=== PATIENT | female | born 1965 | race Caucasian/White ===

== ENCOUNTER 2023-03-21 12:11 | Outpatient (OUT) | payer OTHER, SELFPAY ==
--- NOTE | 2023-03-21 13:43 | PM.CN ---
Consult Note: HPI Data of Consult Patient: new to practice Consult date: 03/21/23 Requesting Physician: Regis Garrido MD Primary Care Provider: Varun Baumann MD Consult Narrative Reason for consult: Right knee pain Narrative: [id number] who presents for evaluation. Worsening right knee pain, ongoing for years. Underwent right meniscus surgery previously, but continued to have pain. Underwent right knee steroid injection with surgeon, but this did not provide relief. Referred here for consideration of right genicular nerve blocks. Continues in course of provider directed home exercise program, which has not provided relief for >6 weeks. Denies adverse med side effects. cc:: CC: Regis Garrido MD Review of Systems ROS Status of ROS 10 or more systems reviewed and unremarkable except as noted in history and below Exam Narrative Exam Narrative: Psych-alert and oriented x 3.? Attentive and appropriate, constitutionally normal, displays normal mood and affect per situation.? There are no obvious deficits in memory, reasoning, or intellect. Extremities-lower extremities are warm with minimal edema and palpable pulses. Knee-examination of the right knee reveals tenderness to palpation over the superior, inferior, lateral, and medial aspect of the knee.? Some swelling is noted without erythema. Pain is elicited with flexion and extension of the knee both actively and passively.? Some grinding is noted with these motions.? There is no notable ligamental laxity or instability.? Coordination remains intact.? Gait remains antalgic. Assessment and Plan Assessment and Plan (1) Right knee pain: Plan [id number] who presents for evaluation. Failed conservative measures, as noted. Given previous surgical history, persistent pain, and failure to respond to steroid injection, prudent to attempt right genicular nerve blocks under fluoroscopic guidance. she is in agreement. medications reviewed, no changes. follow up after procedure complete.
== END 2023-03-21 12:12 | disposition home or self-care (01) ==
PROVIDERS: PCP Family Medicine; Visit Provider Anesthesiology
DX: M25.561 Pain in right knee (principal)
CPT/HCPCS: G0463

== ENCOUNTER 2023-03-21 13:11 | Outpatient (OUT) | payer OTHER, SELFPAY ==
[2023-03-21 13:36] LABS: Basophils Percent Auto 0.6 % (0.2-2.0); Eosinophils Absolute Auto 0.1 10^3/uL (0.0-0.7); Eosinophils Percent Auto 1.6 % (0.9-7.0); Hematocrit 40.3 % (36.0-48.0); Hemoglobin 13.6 g/dL (12.0-16.0); Immature Granulocytes Abs Auto 0.06 10^3/uL (0.00-0.03); Immature Granulocytes Pct Auto 0.9 % (0.0-0.5); Lymphocytes Absolute Auto 2.1 10^3/uL (1.2-3.8); Lymphocytes Percent Auto 31.1 % (20.5-60.0); Mean Corpuscular HGB Conc 33.7 g/dL (29.9-35.2); Mean Corpuscular Hemoglobin 30.6 pg (26.7-34.0); Mean Corpuscular Volume 90.8 fL (81.0-99.0); Mean Platelet Volume 8.8 fL (9.5-13.5); Monocytes Absolute Auto 0.6 10^3/uL (0.3-0.8); Monocytes Percent Auto 9.2 % (1.7-12.0); Neutrophils Absolute Auto 3.9 10^3/uL (1.4-6.5); Neutrophils Percent Auto 56.6 % (43.0-75.0); Platelet Count 338 10^3/uL (150-450); Red Blood Count 4.44 10^6/uL (4.20-5.40); Red Cell Distribution Width 13.2 % (11.0-15.0); White Blood Count 6.8 10^3/uL (4.0-11.0)
[2023-03-21 13:56] LABS: Estimated Average Glucose 189 mg/dL; Glycohemoglobin A1C 8.2 % (4.5-6.2)
[2023-03-21 14:26] LABS: Alanine Aminotransferase 35 U/L (14-59); Albumin Globulin Ratio 1.4; Albumin Level 4.4 g/dL (3.4-5.0); Alkaline Phosphatase 96 U/L (46-116); Anion Gap 16.2; Aspartate Amino Transferase 17 U/L (15-37); BUN Creatinine Ratio 12.5; Bilirubin Total 0.6 mg/dL (0.2-1.0); Calcium 9.3 mg/dL (8.5-10.1); Carbon Dioxide 26.5 mmol/L (21.0-32.0); Chloride 102 mmol/L (98-107); Chol HDL Ratio 3.4; Cholesterol 161 mg/dL (<=200); Estimated GFR (African America >60 (>=60); Estimated GFR (Non-African Ame 54 (>=60); Globulin 3.1 g/dL; Glucose 168 mg/dL (74-106); HDL Cholesterol 47 mg/dL (40-60); Potassium 3.7 mmol/L (3.5-5.1); Sodium 141 mmol/L (136-145); Thyroid Stimulating Hormone 0.351 uIU/mL (0.358-3.740); Total Protein 7.5 g/dL (6.4-8.2); Triglycerides 327 mg/dL (<=150); VLDL CHOLESTEROL 65.4 mg/dL
== END 2023-03-21 13:12 | disposition home or self-care (01) ==
PROVIDERS: PCP Family Medicine; Visit Provider Family Medicine
DX: M25.561 Pain in right knee (principal); R53.83 Other fatigue; Z79.899 Other long term (current) drug therapy; E03.9 Hypothyroidism, unspecified; E78.5 Hyperlipidemia, unspecified; E78.1 Pure hyperglyceridemia; E11.9 Type 2 diabetes mellitus without complications
CPT/HCPCS: 36415; 80053; 80061; 83036; 84439; 84443; 85025; G0463

== ENCOUNTER 2023-04-04 09:15 | Day surgery (SDC) | payer OTHER, SELFPAY ==
[2023-04-04 10:00] VITALS: BP 123/84; PULSE 112; RESP 18; TEMP 36.3; O2SAT 95
[2023-04-04 10:00] LABS: Glucometer 227 mg/dL (74-106)
[2023-04-04 10:37] VITALS: BP 143/77; PULSE 112; RESP 18; O2SAT 92
[2023-04-04 10:39] VITALS: BP 149/82; PULSE 110; RESP 18; O2SAT 96
--- NOTE | 2023-04-04 10:39 | W.PM.PROCNOT ---
Date of procedure: 04/04/23 Pre-op diagnosis: Right knee osteoarthritis, right knee pain Post-op diagnosis: same as pre-op Procedure: Procedure: Right genicular nerve block Medications: Bupivacaine 0.25% 4cc, kenalog 40mg The patient was taken to the procedures suite and positioned in the supine position. I explained the details of the procedure to the patient including the risks, benefits and alternatives. We had an informed discussion and the patient verbalized understanding and signed the consent form. All questions were answered appropriately.? A 'time out' procedure was performed. The patient was identified, the chart was reviewed, and all allergies were confirmed. Laterality was conducted and marked. The right knee was marked with a sterile marking pen, prepped times three with alcohol, and sterilely draped.? Under fluoroscopic guidance, branches of the genicular nerves were localized.? First the superior medial genicular nerve was localized where the femoral shaft meets the medial epicondyle.? Skin was anesthetized with 1% lidocaine.? A 25-gauge 3.5 in needle was advanced in a coaxial manner in the AP view.? This was repeated on the superior lateral genicular nerve where the femoral shaft meets the lateral epicondyle and the inferior medial genicular nerve where the medial tibal shaft meets the tibial epicondyle. After negative aspiration for blood or other bodily fluids, 1cc of 0.25% bupivicaine was injected at each of the three sites. The needles were removed and the sites of injection were bandaged. The patient was transported to the postoperative area in good condition. Anesthesia: Local Surgeon: Regis Garrido Pathology: none sent Condition: stable Disposition: no change
[2023-04-04] MEDS: BUPIVACAINE HCL 0.25% PF 25 MG/10 ML VIAL 5 ML INJ (10:42)
[2023-04-04] MEDS: TRIAMCINOLONE ACETONIDE 40 MG/ML VIAL INJ (10:42)
== END 2023-04-04 10:43 | disposition home or self-care (01) ==
PROVIDERS: PCP Family Medicine; Visit Provider Anesthesiology
DX: M17.11 Unilateral primary osteoarthritis, right knee (principal); M25.561 Pain in right knee; Z79.84 Long term (current) use of oral hypoglycemic drugs
CPT/HCPCS: 36415; 64454; 77002; 82948

== ENCOUNTER 2023-04-14 09:37 | Outpatient (OUT) | payer OTHER, SELFPAY ==
--- OUTSIDE RECORDS SUMMARY | 2023-04-14 09:41 | XMS_ITS | CCD ---
Author Name Unknown Address [address] [place] [address] Organization [facility] Care Team Providers Care Manager Banquet Name Role Phone LENY, DR CASTRO Admitting Unavailable HOY, DR CASTRO Primary Care Unavailable HOY, DR CASTRO Consulting Unavailable HOY, DR CASTRO Attending Unavailable HOY, DR CASTRO Primary Care Unavailable HOY, DR CASTRO Consulting Unavailable HOY, DR CASTRO Attending Unavailable HOY, DR CASTRO Admitting Unavailable HOY, DR CASTRO Primary Care Unavailable HOY, DR CASTRO Consulting Unavailable HOY, DR CASTRO Attending Unavailable HOY, DR CASTRO Admitting Unavailable ZIEBER, DR MARBIN Moore Consulting Unavailable HOY, DR CASTRO Admitting Unavailable HOY, DR CASTRO Primary Care Unavailable HOY, DR CASTRO Consulting Unavailable HOY, DR CASTRO Attending Unavailable ZIEBER, DR MARBIN Moore Consulting Unavailable HOY, DR CASTRO Admitting Unavailable HOY, DR CASTRO Primary Care Unavailable HOY, DR CASTRO Consulting Unavailable HOY, DR CASTRO Attending Unavailable NILL, Bautista Moore Attending Unavailable Matthew Michele Referring Unavailable Radhika FIERRO, Regis Sheldon Attending Unavailable Radhika FIERRO, Regis Sheldon Attending Unavailable Allergies Allergy Classification Reported Allergen(s) Allergy Type Date of Onset Reaction(s) Facility (1 source) Codeine Drug Allergy 11-07-2014 [facility] Repository (1 source) Iodine (And Iodine Containting Drugs) Drug allergy (disorder) 10-02-2015 [facility] Repository (1 source) Shellfish Drug allergy (disorder) 11-07-2014 [facility] Repository Problems Active Problems Problem Classification Problem Date Documented Da te Episodic/Chronic Congestive heart failure; nonhypertensive (1 source) Unspecified diastolic (congestive) heart failure; Translations: [UNSPECIFIED DIASTOLIC HEART FAILURE] Onset: 08-14-2021 Chronic Essential hypertension (4 sources) Essential (primary) hypertension; Translations: [ESSENTIAL PRIMARY HYPERTENSION] Onset: 09-02-2021 Chronic Hypertension with complications and secondary hypertension (1 source) Hypertensive heart disease with heart failure; Translations: [HTN HEART DISEASE W/HEART FAIL] Onset: 08-14-2021 Chronic Thyroid disorders (5 sources) Hypothyroidism, unspecified; Translations: [HYPOTHYROIDISM UNSPECIFIED] Onset: 08-12-2021 Chronic Past or Other Problems Problem Classification Problem Date Documented Da te Episodic/Chronic Cardiac dysrhythmias (1 source) Palpitations; Translations: [PALPITATIONS] Onset: 09-08-2021 Episodic Deficiency and other anemia (1 source) Anemia, unspecified; Translations: [ANEMIA UNSPECIFIED] Onset: 08-14-2021 Episodic Malaise and fatigue (1 source) Other fatigue; Translations: [OTHER FATIGUE] Onset: 09-08-2021 Episodic Other screening for suspected conditions (not mental disorders or infectious disease) (4 sources) Encounter for screening mammogram for malignant neoplasm of breast; Translations: [ENC SCR MAMMO MALIG NEOPLASM BREAST] Onset: 11-17-2021 Episodic Residual codes; unclassified (1 source) Family history of malignant neoplasm of digestive organs; Translations: [FAM HX MALIG NEOPLASM DIGESTIV ORGN] Onset: 11-21-2021 Episodic Results Test Name Value Interpretation Reference Range Facility Physician Referralon 023 Physician Referral [id number] Normal [facility] INSULINon 03-04-2022 Insulin 9.8 uIU/mL Normal 2.6-24.9 [facility] Comment on above: Performed By: #### I NSULIN ####[facility] [address] [place] [address]DrPeg Silva CBC AUTO DIFFon 03-03-2022 BASO # 0.0 103/ul Normal 0.0-0.1 [facility] Comment on above: Performed By: #### C BC ####[facility] [address] [place] [address]DrPeg Silva Basophils/100 WBC (Bld) 0.6 % Normal 0.2-2.0 [facility] Comment on above: Performed By: #### C BC ####[facility] [address] [place], [place] [address]Dr. Lyndsey Silva EO # 0.1 103/ul Normal 0.0-0.7 [facility] Comment on above: Performed By: #### C BC ####[facility] [address] [place], [place] [address]Dr. Lyndsey Silva Eosinophils/100 WBC (Bld) 1.6 % Normal 0.9-7.0 [facility] Comment on above: Performed By: #### C BC ####[facility] [address] [place], [place] [address]Dr. Lyndsey Silva Erythrocyte distribution width (RBC) [Ratio] 13.2 % Normal 11.0-15.0 [facility] Comment on above: Performed By: #### C BC ####[facility] [address] [place], [place] [address]Dr. Lyndsey Silva Hematocrit (Bld) [Volume fraction] 41.8 % Normal 36.0-48.0 [facility] Comment on above: Performed By: #### C BC ####[facility] [address] [place], [place] [address]Dr. Lyndsey Silva Hemoglobin (Bld) [Mass/Vol] 14.3 g/dL Normal 12.0-16.0 [facility] Comment on above: Performed By: #### C BC ####[facility] [address] [place], [place] [address]Dr. Coriyamil Ricardo IG # 0.04 10e3/ul Critically high 0.00-0.03 [facility] Comment on above: Performed By: #### C BC ####[facility] [address] [place], [place] [address]Dr. Lyndsey Silva IG % 0.8 % Critically high 0.0-0.5 [facility] Comment on above: Performed By: #### C BC ####[facility] [address] [place], [place] [address]DrPeg Silva LYMPH # 1.8 103/ul Normal 1.2-3.8 [facility] Comment on above: Performed By: #### C BC ####[facility] [address] [place] [address]DrPeg Silva Lymphocytes/100 WBC (Bld) 35.3 % Normal 20.5-60.0 [facility] Comment on above: Performed By: #### C BC ####[facility] [address] [place] [address]DrPeg Silva MANUAL DIFF REQ NO Normal [facility] Comment on above: Performed By: #### C BC ####[facility] [address] [place] [address]DrPeg Silva MCH (RBC) [Entitic mass] 31.2 pg Normal 26.7-34.0 [facility] Comment on above: Performed By: #### C BC ####[facility] [address] [place], [place] [address]DrPeg Silva MCHC (RBC) [Mass/Vol] 34.2 g/dL Normal 29.9-35.2 [facility] Comment on above: Performed By: #### C BC ####[facility] [address] [place], [place] [address]DrPeg Silva MCV (RBC) [Entitic vol] 91.3 fL Normal 81.0-99.0 [facility] Comment on above: Performed By: #### C BC ####[facility] [address] [place], [place] [address]DrPeg Silva MONO # 0.5 103/ul Normal 0.3-0.8 [facility] Comment on above: Performed By: #### C BC ####[facility] [address] [place], [place] [address]DrPeg Silva Monocytes/100 WBC (Bld) 9.8 % Normal 1.7-12.0 [facility] Comment on above: Performed By: #### C BC ####[facility] [address] [place], [place] [address]DrPeg Silva NEUT # 2.6 103/ul Normal 1.4-6.5 [facility] Comment on above: Performed By: #### C BC ####[facility] [address] [place] [id number] Lyndsey Silva Neutrophils/100 WBC (Bld) 51.9 % Normal 43.0-75.0 [facility] Comment on above: Performed By: #### C BC ####[facility] [address] [place] [address]DrPeg Lyndsey Silva Platelet mean volume (Bld) [Entitic vol] 8.8 fL Critically low 9.5-13.5 [facility] Comment on above: Performed By: #### C BC ####[facility] [address] [place] [address]DrPeg yLndsey Silva PLT 304 103/ul Normal 150-450 [facility] Comment on above: Performed By: #### C BC ####[facility] [address] [place], [place] [address]DrPeg Lyndsey Silva RBC 4.58 106/ul Normal 4.20-5.40 [facility] Comment on above: Performed By: #### C BC ####[facility] [address] [place], [place] [address]DrPeg Lyndsey Silva WBC 5.0 103/ul Normal 4.0-11.0 [facility] Comment on above: Performed By: #### C BC ####[facility] [address] [place] [id number] Lyndsey Silva FREE THYROXINE INDEX T7on FTI 1.77 Normal 1.30-4.50 [facility] Comment on above: Performed By: #### L IPID, CMP, TSH, T7 ####[facility] [address] [place] [id number] Lyndsey Silva T3U 31.0 % Normal 30.0-39.0 [facility] Comment on above: Performed By: #### L IPID, CMP, TSH, T7 ####[facility] [address] [place] [address]Dr. Lyndsey Silva T4 [Mass/Vol] 5.70 ug/dL Normal 4.80-13.[address] [facility] Comment on above: Performed By: #### L IPID, CMP, TSH, T7 ####[facility] [address] [place], [place] [address]RdDr. Lyndsey Silva GLYCOHEMOGLOBIN A1Con 2021 ADA RECOMMENDATION SEE BELOW Normal [facility] Comment on above: Result Comment: ADA RECOMMENDED LIMIT 4.0 - 6.0 ADA THERAPEUTIC TARGET < 7.0 ACTION SUGGESTED > 7.0 Performed By: #### A 1C #### [facility] [address] [address] [address] Lyndsey Silva Glucose [Mass/Vol] 146 mg/dL Normal [facility] Comment on above: Performed By: #### A 1C #### [facility] [address] [address] [address] Lyndsey Silva HbA1c (Bld) [Mass fraction] 6.7 % Critically high 4.5-6.2 [facility] Comment on above: Performed By: #### A 1C #### [facility] [address] [address] [address] Lyndsey Silva IRONon 03-03-2022 Iron [Mass/Vol] 122.0 ug/dL Normal 50.0-170.0 [facility] Comment on above: Performed By: #### V ITB12, IRON, VITAD ####[facility] [address] [place] [address]Dr. Lyndsey Silva LIPID PROFILEon 03-03-2022 CHOL-HDL RATIO NORM SEE BELOW Normal [facility] Comment on above: Result Comment: 3.3 - 4.4 LOW RISK 4.4 - 7.1 AVERAGE RISK 7.1 - 11.0 MODERATE RISK >11.0 HIGH RISK Performed By: #### L IPID, CMP, TSH, T7 ####[facility] [address] [place], [place] [address]IqDr. Lyndsey Silva Cholesterol [Mass/Vol] 244 mg/dL Critically high <=200 [facility] Comment on above: Performed By: #### L IPID, CMP, TSH, T7 ####[facility] [address] [place], [place] [address]Dz. yLndsey Ricardo Cholesterol in HDL [Mass/Vol] 48 mg/dL Normal 40-60 [facility] Comment on above: Performed By: #### L IPID, CMP, TSH, T7 ####[facility] [address] [place], [place] [address]Yr. Lyndsey Ricardo Cholesterol in LDL [Mass/Vol] 133.0 mg/dL Normal [facility] Comment on above: Performed By: #### L IPID, CMP, TSH, T7 ####[facility] [address] [place] [id number]. Lyndsey Silva Cholesterol.total/Cho lesterol in HDL [Mass ratio] 5.1 {ratio} Normal [facility] Comment on above: Performed By: #### L IPID, CMP, TSH, T7 ####[facility] [address] [place] [id number]. Lyndsey Silva HDL NORMAL > or = 60 mg/dl - LO W CARDIOVASCULAR RISK <40 mg/dl - HIGH CARDIOVASCULAR RISK Normal [facility] Comment on above: Performed By: #### L IPID, CMP, TSH, T7 ####[facility] [address] [place] [id number]. Lyndsey Silva LDL CALC NORMAL SEE BELOW Normal [facility] Comment on above: Result Comment: <100 mg/dl OPTIMAL 100 - 129 mg/dl NEAR OR ABOVE OPTIMAL 130 - 159 mg/dl BORDERLINE HIGH 160 - 189 mg/dl HIGH >190 mg/dl VERY HIGH Performed By: #### L IPID, CMP, TSH, T7 ####[facility] [address] [place], [place] [address]Yf. Lyndsey Silva Triglyceride [Mass/Vol] 315 mg/dL Critically high <=150 [facility] Comment on above: Performed By: #### L IPID, CMP, TSH, T7 ####[facility] [address] [place] [address]Dr. Lyndsey Silva VLDL CALC 63.0 mg/dL Normal [facility] Comment on above: Performed By: #### L IPID, CMP, TSH, T7 ####[facility] [address] [place] [address]Dr. Lyndsey Silva PROF 14(COMP METB)on 022 Albumin [Mass/Vol] 4.6 g/dL Normal 3.4-5.0 [facility] Comment on above: Performed By: #### L IPID, CMP, TSH, T7 ####[facility] [address] [place] [address]Dr. Lyndsey Silva Albumin/Globulin [Mass ratio] 1.2 {ratio} Normal [facility] Comment on above: Performed By: #### L IPID, CMP, TSH, T7 ####[facility] [address] [place], [place] [address]Dr. Lyndsey Silva ALP [Catalytic activity/Vol] 79 U/L Normal 46-116 [facility] Comment on above: Performed By: #### L IPID, CMP, TSH, T7 ####[facility] [address] [place], [place] [address]Dr. Lyndsey Silva ALT [Catalytic activity/Vol] 26 U/L Normal 14-59 [facility] Comment on above: Performed By: #### L IPID, CMP, TSH, T7 ####[facility] [address] [place] [address]Dr. Lyndsey Silva Anion gap [Moles/Vol] 11.1 mmol/L Normal [facility] Comment on above: Performed By: #### L IPID, CMP, TSH, T7 ####[facility] [address] [place] [address]Dr. Lyndsey Silva AST [Catalytic activity/Vol] 16 U/L Normal 15-37 [facility] Comment on above: Performed By: #### L IPID, CMP, TSH, T7 ####[facility] [address] [place] [address]Dr. Lyndsey Silva Bilirubin [Mass/Vol] 0.6 mg/dL Normal 0.2-1.0 [facility] Comment on above: Performed By: #### L IPID, CMP, TSH, T7 ####[facility] [address] [place] [id number]. Lyndsey Silva Calcium [Mass/Vol] 9.7 mg/dL Normal 8.5-10.1 [facility] Comment on above: Performed By: #### L IPID, CMP, TSH, T7 ####[facility] [address] [place] [address]Dr. Lyndsey Silva Chloride [Moles/Vol] 102 mmol/L Normal 98-107 [facility] Comment on above: Performed By: #### L IPID, CMP, TSH, T7 ####[facility] [address] [place] [address]Dr. Lyndsey Silva CO2 [Moles/Vol] 28.7 mmol/L Normal 21.0-32.0 [facility] Comment on above: Performed By: #### L IPID, CMP, TSH, T7 ####[facility] [address] [place] [address]Dr. Lyndsey Ricardo Creatinine [Mass/Vol] 1.02 mg/dL Normal 0.55-1.02 [facility] Comment on above: Performed By: #### L IPID, CMP, TSH, T7 ####[facility] [address] [place], [place] [address]Dr. Coriyamil Ricardo EGFR-AF GERMAN >60 Normal >=60 [facility] Comment on above: Performed By: #### L IPID, CMP, TSH, T7 ####[facility] [address] [place] [address]Dr. Coriyamil Ricardo EGFR-NON AF GERMAN 56 mL/min/1.73m2 Critically low >=60 [facility] Comment on above: Performed By: #### L IPID, CMP, TSH, T7 ####[facility] [address] [place], [place] [address]Dr. Lyndsey Silva Globulin (S) [Mass/Vol] 3.9 g/dL Normal [facility] Comment on above: Performed By: #### L IPID, CMP, TSH, T7 ####[facility] [address] [place] [address]Dr. Lyndsey Silva Glucose [Mass/Vol] 130 mg/dL Critically high 74-106 [facility] Comment on above: Performed By: #### L IPID, CMP, TSH, T7 ####[facility] [address] [place] [address]Dr. Lyndsey Silva Potassium [Moles/Vol] 3.8 mmol/L Normal 3.5-5.1 [facility] Comment on above: Performed By: #### L IPID, CMP, TSH, T7 ####[facility] [address] [place] [address]Dr. Lyndsey Silva Protein [Mass/Vol] 8.5 g/dL Critically high 6.4-8.2 [facility] Comment on above: Performed By: #### L IPID, CMP, TSH, T7 ####[facility] [address] [place] [address]Dr. Lyndsey Silva Sodium [Moles/Vol] 138 mmol/L Normal 136-145 [facility] Comment on above: Performed By: #### L IPID, CMP, TSH, T7 ####[facility] [address] [place] [address]Dr. Lyndsey Silva Urea nitrogen [Mass/Vol] 25.0 mg/dL Critically high 7.0-18.0 [facility] Comment on above: Performed By: #### L IPID, CMP, TSH, T7 ####[facility] [address] [place] [address]Dr. Lyndsey Silva Urea nitrogen/Creatinine [Mass ratio] 24.5 mg/mg Normal [facility] Comment on above: Performed By: #### L IPID, CMP, TSH, T7 ####[facility] [address] [place] [address]Dr. Lyndsey Silva TSHon 03-03-2022 TSH 0.126 uIU/mL Critically low 0.358-3.740 [facility] Comment on above: Performed By: #### L IPID, CMP, TSH, T7 ####[facility] [address] [place] [address]Dr. Lyndsey Silva VITAMIN B12on 03-03-2022 Cobalamin (Vitamin B12) [Mass/Vol] 894.0 pg/mL Normal 193.0-986.0 [facility] Comment on above: Performed By: #### V ITB12, IRON, VITAD ####[facility] [address] [place], [place] [address]Lq. Lyndsey Silva VITAMIN D 25 OHon 03-03-2022 VIT D 25-OH 30.1 ng/mL Normal [facility] Comment on above: Performed By: #### V ITB12, IRON, VITAD ####[facility] [address] [place], [place] [address]Br. Lyndsey Silva VIT D RANGES SEE BELOW Normal [facility] Comment on above: Result Comment: <20 ng/mL Vit D deficient 20 - <30 ng/mL Vit D insufficient 30 - 100 ng/mL Vit D sufficient >100 ng/mL Potential Toxicity Performed By: #### V ITB12, IRON, VITAD ####[facility] [address] [place] [id number]. Lyndsey Silva MG MAMM SCREEN 3D LEILANI CADon 11-17-2021 MG MAMM SCREEN 3D LEILANI CAD Patient: ISA NEAL Exam Date: 11/17/2021 : 1965 Gender:F Ordering : DR MATTHEW MICHELE . Admission #: [id number] Family : Order #: [id number] CLICK HERE TO VIEW EXAM RADIOLOGY REPORT PROCEDURE: MAMMOGRAM SCREENING 3D BILATERAL CAD COMPARISON: MG MAMM SCREEN LEILANI W CAD, 01/18/2020. MG MAMM SCREEN LEILANI W CAD, 01/02/2019. INDICATIONS: Screening mammography Calculator Name NCI Breast Cancer Risk Assessment Tool 5 Year Breast Cancer Risk 2.10% Lifetime Breast Cancer Risk 12.80% Personal Breast Cancer No Personal Ovarian Cancer No Treatments None Family Cancers Mother with colon cancer at age 60. LOCATION: [facility] BREAST COMPOSITION: Heterogeneously dense,which may obscure small masses. FINDINGS: DIAGNOSTIC CATEGORY 2--BENIGN FINDING: RIGHT BREAST: No significant suspicious finding. Scattered benign-appearing calcifications are present. No significant change has occurred. LEFT BREAST: No significant suspicious finding. Scattered benign-appearing calcifications are present. No significant change has occurred. RECOMMENDATIONS: ROUTINE MAMMOGRAM AND CLINICAL EVALUATION IN 12 MONTHS. PLEASE NOTE: A NORMAL MAMMOGRAM DOES NOT EXCLUDE THE POSSIBILITY OF BREAST CANCER. A CLINICALLY SUSPICIOUS PALPABLE LUMP SHOULD BE BIOPSIED. Dictated by: Marbin Hansen M.D. on 11/17/2021 at 15:33 Approved by: Marbin Hansen M.D. on 11/17/2021 at 15:36 Normal [facility] STRESS/REST MULTIon 09-02 NM STRESS/REST MULTI Patient: ISA NEAL Exam Date: 09/02/2021 : 1965 Gender:F Ordering : DR MATTHEW MICHELE . Admission #: [id number] Family : Order #: [id number] CLICK HERE TO VIEW EXAM RADIOLOGY REPORT PROCEDURE: RADIONUCLIDE IMAGING STRESS/REST MULTI COMPARISON: LA STRESS/REST MULTI, 01/30/2016. INDICATIONS: Essential hypertension TECHNIQUE: Exam Description: Stress/Rest one day protocol gated SPECT Rest Imagin.1 mCi Tc-99m Cardiolite IV on 09/02/2021 Stress Imaging 30.7 mCi Tc-99m Cardiolite IV on 09/02/2021 Exercise Protocol: Paul Heart Rate (bpm): Rest: 92 Max: 162 PMHR: 99 Blood Pressure: Rest: 128/76 Max: 178/84 Exercise Time: Minutes: 6 Seconds: 01 Stage Reached: Stage: 2 Mets 7.2 Symptoms: none Rest and peak stress ECG findings were normal and the exercise portion of the study was normal per attending physician Dr. Cody . For more details please see separate cardiac stress test report. FINDINGS: QUALITY OF STUDY: Excellent. PERFUSION DEFECT: None. LOCATION: N/A SIZE: N/A. SEVERITY: N/A. TYPE: N/A. WALL MOTION: Normal. LV SIZE: Normal. 31 mL. TID / TCD: None; 0.5 LVEF: Normal. Calculated EF 92%. SUMMARY: Myocardial perfusion imaging study is NORMAL. CONCLUSION: 1. Normal nuclear medicine myocardial perfusion scan. Dictated by: Marbin Hansen M.D. on 09/02/2021 at 14:06 Approved by: Marbin Hansen M.D. on 09/02/2021 at 14:07 Normal [facility] ECHOCARDIO M/2D COMPLETEon 0 08-19-2021 ECHOCARDIO M/2D COMPLETE Patient: ISA NEAL Exam Date: 08/19/2021 : 1965 Gender:F Ordering : DR MATTHEW MICHELE . Admission #: [id number] Family : Order #: [id number] CLICK HERE TO VIEW EXAM ECHOCARDIOGRAM REPORT PROCEDURE: CARDIO PULMONARY ECHOCARDIO M/2D COMP INDICATIONS: Fatigue, hypertension COMPARISON: None. DESCRIPTION: COMPLETE ECHOCARDIOGRAM Real-time transthoracic echocardiography with 2D, M-mode, spectral and color flow Doppler performed. QUALITY: Technical quality was good. LEFT VENTRICLE: Normal chamber size. Proximal septal hypertrophy (sigmoid septum). Systolic function is hyperdynamic. Mildly increased intraventricular ejection velocities are seen related to hyperdynamic contractility. LV EF: Hyperdynamic left ventricular ejection fraction, (75%). DIASTOLIC: Diastolic function is indeterminate. ATRIAL SEPTUM: Visually appears intact. LEFT ATRIUM: Normal chamber size. RIGHT ATRIUM: Normal chamber size. RIGHT VENTRICLE: Normal chamber size. Normal right ventricular systolic function. TRICUSPID VALVE: Normal mobility and thickness. No stenosis with trivial regurgitation. MITRAL VALVE: Normal mobility and thickness. No evidence of mitral valve stenosis. There is no mitral annular calcification. No mitral regurgitation. AORTIC VALVE: Normal trileaflet appearance. No visible sclerosis. Normal leaflet mobility. No evidence of aortic valve stenosis. No aortic regurgitation. AORTIC ROOT: Normal diameter and appearance. Ascending aorta is normal in size. PULMONIC VALVE: Normal thickness and mobility. No stenosis. No regurgitation. PERICARDIUM: No evidence of pericardial effusion. IVC: Collapses with inspirations. PLEURA: CONCLUSION: 1. Left ventricular systolic function is hyperdynamic. LVEF is 75%. There is mild hypertrophy of the proximal interventricular septum with mildly increased intraventricular ejection velocities related to hyperdynamic contractility. 2. Normal right ventricular systolic function. 3. No significant valvular dysfunction. 4. No pericardial effusion. Adult Echocardiography Procedure Report Left Ventricle LVEDD (3.7 - 5.6 cm): 3.86 cm LVESD (2.2 - 4.0 cm): 1.84 cm LVIVS thickness (0.6 - 1.2 cm): 1.28 cm LVPW thickness (0.5 - 1.0 cm): 8.13 mm e': 10.40 cm/s E - e': 7.10 LVOT Area (cm2): 2.84 cm2 LVOT Diameter 1.90 cm Left Ventricular Ejection Fraction: 75 % Left Atrium LA Volume Index (2D A2C): 25.40 ml/m2 Left Atrium Systolic Dimension: 3.70 cm Left Atrium Systolic Area(A2C): 17.90 cm2 Left Atrium Systolic Area(A4C): 12.60 cm2 Left Atrium Systolic Volume(A2C): 08396 mm3 Left Atrium Systolic Volume(A4C): 65594 mm3 Mitral Valve MV E to A Ratio: 0.60 Mitral Valve A-Wave Peak Velocity: 115.00 cm/s Mitral Valve E-Wave Peak Velocity: 73.50 cm/s Right Ventricle Aorta AO Root Diam: 2.80 cm Aortic Valve AoV Area (Peak Arun): 2.14 cm2 Peak Velocity(Antegrade Flow): 134.00 cm/s Peak Gradient(Antegrade Flow): 7 mm[Hg] Tricuspid Valve Pulmonic Valve Peak Velocity: 119.00 cm/s Peak Gradient: 6 mm[Hg] Right Atrium Dictated by: John Ramon M.D. on 08/19/2021 at 17:22 Approved by: John Ramon M.D. on 08/19/2021 at 17:27 Normal [facility] BNPon 08-12-2021 Natriuretic peptide B (Bld) [Mass/Vol] 58.0 pg/mL Normal <=900.0 [facility] Comment on above: Performed By: #### B [employer], TSH, T7, CMP #### [facility] [address] [address] [address] Lyndsey Silva CBC AUTO DIFFon 08-12-2021 BASO # 0.1 103/ul Normal 0.0-0.1 [facility] Comment on above: Performed By: #### C BC #### [facility] [address] [address] [address] Lyndsey Silva Basophils/100 WBC (Bld) 0.4 % Normal 0.2-2.0 [facility] Comment on above: Performed By: #### C BC #### [facility] [address] [address] [address] Lyndsey Silva EO # 0.1 103/ul Normal 0.0-0.7 [facility] Comment on above: Performed By: #### C BC #### [facility] [address] [place] [address] Dr. Lyndsey Silva Eosinophils/100 WBC (Bld) 0.6 % Critically low 0.9-7.0 [facility] Comment on above: Performed By: #### C BC #### [facility] [address] [place] [address] Dr. Lyndsey Silva Erythrocyte distribution width (RBC) [Ratio] 13.6 % Normal 11.0-15.0 [facility] Comment on above: Performed By: #### C BC #### [facility] [address] [place] [address] Dr. Lyndsey Silva Hematocrit (Bld) [Volume fraction] 42.4 % Normal 36.0-48.0 [facility] Comment on above: Performed By: #### C BC #### [facility] [address] [place] [address] Dr. Lyndsey Silva Hemoglobin (Bld) [Mass/Vol] 14.3 g/dL Normal 12.0-16.0 [facility] Comment on above: Performed By: #### C BC #### [facility] [address] [place] [address] Dr. Lyndsey Silva IG # 0.17 10e3/ul Critically high 0.00-0.03 [facility] Comment on above: Performed By: #### C BC #### [facility] [address] [place] [address] Dr. Lyndsey Silva IG % 1.4 % Critically high 0.0-0.5 [facility] Comment on above: Performed By: #### C BC #### [facility] [address] [place] [address] Dr. Lyndsey Silva LYMPH # 2.6 103/ul Normal 1.2-3.8 [facility] Comment on above: Performed By: #### C BC #### [facility] [address] [place] [address] Dr. Lyndsey Silva Lymphocytes/100 WBC (Bld) 21.6 % Normal 20.5-60.0 [facility] Comment on above: Performed By: #### C BC #### [facility] [address] [place] [address] Dr. Lyndsey Silva MANUAL DIFF REQ NO Normal [facility] Comment on above: Performed By: #### C BC #### [facility] [address] [place] [address] Dr. Lyndsey Silva MCH (RBC) [Entitic mass] 31.5 pg Normal 26.7-34.0 [facility] Comment on above: Performed By: #### C BC #### [facility] [address] [place] [address] Dr. Lyndsey Silva MCHC (RBC) [Mass/Vol] 33.7 g/dL Normal 29.9-35.2 [facility] Comment on above: Performed By: #### C BC #### [facility] [address] [place] [address] Dr. Lyndsey Silva MCV (RBC) [Entitic vol] 93.4 fL Normal 81.0-99.0 [facility] Comment on above: Performed By: #### C BC #### [facility] [address] [place] [address] Dr. Lyndsey Silva MONO # 0.8 103/ul Normal 0.3-0.8 [facility] Comment on above: Performed By: #### C BC #### [facility] [address] [place] [address] Dr. Lyndsey Silva Monocytes/100 WBC (Bld) 6.9 % Normal 1.7-12.0 [facility] Comment on above: Performed By: #### C BC #### [facility] [address] [place] [address] Dr. Lyndsey Silva NEUT # 8.2 103/ul Critically high 1.4-6.5 [facility] Comment on above: Performed By: #### C BC #### [facility] [address] [place] [address] Dr. Lyndsey Silva Neutrophils/100 WBC (Bld) 69.1 % Normal 43.0-75.0 [facility] Comment on above: Performed By: #### C BC #### [facility] [address] [address] [address] Lyndsey Silva Platelet mean volume (Bld) [Entitic vol] 8.8 fL Critically low 9.5-13.5 [facility] Comment on above: Performed By: #### C BC #### [facility] [address] [address] [address] Lyndsey Silva PLT 341 103/ul Normal 150-450 [facility] Comment on above: Performed By: #### C BC #### [facility] [address] [address] [address] Lyndsey Silva RBC 4.54 106/ul Normal 4.20-5.40 [facility] Comment on above: Performed By: #### C BC #### [facility] [address] [place] [address] Dr. Lyndsey Silva WBC 11.9 103/ul Critically high 4.0-11.0 [facility] Comment on above: Performed By: #### C BC #### [facility] [address] [place] [address] Dr. Lyndsey Silva FREE THYROXINE INDEX T7on FTI 1.40 Normal [facility] Comment on above: Performed By: #### B [employer], TSH, T7, CMP #### [facility] [address] [place] [address] Dr. Lyndsey Silva T3U 31.0 % Normal 23.5-40.5 [facility] Comment on above: Performed By: #### [employer], TSH, T7, CMP #### [facility] [address] [address] [address] Lyndsey Silva T4 [Mass/Vol] 4.50 ug/dL Critically low 4.80-13.90 [facility] Comment on above: Performed By: #### [employer], TSH, T7, CMP #### [facility] [address] [address] [address] Lyndsey Silva IRONon 08-12-2021 Iron [Mass/Vol] 106.0 ug/dL Normal 50.0-170.0 [facility] Comment on above: Performed By: #### I STERLING #### [facility] [address] [place] [address] Dr. Lyndsey Silva PROF 14(COMP METB)on 022 Albumin [Mass/Vol] 5.0 g/dL Normal 3.4-5.0 [facility] Comment on above: Performed By: #### [employer], TSH, T7, CMP #### [facility] [address] [place] [address] Dr. Lyndsey Silva Albumin/Globulin [Mass ratio] 1.4 {ratio} Normal [facility] Comment on above: Performed By: #### [employer], TSH, T7, CMP #### [facility] [address] [place] [address] Dr. Lyndsey Silva ALP [Catalytic activity/Vol] 72 U/L Normal 46-116 [facility] Comment on above: Performed By: #### [employer], TSH, T7, CMP #### [facility] [address] [place] [address] Dr. Lyndsey Silva ALT [Catalytic activity/Vol] 35 U/L Normal 14-59 [facility] Comment on above: Performed By: #### [employer], TSH, T7, CMP #### [facility] [address] [place] [address] Dr. Lyndsey Silva Anion gap [Moles/Vol] 17.5 mmol/L Normal [facility] Comment on above: Performed By: #### [employer], TSH, T7, CMP #### [facility] [address] [place] [address] Dr. Lyndsey Silva AST [Catalytic activity/Vol] 20 U/L Normal 15-37 [facility] Comment on above: Performed By: #### [employer], TSH, T7, CMP #### [facility] [address] [place] [address] Dr. Lyndsey Silva Bilirubin [Mass/Vol] 1.2 mg/dL Critically high 0.2-1.0 [facility] Comment on above: Performed By: #### [employer], TSH, T7, CMP #### [facility] [address] [address] [address] Lyndsey Silva Calcium [Mass/Vol] 9.5 mg/dL Normal 8.5-10.1 [facility] Comment on above: Performed By: #### [employer], TSH, T7, CMP #### [facility] [address] [address] [address] Lyndsey Silva Chloride [Moles/Vol] 98 mmol/L Normal 98-107 [facility] Comment on above: Performed By: #### [employer], TSH, T7, CMP #### [facility] [address] [address] [address] Lyndsey Silva CO2 [Moles/Vol] 25.0 mmol/L Normal 21.0-32.0 [facility] Comment on above: Performed By: #### [employer], TSH, T7, CMP #### [facility] [address] [place] [address] Dr. Lyndsey Silva Creatinine [Mass/Vol] 1.17 mg/dL Critically high 0.55-1.02 [facility] Comment on above: Performed By: #### [employer], TSH, T7, CMP #### [facility] [address] [address] [address] Lyndsey Silva EGFR-AF GERMAN 58 mL/min/1.73m2 Critically low >=60 [facility] Comment on above: Performed By: #### [employer], TSH, T7, CMP #### [facility] [address] [place] [address] Dr. Lyndsey Silva EGFR-NON AF GERMAN 48 mL/min/1.73m2 Critically low >=60 [facility] Comment on above: Performed By: #### B [employer], TSH, T7, CMP #### [facility] [address] [address] [address] Lyndsey Silva Globulin (S) [Mass/Vol] 3.6 g/dL Normal [facility] Comment on above: Performed By: #### B [employer], TSH, T7, CMP #### [facility] [address] [address] [address] Lyndsey Silva Glucose [Mass/Vol] 123 mg/dL Critically high 74-106 [facility] Comment on above: Performed By: #### B [employer], TSH, T7, CMP #### [facility] [address] [place] [address] Dr. Lyndsey Silva Potassium [Moles/Vol] 4.5 mmol/L Normal 3.5-5.1 [facility] Comment on above: Performed By: #### [employer], TSH, T7, CMP #### [facility] [address] [place] [address] Dr. Lyndsey Silva Protein [Mass/Vol] 8.6 g/dL Critically high 6.1-8.2 [facility] Comment on above: Performed By: #### B [employer], TSH, T7, CMP #### [facility] [address] [place] [address] Dr. Lyndsey Silva Sodium [Moles/Vol] 136 mmol/L Normal 136-145 [facility] Comment on above: Performed By: #### B [employer], TSH, T7, CMP #### [facility] [address] [place] [address] Dr. Lyndsey Silva Urea nitrogen [Mass/Vol] 12.0 mg/dL Normal 7.0-18.0 [facility] Comment on above: Performed By: #### B [employer], TSH, T7, CMP #### [facility] [address] [place] [address] Dr. Lyndsey Silva Urea nitrogen/Creatinine [Mass ratio] 10.3 mg/mg Normal [facility] Comment on above: Performed By: #### B [employer], TSH, T7, CMP #### [facility] [address] [place] [address] Dr. Lyndsey Silva TSHon 08-12-2021 TSH 1.149 uIU/mL Normal 0.470-4.[address] [facility] Comment on above: Performed By: #### B [employer], TSH, T7, CMP #### [facility] [address] [place] [address] Dr. Lyndsey Silva TSH RANGE SEE BELOW Normal [facility] Comment on above: Result Comment: <0.3 4 UIU/ml HYPERTHYROID 0.34-5.60 UIU/ml EUTHYROID >5.60 UIU/ml HYPOTHYROID Performed By: #### B [employer], TSH, T7, CMP #### [facility] [address] [place], [place] [id number] Dr. Lyndsey Silva Encounters Encounter Date Encounter Type Care Provider Facility Start: 05-04-2023 ambulatory Bautista CRISTINA Facility :[facility] Start: 04-04-2023 End: 04-05-2023 ambulatory Regis Garrido MD Facility:[facility] Start: 03-25-2023 ambulatory Bautista CRISTINA Facility:[facility] Start: 03-21-2023 End: 03-22-2023 ambulatory Regis Garrido MD Facility:[facility] Start: 03-08-2023 ambulatory Bautista CRISTINA Facility:[facility] [place] Start: 03-06-2022 Encounter for genera l adult medical examination without abnormal findings DR MATTHEW MICHELE [facility] Start: 03-03-2022 End: 03-04-[address] MATTHEW MICHELE Facility:[facility] Start: 03-03-2022 End: 03-04-2022 Encounter for general adult medical examination without abnormal findings DR MATTHEW MICHELE Facility:[facility] Start: 11-17-2021 End: 11-18-[address] MATTHEW MICHELE Facility:[facility] Start: 09-02-2021 End: 09-03-[address] MATTHEW MICHELE Facility:[facility] Start: 08-19-2021 End: 08-20-[address] MATTHEW MICHELE Facility:[facility] Start: 08-12-2021 End: 08-13-[address] MATTHEW MICHELE Facility:[facility] Payers Date Payer Category Payer Unknown 1965 Unknown [id number] 1965 Unknown [id number] 1965 Unknown [id number] 1964 Unknown [id number] 2.16.84 [id number] 1964 Unknown [id number] 2.16.84 [id number] 1964 Unknown [id number] 2.16.8 [id number] 1964 Unknown [id number] 2.16. [id number] 1964 Unknown [id number] 2.16. [id number] 1959 Unknown [id number] Summary Purpose Family History No Family History Records FoundNo Family History Records FoundNo Family History Records Found Advance Directives No Advanced Directives Records FoundNo Advanced Directives Records FoundNo Advanced Directives Records Found Additional Source Comments INFORMATION SOURCE (unrecogn ized section and content) DATE CREATED AUTHOR 03/06/2022 Zainab [facility] DATE CREATED AUTHOR AUTHOR'S ORGANIZ ATION 03/28/2023 [facility] DATE CREATED AUTHOR AUTHOR'S ORGANIZ ATION 04/08/2023 [facility] FOR RECORDS PERTAINING TO PATIENTS WHO ARE OR HAVE BEEN ENROLLED IN A CHEMICAL DEPENDENCY/SUBSTANCEABUSE PROGRAM, SOME INFORMATION MAY BE OMITTED. This clinical summary was aggregated from multiple sources. Caution should be exercised in using it in the provision of clinical care. This summary normalizes information from multiple sources, and as a consequence, information in this document may materially change the coding, format and clinical context of patient data. In addition, data may be omitted in some cases. CLINICAL DECISIONS SHOULD BE BASED ON THE PRIMARY CLINICAL RECORDS. [facility] [employer]. provides no warranty or guarantee of the accuracy or completeness of information in this document.
--- NOTE | 2023-04-14 10:05 | PM.CN ---
Consult Note: HPI Data of Consult Patient: new to practice Consult date: 03/21/23 Requesting Physician: Ashley Montes NP Primary Care Provider: Varun Baumann MD Consult Narrative Reason for consult: Right knee pain Narrative: [id number] who presents for evaluation. Worsening right knee pain, ongoing for years. Underwent right meniscus surgery previously, but continued to have pain. Underwent right knee steroid injection with surgeon, but this did not provide relief. Referred here for consideration of right genicular nerve blocks. Continues in course of provider directed home exercise program, which has not provided relief for >6 weeks. Denies adverse med side effects. right genicular nerve block provided 50% pain relief and functional improvement immediately following and 1-2 hours after the procedure. cc:: CC: Ashley Montes NP Review of Systems ROS Status of ROS 10 or more systems reviewed and unremarkable except as noted in history and below Musculoskeletal Reports: joint pain Meds Home Medications and Allergies Home Medications Medication Instructions Recorded Confirmed Type aspirin 81 mg capsule 81 mg PO DAILY 03/21/23 04/04/23 History atorvastatin 80 mg tablet 80 mg PO DAILY 03/21/23 04/04/23 History calcium carbonate 600 mg-vitamin 1 tab PO DAILY 03/21/23 04/04/23 History D3 5 mcg (200 unit) tablet (Calcium 600 + D(3)) cholecalciferol (vitamin D3) 125 5,000 unit PO DAILY 03/21/23 04/04/23 History mcg (5,000 unit) capsule colesevelam 625 mg tablet 1,875 mg PO BID 03/21/23 04/04/23 History cyclobenzaprine 5 mg tablet 5 mg PO BID 03/21/23 04/04/23 History duloxetine 60 mg capsule,delayed 120 mg PO DAILY 03/21/23 04/04/23 History release empagliflozin 10 mg tablet 10 mg PO DAILY 03/21/23 04/04/23 History exenatide microspheres 2 mg/0.85 2 mg subcut QWEEK 03/21/23 04/04/23 History mL subcutaneous auto-injector ([employer] BCi) fenofibrate 150 mg capsule 150 mg PO DAILY 03/21/23 04/04/23 History ferrous sulfate 325 mg (65 mg 325 mg PO DAILY 03/21/23 04/04/23 History iron) tablet flaxseed oil 1,000 mg capsule 1,000 mg PO QID 03/21/23 04/04/23 History levothyroxine 125 mcg capsule 125 mcg PO DAILY 03/21/23 04/04/23 History liothyronine 5 mcg tablet 40 mcg PO DAILY 03/21/23 04/04/23 History metformin 500 mg tablet 500 mg PO BID 03/21/23 04/04/23 History metoprolol tartrate 50 mg tablet 50 mg PO BID 03/21/23 04/04/23 History (Lopressor) multivitamin (Daily Multi-Vitamin 1 tab PO DAILY 03/21/23 04/04/23 History tablet) nabumetone 1,000 mg tablet 1,000 mg PO BID 03/21/23 04/04/23 History niacin 1,000 mg tablet,extended 2,000 mg PO DAILY 03/21/23 04/04/23 History release pantoprazole 40 mg tablet,delayed 40 mg PO DAILY 03/21/23 04/04/23 History release pioglitazone 45 mg tablet 45 mg PO DAILY 03/21/23 04/04/23 History Allergies Allergy/AdvReac Type Severity Reaction Status Date / Time codeine Allergy Verified 04/04/23 09:55 Iodinated Contrast Media Allergy Verified 04/04/23 09:55 iodine Allergy Verified 04/04/23 09:55 Exam Narrative Exam Narrative: Psych-alert and oriented x 3.? Attentive and appropriate, constitutionally normal, displays normal mood and affect per situation.? There are no obvious deficits in memory, reasoning, or intellect. Extremities-lower extremities are warm with minimal edema and palpable pulses. Knee-examination of the right knee reveals tenderness to palpation over the superior, inferior, lateral, and medial aspect of the knee.? Some swelling is noted without erythema. Pain is elicited with flexion and extension of the knee both actively and passively.? Some grinding is noted with these motions.? There is no notable ligamental laxity or instability.? Coordination remains intact.? Gait remains antalgic. Assessment and Plan Assessment and Plan (1) Right knee pain: Plan continue f/u with Orthopedics as planned can call to schedule right genicular RFA under fluoroscopy as discussed today. risks vs benefits and procedure discussed. She is not interested at this time f/u as needed, if patient pursues right genicular RFA we will follow up 1 month after
== END 2023-04-14 09:38 | disposition home or self-care (01) ==
LOC: PM 09:37
PROVIDERS: PCP Family Medicine; Visit Provider Nurse Practitioner
DX: M25.561 Pain in right knee (principal)
CPT/HCPCS: G0463

== ENCOUNTER 2023-05-03 10:29 | Outpatient (OUT) | payer OTHER, SELFPAY ==
--- OUTSIDE RECORDS SUMMARY | 2023-05-03 10:36 | XMS_ITS | CCD ---
Author Name Unknown Address [address] [place] [address] [address] [place] [address] Organization [facility] Care Team Providers [employer] Name Role Phone LENY, DR CASTRO Admitting [...] Unavailable ZIEBER, DR MARBIN Moore Consulting Unavailable VINCEY, DR CASTRO Admitting Unavailable HOY, DR CASTRO Primary Care Unavailable HOY, DR CASTRO Consulting Unavailable VINCEY, DR CASTRO Attending Unavailable ZIEBER, DR MARBIN Moore Consulting Unavailable HOY, DR CASTRO Admitting Unavailable HOY, DR CASTRO Primary Care Unavailable HOY, DR CASTRO Consulting Unavailable LENY, DR CASTRO Attending Unavailable Radhika FIERRO, Regis Sheldon Attending Unavailable Radhika FIERRO, Regis Sheldon Attending Unavailable NILLBautista Attending Unavailable Matthew Michele Referring Unavailable Allergies Allergy Classification Reported Allergen(s) Allergy Type Date of Onset Reaction(s) Facility (2 sources) Codeine; Translations: [codeine] Drug Allergy 11-07-2014 [facility] Repository (1 source) Iodine (And Iodine Containting Drugs) Drug allergy (disorder) 10-02-2015 [facility] Repository (1 source) Shellfish Drug allergy (disorder) 11-07-2014 [facility] Repository (1 source) Fenofibrate; Translations: [TriCor] Drug Allergy [facility] Repository (1 source) Iodine; Translations: [iodine] Drug Allergy [facility] Repository Problems Active Problems Problem Classification Problem [...] Range Facility Physician Referralon 023 Physician Referral [phone] 1 [id number] Normal [facility] INSULINon 03-04-2022 Insulin 9.8 uIU/mL Normal 2.6-24.9 [facility] Comment on above: Performed By: #### I NSULIN ####[facility] [address] [address]DrPeg Silva CBC AUTO DIFFon 03-03-2022 BASO # 0.0 103/ul Normal 0.0-0.1 [facility] Comment on above: Performed By: #### C BC ####[facility] [address] [place] [address]Dr. Lyndsey Silva Basophils/100 WBC (Bld) 0.6 % Normal 0.2-2.0 [facility] Comment on above: Performed By: #### C BC ####[facility] Rxbtjouw[address] [place], [place] [address]Dr. Lyndsey Silva EO # 0.1 103/ul Normal 0.0-0.7 [facility] Comment on above: Performed By: #### C BC ####[facility] [address] [place], [place] [address]Dr. Lyndsey Silva Eosinophils/100 WBC (Bld) 1.6 % Normal 0.9-7.0 [facility] Comment on above: Performed By: #### C BC ####[facility] Q[address] [place], [place] [address]Dr. Lyndsey Silva Erythrocyte distribution width (RBC) [Ratio] 13.2 % Normal 11.0-15.0 [facility] Comment on above: Performed By: #### C BC ####[facility] Ric[address] [place], [place] [address]Dr. Lyndsey Silva Hematocrit (Bld) [Volume fraction] 41.8 % Normal 36.0-48.0 [facility] Comment on above: Performed By: #### C BC ####[facility] [address] [place], [place] [address]Dr. Lyndsey Silva Hemoglobin (Bld) [Mass/Vol] 14.3 g/dL Normal 12.0-16.0 [facility] Comment on above: Performed By: #### C BC ####[facility] [address] [place], [place] [address]Dr. Lyndsey Silva IG # 0.04 10e3/ul Critically high 0.00-0.03 [facility] Comment on above: Performed By: #### C BC ####[facility] T[address] [place], [place] [address]Dr. Lyndsey Silva IG % 0.8 % Critically high 0.0-0.5 [facility] Comment on above: Performed By: #### C BC ####[facility] [address] [place] [address]Dr. Lyndsey Silva LYMPH # 1.8 103/ul Normal 1.2-3.8 [facility] Comment on above: Performed By: #### C BC ####[facility] [address] [place] [address]Dr. Lyndsey Silva Lymphocytes/100 WBC (Bld) 35.3 % Normal 20.5-60.0 [facility] Comment on above: Performed By: #### C BC ####[facility] [address] [place] [address]Dr. Lyndsey Silva MANUAL DIFF REQ NO Normal [facility] Comment on above: Performed By: #### C BC ####[facility] [address] [place], [place] [address]Dr. Lyndsey Silva MCH (RBC) [Entitic mass] 31.2 pg Normal 26.7-34.0 [facility] Comment on above: Performed By: #### C BC ####[facility] [address] [place], [place] [address]Dr. Lyndsey Silva MCHC (RBC) [Mass/Vol] 34.2 g/dL Normal 29.9-35.2 [facility] Comment on above: Performed By: #### C BC ####[facility] [address] [place], [place] [address]Dr. Lyndsey Silva MCV (RBC) [Entitic vol] 91.3 fL Normal 81.0-99.0 [facility] Comment on above: Performed By: #### C BC ####[facility] [address] [place], [place] [address]Dr. Lyndsey Silva MONO # 0.5 103/ul Normal 0.3-0.8 [facility] Comment on above: Performed By: #### C BC ####[facility] Dw[address] [place], [place] [address]Dr. Lyndsey Silva Monocytes/100 WBC (Bld) 9.8 % Normal 1.7-12.0 [facility] Comment on above: Performed By: #### C BC ####[facility] [address] [place] [address]Dr. Lyndsey Silva NEUT # 2.6 103/ul Normal 1.4-6.5 [facility] Comment on above: Performed By: #### C BC ####[facility] [address] [place] [address]Dr. Lyndsey Silva Neutrophils/100 WBC (Bld) 51.9 % Normal 43.0-75.0 [facility] Comment on above: Performed By: #### C BC ####[facility] [address] [place] [address]Dr. Lyndsey Silva Platelet mean volume (Bld) [Entitic vol] 8.8 fL Critically low 9.5-13.5 [facility] Comment on above: Performed By: #### C BC ####[facility] [address] [place] [address]Dr. Lyndsey Silva PLT 304 103/ul Normal 150-450 [facility] Comment on above: Performed By: #### C BC ####[facility] [address] [place], [place] [address]Dr. Lyndsey Silva RBC 4.58 106/ul Normal 4.20-5.40 [facility] Comment on above: Performed By: #### C BC ####[facility] [address] [place] [address]Dr. Lyndsey Silva WBC 5.0 103/ul Normal 4.0-11.0 [facility] Comment on above: Performed By: #### C BC ####[facility] [address] [place] [address]Dr. Lyndsey Silva FREE THYROXINE INDEX T7on FTI 1.77 Normal 1.30-4.50 [facility] Comment on above: Performed By: #### L IPID, CMP, TSH, T7 ####[facility] [address] [place] [address]Dr. Lyndsey Silva T3U 31.0 % Normal 30.0-39.0 [facility] Comment on above: Performed By: #### L IPID, CMP, TSH, T7 ####[facility] [address] [place] [address]Dr. Lyndsey Silva T4 [Mass/Vol] 5.70 ug/dL Normal 4.80-13.90 [facility] Comment on above: Performed By: #### L IPID, CMP, TSH, T7 ####[facility] [address] [place] [address]DrPeg Silva GLYCOHEMOGLOBIN A1Con 2021 ADA RECOMMENDATION SEE BELOW Normal [facility] Comment on above: Result Comment: ADA RECOMMENDED LIMIT 4.0 - 6.0 ADA THERAPEUTIC TARGET < 7.0 ACTION SUGGESTED > 7.0 Performed By: #### A 1C #### [facility] [address] [address] [address] Lyndsey Silva Glucose [Mass/Vol] 146 mg/dL Normal [facility] Comment on above: Performed By: #### A 1C #### [facility] [address] [address] [address] Lyndsey Silva HbA1c (Bld) [Mass fraction] 6.7 % Critically high 4.5-6.2 [facility] Comment on above: Performed By: #### A 1C #### [facility] [address] [address] [address] Lyndsey Silva IRONon 03-03-2022 Iron [Mass/Vol] 122.0 ug/dL Normal 50.0-170.0 [facility] Comment on above: Performed By: #### V ITB12, IRON, VITAD ####[facility] [address] [place] [address]Dr. Lyndsey Silva LIPID PROFILEon 03-03-2022 CHOL-HDL RATIO NORM SEE BELOW Normal [facility] Comment on above: Result Comment: 3.3 - 4.4 LOW RISK 4.4 - 7.1 AVERAGE RISK 7.1 - 11.0 MODERATE RISK >11.0 HIGH RISK Performed By: #### L IPID, CMP, TSH, T7 ####[facility] [address] [place] [address]Dr. Lyndsey Silva Cholesterol [Mass/Vol] 244 mg/dL Critically high <=200 [facility] Comment on above: Performed By: #### L IPID, CMP, TSH, T7 ####[facility] [address] [place], [place] [address]Cq. Lyndsey Silva Cholesterol in HDL [Mass/Vol] 48 mg/dL Normal 40-60 [facility] Comment on above: Performed By: #### L IPID, CMP, TSH, T7 ####[facility] [address] [place] [address]Dr. Lyndsey Silva Cholesterol in LDL [Mass/Vol] 133.0 mg/dL Normal [facility] Comment on above: Performed By: #### L IPID, CMP, TSH, T7 ####[facility] [address] [place] [address]Dr. Lyndsey Silva Cholesterol.total/Cho lesterol in HDL [Mass ratio] 5.1 {ratio} Normal [facility] Comment on above: Performed By: #### L IPID, CMP, TSH, T7 ####[facility] [address] [place] [address]Dr. Lyndsey Silva HDL NORMAL > or = 60 mg/dl - LO W CARDIOVASCULAR RISK <40 mg/dl - HIGH CARDIOVASCULAR RISK Normal [facility] Comment on above: Performed By: #### L IPID, CMP, TSH, T7 ####[facility] [address] [place] [address]Dr. Lyndsey Silva LDL CALC NORMAL SEE BELOW Normal [facility] Comment on above: Result Comment: <100 mg/dl OPTIMAL 100 - 129 mg/dl NEAR OR ABOVE OPTIMAL 130 - 159 mg/dl BORDERLINE HIGH 160 - 189 mg/dl HIGH >190 mg/dl VERY HIGH Performed By: #### L IPID, CMP, TSH, T7 ####[facility] [address] [place] [address]Dr. Lyndsey Silva Triglyceride [Mass/Vol] 315 mg/dL Critically high <=150 [facility] Comment on above: Performed By: #### L IPID, CMP, TSH, T7 ####[facility] [address] [place] [address]Dr. Lyndsey Silva VLDL CALC 63.0 mg/dL Normal [facility] Comment on above: Performed By: #### L IPID, CMP, TSH, T7 ####[facility] [address] [place] [address]Dr. Lyndsey Silva PROF 14(COMP METB)on 022 Albumin [Mass/Vol] 4.6 g/dL Normal 3.4-5.0 [facility] Comment on above: Performed By: #### L IPID, CMP, TSH, T7 ####[facility] [address] [place] [address]Dr. Lyndsey Silva Albumin/Globulin [Mass ratio] 1.2 {ratio} Normal [facility] Comment on above: Performed By: #### L IPID, CMP, TSH, T7 ####[facility] [address] [place] [address]Dr. Lyndsey Silva ALP [Catalytic activity/Vol] 79 U/L Normal 46-116 [facility] Comment on above: Performed By: #### L IPID, CMP, TSH, T7 ####[facility] [address] [place] [address]Dr. Lyndsey Silva ALT [Catalytic activity/Vol] 26 U/L Normal 14-59 [facility] Comment on above: Performed By: #### L IPID, CMP, TSH, T7 ####[facility] [address] [place] [address]Dr. Lyndsey Silva Anion gap [Moles/Vol] 11.1 mmol/L Normal [facility] Comment on above: Performed By: #### L IPID, CMP, TSH, T7 ####[facility] [address] [place] [address]Dr. Lyndsey Silva AST [Catalytic activity/Vol] 16 U/L Normal 15-37 [facility] Comment on above: Performed By: #### L IPID, CMP, TSH, T7 ####[facility] [address] [place] [address]Dr. Lyndsey Silva Bilirubin [Mass/Vol] 0.6 mg/dL Normal 0.2-1.0 [facility] Comment on above: Performed By: #### L IPID, CMP, TSH, T7 ####[facility] [address] [place] [address]Dr. Lyndsey Silva Calcium [Mass/Vol] 9.7 mg/dL Normal 8.5-10.[address] [facility] Comment on above: Performed By: #### L IPID, CMP, TSH, T7 ####[facility] [address] [place] [address]Dr. Lyndsey Silva Chloride [Moles/Vol] 102 mmol/L Normal 98-107 [facility] Comment on above: Performed By: #### L IPID, CMP, TSH, T7 ####[facility] [address] [place] [address]Dr. Lyndsey Silva CO2 [Moles/Vol] 28.7 mmol/L Normal 21.0-32.[address] [facility] Comment on above: Performed By: #### L IPID, CMP, TSH, T7 ####[facility] [address] [place] [address]Dr. Lyndsey Silva Creatinine [Mass/Vol] 1.02 mg/dL Normal 0.55-1.02 [facility] Comment on above: Performed By: #### L IPID, CMP, TSH, T7 ####[facility] [address] [place] [address]Dr. Lyndsey Ricardo EGFR-AF PALAUAN >60 Normal >=[address] [facility] Comment on above: Performed By: #### L IPID, CMP, TSH, T7 ####[facility] [address] [place] [address]Dr. Lyndsey Ricardo EGFR-NON AF PALAUAN 56 mL/min/1.73m2 Critically low >=60 [facility] Comment on above: Performed By: #### L IPID, CMP, TSH, T7 ####[facility] [address] [place] [address]Dr. Lyndsey Silva Globulin (S) [Mass/Vol] 3.9 g/dL Normal [facility] Comment on above: Performed By: #### L IPID, CMP, TSH, T7 ####[facility] [address] [place] [address]Dr. Lyndsey Silva Glucose [Mass/Vol] 130 mg/dL Critically high 74-106 [facility] Comment on above: Performed By: #### L IPID, CMP, TSH, T7 ####[facility] [address] [place] [address]Dr. Lyndsey Silva Potassium [Moles/Vol] 3.8 mmol/L Normal 3.5-5.1 [facility] Comment on above: Performed By: #### L IPID, CMP, TSH, T7 ####[facility] [address] [place] [address]Dr. Lyndsey Silva Protein [Mass/Vol] 8.5 g/dL Critically high 6.4-8.2 [facility] Comment on above: Performed By: #### L IPID, CMP, TSH, T7 ####[facility] [address] [place], [place] [address]Dr. Lyndsey Silva Sodium [Moles/Vol] 138 mmol/L Normal 136-145 [facility] Comment on above: Performed By: #### L IPID, CMP, TSH, T7 ####[facility] [address] [place] [address]Dr. Lyndsey Silva Urea nitrogen [Mass/Vol] 25.0 mg/dL Critically high 7.0-18.0 [facility] Comment on above: Performed By: #### L IPID, CMP, TSH, T7 ####[facility] [address] [place] [address]Dr. Lyndsey Silva Urea nitrogen/Creatinine [Mass ratio] 24.5 mg/mg Normal [facility] Comment on above: Performed By: #### L IPID, CMP, TSH, T7 ####[facility] [address] [place] [address]Dr. Lyndsey Silva TSHon 03-03-2022 TSH 0.126 uIU/mL Critically low 0.358-3.740 [facility] Comment on above: Performed By: #### L IPID, CMP, TSH, T7 ####[facility] [address] [place] [address]Dr. Lyndsey Silva VITAMIN B12on 03-03-2022 Cobalamin (Vitamin B12) [Mass/Vol] 894.0 pg/mL Normal 193.0-986.0 [facility] Comment on above: Performed By: #### V ITB12, IRON, VITAD ####[facility] [address] [place] [address]Dr. Lyndsey Silva VITAMIN D 25 OHon 03-03-2022 VIT D 25-OH 30.1 ng/mL Normal [facility] Comment on above: Performed By: #### V ITB12, IRON, VITAD ####[facility] [address] [place] [address]Dr. Lyndsey [facility] VIT D RANGES SEE BELOW Normal [facility] Comment on above: Result Comment: <20 ng/mL Vit D deficient 20 - <30 ng/mL Vit D insufficient 30 - 100 ng/mL Vit D sufficient >100 ng/mL Potential Toxicity Performed By: #### V ITB12, IRON, VITAD ####[facility] [address] [place] [address]Dr. Lyndsey Silva MG MAMM SCREEN 3D LEILANI CADon 11-17-2021 MG MAMM SCREEN 3D LEILANI CAD Patient: ISA NEAL Exam Date: 11/17/2021 : 1965 Gender:F Ordering : DR MATTHEW MICHELE . Admission #: [id number] Family : Order #: [id number] CLICK HERE TO VIEW EXAM RADIOLOGY REPORT [...] colon cancer at age 59. LOCATION: [facility] BREAST COMPOSITION: Heterogeneously dense,which may [...] Hansen M.D. on 11/17/2021 at 15:36 Normal [facility] STRESS/REST MULTIon 09-02 NM STRESS/REST MULTI Patient: ISA NEAL Exam Date: 09/02/2021 : 1965 Gender:F Ordering : DR MATTHEW MICHELE . Admission #: [id number] Family : Order #: [id number] CLICK HERE TO VIEW EXAM RADIOLOGY REPORT PROCEDURE: RADIONUCLIDE IMAGING STRESS/REST MULTI COMPARISON: NM STRESS/REST MULTI, 01/30/2016. INDICATIONS: Essential hypertension TECHNIQUE: [...] Hansen M.D. on 09/02/2021 at 14:07 Normal [facility] ECHOCARDIO M/2D COMPLETEon 0 08-19-2021 ECHOCARDIO M/2D COMPLETE Patient: ISA NEAL Exam Date: 08/19/2021 : 1965 Gender:F Ordering : DR MATTHEW MICHELE . Admission #: [id number] Family : Order #: [id number] CLICK HERE TO VIEW EXAM ECHOCARDIOGRAM REPORT [...] Area(A4C): 12.60 cm2 Left Atrium Systolic Volume(A2C): 13525 mm3 Left Atrium Systolic Volume(A4C): 58724 mm3 Mitral Valve MV E to A [...] M.D. on 08/19/2021 at 17:27 Normal [facility] BNPon 08-12-2021 Natriuretic peptide B (Bld) [Mass/Vol] 58.0 pg/mL Normal <=900.0 [facility] Comment on above: Performed By: #### B SHEET METAL WORKER MAINTENANCE, TSH, T7, CMP #### [facility] [address] [address] [address] Lyndsey Silva CBC AUTO DIFFon 08-12-2021 BASO # 0.1 103/ul Normal 0.0-0.1 [facility] Comment on above: Performed By: #### C BC #### [facility] [address] [address] [address] Lyndsey Silva Basophils/100 WBC (Bld) 0.4 % Normal 0.2-2.0 [facility] Comment on above: Performed By: #### C BC #### [facility] [address] [address] [address] Lyndsey Silva EO # 0.1 103/ul Normal 0.0-0.7 [facility] Comment on above: Performed By: #### C BC #### [facility] [address] [address] [address] Lyndsey Silva Eosinophils/100 WBC (Bld) 0.6 % Critically low 0.9-7.0 [facility] Comment on above: Performed By: #### C BC #### [facility] [address] [place] [address] Dr. Lyndsey Silva Erythrocyte distribution width (RBC) [Ratio] 13.6 % Normal 11.0-15.0 [facility] Comment on above: Performed By: #### C BC #### [facility] [address] [place] [address] Dr. Lyndsey Silva Hematocrit (Bld) [Volume fraction] 42.4 % Normal 36.0-48.0 [facility] Comment on above: Performed By: #### C BC #### [facility] [address] [place] [address] Dr. Lyndsey Silva Hemoglobin (Bld) [Mass/Vol] 14.3 g/dL Normal 12.0-16.0 [facility] Comment on above: Performed By: #### C BC #### [facility] [address] [place] [address] Dr. Lyndsey Silva IG # 0.17 10e3/ul Critically high 0.00-0.03 [facility] Comment on above: Performed By: #### C BC #### [facility] [address] [place] [address] Dr. Lyndsey Silva IG % 1.4 % Critically high 0.0-0.5 [facility] Comment on above: Performed By: #### C BC #### [facility] [address] [place] [address] Dr. Lyndsey Silva LYMPH # 2.6 103/ul Normal 1.2-3.8 [facility] Comment on above: Performed By: #### C BC #### [facility] [address] [place] [address] Dr. Lyndsey Silva Lymphocytes/100 WBC (Bld) 21.6 % Normal 20.5-60.0 [facility] Comment on above: Performed By: #### C BC #### [facility] [address] [place] [address] Dr. Lyndsey Silva MANUAL DIFF REQ NO Normal [facility] Comment on above: Performed By: #### C BC #### [facility] [address] [place] [address] Dr. Lyndsey Silva MCH (RBC) [Entitic mass] 31.5 pg Normal 26.7-34.0 [facility] Comment on above: Performed By: #### C BC #### [facility] [address] [place] [address] Dr. Lyndsey Silva MCHC (RBC) [Mass/Vol] 33.7 g/dL Normal 29.9-35.2 [facility] Comment on above: Performed By: #### C BC #### [facility] [address] [place] [address] Dr. Lyndsey Silva MCV (RBC) [Entitic vol] 93.4 fL Normal 81.0-99.0 [facility] Comment on above: Performed By: #### C BC #### [facility] [address] [place] [address] Dr. Lyndsey Silva MONO # 0.8 103/ul Normal 0.3-0.8 [facility] Comment on above: Performed By: #### C BC #### [facility] [address] [place] [address] Dr. Lyndsey Silva Monocytes/100 WBC (Bld) 6.9 % Normal 1.7-12.0 [facility] Comment on above: Performed By: #### C BC #### [facility] [address] [place] [address] Dr. Lyndsey Silva NEUT # 8.2 103/ul Critically high 1.4-6.5 [facility] Comment on above: Performed By: #### C BC #### [facility] [address] [place] [address] Dr. Lyndsey Silva Neutrophils/100 WBC (Bld) 69.1 % Normal 43.0-75.0 [facility] Comment on above: Performed By: #### C BC #### [facility] [address] [place] [address] Dr. Lyndsey Silva Platelet mean volume (Bld) [Entitic vol] 8.8 fL Critically low 9.5-13.5 [facility] Comment on above: Performed By: #### C BC #### [facility] [address] [place] [address] Dr. Lyndsey Silva PLT 341 103/ul Normal 150-450 [facility] Comment on above: Performed By: #### C BC #### [facility] [address] [place] [address] Dr. Lyndsey Silva RBC 4.54 106/ul Normal 4.20-5.40 [facility] Comment on above: Performed By: #### C BC #### [facility] [address] [place] [address] Dr. Lyndsey Silva WBC 11.9 103/ul Critically high 4.0-11.0 [facility] Comment on above: Performed By: #### C BC #### [facility] [address] [place] [address] Dr. Lyndsey Silva FREE THYROXINE INDEX T7on FTI 1.40 Normal [facility] Comment on above: Performed By: #### B SHEET METAL WORKER MAINTENANCE, TSH, T7, CMP #### [facility] [address] [place] [address] Dr. Lyndsey Silva T3U 31.0 % Normal 23.5-40.5 [facility] Comment on above: Performed By: #### B SHEET MET[employer] WORKER MAINTENANCE, TSH, T7, CMP #### [facility] [address] [place] [address] Dr. Lyndsey Silva T4 [Mass/Vol] 4.50 ug/dL Critically low 4.80-13.90 [facility] Comment on above: Performed By: #### B SHEET METAL WORKER MAINTENANCE, TSH, T7, CMP #### [facility] [address] [place] [address] Dr. Lyndsey Silva IRONon 08-12-2021 Iron [Mass/Vol] 106.0 ug/dL Normal 50.0-170.0 [facility] Comment on above: Performed By: #### I STERLING #### [facility] [address] [place] [address] Dr. Lyndsey Silva PROF 14(COMP METB)on 022 Albumin [Mass/Vol] 5.0 g/dL Normal 3.4-5.0 [facility] Comment on above: Performed By: #### B SHEET METAL WORKER MAINTENANCE, TSH, T7, CMP #### [facility] [address] [place] [address] Dr. Lyndsey Silva Albumin/Globulin [Mass ratio] 1.4 {ratio} Normal [facility] Comment on above: Performed By: #### B SHEET METAL WORKER MAINTENANCE, TSH, T7, CMP #### [facility] [address] [place] [address] Dr. Lyndsey Silva ALP [Catalytic activity/Vol] 72 U/L Normal 46-116 [facility] Comment on above: Performed By: #### B SHEET METAL WORKER MAINTENANCE, TSH, T7, CMP #### [facility] [address] [place] [address] Dr. Lyndsey Silva ALT [Catalytic activity/Vol] 35 U/L Normal 14-59 [facility] Comment on above: Performed By: #### B SHEET METAL WORKER MAINTENANCE, TSH, T7, CMP #### [facility] [address] [place] [address] Dr. Lyndsey Silva Anion gap [Moles/Vol] 17.5 mmol/L Normal [facility] Comment on above: Performed By: #### B SHEET METAL WORKER MAINTENANCE, TSH, T7, CMP #### [facility] [address] [place] [address] Dr. Lyndsey Silva AST [Catalytic activity/Vol] 20 U/L Normal 15-37 [facility] Comment on above: Performed By: #### B SHEET METAL WORKER MAINTENANCE, TSH, T7, CMP #### [facility] [address] [place] [address] Dr. Lyndsey Silva Bilirubin [Mass/Vol] 1.2 mg/dL Critically high 0.2-1.0 [facility] Comment on above: Performed By: #### B SHEET MET[employer] WORKER MAINTENANCE, TSH, T7, CMP #### [facility] [address] [address] [address] Lyndsey Silva Calcium [Mass/Vol] 9.5 mg/dL Normal 8.5-10.1 [facility] Comment on above: Performed By: #### B SHEET MET[employer] WORKER MAINTENANCE, TSH, T7, CMP #### [facility] [address] [place] [address] Dr. Lyndsey Silva Chloride [Moles/Vol] 98 mmol/L Normal 98-107 [facility] Comment on above: Performed By: #### B SHEET METAL WORKER MAINTENANCE, TSH, T7, CMP #### [facility] [address] [place] [address] Dr. Lyndsey Silva CO2 [Moles/Vol] 25.0 mmol/L Normal 21.0-32.0 [facility] Comment on above: Performed By: #### B SHEET METAL WORKER MAINTENANCE, TSH, T7, CMP #### [facility] [address] [place] [address] Dr. Lyndsey Silva Creatinine [Mass/Vol] 1.17 mg/dL Critically high 0.55-1.02 [facility] Comment on above: Performed By: #### B SHEET METAL WORKER MAINTENANCE, TSH, T7, CMP #### [facility] [address] [place] [address] Dr. Lyndsey Silva EGFR-AF PALAUAN 58 mL/min/1.73m2 Critically low >=60 [facility] Comment on above: Performed By: #### B SHEET METAL WORKER MAINTENANCE, TSH, T7, CMP #### [facility] [address] [place] [address] Dr. Lyndsey Silva EGFR-NON AF PALAUAN 48 mL/min/1.73m2 Critically low >=60 [facility] Comment on above: Performed By: #### B SHEET METAL WORKER MAINTENANCE, TSH, T7, CMP #### [facility] [address] [place] [address] Dr. Lyndsey Silva Globulin (S) [Mass/Vol] 3.6 g/dL Normal [facility] Comment on above: Performed By: #### B SHEET METAL WORKER MAINTENANCE, TSH, T7, CMP #### [facility] [address] [address] [address] Lyndsey Silva Glucose [Mass/Vol] 123 mg/dL Critically high 74-106 [facility] Comment on above: Performed By: #### B SHEET METAL WORKER MAINTENANCE, TSH, T7, CMP #### [facility] [address] [place] [address] Dr. Lyndsey Silva Potassium [Moles/Vol] 4.5 mmol/L Normal 3.5-5.1 [facility] Comment on above: Performed By: #### B SHEET METAL WORKER MAINTENANCE, TSH, T7, CMP #### [facility] [address] [place] [address] Dr. Lyndsey Silva Protein [Mass/Vol] 8.6 g/dL Critically high 6.1-8.2 [facility] Comment on above: Performed By: #### B SHEET METAL WORKER MAINTENANCE, TSH, T7, CMP #### [facility] [address] [place] [address] Dr. Lyndsey Silva Sodium [Moles/Vol] 136 mmol/L Normal 136-145 [facility] Comment on above: Performed By: #### B SHEET METAL WORKER MAINTENANCE, TSH, T7, CMP #### [facility] [address] [place] [address] Dr. Lyndsey Silva Urea nitrogen [Mass/Vol] 12.0 mg/dL Normal 7.0-18.0 [facility] Comment on above: Performed By: #### B SHEET METAL WORKER MAINTENANCE, TSH, T7, CMP #### [facility] [address] [place] [address] Dr. Lyndsey Silva Urea nitrogen/Creatinine [Mass ratio] 10.3 mg/mg Normal [facility] Comment on above: Performed By: #### B SHEET METAL WORKER MAINTENANCE, TSH, T7, CMP #### [facility] [address] [place] [address] Dr. Lyndsey Silva TSHon 08-12-2021 TSH 1.149 uIU/mL Normal 0.470-4.680 [facility] Comment on above: Performed By: #### B SHEET METAL WORKER MAINTENANCE, TSH, T7, CMP #### [facility] [address] [place], [place] [address] Dr. Lyndsey Silva TSH RANGE SEE BELOW Normal [facility] Comment on above: Result Comment: <0.3 4 UIU/ml HYPERTHYROID 0.34-5.60 UIU/ml EUTHYROID >5.60 UIU/ml HYPOTHYROID Performed By: #### B SHEET METAL WORKER MAINTENANCE, TSH, T7, CMP #### [facility] [id number] Lyndsey Silva Encounters Encounter Date Encounter Type Care Provider Facility Start: 05-04-2023 ambulatory Bautista CRISTINA Facility :[facility] Start: 04-04-2023 End: 04-05-2023 ambulatory Regis Garrido MD Facility:[facility] Start: 03-25-2023 ambulatory Bautista CRISTINA Facility:[facility] [place] Start: 03-21-2023 End: 03-22-2023 ambulatory Regis Garrido MD Facility:[facility] Start: 03-08-2023 ambulatory Bautista CRISTINA Facility:[facility] Start: 03-06-2022 Encounter for genera l adult medical examination without abnormal findings DR MATTHEW MICHELE [facility] Start: 03-03-2022 End: 03-04-2022 ambulatory [...] Date Payer Category Payer Unknown 1965 Unknown [id number] 2.16.84 [id number] 1965 Unknown [id number] 2.16.84 [id number] 1965 Unknown [id number] 2.16.84 [id number] 1964 Unknown [id number] 2.16.84 [id number] 1964 Unknown [id number] 2.16.84 [id number] 1964 Unknown [id number] 2.16. [id number] 1964 Unknown [id number] 2.16. [id number] 1964 Unknown [id number] 2.16.8 [id number] 1959 Unknown [id number] Summary Purpose Family History No Family History Records FoundNo Family History Records FoundNo Family History Records Found Advance Directives No Advanced Directives Records FoundNo Advanced Directives Records FoundNo Advanced Directives Records Found Additional Source Comments INFORMATION SOURCE (unrecogn ized section and content) DATE CREATED AUTHOR 03/06/2022 [facility] DATE CREATED AUTHOR AUTHOR'S ORGANIZ ATION 04/08/2023 [facility] DATE CREATED AUTHOR AUTHOR'S ORGANIZ ATION 04/26/2023 [facility] FOR RECORDS PERTAINING TO PATIENTS WHO ARE [...] BE BASED ON THE PRIMARY CLINICAL RECORDS. [facility] [employer] [facility]. provides no warranty or guarantee of the accuracy or completeness of information in this document.
[2023-05-03 11:19] LABS: Estimated Average Glucose 174 mg/dL; Glycohemoglobin A1C 7.7 % (4.5-6.2)
== END 2023-05-03 10:30 | disposition home or self-care (01) ==
LOC: LAB 10:31
PROVIDERS: PCP Family Medicine; Visit Provider Orthopaedic Surgery
DX: R73.03 Prediabetes (principal)
CPT/HCPCS: 36415; 83036

== ENCOUNTER 2023-06-14 14:16 | Outpatient (OUT) | payer OTHER, SELFPAY | END 2023-06-14 14:17 | disposition home or self-care (01) | LOC: PST 14:16 | PROVIDERS: PCP Family Medicine; Visit Provider Surgery | DX: Z12.11 Encounter for screening for malignant neoplasm of colon (principal); Z80.0 Family history of malignant neoplasm of digestive organs ==

== ENCOUNTER 2023-06-22 06:14 | Day surgery (SDC) | payer OTHER, SELFPAY ==
--- NOTE | 2023-06-22 | OP_ITS ---
OPERATION DATE: 06/22/2023 PREOPERATIVE DIAGNOSIS: Family history of colon cancer. POSTOPERATIVE DIAGNOSIS: Normal colonoscopy to cecum. PROCEDURE: Colonoscopy to cecum. SURGEON: Bautista Castillo M.D. ANESTHESIA: Monitored anesthesia care. ESTIMATED BLOOD LOSS: Zero. INDICATIONS AND CONSENT: Patient is a 57-year-old female with a family history of colon cancer, presents for surveillance colonoscopy. Last colonoscopy was 2015, which was within normal limits. Indications, risks, benefits, alternatives of proceeding with colonoscopy were explained extensively to the patient, including the risks of bleeding, colon perforation or anesthetic complications. All of her questions were answered. Informed consent was obtained. PROCEDURE: Patient brought to the operating room, placed in the left lateral decubitus position. Monitored anesthesia care was provided. Rectal exam was performed which showed no masses or blood. The scope was inserted into the anal canal. Under direct visualization was advanced to the cecum, with the aid of abdominal compression. Cecal markings were clearly identified. There was noted to be a good prep. Upon withdrawal of the scope, mucosal surfaces were carefully examined. There were no mass lesions or polyps. No inflammatory changes or ulcerations. No significant diverticulosis. The scope was retroflexed in the anal canal. There was no significant hemorrhoidal disease. Scope was then withdrawn. Patient tolerated procedure well, was sent to recovery room in good condition. f/u screening colonoscopy in 5 years. CC: Yusra Bhat
--- OUTSIDE RECORDS SUMMARY | 2023-06-22 06:16 | XMS_ITS | CCD ---
Author Name Unknown Address [address] [place] [address] Organization [facility] Care Team Providers Care Card Writer Hand Name Role Phone LENY, DR CASTRO Admitting Unavailable HOY, DR CASTRO Primary Care Unavailable HOY, DR CASTRO Consulting Unavailable HOY, DR CASTRO Attending Unavailable HOY, DR CASTRO Primary Care Unavailable HOY, DR CASTRO Consulting Unavailable VINCEY, DR CASTRO Attending Unavailable HOY, DR CASTRO Admitting Unavailable HOY, DR CASTRO Primary Care Unavailable HOY, DR CASTRO Consulting Unavailable HOY, DR CASTRO Attending Unavailable HOY, DR CASTRO Admitting Unavailable ZIEBER, DR MARBIN Moore Consulting Unavailable LENY, DR CASTRO Admitting Unavailable LENY, DR CASTRO Primary Care Unavailable VINCEY, DR CASTRO Consulting Unavailable LENY, DR CASTRO Attending Unavailable ZIEBER, DR MARBIN Moore Consulting Unavailable HOY, DR CASTRO Admitting Unavailable HOAroldo, DR CASTRO Primary Care Unavailable HOAroldo, DR CASTRO Consulting Unavailable LENY, DR CASTRO Attending Unavailable Radhika FIERRO, Regis Sheldon Attending Unavailable Radhika FIERRO, Regis Sheldon Attending Unavailable Bautista CRISTINA Attending Unavailable Matthew Baumann Referring Unavailable Matthew Baumann Primary Care Physician CARLEEN LALA Attending Unavailable NIRAV BERUMEN Attending Unavailable NIRAV BERUMEN Referring Unavailable AP HERNANDEZ Attending Unavailable CARLEEN LALA Referring Unavailable NIRAV BERUMEN Referring Unavailable CARLEEN LALA Attending Unavailable Matthew Baumann MD Primary Care Provider [phone] Allergies Allergy Classification Reported Allergen(s) Allergy Type Date of Onset Reaction(s) Facility (2 sources) Codeine; Translations: [codeine] Drug Allergy 5 [facility]ository (1 source) Iodine (And Iodine Containting Drugs) Drug allergy (disorder) 6 [facility] (1 source) Shellfish Drug allergy (disorder) 5 [facility] (2 sources) Fenofibrate; Translations: [TriCor] Drug Allergy Abdominal pain (finding) [facility] Repository (1 source) Iodine; Translations: [iodine] Drug Allergy [facility] Repository (2 sources) Codeine; Translations: [codeine] Drug Allergy 0 Weal (disorder), Rash [facility] (1 source) Contrast media Allergy to substance Weal (disorder) [facility] [place] (1 source) Shellfish Propensity to adverse reactions to drug 3 [facility] (1 source) Iodinated Contrast Media Propensity to adverse reactions to drug 3 Abdominal Pain [facility] Medications Current Medications Medication Drug Class(es) Dates Sig (Normalized) Sig (Original) aspirin 81 mg delayed release oral tablet (2 sources) Platelet Aggregation Inhibitor, Nonsteroidal Anti-inflammatory Drug Start: 04-25-2023 take 1 tablet by mouth once daily aspirin 81 mg Oral EC Tab 81 mg = 1 tab(s), Oral, Daily, Refills(s) 0 Start Date: 04/25/23 Status: Ordered atorvastatin 80 mg oral tablet (2 sources) HMG-CoA Reductase Inhibitor Start: 04-25-2023 take 1 tablet by mouth once daily atorvastatin 80 mg Tab 80 mg = 1 tab(s), Oral, Daily, Refills(s) 0 Start Date: 04/25/23 Status: Ordered Bydureon BCise (1 source) Start: 04-25-2023 inject 2 mg by subcutaneous injection every week Bydureon BCise 2 mg, SubCutaneous, qWeek, Refills(s) 0 Start Date: 04/25/23 Status: Ordered Calcium Carbonate / vitamin D3 (1 source) take 1 tablet by mouth once daily in the morning calcium carbonate/vitamin D3 (CALCIUM 500 WITH D ORAL) Take 1 tablet by mouth in the morning. 0 Active cholecalciferol 0.01 mg oral tablet (1 source) Vitamin D cholecalciferol, vitamin D3, 400 units tablet Take 12.5 tablets (5,000 Units total) by mouth in the morning. 0 Active colesevelam hydrochloride 625 mg oral tablet (2 sources) Bile Acid Sequestrant Start: 04-25-2023 take 3 tablets by mouth twice daily colesevelam 625 mg Tab 1,875 mg = 3 tab(s), Oral, BID, Refills(s) 0 Start Date: 04/25/23 Status: Ordered cyclobenzaprine hydrochloride 5 mg oral tablet (2 sources) Muscle Relaxant Start: 04-25-2023 cyclobenzaprine 5 mg Tab See Instructions, as directed, Refills(s) 0 Start Date: 04/25/23 Status: Ordered take [address] [facility] three times daily as needed for muscle spasms cyclobenzaprine (FLEXERIL) 5 mg tablet T elpidio 2 tablets (10 mg total) by mouth 3 (three) times a day as needed for muscle spasms. 0 Active DULoxetine 60 mg delayed release oral capsule (1 source) Serotonin and Norepinephrine Reuptake Inhibitor take 2 capsules by mouth in the morning DULoxetine (CYMBALTA) 60 mg capsule Take 2 capsules (120 mg total) by mouth in the morning. 0 Active duloxetine 60 mg Cap-DR (1 source) Start: 04-25-19 take 1 capsule by mouth once daily duloxetine 60 mg Cap-DR = 1 cap(s), Oral, Daily, Refills(s) 0 Start Date: 04/25/23 Status: Ordered empagliflozin 10 mg oral tablet (2 sources) Sodium-Glucose Cotransporter 2 Inhibitor Start: 10-14-19 take 1 tablet by mouth once daily in the morning Jardiance 10 mg oral tablet 10 mg = 1 tab(s), Oral, qAM, Refills(s) 0 Start Date: 04/25/23 Status: Ordered 0.85 ml exenatide 2.35 mg/ml auto-injector (1 source) GLP-1 Receptor Agonist exenatide microspheres ([facility]) 2 mg/0.85 mL auto-injector Inject 2 mg under the skin every 7 days. On Tuesday 0 Active fenofibric acid 135 mg delayed release oral capsule (2 sources) Peroxisome Proliferator Receptor alpha Agonist Start: 04-25-19 take 1 capsule by mouth once daily fenofibric acid choline 135 mg oral cap 135 mg = 1 cap(s), Oral, Daily, Refills(s) 0 Start Date: 04/25/23 Status: Ordered ferrous sulfate 325 mg delayed release oral tablet (2 sources) Start: 04-25-19 take 1 tablet by mouth once daily ferrous sulfate 325 mg oral enteric coated tablet 325 mg = 1 tab(s), Oral, Daily, Refills(s) 0 Start Date: 04/25/23 Status: Ordered take 1 tablet by oseas th once daily at breakfast ferrous sulfate 325 (65 FE) mg tablet Ta ke 1 tablet (325 mg total) by mouth daily with breakfast. 0 Active levothyroxine sodium 0.125 mg oral tablet (2 sources) l-Thyroxine Start: 04-25-2023 take 1 tablet by mouth once daily levothyroxine 125 mcg (0.125 mg) Tab 125 mcg = 1 tab(s), Oral, Daily, Refills(s) 0 Start Date: 04/25/23 Status: Ordered Start: 10-11-2022 take 1 tablet by oseas th in the morning levothyroxine (SYNTHROID, LEVOTHROID) 125 MCG tablet Take 1 tablet (125 mcg total) by mouth in the morning. 0 10/11/2022 Active liothyronine sodium 0.005 mg oral tablet (2 sources) l-Triiodothyronine Start: 04-25-2023 Cytomel 5 m cg Tab as directed, Refills(s) 0 Start Date: 04/25/23 Status: Ordered take 8 tablets by mouth in the m orning liothyronine (CYTOMEL) 5 MCG tablet Take 8 tablets (40 mcg total) by mouth in the morning. . 0 Active metFORMIN hydrochloride 500 mg oral tablet (2 sources) Biguanide Start: 04-25-2023 take 1 tablet by mouth once daily metformin 500 mg Tab 500 mg = 1 tab(s), Oral, Daily, Refills(s) 0 Start Date: 04/25/23 Status: Ordered metoprolol tartrate 50 mg oral tablet (2 sources) beta-Adrenergic Carlos Start: 10-12-2022 take 1 tablet by mouth twice daily Metoprolol tartrate 50 mg Tab 50 mg = 1 tab(s), Oral, BID, Refills(s) 0 Start Date: 04/25/23 Status: Ordered uernbcbe-jikl-RU-holly cium &mins (THERAGRAN-M) 9 mg iron-400 mcg tablet (1 source) qefsyxid-hxgj-EK -calcium &mins (THERAGRAN-M) 9 mg iron-400 mcg tablet Take 1 tablet by mouth in the morning. 0 Active nabumetone 500 mg oral tablet (2 sources) Nonsteroidal Anti-inflammatory Drug Start: 04-25-2023 take 1 tablet by mouth once daily nabumetone 500 mg Tab 500 mg = 1 tab(s), Oral, Daily, Refills(s) 0 Start Date: 04/25/23 Status: Ordered Start: 09-21-2022 take 2 tablets by mo ut in the morning, then take 2 tablets by mouth at bedtime nabumetone (RELAFEN) 500 mg tablet Take 2 tablets (1,000 mg total) by mouth in the morning and 2 tablets (1,000 mg total) before bedtime. 0 09/21/2022 Active niacin 1000 mg oral tablet (2 sources) Nicotinic Acid Start: 04-25-2023 take 1 tablet by mouth once daily niacin 1000 mg ER Tab 1,000 mg = 1 tab(s), Oral, Daily, Refills(s) 0 Start Date: 04/25/23 Status: Ordered take 1 tablet by mouth once tavon y niacin (NIASPAN) 1000 mg CR tablet Take 1 tablet (1,000 mg total) by mouth nightly. 0 Active pantoprazole 40 mg delayed release oral tablet (2 sources) Proton Pump Inhibitor Start: 04-25-2023 take 1 tablet by mouth once daily Pantoprazole [address] Tab 40 mg = 1 tab(s), Oral, Daily, Refills(s) 0 Start Date: 04/25/23 Status: Ordered pioglitazone 45 mg oral tablet (2 sources) Peroxisome Proliferator Receptor alpha Agonist, Peroxisome Proliferator Receptor gamma Agonist, Thiazolidinedione Start: 09-08-2022 take 1 tablet by mouth once daily pioglitazone 45 mg Tab 45 mg = 1 tab(s), Oral, Daily, Refills(s) 0 Start Date: 04/25/23 Status: Ordered Vitamin D3 5000 intl units (125 mcg) oral tab (1 source) Start: 04-25-2023 Vitamin D3 5000 intl units (125 mcg) oral tab Refills(s) 0 Start Date: 04/25/23 Status: Ordered Completed/Discontinued Medications Medication Drug Class(es) Dates Sig (Normalized) Sig (Original) calcium carbonate 1500 mg oral tablet (1 source) End: 06-15-2023 take 1 tablet by mouth in the morning, then take 1 tablet by mouth at mealtime calcium carbonate (OS-HOLLY) 600 mg (1,500 mg) tablet Take 1 tablet (600 mg total) by mouth in the morning and 1 tablet (600 mg total) in the evening. Take with meals. 0 06/15/2023 Discontinued (Therapy completed) flaxseed oil oil (1 source) End: 06-15-2023 flaxseed oil oil by miscellaneous route. 0 06/15/2023 Discontinued (Therapy completed) Problems Active Problems Problem Classification Problem Date Documented Date Episodic/Chronic Cardiac dysrhythmias (1 source) Multiple premature ventricular complexes 05-04-2023 Chronic Congestive heart failure; nonhypertensive (1 source) Unspecified diastolic (congestive) heart failure; Translations: [UNSPECIFIED DIASTOLIC HEART FAILURE] Onset: 2 Chronic Diabetes mellitus with complications (1 source) Peripheral neuropathy due to type 2 diabetes mellitus 04-25-2023 Chronic Diabetes mellitus without complication (2 sources) Type 2 diabetes mellitus; Translations: [Diabetes mellitus without complication] 04-25-2023 Chronic Disorders of lipid metabolism (2 sources) Hyperlipidemia; Translations: [Hypertriglyceridemia] 04-25-2023 Chronic Essential hypertension (6 sources) Essential (primary) hypertension; Translations: [Essential hypertension] Onset: 2 Chronic Hypertension with complications and secondary hypertension (1 source) Hypertensive heart disease with heart failure; Translations: [HTN HEART DISEASE W/HEART FAIL] Onset: 2 Chronic Other acquired deformities (1 source) Lumbar spondylolisthesis 04-25-2023 Episodic Other nutritional; endocrine; and metabolic disorders (1 source) Body mass index 30+ - obesity 05-04-2023 Chronic Other nutritional; endocrine; and metabolic disorders (1 source) Obesity 05-04-2023 Chronic Residual codes; unclassified (1 source) Family history of malignant neoplasm of digestive organ; Translations: [Family history of malignant neoplasm of digestive organs] Onset: 4 Episodic Residual codes; unclassified (1 source) Family history of cancer of colon 05-04-2023 Episodic Spondylosis; intervertebral disc disorders; other back problems (1 source) Degeneration of lumbosacral intervertebral disc 04-25-2023 Chronic Thyroid disorders (6 sources) Hypothyroidism, unspecified; Translations: [Hypothyroidism] Onset: 2 Chronic Past or Other Problems Problem Classification [...] MALIG NEOPLASM DIGESTIV ORGN] Onset: 11-21-2021 Episodic Spondylosis; intervertebral disc disorders; other back problems (1 source) Spinal stenosis of lumbar region; Translations: [Spinal stenosis, lumbar region with neurogenic claudication] Onset: 10-16-2019 10-16-2019 Episodic Results Test Name Value Interpretation Reference Range Facility Basic Metabolic Panelon 05-20 Anion gap [Moles/Vol] 9 mmol/L 5 - 15 mmol/L [facility] Calcium [Mass/Vol] 9.3 mg/dL 8.5 - 10. 5 mg/dL [facility] Chloride [Moles/Vol] 107 mmol/L 98 - 109 mmol/L [facility] CO2 [Moles/Vol] 23 mmol/L 22 - 32 mmol/L [facility] Creatinine [Mass/Vol] 0.80 mg/dL 0.40 - 1.00 mg/dL [facility] Comment on above: METHOD TRACEABLE TO IDMS STANDARD eGFR (CKD-EPI)non-race dependent 85 - PINF [facility] Comment on above: Reported eGFR is based on the CKD-EPI 2020 equation that does not use a race coefficient. Glucose [Mass/Vol] 178 mg/dL High 65 - 99 mg/dL [facility] Interpretation and review of laboratory results Abnormal [facility] Potassium [Moles/Vol] 4.3 mmol/L 3.5 - 5.0 mmol/L [facility] Sodium [Moles/Vol] 139 mmol/L 134 - 146 mmol/L [facility] Urea nitrogen [Mass/Vol] 12 mg/dL 5 - 23 mg/dL [facility] ECG 12 leadon 06-15-2023 TRACEMASTERVUE [facility] MR KNEE LEFT WO IV CONTRASTo n 05-31-2023 MR KNEE LEFT WO IV CONTRAST Exam: MR KNEE LEFT WO IV CONTRAST History: Knee pain Technique: Multiplanar multisequence MRI of the knee was performed without contrast. Comparison: Radiographs May 16, 2023 Findings: Quadriceps and patellar tendons are intact. Small joint effusion. Anterior and posterior cruciate ligaments are intact. The medial collateral ligament, lateral collateral ligament, and popliteus are intact. Complex tear of the body through posterior horn of the medial meniscus including complete radial tear of the posterior horn. The lateral meniscus is intact. High-grade partial-thickness cartilage loss of the weightbearing medial femoral condyle with a few tiny full-thickness cartilage defects resulting in tiny foci of subcortical bone marrow edema. Low-grade partial-thickness cartilage loss of the medial tibial plateau. 6 mm subchondral insufficiency fracture of the medial tibial plateau subjacent to the body of the medial meniscus with associated bone marrow edema. Full-thickness cartilage fissure of the median patellar ridge with small focus of subcortical bone marrow edema. Popliteal fossa structures are intact. Septated Hernandez's cyst measures approximately 4 cm in AP dimension by 4 cm in transverse dimension by 6 cm in craniocaudal dimension IMPRESSION: Complex tear of the body through posterior horn of the medial meniscus. 6 mm subchondral insufficiency fracture of the medial tibial plateau. Osteoarthritis most significantly involving the medial compartment. ELECTRONICALLY SIGNED BY: Alberto Pyle, DO Normal Not Available Physician Referralon 023 Physician Referral [id number] #[id number] Normal [facility] INSULINon 03-04-2022 Insulin 9.8 uIU/mL Normal 2.6-24.9 [facility] Comment on above: Performed By: #### I NSULIN ####[facility] [address] [place] [address]Dr. Lyndsey Islva CBC AUTO DIFFon 03-03-2022 BASO # 0.0 103/ul Normal 0.0-0.1 [facility] Comment on above: Performed By: #### C BC ####[facility] [address] [place], [place] [id number]. Lyndsey Ricardo Basophils/100 WBC (Bld) 0.6 % Normal 0.2-2.0 [facility] Comment on above: Performed By: #### C BC ####[facility] [address] [place], [place] [address]Dr. Coriyamil Silva EO # 0.1 103/ul Normal 0.0-0.7 [facility] Comment on above: Performed By: #### C BC ####[facility] [address] [place], [place] [address]Dr. Coriyamil Silva Eosinophils/100 WBC (Bld) 1.6 % Normal 0.9-7.0 [facility] Comment on above: Performed By: #### C BC ####[facility] [address] [place], [place] [address]Dr. Lyndsey Silva Erythrocyte distribution width (RBC) [Ratio] 13.2 % Normal 11.0-15.0 [facility] Comment on above: Performed By: #### C BC ####[facility] [address] [place], [place] [address]Dr. Lyndsey Silva Hematocrit (Bld) [Volume fraction] 41.8 % Normal 36.0-48.0 [facility] Comment on above: Performed By: #### C BC ####[facility] [address] [place], [place] [address]Dr. Lyndsey Silva Hemoglobin (Bld) [Mass/Vol] 14.3 g/dL Normal 12.0-16.0 [facility] Comment on above: Performed By: #### C BC ####[facility] [address] [place], [place] [address]Dr. Lyndsey Silva IG # 0.04 10e3/ul Critically high 0.00-0.03 [facility] Comment on above: Performed By: #### C BC ####[facility] [address] [place] [id number]. Lyndsey Silva IG % 0.8 % Critically high 0.0-0.5 [facility] Comment on above: Performed By: #### C BC ####[facility] [address] [place] [id number]. Lyndsey Silva LYMPH # 1.8 103/ul Normal 1.2-3.8 [facility] Comment on above: Performed By: #### C BC ####[facility] [address] [place] [id number]. Lyndsey Silva Lymphocytes/100 WBC (Bld) 35.3 % Normal 20.5-60.0 [facility] Comment on above: Performed By: #### C BC ####[facility] [address] [place] [address]Dr. Lyndsey Silva MANUAL DIFF REQ NO Normal [facility] Comment on above: Performed By: #### C BC ####[facility] [address] [place] [id number]. Lyndsey Silva MCH (RBC) [Entitic mass] 31.2 pg Normal 26.7-34.0 [facility] Comment on above: Performed By: #### C BC ####[facility] [address] [place] [id number]. Lyndsey Silva MCHC (RBC) [Mass/Vol] 34.2 g/dL Normal 29.9-35.2 [facility] Comment on above: Performed By: #### C BC ####[facility] [address] [place] [id number]. Lyndsey Silva MCV (RBC) [Entitic vol] 91.3 fL Normal 81.0-99.0 [facility] Comment on above: Performed By: #### C BC ####[facility] [address] [place] [address]Dr. Lyndsey Ricardo MONO # 0.5 103/ul Normal 0.3-0.8 [facility] Comment on above: Performed By: #### C BC ####[facility] [address] [place] [id number]. Lyndsey Silva Monocytes/100 WBC (Bld) 9.8 % Normal 1.7-12.0 [facility] Comment on above: Performed By: #### C BC ####[facility] [address] [place] [id number]. Lyndsey Silva NEUT # 2.6 103/ul Normal 1.4-6.5 [facility] Comment on above: Performed By: #### C BC ####[facility] [address] [place] [id number]. Lyndsey Silva Neutrophils/100 WBC (Bld) 51.9 % Normal 43.0-75.0 [facility] Comment on above: Performed By: #### C BC ####[facility] [address] [place] [address]Dr. Lyndsey Silva Platelet mean volume (Bld) [Entitic vol] 8.8 fL Critically low 9.5-13.5 [facility] Comment on above: Performed By: #### C BC ####[facility] [address] [place] [address]Dr. Lyndsey Silva PLT 304 103/ul Normal 150-450 [facility] Comment on above: Performed By: #### C BC ####[facility] [address] [place] [id number]. Lyndsey Silva RBC 4.58 106/ul Normal 4.20-5.40 [facility] Comment on above: Performed By: #### C BC ####[facility] [address] [place], [place] [address]Dr. Lyndsey Silva WBC 5.0 103/ul Normal 4.0-11.0 [facility] Comment on above: Performed By: #### C BC ####[facility] [address] [place], [place] [address]Dr. Lyndsey Sliva FREE THYROXINE INDEX T7on FTI 1.77 Normal 1.30-4.50 [facility] Comment on above: Performed By: #### L IPID, CMP, TSH, T7 ####[facility] [address] [place], [place] [address]HoPeg Silva T3U 31.0 % Normal 30.0-39.0 [facility] Comment on above: Performed By: #### L IPID, CMP, TSH, T7 ####[facility] [address] [place], [place] [address]HnDr. Lyndsey Silva T4 [Mass/Vol] 5.70 ug/dL Normal 4.80-13.90 [facility] Comment on above: Performed By: #### L IPID, CMP, TSH, T7 ####[facility] [address] [place] [id number]. Lyndsey Silva GLYCOHEMOGLOBIN A1Con 2021 ADA RECOMMENDATION SEE BELOW Normal [facility] Comment on above: Result Comment: ADA RECOMMENDED LIMIT 4.0 - 6.0 ADA THERAPEUTIC TARGET < 7.0 ACTION SUGGESTED > 7.0 Performed By: #### A 1C #### [facility] [address] [place] [address] [address] Lyndsey Silva Glucose [Mass/Vol] 146 mg/dL Normal [facility] Comment on above: Performed By: #### A 1C #### [facility] [address] [address] [address] Lyndsey Silva HbA1c (Bld) [Mass fraction] 6.7 % Critically high 4.5-6.2 [facility] Comment on above: Performed By: #### A 1C #### [facility] [address] [address] [address] Lyndsey Silva IRONon 03-03-2022 Iron [Mass/Vol] 122.0 ug/dL Normal 50.0-170.0 [facility] Comment on above: Performed By: #### V ITB12, IRON, VITAD ####[facility] [address] [place] [id number]. Lyndsey Silva LIPID PROFILEon 03-03-2022 CHOL-HDL RATIO NORM SEE BELOW Normal [facility] Comment on above: Result Comment: 3.3 - 4.4 LOW RISK 4.4 - 7.1 AVERAGE RISK 7.1 - 11.0 MODERATE RISK >11.0 HIGH RISK Performed By: #### L IPID, CMP, TSH, T7 ####[facility] [address] [place] [id number]. Coriyamil Silva Cholesterol [Mass/Vol] 244 mg/dL Critically high <=200 [facility] Comment on above: Performed By: #### L IPID, CMP, TSH, T7 ####[facility] [address] [place], [place] [address]Qz. Coriyamil Silva Cholesterol in HDL [Mass/Vol] 48 mg/dL Normal 40-60 [facility] Comment on above: Performed By: #### L IPID, CMP, TSH, T7 ####[facility] [address] [place] [id number]. Lyndsey Silva Cholesterol in LDL [Mass/Vol] 133.0 mg/dL Normal [facility] Comment on above: Performed By: #### L IPID, CMP, TSH, T7 ####[facility] [address] [place] [phone]. Lyndsey Silva Cholesterol.total/C holesterol in HDL [Mass ratio] 5.1 {ratio} Normal [facility] Comment on above: Performed By: #### L IPID, CMP, TSH, T7 ####[facility] [address] [place] [phone]. Lyndsey Silva HDL NORMAL > or = 60 mg/dl - LOW CARDIOVASCULAR RISK <40 mg/dl - HIGH CARDIOVASCULAR RISK Normal [facility] Comment on above: Performed By: #### L IPID, CMP, TSH, T7 ####[facility] [address] [place] [phone]. Lyndsey Silva LDL CALC NORMAL SEE BELOW Normal [facility] Comment on above: Result Comment: <100 mg/dl OPTIMAL 100 - 129 mg/dl NEAR OR ABOVE OPTIMAL 130 - 159 mg/dl BORDERLINE HIGH 160 - 189 mg/dl HIGH >190 mg/dl VERY HIGH Performed By: #### L IPID, CMP, TSH, T7 ####[facility] [address] [place] [phone]. Lyndsey Silva Triglyceride [Mass/Vol] 315 mg/dL Critically high <=150 [facility] Comment on above: Performed By: #### L IPID, CMP, TSH, T7 ####[facility] [address] [place] [address]Dr. Lyndsey Silav VLDL CALC 63.0 mg/dL Normal [facility] Comment on above: Performed By: #### L IPID, CMP, TSH, T7 ####[facility] [address] [place] [address]Dr. Lyndsey Silva PROF 14(COMP METB)on 022 Albumin [Mass/Vol] 4.6 g/dL Normal 3.4-5.0 [facility] Comment on above: Performed By: #### L IPID, CMP, TSH, T7 ####[facility] [address] [place] [address]Dr. Lyndsey Silva Albumin/Globulin [Mass ratio] 1.2 {ratio} Normal [facility] Comment on above: Performed By: #### L IPID, CMP, TSH, T7 ####[facility] [address] [place], [place] [address]Dr. Lyndsey Silva ALP [Catalytic activity/Vol] 79 U/L Normal 46-116 [facility] Comment on above: Performed By: #### L IPID, CMP, TSH, T7 ####[facility] [address] [place] [address]Dr. Lyndsey Silva ALT [Catalytic activity/Vol] 26 U/L Normal 14-59 [facility] Comment on above: Performed By: #### L IPID, CMP, TSH, T7 ####[facility] [address] [place] [address]Dr. Lyndsey Silva Anion gap [Moles/Vol] 11.1 mmol/L Normal [facility] Comment on above: Performed By: #### L IPID, CMP, TSH, T7 ####[facility] [address] [place] [address]Dr. Lyndsey Silva AST [Catalytic activity/Vol] 16 U/L Normal 15-37 [facility] Comment on above: Performed By: #### L IPID, CMP, TSH, T7 ####[facility] [address] [place] [address]Dr. Lyndsey Silva Bilirubin [Mass/Vol] 0.6 mg/dL Normal 0.2-1.0 [facility] Comment on above: Performed By: #### L IPID, CMP, TSH, T7 ####[facility] [address] [place] [address]Dr. Lyndsey Silva Calcium [Mass/Vol] 9.7 mg/dL Normal 8.5-10.1 [facility] Comment on above: Performed By: #### L IPID, CMP, TSH, T7 ####[facility] [address] [place], [place] [address]Dr. Lyndsey Silva Chloride [Moles/Vol] 102 mmol/L Normal 98-107 [facility] Comment on above: Performed By: #### L IPID, CMP, TSH, T7 ####[facility] [address] [place], [place] [address]Dr. Lyndsey Silva CO2 [Moles/Vol] 28.7 mmol/L Normal 21.0-32.0 [facility] Comment on above: Performed By: #### L IPID, CMP, TSH, T7 ####[facility] [address] [place], [place] [address]Dr. Lyndsey Silva Creatinine [Mass/Vol] 1.02 mg/dL Normal 0.55-1.02 [facility] Comment on above: Performed By: #### L IPID, CMP, TSH, T7 ####[facility] [address] [place], [place] [address]Dr. Lyndsey Silva EGFR-AF SAMOAN >60 Normal >=60 [facility] Comment on above: Performed By: #### L IPID, CMP, TSH, T7 ####[facility] [address] [place], [place] [address]Dr. Lyndsey Silva EGFR-NON AF SAMOAN 56 mL/min/1.73m2 Critically low >=60 [facility] Comment on above: Performed By: #### L IPID, CMP, TSH, T7 ####[facility] [address] [place] [address]Dr. Lyndsey Silva Globulin (S) [Mass/Vol] 3.9 g/dL Normal [facility] Comment on above: Performed By: #### L IPID, CMP, TSH, T7 ####[facility] [address] [place] [address]Dr. Lyndsey Silva Glucose [Mass/Vol] 130 mg/dL Critically high 74-106 [facility] Comment on above: Performed By: #### L IPID, CMP, TSH, T7 ####[facility] [address] [place] [address]Dr. Lyndsey Silva Potassium [Moles/Vol] 3.8 mmol/L Normal 3.5-5.1 [facility] Comment on above: Performed By: #### L IPID, CMP, TSH, T7 ####[facility] [address] [place] [address]Dr. Lyndsey Silva Protein [Mass/Vol] 8.5 g/dL Critically high 6.4-8.2 [facility] Comment on above: Performed By: #### L IPID, CMP, TSH, T7 ####[facility] [address] [place], [place] [address]Dr. Lyndsey Silva Sodium [Moles/Vol] 138 mmol/L Normal 136-145 [facility] Comment on above: Performed By: #### L IPID, CMP, TSH, T7 ####[facility] [address] [place] [address]Dr. Lyndsey Silva Urea nitrogen [Mass/Vol] 25.0 mg/dL Critically high 7.0-18.0 [facility] Comment on above: Performed By: #### L IPID, CMP, TSH, T7 ####[facility] [address] [place], [place] [address]Dr. Lyndsey Silva Urea nitrogen/Creatinine [Mass ratio] 24.5 mg/mg Normal [facility] Comment on above: Performed By: #### L IPID, CMP, TSH, T7 ####[facility] [address] [place] [address]Dr. Lyndsey Silva TSHon 03-03-2022 TSH 0.126 uIU/mL Critically low 0.358-3.740 [facility] Comment on above: Performed By: #### L IPID, CMP, TSH, T7 ####[facility] [address] [place] [address]Dr. Lyndsey Silva VITAMIN B12on 03-03-2022 Cobalamin (Vitamin B12) [Mass/Vol] 894.0 pg/mL Normal 193.0-986.0 [facility] Comment on above: Performed By: #### V ITB12, IRON, VITAD ####[facility] [address] [place] [address]Dr. Lyndsey Silva VITAMIN D 25 OHon 03-03-2022 VIT D 25-OH 30.1 ng/mL Normal [facility] Comment on above: Performed By: #### V ITB12, IRON, VITAD ####[facility] [address] [place] [address]Dr. Lyndsey [facility] VIT D RANGES SEE BELOW Normal [facility] Comment on above: Result Comment: <20 ng/mL Vit D deficient 20 - <30 ng/mL Vit D insufficient 30 - 100 ng/mL Vit D sufficient >100 ng/mL Potential Toxicity Performed By: #### V ITB12, IRON, VITAD ####[facility] [address] [place] [address]Dr. Lyndsey Silva MG MAMM SCREEN 3D LEILANI CADon 11-17-2021 MG MAMM SCREEN 3D LEILANI CAD Patient: ISA NEAL Exam Date: 11/17/2021 : 1965 Gender:F Ordering : DR MATTHEW BAUMANN . Admission #: [id number] Family : Order #: [id number] CLICK HERE TO VIEW EXAM RADIOLOGY REPORT [...] colon cancer at age 59. LOCATION: [facility] BREAST COMPOSITION: Heterogeneously dense,which may obscure small [...] Hansen M.D. on 11/17/2021 at 15:36 Normal [facility] NM STRESS/REST MULTIon 09-02 NM STRESS/REST MULTI Patient: ISA NEAL Exam Date: 09/02/2021 : 1965 Gender:F Ordering : DR MATTHEW BAUMANN . Admission #: [id number] Family : Order #: [id number] CLICK HERE TO VIEW EXAM RADIOLOGY REPORT PROCEDURE: RADIONUCLIDE IMAGING STRESS/REST MULTI COMPARISON: CT STRESS/REST MULTI, 01/30/2016. INDICATIONS: Essential hypertension TECHNIQUE: [...] Hansen M.D. on 09/02/2021 at 14:07 Normal [facility] ECHOCARDIO M/2D COMPLETEon 0 08-19-2021 ECHOCARDIO M/2D COMPLETE Patient: ISA NEAL Exam Date: 08/19/2021 : 1965 Gender:F Ordering : DR MATTHEW BAUMANN . Admission #: [id number] Family : Order #: [id number] CLICK HERE TO VIEW EXAM ECHOCARDIOGRAM REPORT [...] Area(A4C): 12.60 cm2 Left Atrium Systolic Volume(A2C): 60057 mm3 Left Atrium Systolic Volume(A4C): 14891 mm3 Mitral Valve MV E to A [...] M.D. on 08/19/2021 at 17:27 Normal [facility] BNPon 08-12-2021 Natriuretic peptide B (Bld) [Mass/Vol] 58.0 pg/mL Normal <=900.0 [facility] Comment on above: Performed By: #### B COMPRESS TRUCKER, TSH, T7, CMP #### [facility] [address] [place], [place] [address] Dr. Lyndsey Silva CBC AUTO DIFFon 08-12-2021 BASO # 0.1 103/ul Normal 0.0-0.1 [facility] Comment on above: Performed By: #### C BC #### [facility] [address] [place] [address] [address] Lyndsey Silva Basophils/100 WBC (Bld) 0.4 % Normal 0.2-2.0 [facility] Comment on above: Performed By: #### C BC #### [facility] [address] [place] [address] Dr. Lyndsey Silva EO # 0.1 103/ul Normal 0.0-0.7 [facility] Comment on above: Performed By: #### C BC #### [facility] [address] [place] [address] Dr. Lyndsey Silva Eosinophils/100 WBC (Bld) 0.6 % Critically low 0.9-7.0 [facility] Comment on above: Performed By: #### C BC #### [facility] [address] [place] [address] Dr. Lyndsey Silva Erythrocyte distribution width (RBC) [Ratio] 13.6 % Normal 11.0-15.0 [facility] Comment on above: Performed By: #### C BC #### [facility] [address] [place] [address] Dr. Lyndsey Silva Hematocrit (Bld) [Volume fraction] 42.4 % Normal 36.0-48.0 [facility] Comment on above: Performed By: #### C BC #### [facility] [address] [place] [address] Dr. Lyndsey Silva Hemoglobin (Bld) [Mass/Vol] 14.3 g/dL Normal 12.0-16.0 [facility] Comment on above: Performed By: #### C BC #### [facility] [address] [place] [address] Dr. Lyndsey Silva IG # 0.17 10e3/ul Critically high 0.00-0.[address] [facility] Comment on above: Performed By: #### C BC #### [facility] [address] [place] [address] Dr. Lyndsey Silva IG % 1.4 % Critically high 0.0-0.5 [facility] Comment on above: Performed By: #### C BC #### [facility] [address] [place] [address] Dr. Lyndsey Silva LYMPH # 2.6 103/ul Normal 1.2-3.8 [facility] Comment on above: Performed By: #### C BC #### [facility] [address] [place] [address] Dr. Lyndsey Silva Lymphocytes/100 WBC (Bld) 21.6 % Normal 20.5-60.0 [facility] Comment on above: Performed By: #### C BC #### [facility] [address] [place] [address] Dr. Lyndsey Silva MANUAL DIFF REQ NO Normal [facility] Comment on above: Performed By: #### C BC #### [facility] [address] [place] [address] Dr. Lyndsey Silva MCH (RBC) [Entitic mass] 31.5 pg Normal 26.7-34.0 [facility] Comment on above: Performed By: #### C BC #### [facility] [address] [place] [address] Dr. Lyndsey Silva MCHC (RBC) [Mass/Vol] 33.7 g/dL Normal 29.9-35.2 [facility] Comment on above: Performed By: #### C BC #### [facility] [address] [place] [address] Dr. Lyndsey Silva MCV (RBC) [Entitic vol] 93.4 fL Normal 81.0-99.0 [facility] Comment on above: Performed By: #### C BC #### [facility] [address] [place] [address] Dr. Lyndsey Silva MONO # 0.8 103/ul Normal 0.3-0.8 [facility] Comment on above: Performed By: #### C BC #### [facility] [address] [place] [address] Dr. Lyndsey Silva Monocytes/100 WBC (Bld) 6.9 % Normal 1.7-12.0 [facility] Comment on above: Performed By: #### C BC #### [facility] [address] [place] [address] Dr. Lyndsey Silva NEUT # 8.2 103/ul Critically high 1.4-6.5 [facility] Comment on above: Performed By: #### C BC #### [facility] [address] [place] [address] Dr. Lyndsey Silva Neutrophils/100 WBC (Bld) 69.1 % Normal 43.0-75.0 [facility] Comment on above: Performed By: #### C BC #### [facility] [address] [place] [address] Dr. Lyndsey Silva Platelet mean volume (Bld) [Entitic vol] 8.8 fL Critically low 9.5-13.5 [facility] Comment on above: Performed By: #### C BC #### [facility] [address] [place] [address] Dr. Lyndsey Silva PLT 341 103/ul Normal 150-450 [facility] Comment on above: Performed By: #### C BC #### [facility] [address] [place] [address] Dr. Lyndsey Silva RBC 4.54 106/ul Normal 4.20-5.40 [facility] Comment on above: Performed By: #### C BC #### [facility] [address] [place] [address] Dr. Lyndsey Silva WBC 11.9 103/ul Critically high 4.0-11.0 [facility] Comment on above: Performed By: #### C BC #### [facility] [address] [place] [address] Dr. Lyndsey Silva FREE THYROXINE INDEX T7on FTI 1.40 Normal [facility] Comment on above: Performed By: #### B COMPRESS TRUCKER, TSH, T7, CMP #### [facility] [address] [place] [address] Dr. Lyndsey Silva T3U 31.0 % Normal 23.5-40.5 [facility] Comment on above: Performed By: #### B COMPRESS TRUCKER, TSH, T7, CMP #### [facility] [address] [place] [address] Dr. Lyndsey Silva T4 [Mass/Vol] 4.50 ug/dL Critically low 4.80-13.[address] [facility] Comment on above: Performed By: #### B COMPRESS TRUCKER, TSH, T7, CMP #### [facility] [address] [place] [address] Dr. Lyndsey KILLIANon 08-12-2021 Iron [Mass/Vol] 106.0 ug/dL Normal 50.0-170.0 [facility] Comment on above: Performed By: #### I STERLING #### [facility] [address] [place] [address] Dr. Lyndsey Silva PROF 14(COMP METB)on 022 Albumin [Mass/Vol] 5.0 g/dL Normal 3.4-5.0 [facility] Comment on above: Performed By: #### B COMPRESS TRUCKER, TSH, T7, CMP #### [facility] [address] [place] [address] Dr. Lyndsey Silva Albumin/Globulin [Mass ratio] 1.4 {ratio} Normal [facility] Comment on above: Performed By: #### B COMPRESS TRUCKER, TSH, T7, CMP #### [facility] [address] [place] [address] Dr. Lyndsey Silva ALP [Catalytic activity/Vol] 72 U/L Normal 46-116 [facility] Comment on above: Performed By: #### B COMPRESS TRUCKER, TSH, T7, CMP #### [facility] [address] [place] [address] Dr. Lyndsey Silva ALT [Catalytic activity/Vol] 35 U/L Normal 14-59 [facility] Comment on above: Performed By: #### B COMPRESS TRUCKER, TSH, T7, CMP #### [facility] [address] [place] [address] Dr. Lyndsey Silva Anion gap [Moles/Vol] 17.5 mmol/L Normal [facility] Comment on above: Performed By: #### B COMPRESS TRUCKER, TSH, T7, CMP #### [facility] [address] [place] [address] Dr. Lyndsey Silva AST [Catalytic activity/Vol] 20 U/L Normal 15-37 [facility] Comment on above: Performed By: #### B COMPRESS TRUCKER, TSH, T7, CMP #### [facility] [address] [place] [address] Dr. Lyndsey Silva Bilirubin [Mass/Vol] 1.2 mg/dL Critically high 0.2-1.0 [facility] Comment on above: Performed By: #### B COMPRESS TRUCKER, TSH, T7, CMP #### [facility] [address] [place] [address] Dr. Lyndsey Silva Calcium [Mass/Vol] 9.5 mg/dL Normal 8.5-10.1 [facility] Comment on above: Performed By: #### B COMPRESS TRUCKER, TSH, T7, CMP #### [facility] [address] [place] [address] Dr. Lyndsey Silva Chloride [Moles/Vol] 98 mmol/L Normal 98-107 [facility] Comment on above: Performed By: #### B COMPRESS TRUCKER, TSH, T7, CMP #### [facility] [address] [place] [address] Dr. Lyndsey Silva CO2 [Moles/Vol] 25.0 mmol/L Normal 21.0-32.0 [facility] Comment on above: Performed By: #### B COMPRESS TRUCKER, TSH, T7, CMP #### [facility] [address] [place] [address] Dr. Lyndsey Silva Creatinine [Mass/Vol] 1.17 mg/dL Critically high 0.55-1.02 [facility] Comment on above: Performed By: #### B COMPRESS TRUCKER, TSH, T7, CMP #### [facility] [address] [place] [address] Dr. Lyndsey Silva EGFR-AF SAMOAN 58 mL/min/1.73m2 Critically low >=60 [facility] Comment on above: Performed By: #### B COMPRESS TRUCKER, TSH, T7, CMP #### [facility] [address] [place] [address] Dr. Lyndsey Silva EGFR-NON AF SAMOAN 48 mL/min/1.73m2 Critically low >=60 [facility] Comment on above: Performed By: #### B COMPRESS TRUCKER, TSH, T7, CMP #### [facility] [address] [place] [address] [address] Lyndsey Silva Globulin (S) [Mass/Vol] 3.6 g/dL Normal [facility] Comment on above: Performed By: #### B COMPRESS TRUCKER, TSH, T7, CMP #### [facility] [address] [place] [address] Dr. Lyndsey Silva Glucose [Mass/Vol] 123 mg/dL Critically high 74-106 [facility] Comment on above: Performed By: #### B COMPRESS TRUCKER, TSH, T7, CMP #### [facility] [address] [place] [address] Dr. Lyndsey Silva Potassium [Moles/Vol] 4.5 mmol/L Normal 3.5-5.1 [facility] Comment on above: Performed By: #### B COMPRESS TRUCKER, TSH, T7, CMP #### [facility] [address] [place] [address] Dr. Lyndsey Silva Protein [Mass/Vol] 8.6 g/dL Critically high 6.1-8.2 [facility] Comment on above: Performed By: #### B COMPRESS TRUCKER, TSH, T7, CMP #### [facility] [address] [place] [address] Dr. Lyndsey Silva Sodium [Moles/Vol] 136 mmol/L Normal 136-145 [facility] Comment on above: Performed By: #### B COMPRESS TRUCKER, TSH, T7, CMP #### [facility] [address] [place] [address] Dr. Lyndsey Silva Urea nitrogen [Mass/Vol] 12.0 mg/dL Normal 7.0-18.0 [facility] Comment on above: Performed By: #### B COMPRESS TRUCKER, TSH, T7, CMP #### [facility] [address] [place] [address] Dr. Lyndsey Silva Urea nitrogen/Creatinine [Mass ratio] 10.3 mg/mg Normal [facility] Comment on above: Performed By: #### B COMPRESS TRUCKER, TSH, T7, CMP #### [facility] [address] [place] [address] Dr. Lyndsey Silva TSHon 08-12-2021 TSH 1.149 uIU/mL Normal 0.470-4.680 [facility] Comment on above: Performed By: #### B COMPRESS TRUCKER, TSH, T7, CMP #### [facility] [address] [place], [place] [address] Dr. Lyndsey Silva TSH RANGE SEE BELOW Normal [facility] Comment on above: Result Comment: <0.3 4 UIU/ml HYPERTHYROID 0.34-5.60 UIU/ml EUTHYROID >5.60 UIU/ml HYPOTHYROID Performed By: #### B COMPRESS TRUCKER, TSH, T7, CMP #### [facility] [address] [place], [place] [address] Dr. Lyndsey Silva Vital Signs Date Time Vital Sign Value Performing Clinician Pretty mendes 06-15-2023 09:47-0500 Body height 165.[address] 06-15-2023 09:47-0500 Body mass index (BMI) [Ratio] 30.79 kg/m2 [address] 06-15-2023 09:47-0500 Body weight 83.[address] 05-04-2023 13:17-0500 Blood Pressure Location [employer] [facility] 05-04-2023 13:17-0500 Diastolic blood pressure 82 mm[Hg] Bautista [employer] [facility] 05-04-2023 13:17-0500 Heart rate 72 /min Bautista [employer] [facility] 05-04-2023 13:17-0500 Respiratory rate 16 /min [email or web address] [facility] 05-04-2023 13:17-0500 Systolic blood pressure 144 mm[Hg] [employer] [facility] Encounters Encounter Date Encounter Type Care Provider Facility Start: 06-15-2023 End: 06-15-2023 Patient encounter procedure [facility] Pre-Admission Testing 2 [facility] - Pre Admit Comment on above: Preop examination (P rimary Dx); Hypertension, unspecified type; Diabetes mellitus of other type without complication, unspecified whether alf insulin use ([facility] Start: 06-15-2023 End: 06-15-2023 Preprocedural examination done [facility] 2 [facility] Start: 06-07-2023 End: 06-07-2023 ambulatory CARLEEN LALA Not Available Start: 05-31-2023 End: 06-01-2023 ambulatory NIRAV Loaiza APLING Not Available Start: 05-18-2023 End: 05-18-2023 ambulatory AP HERNANDEZ Not Available Start: 05-16-2023 End: 05-17-2023 ambulatory NIRAV Loaiza APLING Not Available Start: 05-04-2023 ambulatory Bautista CRISTINA Facility : [facility] Start: 05-04-2023 End: 05-04-2023 Patient encounter procedure Bautista CRISTINA General Surgery Anna/Adama Garcias Start: 05-03-2023 End: 05-03-2023 ambulatory CARLEEN LALA Not Available Start: 04-04-2023 End: 04-05-2023 [facility] Start: 03-25-2023 ambulatory Bautista CRISTINA Facility:[facility] Start: 03-21-2023 End: 03-22-2023 ambulatory [facility] Start: 03-08-2023 ambulatory Bautista CRISTINA Facility:[facility] Start: 03-06-2022 Encounter for genera l adult medical examination without abnormal findings DR MATTHEW BAUMANN [facility] Start: 03-03-2022 End: 03-04-[address] MATTHEW BAUMANN Facility:[facility] Start: 03-03-2022 End: 03-04-2022 Encounter for general adult medical examination without abnormal findings DR MATTHEW BAUMANN Facility:[facility] Start: 11-17-2021 End: 11-18-[address] MATTHEW BAUMANN Facility:[facility] Start: 09-02-2021 End: 09-03-[address] MATTHEW BAUMANN Facility:[facility] Start: 08-19-2021 End: 08-20-[address] MATTHEW BAUMANN Facility:[facility] Start: 08-12-2021 End: 08-13-[address] MATTHEW BAUMANN Facility:[facility] Procedures Date Procedure Procedure Detail Performing Clinician Start: 10-15-2015 Colonoscopy Bautista NI LL Appendectomy Bautista NILL Arthroscopy of knee Bautista NILL Cholecystectomy Bautista NILL Laminectomy Bautista NILL Ostectomy of calcane us for spur Bautista NILL Plan of Treatment Date Care Activity Detail Author Start: 06-15-2024 Adult BMI Screening Adult BMI Screen ing [facility] Start: 06-15-2024 Tobacco Screening Tobacco Screening [facility] Start: 06-29-2023 End: 06-29-2023 Admission to same day surgery center 06/29/2023 8:00 AM EDT - 06/29/2023 9:00 AM EDT Surgery [facility] - Surgery [address] [place] [id number] Carlene Lala DO [address] [place] [address] ARTHROSCOPIC MENISCECTOMY KNEE [71093 (CPT )] [facility] Comment on above: ARTHROSCOPIC MENISCE CTOMY KNEE [19434 (CPT )] Start: 06-29-2023 End: 06-29-2023 Arthrs kne surg w/meniscectomy med/lat w/shvg ARTHROSCOPIC MENISCECTOMY KNEE left knee meniscal tear 06/29/2023 8:00 AM EDT [facility] Start: 06-29-2023 Subsequent hospital visit by physician 06/29/2023 8:00 AM EDT Hospital Encounter [facility] - Surgery [address] [place] [id number] Carleen Lala DO [address] [place] [address] [facility] - Surgery Start: 2014 Administration of varicella zoster vaccine Zoster (Shingles) Vaccine (1 of 2) [facility] Start: 1985 Screening for malign ant neoplasm of cervix Pap Smear [facility] Start: 07-09-1983 DTaP,Tdap and Td Vac cines (1 - Tdap) DTaP,Tdap and Td Vaccines (1 - Tdap) [facility] Start: 1982 Adult BMI Follow Up Plan Adult BMI Follow Up Plan [facility] Start: 1982 Diabetic foot examination Diabetic F oot Exam [facility] Start: 1976 Depression Screening Depression Scre ening [facility] Start: 1964 Glaucoma screening Diabetic Op hthalmology Exam [facility] Immunizations Immunization Date Immunization Notes Care Provider Fa cility 02-01-2023 influenza virus vaccine, unspecified formulation Bautista CRISTINA [facility] 02-19-2022 SARS-CoV-2 (COVID-19 ) mRNAMUL.[id number] Bautista CRISTINA [facility] 09-03-2021 SARS-CoV-2 mRNA (yqxlttvgdlr-beob-txevp se) vaccine Bautista CRISTINA [facility] 02-06-2021 SARS-CoV-2 (COVID-19 ) mRNA BNT-162b2 vax Bautista CRISTINA [facility] 05-24-2020 SARS-CoV-2 (COVID-19 ) mRNA BNT-162b2 vax Bautista CRISTINA [facility] Comment on above: Result Comment: 2023: [id number] 05-03-2020 SARS-CoV-2 (COVID-19 ) mRNA BNT-162b2 vax Bautista CRISTINA [facility] [facility] Comment on above: Result Comment: 2023: [id number] Payers Date Payer Category Payer Unknown 1965 Unknown [id number] 2.16.84 [id number] 1965 Unknown [id number] 2.16.84 [id number] 1965 Unknown [id number] 2.16.84 [id number] 1965 Unknown [id number] 2.16.84 [id number] 1965 Unknown [id number] 2.16.84 [id number] 1965 Unknown [id number] 2.16. [id number] 1965 Unknown [id number] 2.16. [id number] 1965 Unknown [id number] 2.16.8 [id number] 1965 Unknown [id number] 2.16.84 [id number] 1965 Unknown [id number] 2.16.84 [id number] 1964 Unknown [id number] 2.16.84 [id number] 1964 Unknown [id number] 2.16.84 [id number] 1964 Unknown [id number] 2.16.84 [id number] 1965 Unknown [id number] 2.16.84 [id number] 1959 Unknown [id number] Social History Date Type Detail Facility Start: 10-14-2022 End: 05-04-2023 Tobacco smoking status Never smoked tobacco (finding) General [facility] Tobacco smoking status Never Gener al Surgery [facility] Start: 10-03-2019 End: 05-29-2020 Sex Assigned At Female Ricky Hammond [facility] Start: 10-14-2022 Tobacco use and exposure Smokeless tobacco non-user [facility] Start: 06-15-2023 Alcohol intake Lifetime non-d jasen (finding) [facility] Start: 10-03-2019 End: 05-29-2020 History of Social function [facility] How often to you hav e a drink containing alcohol? Never [facility] Start: 1965 Sex Assigned At Not on file [facility] Medical Equipment Procedure Code Equipment Code Equipment Origin al Text Equipment Identifier Dates Gft Bn Dmnr Fbr 15ml Biologic - [id number] - [id number] Start: 10-17-2019 Aleksandr Spnl 40mm 5. 5mm Hex End - Sna - [id number] Start: 10-17-2019 Scr Bn 45mm 5.5m m Pa Spne Vrst - Sna - [id number] Start: 10-17-2019 [facility] Oblique [id number] Start: 10-17-2019 Goals Date Patient Goal Desired Activity /State Personal health goal Comment on above: Formatting of this n ote might be different from the original. Evaluation of progress towards goal: Safe dc transition from hospital to home with family member. Functional Status Date Assessment Result Facility 05-04-2023 Functional Status N/A General Dior rgyanelis Garcias Instructions 06-15-2023 Patient Instructions Note Date & Type Note Facility 06-15-2023 Instructions Silvia Mora RN - 06/15/2023 9:45 AM EST Preoperative Education Checklist- General Surgery date: 06/29/23 Surgery time: 0800 a.m. Arrival time: 0610 a.m. 1. Bring a photo ID and your insurance card with you the day of surgery. You will check in at the main lobby of the [facility]- registration desk is straight ahead as soon as you walk in. Tell them you are here for surgery. 2. If you have a Living Will/Durable Power of Medical [employer] for Health Care that is not on file here, please bring a copy the day of surgery. 3. Please shower/bathe the night before surgery with the provided soap or wipes. Do not shower the morning of surgery- you will do use wipes when you arrive here at the hospital before getting into your surgical gown. Do not shave the area of your procedure for 2 days prior to your surgery. 4. NO powder, lotion, perfume/cologne, aftershave, make-up, deodorant, or hair products after you have bathed. 5. NO nail palauan/acrylic on at least one finger. If you are having a hand, wrist or foot surgery then all nail palauan and artificial/acrylic nails must be removed from that hand or foot. 6. Avoid ALL Aspirin and non-steroidal anti-inflammatory drugs and certain vitamins (Ibuprofen, Advil, Aleve, Excedrin, Meloxicam, Celebrex, fish/krill oil, etc.) for 7 days prior to surgery as instructed by your surgeon and/or your prescribing doctor. Tylenol IS ALLOWED. If you are on Ticlid, Xarelto, Eliquis, Pradaxa, Plavix or Coumadin, please check with your prescribing doctor for instructions for when to stop them. 7. If you use an inhaler, continue to use it routinely. 8. Nothing to eat or drink (not even water, gum, mints, or hard candy!) AFTER midnight prior to your surgery. 9. Take only medications that you are instructed to on the morning of surgery with a TINY SIP OF WATER. 10. Choose a responsible adult that will be able to drive you home when you are discharged from your hospital stay for your surgery and can stay with you in your home for 24 hours after your procedure. You must NOT drive any vehicle or operate any machinery for 24 hours after surgery. 11. When you dress for your appointment, please wear loose fitting clothing that is appropriate to accommodate your surgical area procedure. BRING WITH YOU ANY DEVICES YOU MAY NEED: ADIEL hose, ice machine, sling/swath, brace or special shoe, oversized zip-up or button up shirt, CPAP machine if staying overnight. 12. Do NOT wear jewelry, watches, or any piercings or metal for surgery- leave these valuables and money at home. 13. Do NOT wear contact lenses for surgery- glasses are okay if needed. 14. The anesthesiologist will talk with you the day of surgery and will ask you to sign a Consent Form. 15. Refrain from smoking or any type of tobacco use for at least 8 hours and marijuana for 24 hours prior to arrival for your surgery. 16. If a GREEN BLOOD band is given to you, please bring it with you for the day of surgery. 17. Notify your surgeon if you develop any illness before your surgery. 18. If you are staying overnight, please DO NOT BRING your home medications with you. 19. If you have any questions prior to surgery, please call the Preadmission Testing office at [phone], Mon.-Fri. 7 a.m.-3 p.m. Leave a voicemail if needed. Pre-Surgery Instructions: Medication Instructions aspirin 81 mg Stop taking 2 week prior to procedure atorvastatin (LIPITOR) 80 mg tablet Stop taking 0 days prior to procedure calcium carbonate/vitamin D3 (CALCIUM 500 WITH D ORAL) Stop taking 0 days prior to procedure cholecalciferol, vitamin D3, 400 units tablet Stop taking 0 days prior to procedure choline fenofibrate (TRILIPIX) 135 mg capsule Stop taking 0 days prior to procedure colesevelam (WELCHOL) 625 mg tablet Stop taking 0 days prior to procedure cyclobenzaprine (FLEXERIL) 5 mg tablet Stop taking 0 days prior to procedure DULoxetine (CYMBALTA) 60 mg capsule Stop taking 0 days prior to procedure exenatide microspheres (BYDUREON BCISE) 2 mg/0.85 mL auto-injector Stop taking 1 week prior to procedure ferrous sulfate 325 (65 FE) mg tablet Stop taking 0 days prior to procedure JARDIANCE 10 mg tablet tablet Stop taking 0 days prior to procedure levothyroxine (SYNTHROID, LEVOTHROID) 125 MCG tablet Take morning of procedure liothyronine (CYTOMEL) 5 MCG tablet Take morning of procedure metFORMIN (GLUCOPHAGE) 500 mg tablet Stop taking 0 days prior to procedure metoprolol tartrate (LOPRESSOR) 50 mg tablet Take morning of procedure xqnbmafl-dbuy-DA-calcium &mins (THERAGRAN-M) 9 mg iron-400 mcg tablet Stop taking 0 days prior to procedure nabumetone (RELAFEN) 500 mg tablet Stop taking 2 week prior to procedure niacin (NIASPAN) 1000 mg CR tablet Stop taking 0 days prior to procedure pantoprazole (PROTONIX) 40 mg EC tablet Take morning of procedure pioglitazone (ACTOS) 45 mg tablet Stop taking 0 days prior to procedure How to Avoid an Infection after Your Surgery Your doctor will give you specific instructions, but remember: -ALWAYS wash hands before caring for your incision. -No picking, scratching, or rubbing your incision. -No creams, lotion, powder, rubbing alcohol or hydrogen peroxide on the incision (can harm the tissue and slow healing). -Your doctor will give you specific instructions for what type of dressing you will need and how often it will need changed for infection purposes. -No tight clothing on incision. -Do not allow anyone to touch your incision unless they are cleaning, checking, or redressing it (be sure they wash their hands first). -No contact of your incision with pets; avoid sleeping with pets. -Take full course of antibiotic if prescribed for you after surgery- do not stop unless directed to by your physician. You may also be given an antibiotic prior to your surgery to help prevent surgical site infections. -Eat a healthy and varied diet including proteins, fruits, and vegetables to help promote wound healing and keep blood sugars under control if you are diabetic. -Smoking slows the healing process by decreasing the amount of oxygen in your blood that is needed for tissue healing. Try to avoid or stop smoking if possible. LOOK at your incision each morning and each night to check the progress of healing. Some soreness, numbness, itching and/or mild bruising around the incision is normal. Call your doctor if you notice any of the following: -Increased redness or hardening around the incision area. -Increased pain at the incision site. -Incision feels hot to the touch. -Swelling or pulling apart of the incision edges. -Yellow or green drainage or foul odor coming from the incision. -Bleeding from the incision (apply pressure as needed). -Fever higher than 101 degrees Fahrenheit for more than 4 hours. SHOWERING: Your doctor will give you specific instructions, but remember: -Be careful getting into and out of the shower. -Showers should be quick (5 minutes or less). -Use a clean washcloth to gently wash your incision with soap and water and pat the area dry with a clean towel. -No re-using wash cloths or towels; get a fresh one to clean your incision. -Do not soak in the bathtub, go swimming or use a hot tub (Jacuzzi), or perform activities where your incision is submerged in water or exposed to any fluids or substances until instructed by your doctor. -If your have the sticky strips (steri-strips) over the incision, it is OK to shower with them. Do not remove them. Let them fall off on their own. If you have a question, call your doctor s office. Go to the follow-up appointment with your doctor. documented in this encounter [facility] Note 06-15-2023 Perioperative Nursing Note - Silvia Mora RN - 06/15/2023 9:45 AM ESTPerioperative Nursing Note - Silvia Mora RN - 06/15/2023 9:45 AM EST Note Date & Type Note Facility 06-15-2023 Miscellaneous Notes Preoperative Education Checklist- General Surgery date: 06/29/23 Surgery time: 0800 a.m. Arrival time: 0610 a.m. 1. Bring a photo ID and your insurance card with you the day of surgery. You will check in at the main lobby of the [facility]- registration desk is straight ahead as soon as you walk in. Tell them you are here for surgery. 2. If you have a Living Will/Durable Power of Medical [employer] for Health Care that is not on file here, please bring a copy the day of surgery. 3. Please shower/bathe the night before surgery with the provided soap or wipes. Do not shower the morning of surgery- you will do use wipes when you arrive here at the hospital before getting into your surgical gown. Do not shave the area of your procedure for 2 days prior to your surgery. 4. NO powder, lotion, perfume/cologne, aftershave, make-up, deodorant, or hair products after you have bathed. 5. NO nail palauan/acrylic on at least one finger. If you are having a hand, wrist or foot surgery then all nail palauan and artificial/acrylic nails must be removed from that hand or foot. 6. Avoid ALL Aspirin and non-steroidal anti-inflammatory drugs and certain vitamins (Ibuprofen, Advil, Aleve, Excedrin, Meloxicam, Celebrex, fish/krill oil, etc.) for 7 days prior to surgery as instructed by your surgeon and/or your prescribing doctor. Tylenol IS ALLOWED. If you are on Ticlid, Xarelto, Eliquis, Pradaxa, Plavix or Coumadin, please check with your prescribing doctor for instructions for when to stop them. 7. If you use an inhaler, continue to use it routinely. 8. Nothing to eat or drink (not even water, gum, mints, or hard candy!) AFTER midnight prior to your surgery. 9. Take only medications that you are instructed to on the morning of surgery with a TINY SIP OF WATER. 10. Choose a responsible adult that will be able to drive you home when you are discharged from your hospital stay for your surgery and can stay with you in your home for 24 hours after your procedure. You must NOT drive any vehicle or operate any machinery for 24 hours after surgery. 11. When you dress for your appointment, please wear loose fitting clothing that is appropriate to accommodate your surgical area procedure. BRING WITH YOU ANY DEVICES YOU MAY NEED: ADIEL hose, ice machine, sling/swath, brace or special shoe, oversized zip-up or button up shirt, CPAP machine if staying overnight. 12. Do NOT wear jewelry, watches, or any piercings or metal for surgery- leave these valuables and money at home. 13. Do NOT wear contact lenses for surgery- glasses are okay if needed. 14. The anesthesiologist will talk with you the day of surgery and will ask you to sign a Consent Form. 15. Refrain from smoking or any type of tobacco use for at least 8 hours and marijuana for 24 hours prior to arrival for your surgery. 16. If a GREEN BLOOD band is given to you, please bring it with you for the day of surgery. 17. Notify your surgeon if you develop any illness before your surgery. 18. If you are staying overnight, please DO NOT BRING your home medications with you. 19. If you have any questions prior to surgery, please call the Preadmission Testing office at [phone], Mon.-Fri. 7 a.m.-3 p.m. Leave a voicemail if needed. Pre-Surgery Instructions: Medication Instructions aspirin 81 mg Stop taking 2 week prior to procedure atorvastatin (LIPITOR) 80 mg tablet Stop taking 0 days prior to procedure calcium carbonate/vitamin D3 (CALCIUM 500 WITH D ORAL) Stop taking 0 days prior to procedure cholecalciferol, vitamin D3, 400 units tablet Stop taking 0 days prior to procedure choline fenofibrate (TRILIPIX) 135 mg capsule Stop taking 0 days prior to procedure colesevelam (WELCHOL) 625 mg tablet Stop taking 0 days prior to procedure cyclobenzaprine (FLEXERIL) 5 mg tablet Stop taking 0 days prior to procedure DULoxetine (CYMBALTA) 60 mg capsule Stop taking 0 days prior to procedure exenatide microspheres (BYDUREON BCISE) 2 mg/0.85 mL auto-injector Stop taking 1 week prior to procedure ferrous sulfate 325 (65 FE) mg tablet Stop taking 0 days prior to procedure JARDIANCE 10 mg tablet tablet Stop taking 0 days prior to procedure levothyroxine (SYNTHROID, LEVOTHROID) 125 MCG tablet Take morning of procedure liothyronine (CYTOMEL) 5 MCG tablet Take morning of procedure metFORMIN (GLUCOPHAGE) 500 mg tablet Stop taking 0 days prior to procedure metoprolol tartrate (LOPRESSOR) 50 mg tablet Take morning of procedure vdvmzmeq-nowx-PE-calcium &mins (THERAGRAN-M) 9 mg iron-400 mcg tablet Stop taking 0 days prior to procedure nabumetone (RELAFEN) 500 mg tablet Stop taking 2 week prior to procedure niacin (NIASPAN) 1000 mg CR tablet Stop taking 0 days prior to procedure pantoprazole (PROTONIX) 40 mg EC tablet Take morning of procedure pioglitazone (ACTOS) 45 mg tablet Stop taking 0 days prior to procedure How to Avoid an Infection after Your Surgery Your doctor will give you specific instructions, but remember: -ALWAYS wash hands before caring for your incision. -No picking, scratching, or rubbing your incision. -No creams, lotion, powder, rubbing alcohol or hydrogen peroxide on the incision (can harm the tissue and slow healing). -Your doctor will give you specific instructions for what type of dressing you will need and how often it will need changed for infection purposes. -No tight clothing on incision. -Do not allow anyone to touch your incision unless they are cleaning, checking, or redressing it (be sure they wash their hands first). -No contact of your incision with pets; avoid sleeping with pets. -Take full course of antibiotic if prescribed for you after surgery- do not stop unless directed to by your physician. You may also be given an antibiotic prior to your surgery to help prevent surgical site infections. -Eat a healthy and varied diet including proteins, fruits, and vegetables to help promote wound healing and keep blood sugars under control if you are diabetic. -Smoking slows the healing process by decreasing the amount of oxygen in your blood that is needed for tissue healing. Try to avoid or stop smoking if possible. LOOK at your incision each morning and each night to check the progress of healing. Some soreness, numbness, itching and/or mild bruising around the incision is normal. Call your doctor if you notice any of the following: -Increased redness or hardening around the incision area. -Increased pain at the incision site. -Incision feels hot to the touch. -Swelling or pulling apart of the incision edges. -Yellow or green drainage or foul odor coming from the incision. -Bleeding from the incision (apply pressure as needed). -Fever higher than 101 degrees Fahrenheit for more than 4 hours. SHOWERING: Your doctor will give you specific instructions, but remember: -Be careful getting into and out of the shower. -Showers should be quick (5 minutes or less). -Use a clean washcloth to gently wash your incision with soap and water and pat the area dry with a clean towel. -No re-using wash cloths or towels; get a fresh one to clean your incision. -Do not soak in the bathtub, go swimming or use a hot tub (Jacuzzi), or perform activities where your incision is submerged in water or exposed to any fluids or substances until instructed by your doctor. -If your have the sticky strips (steri-strips) over the incision, it is OK to shower with them. Do not remove them. Let them fall off on their own. If you have a question, call your doctor s office. Go to the follow-up appointment with your doctor. Hibiclens and surgical instructions reviewed. Patient verbalized understanding. documented in this encounter [facility] Nurse Note 06-15-2023 Perioperative Nursing Note - Silvia Mora RN - 06/15/2023 9:45 AM EST Note Date & Type Note Facility 06-15-2023 Nurse Note Preoperative Education Checklist- General Surgery date: 06/29/23 Surgery time: 0800 a.m. Arrival time: 0610 a.m. 1. Bring a photo ID and your insurance card with you the day of surgery. You will check in at the main lobby of the [facility]- registration desk is straight ahead as soon as you walk in. Tell them you are here for surgery. 2. If you have a Living Will/Durable Power of Medical [employer] for Health Care that is not on file here, please bring a copy the day of surgery. 3. Please shower/bathe the night before surgery with the provided soap or wipes. Do not shower the morning of surgery- you will do use wipes when you arrive here at the hospital before getting into your surgical gown. Do not shave the area of your procedure for 2 days prior to your surgery. 4. NO powder, lotion, perfume/cologne, aftershave, make-up, deodorant, or hair products after you have bathed. 5. NO nail palauan/acrylic on at least one finger. If you are having a hand, wrist or foot surgery then all nail palauan and artificial/acrylic nails must be removed from that hand or foot. 6. Avoid ALL Aspirin and non-steroidal anti-inflammatory drugs and certain vitamins (Ibuprofen, Advil, Aleve, Excedrin, Meloxicam, Celebrex, fish/krill oil, etc.) for 7 days prior to surgery as instructed by your surgeon and/or your prescribing doctor. Tylenol IS ALLOWED. If you are on Ticlid, Xarelto, Eliquis, Pradaxa, Plavix or Coumadin, please check with your prescribing doctor for instructions for when to stop them. 7. If you use an inhaler, continue to use it routinely. 8. Nothing to eat or drink (not even water, gum, mints, or hard candy!) AFTER midnight prior to your surgery. 9. Take only medications that you are instructed to on the morning of surgery with a TINY SIP OF WATER. 10. Choose a responsible adult that will be able to drive you home when you are discharged from your hospital stay for your surgery and can stay with you in your home for 24 hours after your procedure. You must NOT drive any vehicle or operate any machinery for 24 hours after surgery. 11. When you dress for your appointment, please wear loose fitting clothing that is appropriate to accommodate your surgical area procedure. BRING WITH YOU ANY DEVICES YOU MAY NEED: ADIEL hose, ice machine, sling/swath, brace or special shoe, oversized zip-up or button up shirt, CPAP machine if staying overnight. 12. Do NOT wear jewelry, watches, or any piercings or metal for surgery- leave these valuables and money at home. 13. Do NOT wear contact lenses for surgery- glasses are okay if needed. 14. The anesthesiologist will talk with you the day of surgery and will ask you to sign a Consent Form. 15. Refrain from smoking or any type of tobacco use for at least 8 hours and marijuana for 24 hours prior to arrival for your surgery. 16. If a GREEN BLOOD band is given to you, please bring it with you for the day of surgery. 17. Notify your surgeon if you develop any illness before your surgery. 18. If you are staying overnight, please DO NOT BRING your home medications with you. 19. If you have any questions prior to surgery, please call the Preadmission Testing office at [phone], Mon.-Fri. 7 a.m.-3 p.m. Leave a voicemail if needed. Pre-Surgery Instructions: Medication Instructions aspirin 81 mg Stop taking 2 week prior to procedure atorvastatin (LIPITOR) 80 mg tablet Stop taking 0 days prior to procedure calcium carbonate/vitamin D3 (CALCIUM 500 WITH D ORAL) Stop taking 0 days prior to procedure cholecalciferol, vitamin D3, 400 units tablet Stop taking 0 days prior to procedure choline fenofibrate (TRILIPIX) 135 mg capsule Stop taking 0 days prior to procedure colesevelam (WELCHOL) 625 mg tablet Stop taking 0 days prior to procedure cyclobenzaprine (FLEXERIL) 5 mg tablet Stop taking 0 days prior to procedure DULoxetine (CYMBALTA) 60 mg capsule Stop taking 0 days prior to procedure exenatide microspheres (BYDUREON BCISE) 2 mg/0.85 mL auto-injector Stop taking 1 week prior to procedure ferrous sulfate 325 (65 FE) mg tablet Stop taking 0 days prior to procedure JARDIANCE 10 mg tablet tablet Stop taking 0 days prior to procedure levothyroxine (SYNTHROID, LEVOTHROID) 125 MCG tablet Take morning of procedure liothyronine (CYTOMEL) 5 MCG tablet Take morning of procedure metFORMIN (GLUCOPHAGE) 500 mg tablet Stop taking 0 days prior to procedure metoprolol tartrate (LOPRESSOR) 50 mg tablet Take morning of procedure qswgweas-ypcv-OU-calcium &mins (THERAGRAN-M) 9 mg iron-400 mcg tablet Stop taking 0 days prior to procedure nabumetone (RELAFEN) 500 mg tablet Stop taking 2 week prior to procedure niacin (NIASPAN) 1000 mg CR tablet Stop taking 0 days prior to procedure pantoprazole (PROTONIX) 40 mg EC tablet Take morning of procedure pioglitazone (ACTOS) 45 mg tablet Stop taking 0 days prior to procedure How to Avoid an Infection after Your Surgery Your doctor will give you specific instructions, but remember: -ALWAYS wash hands before caring for your incision. -No picking, scratching, or rubbing your incision. -No creams, lotion, powder, rubbing alcohol or hydrogen peroxide on the incision (can harm the tissue and slow healing). -Your doctor will give you specific instructions for what type of dressing you will need and how often it will need changed for infection purposes. -No tight clothing on incision. -Do not allow anyone to touch your incision unless they are cleaning, checking, or redressing it (be sure they wash their hands first). -No contact of your incision with pets; avoid sleeping with pets. -Take full course of antibiotic if prescribed for you after surgery- do not stop unless directed to by your physician. You may also be given an antibiotic prior to your surgery to help prevent surgical site infections. -Eat a healthy and varied diet including proteins, fruits, and vegetables to help promote wound healing and keep blood sugars under control if you are diabetic. -Smoking slows the healing process by decreasing the amount of oxygen in your blood that is needed for tissue healing. Try to avoid or stop smoking if possible. LOOK at your incision each morning and each night to check the progress of healing. Some soreness, numbness, itching and/or mild bruising around the incision is normal. Call your doctor if you notice any of the following: -Increased redness or hardening around the incision area. -Increased pain at the incision site. -Incision feels hot to the touch. -Swelling or pulling apart of the incision edges. -Yellow or green drainage or foul odor coming from the incision. -Bleeding from the incision (apply pressure as needed). -Fever higher than 101 degrees Fahrenheit for more than 4 hours. SHOWERING: Your doctor will give you specific instructions, but remember: -Be careful getting into and out of the shower. -Showers should be quick (5 minutes or less). -Use a clean washcloth to gently wash your incision with soap and water and pat the area dry with a clean towel. -No re-using wash cloths or towels; get a fresh one to clean your incision. -Do not soak in the bathtub, go swimming or use a hot tub (Jacuzzi), or perform activities where your incision is submerged in water or exposed to any fluids or substances until instructed by your doctor. -If your have the sticky strips (steri-strips) over the incision, it is OK to shower with them. Do not remove them. Let them fall off on their own. If you have a question, call your doctor s office. Go to the follow-up appointment with your doctor. [facility] Nurse Note 06-15-2023 Perioperative Nursing Note - Silvia Mora RN - 06/15/2023 9:45 AM EST Note Date & Type Note Facility 06-15-2023 Nurse Note Hibiclens and surgical instructions reviewed. Patient verbalized understanding. [facility] Evaluation + Plan note Note Date & Type Note Facility Evaluation + Plan note No data available for this section [facility] Evaluation note Note Date & Type Note Facility Evaluation note Diagnosis Preop examination- Primary Unspecified pre-operative examination Hypertension, unspecified type Diabetes mellitus of other type without complication, unspecified whether terminal supervisor insulin use (CMS-HCC) Preop examination Unspecified pre-operative examination Hypertension, unspecified type Diabetes mellitus of other type without complication, unspecified whether alf insulin use ([facility]-H[facility]) documented in this encounter [facility] Hospital Discharge instructions Note Date & Type Note Facility Hospital Discharge instructions No data available for this section General [facility] Progress note Note Date & Type Note Facility Progress note No data available for this section [facility] Summary Purpose Family History No Family History Records FoundNo Family History Records FoundNo Family History Records Found No data available for this section No Family History Records Found Advance Directives Latest Code Status on File Code Status Date Activated Date Inactivated Comments Full Code 10/17/2019 3:02 PM 10/19/2019 3:49 PM Reason for Referral Specialty Diagnoses / Procedures Referred By Landry t Referred To Contact Diagnoses Preop examination Hypertension, unspecified type Diabetes mellitus of other type without complication, unspecified whether terminal supervisor insulin use ([facility]-HCC) Procedures ECG 12 lead Carleen Lala DO [address] [facility] [address] [place] [address] Referral ID Status Reason Start Date Expiration Date V isits Requested Visits Authorized [id number] Pending Review 06/09/2023 06/08/2024 1 1 Additional Source Comments INFORMATION SOURCE (unrecogn ized section and content) DATE CREATED AUTHOR 03/06/2022 [facility] DATE CREATED AUTHOR AUTHOR'S ORGANIZ ATION 04/08/2023 [facility] DATE CREATED AUTHOR AUTHOR'S ORGANIZ ATION 04/26/2023 [facility] DATE CREATED AUTHOR AUTHOR'S ORGANIZ ATION 06/14/2023 [facility] EPIC Patient Care team informatio n (unrecognized section and content) Card Writer Hand Relationship Specialty Start Date End Date Matthew Baumann MD [address] [place] [address] PCP - General Family Medicine 10/03/19 FOR RECORDS PERTAINING TO PATIENTS WHO ARE [...] BE BASED ON THE PRIMARY CLINICAL RECORDS. [facility] provides no warranty or guarantee of the accuracy or completeness of information in this document.
[2023-06-22 06:39] LABS: Glucometer 149 mg/dL (74-106)
[2023-06-22 06:45] LABS: HCG Quantitative 3 mIU/mL
[2023-06-22 06:47] VITALS: BMI 31.0
[2023-06-22 06:55] VITALS: BP 149/100; PULSE 118; RESP 16; TEMP 35.3; O2SAT 99
[2023-06-22] MEDS: LACTATED RINGER'S SOLUTION 1,000 ML 50 ML IV (07:08)
[2023-06-22 07:37] VITALS: BP 101/68; PULSE 109; RESP 16; O2SAT 96
[2023-06-22 07:54] VITALS: BP 96/57; PULSE 105; RESP 16; O2SAT 96
== END 2023-06-22 08:09 | disposition home or self-care (01) ==
PROVIDERS: PCP Family Medicine; Visit Provider Surgery
PROC: (CPT 00812; principal; 2023-06-22 07:30)
DX: Z12.11 Encounter for screening for malignant neoplasm of colon (principal); Z80.0 Family history of malignant neoplasm of digestive organs; I10 Essential (primary) hypertension; E78.5 Hyperlipidemia, unspecified; Z90.49 Acquired absence of other specified parts of digestive tract; E11.42 Type 2 diabetes mellitus with diabetic polyneuropathy; E03.9 Hypothyroidism, unspecified; E78.1 Pure hyperglyceridemia; M51.37 Other intervertebral disc degeneration, lumbosacral region; Z79.82 Long term (current) use of aspirin; Z79.85 Long-term (current) use of injectable non-insulin antidiabetic drugs; Z79.84 Long term (current) use of oral hypoglycemic drugs
CPT/HCPCS: 00812; 45378; 36415; 82948; 84702; J1094; J2704

== ENCOUNTER 2023-11-25 09:09 | Outpatient (REF) | payer OTHER, SELFPAY ==
--- OUTSIDE RECORDS SUMMARY | 2023-11-25 09:30 | XMS_ITS | CCD ---
Author Organization [facility] Care Team Providers Care Country Director Name Role Phone LENY, DR CASTRO Admitting Unavailable HOY, DR CASTRO Primary Care Unavailable HOY, DR CASTRO Consulting Unavailable HOY, DR CASTRO Attending Unavailable HOY, DR CASTRO Primary Care Unavailable HOY, DR CASTRO Consulting Unavailable VINCEY, DR CASTRO Attending Unavailable VINCEY, DR CASTRO Admitting Unavailable HOY, DR CASTRO Primary Care Unavailable HOY, DR CASTRO Consulting Unavailable HOY, DR CASTRO Attending Unavailable HOY, DR CASTRO Admitting Unavailable ZIEBER, DR MARBIN Moore Consulting Unavailable VINCEY, DR CASTRO Admitting Unavailable LENY, DR CASTRO Primary Care Unavailable VINCEY, DR CASTRO Consulting Unavailable VINCEY, DR CASTRO Attending Unavailable ZIEBER, DR MARBIN Moore Consulting Unavailable VINCEY, DR CASTRO Admitting Unavailable LENY, DR CASTRO Primary Care Unavailable LENY, DR CASTRO Consulting Unavailable LENY, DR CASTRO Attending Unavailable Radhika FIERRO, Regis Sheldon Attending Unavailable Radhika FIERRO, Regis Sheldon Attending Unavailable Matthew Baumann Primary Care Physician Matthew Baumann MD Primary Care Provider [phone] Bautista CRISTINA Attending Unavailable Bautista CRISTINA Attending Unavailable Matthew Baumann Referring Unavailable MATTHEW BAUMANN Referring Unavailable MATTHEW BAUMANN Primary Care Unavailable CARLEEN LALA Attending Unavailable CARLEEN LALA Referring Unavailable MATTHEW BAUMANN Primary Care Unavailable CARLEEN LALA Referring Unavailable MATTHEW BAUMANN Primary Care Unavailable CARLEEN LALA Admitting Unavailable CARLEEN LALA Attending Unavailable CARLEEN LALA Referring Unavailable MATTHEW BAUMANN Primary Care Unavailable JOHN GARDNER Attending Unavailable MATTHEW BAUMANN Primary Care Unavailable CARLEEN LALA Attending Unavailable NIRAV BERUMEN Attending Unavailable NIRAV BERUMEN Referring Unavailable AP HERNANDEZ Attending Unavailable CARLEEN LALA Referring Unavailable NIRAV BERUMEN Referring Unavailable CARLEEN LALA Attending Unavailable NIRAV BERUMEN Attending Unavailable CARLEEN LALA Attending Unavailable CARLEEN LALA Attending Unavailable CARLEEN LALA Attending Unavailable Allergies Allergy Classification Reported Allergen(s) Allergy Type Date of Onset Reaction(s) Facility (3 sources) Codeine; Translations: [codeine] Drug Allergy 5 [facility] (1 source) Iodine (And Iodine Containting Drugs) Drug allergy (disorder) 6 [facility] (1 source) Shellfish Drug allergy (disorder) 5 [facility] (2 sources) Codeine; Translations: [codeine] Drug Allergy 0 Weal (disorder), Rash [facility] [place] (2 sources) Contrast media; Translations: [Contrast Dye] Allergy to substance Weal (disorder) [facility] [place] (2 sources) Fenofibrate; Translations: [fenofibrate] Drug Allergy Abdominal pain (finding) [facility] [place] (2 sources) Shellfish; Translations: [SHELLFISH DERIVED] Propensity to adverse reactions to drug 3 [facility] (2 sources) Iodinated Contrast Media; Translations: [IODINATED CONTRAST MEDIA] Propensity to adverse reactions to drug 3 Abdominal Pain [facility] (1 source) Iodine; Translations: [iodine] Drug Allergy [facility] Repository Medications Current Medications Medication Drug Class(es) Dates [...] 04/25/23 Status: Ordered take [address] [facility] three times daily as needed for muscle [...] (1 source) GLP-1 Receptor Agonist exenatide microspheres (BYDUREON BCISE) 2 mg/0.85 mL auto-injector Inject 2 mg [...] Refills(s) 0 Start Date: 04/25/23 Status: Ordered tgfpxgdh-jutg-IF-holly cium &mins (THERAGRAN-M) 9 mg iron-400 mcg tablet (1 source) cnjmxdlc-omqa-OQ -calcium &mins (THERAGRAN-M) 9 mg iron-400 mcg tablet Take 1 tablet by mouth in the morning. 0 Active nabumetone 500 mg oral tablet (2 sources) Nonsteroidal Anti-inflammatory Drug Start: 04-25-2023 take 1 tablet by mouth once daily nabumetone 500 mg Tab 500 mg = 1 tab(s), Oral, Daily, Refills(s) 0 Start Date: 04/25/23 Status: Ordered Start: 09-21-2022 take 2 tablets by mo uth in the morning, then take 2 tablets [...] mellitus 04-25-2023 Chronic Diabetes mellitus without complication (3 sources) Type 2 diabetes mellitus; Translations: [Diabetes mellitus without complication] Onset: 4 04-25-2023 Chronic Disorders of lipid metabolism (2 sources) Hyperlipidemia; Translations: [Hypertriglyceridemia] 04-25-2023 Chronic Essential hypertension (7 sources) Essential (primary) hypertension; Translations: [Essential hypertension] [...] Hypothyroidism, unspecified; Translations: [Hypothyroidism] Onset: 2 Chronic Unclassified (1 source) left knee meniscal tear Onset: 4 Past or Other Problems Problem Classification Problem [...] Test Name Value Interpretation Reference Range Facility Glucose Glucometer (BldC) [M ass/Vol]on 06-29-2023 Glucose [Mass/Vol] 145 mg/dL High 65-99 [facility] Outside Colonoscopyon 2023 Outside Colonoscopy [id number] #1.00TIFF Normal [facility] Reminderson 06-27-2023 Reminders - From: Ryanne Benito LPN To: N - Clinical; Sent: 06/27/2023 07:56:51 EDT Show up: 05/24/2028 07:00:00 EST Subject: colonosocpy recall Due Date/Time: 06/21/2028 07:00:00 EST Reminder/Recall Patient due for surveillance colonoscopy 06/21/2028 due to family history of colon cancer. Normal [facility] Lab Reportson 06-23-2023 Lab Reports [id number] #1.00TIFF Normal [facility] Lab Reportson 06-22-2023 Lab Reports [id number] #1.00TIFF Normal [facility] BASIC METABOLIC PANLon 06-15 Anion gap [Moles/Vol] 9 mmol/L Normal 5-15 [facility] Comment on above: Performed By: #### B MP #### [facility] ([id number]) [address] [place] [address] Calcium [Mass/Vol] 9.3 mg/dL Normal 8.5-10.5 [facility] Comment on above: Performed By: #### B MP #### [facility] ([id number]) [address] [place] [address] Chloride [Moles/Vol] 107 mmol/L Normal 98-109 [facility] Comment on above: Performed By: #### B MP #### [facility] ([id number]) [address], [address] [place] [address] CO2 [Moles/Vol] 23 mmol/L Normal 22-32 [facility] Comment on above: Performed By: #### B MP #### [facility] ([id number]) [address] [place] [address] Creatinine [Mass/Vol] 0.80 mg/dL Normal 0.40-1.00 [facility] Comment on above: Result Comment: METH OD TRACEABLE TO IDMS STANDARD Performed By: #### B MP #### [facility] ([id number]) [address], [address] [place] [address] GFR/1.73 sq M.predicted among non-blacks MDRD (S/P/Bld) [Vol rate/Area] 85 mL/min/{1.73_m2} Normal >59 [facility] Comment on above: Result Comment: Reported eGFR is based on the CKD-EPI 2020 equation that does not use a race coefficient. Performed By: #### B MP #### [facility] ([id number]) [address] [place] [address] Glucose [Mass/Vol] 178 mg/dL High 65-99 [facility] Comment on above: Performed By: #### B MP #### [facility] ([id number]) [address], [address] [place] [address] Potassium [Moles/Vol] 4.3 mmol/L Normal 3.5-5.0 [facility] Comment on above: Performed By: #### B MP #### [facility] ([id number]) [address], [address] [place] [address] Sodium [Moles/Vol] 139 mmol/L Normal 134-146 [facility] Comment on above: Performed By: #### B MP #### [facility] ([id number]) [address], [address] [place] [address] Urea nitrogen [Mass/Vol] 12 mg/dL Normal 5-23 [facility] Comment on above: Performed By: #### B #### [facility] ([id number]) [address] [place] [address] Basic Metabolic Panelon - Anion gap [Moles/Vol] 9 mmol/L 5 - 15 mmol/L [facility] Calcium [Mass/Vol] 9.3 mg/dL 8.5 - 10. 5 mg/dL [facility] Chloride [Moles/Vol] 107 mmol/L 98 - 109 mmol/L [facility] CO2 [Moles/Vol] 23 mmol/L 22 - 32 mmol/L [facility] Creatinine [Mass/Vol] 0.80 mg/dL 0.40 - 1.00 mg/dL [facility] Comment on above: METHOD TRACEABLE TO [facility] STANDARD eGFR (CKD-EPI)non-race dependent 85 - PINF [facility] Comment on above: Reported eGFR is based on the CKD-EPI 2020 equation that does not use a race coefficient. Glucose [Mass/Vol] 178 mg/dL High 65 - 99 mg/dL [facility] Interpretation and review of laboratory results Abnormal [facility] Potassium [Moles/Vol] 4.3 mmol/L 3.5 - 5.0 mmol/L [facility] Sodium [Moles/Vol] 139 mmol/L 134 - 146 mmol/L [facility] Urea nitrogen [Mass/Vol] 12 mg/dL 5 - 23 mg/dL [facility] ECG 12 leadon 06-15-2023 TRACEMASTERVUE [facility] MR KNEE LEFT WO IV CONTRASTo [...] the medial compartment. ELECTRONICALLY SIGNED BY: Alberto Pyle DO Normal Not Available Consent for Procedure/Surger yon 05-05-2023 Consent for Procedure/Surgery [id number]# 1.00TIFF Normal [facility] Ambulatory Visit Summaryon 0 05-04-2023 Ambulatory Visit Summary VAL BLADIMIR M :1965 Visit Date:05/04/2023 Ambulatory Visit Instructions Your Diagnosis Family history of colon cancer in mother Your Care Team Attending Physician - ANNA FIERRO, Bautista Moore Primary Care Physician - Matthew Baumann MD Referring Physician - Matthew Baumann MD This Is Your Medications List Contact prescribing physician if questions or concerns aspirin (aspirin 81 mg Oral EC Tab) atorvastatin (atorvastatin 80 mg Tab) cholecalciferol (Vitamin D3 5000 intl units (125 mcg) oral tab) colesevelam (colesevelam 625 mg Tab) cyclobenzaprine (cyclobenzaprine 5 mg Tab) duloxetine (duloxetine 60 mg Cap-DR) empagliflozin (Jardiance 10 mg oral tablet) exenatide (Bydureon BCise) fenofibric acid (fenofibric acid choline 135 mg oral cap) ferrous sulfate (ferrous sulfate 325 mg oral enteric coated tablet) levothyroxine (levothyroxine 125 mcg (0.125 mg) Tab) liothyronine (Cytomel 5 mcg Tab) metformin (metformin 500 mg Tab) metoprolol (Metoprolol tartrate 50 mg Tab) nabumetone (nabumetone 500 mg Tab) niacin (niacin 1000 mg ER Tab) pantoprazole (Pantoprazole [address] Tab) pioglitazone (pioglitazone 45 mg Tab) Procedures Performed Colonoscopy (10/15/2015), Appendectomy, Arthroscopy of knee, Cholecystectomy, Excision of calcaneal spur, Laminectomy. Discharge Vitals Heart Rate (Peripheral) 72 Respiratory Rate 16 Blood Pressure 144/82 Height 165 cm Height 65 in Weight 90.8 kg Weight 199.76 lb BMI 33.35 Medications What How Much When Instructions Unchanged aspirin (aspirin 81 mg Oral EC Tab) 1 Tablets By Mouth Every day Contact prescribing physician if questions or concerns Unchanged atorvastatin (atorvastatin 80 mg Tab) 1 Tablets By Mouth Every day Contact prescribing physician if questions or concerns Unchanged cholecalciferol (Vitamin D3 5000 intl units (125 mcg) oral tab) Contact prescribing physician if questions or concerns Unchanged colesevelam (colesevelam 625 mg Tab) 3 Tablets By Mouth 2 times a day Contact prescribing physician if questions or concerns Unchanged cyclobenzaprine (cyclobenzaprine 5 mg Tab) See instructions as directed Contact prescribing physician if questions or concerns Unchanged duloxetine (duloxetine 60 mg Cap-DR) 1 Capsules By Mouth Every day Contact prescribing physician if questions or concerns Unchanged empagliflozin (Jardiance 10 mg oral tablet) 1 Tablets By Mouth Once a day (in the morning) Contact prescribing physician if questions or concerns Unchanged exenatide (Bydureon BCise) 2 Milligram Subcutaneous Every week Contact prescribing physician if questions or concerns Unchanged fenofibric acid (fenofibric acid choline 135 mg oral cap) 1 Capsules By Mouth Every day Contact prescribing physician if questions or concerns Unchanged ferrous sulfate (ferrous sulfate 325 mg oral enteric coated tablet) 1 Tablets By Mouth Every day Contact prescribing physician if questions or concerns Unchanged levothyroxine (levothyroxine 125 mcg (0.125 mg) Tab) 1 Tablets By Mouth Every day Contact prescribing physician if questions or concerns Unchanged liothyronine (Cytomel 5 mcg Tab) as directed Contact prescribing physician if questions or concerns Unchanged metformin (metformin 500 mg Tab) 1 Tablets By Mouth Every day Contact prescribing physician if questions or concerns Unchanged metoprolol (Metoprolol tartrate 50 mg Tab) 1 Tablets By Mouth 2 times a day Contact prescribing physician if questions or concerns Unchanged nabumetone (nabumetone 500 mg Tab) 1 Tablets By Mouth Every day Contact prescribing physician if questions or concerns Unchanged niacin (niacin 1000 mg ER Tab) 1 Tablets By Mouth Every day Contact prescribing physician if questions or concerns Unchanged pantoprazole (Pantoprazole [address] Tab) 1 Tablets By Mouth Every day Contact prescribing physician if questions or concerns Unchanged pioglitazone (pioglitazone 45 mg Tab) 1 Tablets By Mouth Every day Contact prescribing physician if questions or concerns Allergies Contrast Dye (Hives) TriCor (Abdominal pain) codeine (Hives) Problems Ongoing - Any problem that you are currently receiving treatment for. BMI 33.0-33.9,adult Degeneration of lumbosacral intervertebral disc Diabetic peripheral neuropathy associated with type 2 diabetes mellitus. Essential hypertension Family history of colon cancer in mother Hyperlipidemia Hypertriglyceridemia Hypothyroidism Obesity PVCs (premature ventricular contractions) Spondylolisthesis, lumbar region Type 2 diabetes mellitus Patient Survey You may receive a survey via text or e-mail asking about your office visit. Please share your experience with us by completing your survey. We appreciate your feedback and thank you for choosing us for your care. Normal [facility] Facesheeton 05-04-2023 Facesheet [id number]#1.00TIFF Normal [facility] Physician Referralon 023 Physician Referral [id number] #1.00TIFF Normal [facility] INSULINon 03-04-2022 Insulin 9.8 uIU/mL Normal 2.6-24.9 [facility] Comment on above: Performed By: #### I NSULIN ####[facility] [address] [place], [place] [address]Dr. Lyndsey Silva CBC AUTO DIFFon 03-03-2022 BASO # 0.0 103/ul Normal 0.0-0.1 [facility] Comment on above: Performed By: #### C BC ####[facility] [address] [place] [address]DrPeg Silva Basophils/100 WBC (Bld) 0.6 % Normal 0.2-2.0 [facility] Comment on above: Performed By: #### C BC ####[facility] [address] [place] [id number]. Lyndsey Silva EO # 0.1 103/ul Normal 0.0-0.7 [facility] Comment on above: Performed By: #### C BC ####[facility] [address] [place] [address]Dr. Lyndsey Silva Eosinophils/100 WBC (Bld) 1.6 % Normal 0.9-7.0 [facility] Comment on above: Performed By: #### C BC ####[facility] [address] [place], [place] [address]Dr. Lyndsey Silva Erythrocyte distribution width (RBC) [Ratio] 13.2 % Normal 11.0-15.0 [facility] Comment on above: Performed By: #### C BC ####[facility] [address] [place], [place] [address]Dr. Lyndsey Silva Hematocrit (Bld) [Volume fraction] 41.8 % Normal 36.0-48.0 [facility] Comment on above: Performed By: #### C BC ####[facility] [address] [place], [place] [address]Dr. Lyndsey Silva Hemoglobin (Bld) [Mass/Vol] 14.3 g/dL Normal 12.0-16.0 [facility] Comment on above: Performed By: #### C BC ####[facility] [address] [place] [address]Dr. Lyndsey Silva IG # 0.04 10e3/ul Critically high 0.00-0.03 [facility] Comment on above: Performed By: #### C BC ####[facility] [address] [place] [address]Dr. Lyndsey Silva IG % 0.8 % Critically high 0.0-0.5 [facility] Comment on above: Performed By: #### C BC ####[facility] [address] [place], [place] [address]Dr. Lyndsey Silva LYMPH # 1.8 103/ul Normal 1.2-3.8 [facility] Comment on above: Performed By: #### C BC ####[facility] [address] [place] [id number]. Lyndsey Silva Lymphocytes/100 WBC (Bld) 35.3 % Normal 20.5-60.0 [facility] Comment on above: Performed By: #### C BC ####[facility] [address] [place] [address]Dr. Lyndsey Ricardo MANUAL DIFF REQ NO Normal [facility] Comment on above: Performed By: #### C BC ####[facility] [address] [place] [id number]. Lyndsey Ricardo MCH (RBC) [Entitic mass] 31.2 pg Normal 26.7-34.0 [facility] Comment on above: Performed By: #### C BC ####[facility] [address] [place] [address]Dr. Lyndsey Ricardo MCHC (RBC) [Mass/Vol] 34.2 g/dL Normal 29.9-35.2 [facility] Comment on above: Performed By: #### C BC ####[facility] [address] [place], [place] [address]Dr. Lyndsey Ricardo MCV (RBC) [Entitic vol] 91.3 fL Normal 81.0-99.0 [facility] Comment on above: Performed By: #### C BC ####[facility] [address] [place], [place] [address]Dr. Coriyamil Ricardo MONO # 0.5 103/ul Normal 0.3-0.8 [facility] Comment on above: Performed By: #### C BC ####[facility] [address] [place] [id number]. Lyndsey Ricardo Monocytes/100 WBC (Bld) 9.8 % Normal 1.7-12.0 [facility] Comment on above: Performed By: #### C BC ####[facility] [address] [place], [place] [address]Dr. Coriyamil Ricardo NEUT # 2.6 103/ul Normal 1.4-6.5 [facility] Comment on above: Performed By: #### C BC ####[facility] [address] [place], [place] [address]Cm. Lyndsey Silva Neutrophils/100 WBC (Bld) 51.9 % Normal 43.0-75.0 [facility] Comment on above: Performed By: #### C BC ####[facility] [address] [place], [place] [address]Jz. Lyndsey Silva Platelet mean volume (Bld) [Entitic vol] 8.8 fL Critically low 9.5-13.5 [facility] Comment on above: Performed By: #### C BC ####[facility] [address] [place] [id number]. Lyndsey Silva PLT 304 103/ul Normal 150-450 [facility] Comment on above: Performed By: #### C BC ####[facility] [address] [place] [address]Dr. Lyndsey Silva RBC 4.58 106/ul Normal 4.20-5.40 [facility] Comment on above: Performed By: #### C BC ####[facility] [address] [place] [address]Dr. Lyndsey Silva WBC 5.0 103/ul Normal 4.0-11.0 [facility] Comment on above: Performed By: #### C BC ####[facility] [address] [place] [id number]. Lyndsey Silva FREE THYROXINE INDEX T7on FTI 1.77 Normal 1.30-4.50 [facility] Comment on above: Performed By: #### L IPID, CMP, TSH, T7 ####[facility] [address] [place], [place] [address]Jy. Lyndsey Silva T3U 31.0 % Normal 30.0-39.0 [facility] Comment on above: Performed By: #### L IPID, CMP, TSH, T7 ####[facility] [address] [place], [place] [address]Ks. Lyndsey Silva T4 [Mass/Vol] 5.70 ug/dL Normal 4.80-13.90 [facility] Comment on above: Performed By: #### L IPID, CMP, TSH, T7 ####[facility] [address] [place], [place] [address]DePeg Silva GLYCOHEMOGLOBIN A1Con 2021 ADA RECOMMENDATION SEE BELOW Normal [facility] Comment on above: Result Comment: ADA RECOMMENDED LIMIT 4.0 - 6.0 ADA THERAPEUTIC TARGET < 7.0 ACTION SUGGESTED > 7.0 Performed By: #### A 1C #### [facility] [address] [place] [address] [address] Lyndsey Silva Glucose [Mass/Vol] 146 mg/dL Normal [facility] Comment on above: Performed By: #### A 1C #### [facility] [address] [address] [address] Lyndsey Silva HbA1c (Bld) [Mass fraction] 6.7 % Critically high 4.5-6.2 [facility] Comment on above: Performed By: #### A 1C #### [facility] [address] [address] [address] Lyndsye Silva IRONon 03-03-2022 Iron [Mass/Vol] 122.0 ug/dL Normal 50.0-170.0 [facility] Comment on above: Performed By: #### V ITB12, IRON, VITAD ####[facility] [address] [place] [id number] Silva LIPID PROFILEon 03-03-2022 CHOL-HDL RATIO NORM SEE BELOW Normal [facility] Comment on above: Result Comment: 3.3 - 4.4 LOW RISK 4.4 - 7.1 AVERAGE RISK 7.1 - 11.0 MODERATE RISK >11.0 HIGH RISK Performed By: #### L IPID, CMP, TSH, T7 ####[facility] [address] [place], [place] [address]EtPeg Silva Cholesterol [Mass/Vol] 244 mg/dL Critically high <=200 [facility] Comment on above: Performed By: #### L IPID, CMP, TSH, T7 ####[facility] [address] [place] [address]DrPeg Silva Cholesterol in HDL [Mass/Vol] 48 mg/dL Normal 40-60 [facility] Comment on above: Performed By: #### L IPID, CMP, TSH, T7 ####[facility] [address] [place] [id number]. Lyndsey Silva Cholesterol in LDL [Mass/Vol] 133.0 mg/dL Normal [facility] Comment on above: Performed By: #### L IPID, CMP, TSH, T7 ####[facility] [address] [place] [id number]. Lyndsey Silva Cholesterol.total/C holesterol in HDL [Mass ratio] 5.1 {ratio} Normal [facility] Comment on above: Performed By: #### L IPID, CMP, TSH, T7 ####[facility] [address] [place] [id number]. Lyndsey Silva HDL NORMAL > or = 60 mg/dl - LOW CARDIOVASCULAR RISK <40 mg/dl - HIGH CARDIOVASCULAR RISK Normal [facility] Comment on above: Performed By: #### L IPID, CMP, TSH, T7 ####[facility] [address] [place] [id number]. Lyndsey Silva LDL CALC NORMAL SEE BELOW Normal [facility] Comment on above: Result Comment: <100 mg/dl OPTIMAL 100 - 129 mg/dl NEAR OR ABOVE OPTIMAL 130 - 159 mg/dl BORDERLINE HIGH 160 - 189 mg/dl HIGH >190 mg/dl VERY HIGH Performed By: #### L IPID, CMP, TSH, T7 ####[facility] [address] [place] [id number]. Lyndsey Silva Triglyceride [Mass/Vol] 315 mg/dL Critically high <=150 [facility] Comment on above: Performed By: #### L IPID, CMP, TSH, T7 ####[facility] [address] [place] [id number]. Lyndsey Silva VLDL CALC 63.0 mg/dL Normal [facility] Comment on above: Performed By: #### L IPID, CMP, TSH, T7 ####[facility] [address] [place] [id number]. Lyndsey Silva PROF 14(COMP METB)on 022 Albumin [Mass/Vol] 4.6 g/dL Normal 3.4-5.0 [facility] Comment on above: Performed By: #### L IPID, CMP, TSH, T7 ####[facility] [address] [place] [address]Dr. Lyndsey Silva Albumin/Globulin [Mass ratio] 1.2 {ratio} Normal [facility] Comment on above: Performed By: #### L IPID, CMP, TSH, T7 ####[facility] [address] [place] [address]Dr. Lyndsey Silva ALP [Catalytic activity/Vol] 79 U/L Normal 46-116 [facility] Comment on above: Performed By: #### L IPID, CMP, TSH, T7 ####[facility] [address] [place] [address]Dr. Lyndsey Silva ALT [Catalytic activity/Vol] 26 U/L Normal 14-59 [facility] Comment on above: Performed By: #### L IPID, CMP, TSH, T7 ####[facility] [address] [place] [address]Dr. Lyndsey Silva Anion gap [Moles/Vol] 11.1 mmol/L Normal [facility] Comment on above: Performed By: #### L IPID, CMP, TSH, T7 ####[facility] [address] [place] [address]Dr. Lyndsey Silva AST [Catalytic activity/Vol] 16 U/L Normal 15-37 [facility] Comment on above: Performed By: #### L IPID, CMP, TSH, T7 ####[facility] [address] [place] [address]Dr. Lyndsey Silva Bilirubin [Mass/Vol] 0.6 mg/dL Normal 0.2-1.0 [facility] Comment on above: Performed By: #### L IPID, CMP, TSH, T7 ####[facility] [address] [place] [address]Dr. Lyndsey Silva Calcium [Mass/Vol] 9.7 mg/dL Normal 8.5-10.1 [facility] Comment on above: Performed By: #### L IPID, CMP, TSH, T7 ####[facility] [address] [place] [address]Dr. Lyndsey Silva Chloride [Moles/Vol] 102 mmol/L Normal 98-107 [facility] Comment on above: Performed By: #### L IPID, CMP, TSH, T7 ####[facility] [address] [place] [address]Dr. Lyndsey Silva CO2 [Moles/Vol] 28.7 mmol/L Normal 21.0-32.0 [facility] Comment on above: Performed By: #### L IPID, CMP, TSH, T7 ####[facility] [address] [place] [address]Dr. Lyndsey Silva Creatinine [Mass/Vol] 1.02 mg/dL Normal 0.55-1.02 [facility] Comment on above: Performed By: #### L IPID, CMP, TSH, T7 ####[facility] [address] [place] [address]Dr. Lyndsey Silva EGFR-AF NICARAGUAN >60 Normal >=60 [facility] Comment on above: Performed By: #### L IPID, CMP, TSH, T7 ####[facility] [address] [place] [address]Dr. Lyndsey Silva EGFR-NON AF NICARAGUAN 56 mL/min/1.73m2 Critically low >=60 [facility] Comment on above: Performed By: #### L IPID, CMP, TSH, T7 ####[facility] [address] [place] [address]Dr. Lyndsey Silva Globulin (S) [Mass/Vol] 3.9 g/dL Normal [facility] Comment on above: Performed By: #### L IPID, CMP, TSH, T7 ####[facility] [address] [place] [address]Dr. Lyndsey Silva Glucose [Mass/Vol] 130 mg/dL Critically high 74-106 [facility] Comment on above: Performed By: #### L IPID, CMP, TSH, T7 ####[facility] [address] [place] [address]Dr. Lyndsey Silva Potassium [Moles/Vol] 3.8 mmol/L Normal 3.5-5.1 [facility] Comment on above: Performed By: #### L IPID, CMP, TSH, T7 ####[facility] [address] [place] [address]Dr. Lyndsey Silva Protein [Mass/Vol] 8.5 g/dL Critically high 6.4-8.2 [facility] Comment on above: Performed By: #### L IPID, CMP, TSH, T7 ####[facility] [address] [place] [address]Dr. Lyndsey Silva Sodium [Moles/Vol] 138 mmol/L Normal 136-145 [facility] Comment on above: Performed By: #### L IPID, CMP, TSH, T7 ####[facility] [address] [place] [address]Dr. Lyndsey Silva Urea nitrogen [Mass/Vol] 25.0 mg/dL Critically high 7.0-18.0 [facility] Comment on above: Performed By: #### L IPID, CMP, TSH, T7 ####[facility] [address] [place] [address]Dr. Lyndsey Silva Urea nitrogen/Creatinine [Mass ratio] 24.5 mg/mg Normal [facility] Comment on above: Performed By: #### L IPID, CMP, TSH, T7 ####[facility] [address] [place] [address]Dr. Lyndsey Silva TSHon 03-03-2022 TSH 0.126 uIU/mL Critically low 0.358-3.740 [facility] Comment on above: Performed By: #### L IPID, CMP, TSH, T7 ####[facility] [address] [place] [address]Dr. Lyndsey Silva VITAMIN B12on 03-03-2022 Cobalamin (Vitamin B12) [Mass/Vol] 894.0 pg/mL Normal 193.0-986.0 [facility] Comment on above: Performed By: #### V ITB12, IRON, VITAD ####[facility] [address] [place], [place] [address]Fy. Lyndsey Silva VITAMIN D 25 OHon 03-03-2022 VIT D 25-OH 30.1 ng/mL Normal [facility] Comment on above: Performed By: #### V ITB12, IRON, VITAD ####[facility] [address] [place], [place] [address]As. Lyndsey Silva VIT D RANGES SEE BELOW Normal [facility] Comment on above: Result Comment: <20 ng/mL Vit D deficient 20 - <30 ng/mL Vit D insufficient 30 - 100 ng/mL Vit D sufficient >100 ng/mL Potential Toxicity Performed By: #### V ITB12, IRON, VITAD ####[facility] [address] [place], [place] [address]Lu. Lyndsey Silva MG MAMM SCREEN 3D LEILANI CADon 11-17-2021 MG MAMM SCREEN 3D LEILANI CAD Patient: BLADIMIR NEAL Exam Date: 11/17/2021 : 1965 Gender:F Ordering : DR MATTHEW BAUMANN . Admission #: [id number] Family : Order #: [id number] CLICK HERE TO VIEW EXAM RADIOLOGY REPORT [...] colon cancer at age 59. LOCATION: [facility] BREAST COMPOSITION: Heterogeneously dense,which may obscure small [...] Hansen M.D. on 11/17/2021 at 15:36 Normal [facility] NM STRESS/REST MULTIon 09-02 NM STRESS/REST MULTI Patient: BLADIMIR NEAL Exam Date: 09/02/2021 : 1965 Gender:F Ordering : DR MATTHEW BAUMANN . Admission #: [id number] Family : Order #: [id number] CLICK HERE TO VIEW EXAM RADIOLOGY REPORT [...] on 09/02/2021 at 14:07 Normal [facility] ECHOCARDIO M/2D COMPLETEon 0 08-19-2021 ECHOCARDIO M/2D COMPLETE Patient: BLADIMIR NEAL Exam Date: 08/19/2021 : 1965 Gender:F Ordering : DR MATTHEW BAUMANN . Admission #: [id number] Family : Order #: [id number] CLICK HERE TO VIEW EXAM ECHOCARDIOGRAM REPORT [...] Area(A4C): 12.60 cm2 Left Atrium Systolic Volume(A2C): 35918 mm3 Left Atrium Systolic Volume(A4C): 47340 mm3 Mitral Valve MV E to A [...] Ramon M.D. on 08/19/2021 at 17:27 Normal [facility] BNPon 08-12-2021 Natriuretic peptide B (Bld) [Mass/Vol] 58.0 pg/mL Normal <=900.0 [facility] Comment on above: Performed By: #### B TOUR AGENT, TSH, T7, CMP #### [facility] [address] [place] [address] Dr. Lyndsey Sivla CBC AUTO DIFFon 08-12-2021 BASO # 0.1 103/ul Normal 0.0-0.1 [facility] Comment on above: Performed By: #### C BC #### [facility] [address] [place] [address] Dr. Lyndsey Silva Basophils/100 WBC (Bld) 0.4 % Normal 0.2-2.0 [facility] Comment on above: Performed By: #### C BC #### [facility] [address] [place] [address] Dr. Lyndsey Silva EO # 0.1 103/ul Normal 0.0-0.7 [facility] Comment on above: Performed By: #### C BC #### [facility] [address] [place] [address] Dr. Lyndsey Silva Eosinophils/100 WBC (Bld) 0.6 % Critically low 0.9-7.0 [facility] Comment on above: Performed By: #### C BC #### [facility] [address] [place] [address] Dr. Lyndsey Silva Erythrocyte distribution width (RBC) [Ratio] 13.6 % Normal 11.0-15.0 [facility] Comment on above: Performed By: #### C BC #### [facility] [address] [place] [address] Dr. Lyndsey Silva Hematocrit (Bld) [Volume fraction] 42.4 % Normal 36.0-48.0 [facility] Comment on above: Performed By: #### C BC #### [facility] [address] [place] [address] Dr. Lyndsey Silva Hemoglobin (Bld) [Mass/Vol] 14.3 g/dL Normal 12.0-16.0 [facility] Comment on above: Performed By: #### C BC #### [facility] [address] [place] [address] Dr. Lyndsey Silva IG # 0.17 10e3/ul Critically high 0.00-0.03 [facility] Comment on above: Performed By: #### C BC #### [facility] [address] [place] [address] Dr. Lyndsey Silva IG % 1.4 % Critically high 0.0-0.5 [facility] Comment on above: Performed By: #### C BC #### [facility] [address] [place] [address] Dr. Lyndsey Silva LYMPH # 2.6 103/ul Normal 1.2-3.8 [facility] Comment on above: Performed By: #### C BC #### [facility] [address] [place] [address] Dr. Lyndsey Silva Lymphocytes/100 WBC (Bld) 21.6 % Normal 20.5-60.0 [facility] Comment on above: Performed By: #### C BC #### [facility] [address] [place] [address] Dr. Lyndsey Silva MANUAL DIFF REQ NO Normal [facility] Comment on above: Performed By: #### C BC #### [facility] [address] [place] [address] Dr. Lyndsey Silva MCH (RBC) [Entitic mass] 31.5 pg Normal 26.7-34.0 [facility] Comment on above: Performed By: #### C BC #### [facility] [address] [place] [address] Dr. Lyndsey Silva MCHC (RBC) [Mass/Vol] 33.7 g/dL Normal 29.9-35.2 [facility] Comment on above: Performed By: #### C BC #### [facility] [address] [place] [address] Dr. Lyndsey Silva MCV (RBC) [Entitic vol] 93.4 fL Normal 81.0-99.0 [facility] Comment on above: Performed By: #### C BC #### [facility] [address] [place] [address] Dr. Lyndsey Silva MONO # 0.8 103/ul Normal 0.3-0.8 [facility] Comment on above: Performed By: #### C BC #### [facility] [address] [place] [address] Dr. Lyndsey Silva Monocytes/100 WBC (Bld) 6.9 % Normal 1.7-12.0 [facility] Comment on above: Performed By: #### C BC #### [facility] [address] [place] [address] Dr. Lyndsey Silva NEUT # 8.2 103/ul Critically high 1.4-6.5 [facility] Comment on above: Performed By: #### C BC #### [facility] [address] [place] [address] Dr. Lyndsey Silva Neutrophils/100 WBC (Bld) 69.1 % Normal 43.0-75.0 [facility] Comment on above: Performed By: #### C BC #### [facility] [address] [place] [address] Dr. Lyndsey Silva Platelet mean volume (Bld) [Entitic vol] 8.8 fL Critically low 9.5-13.5 [facility] Comment on above: Performed By: #### C BC #### [facility] [address] [place] [address] Dr. Lyndsey Silva PLT 341 103/ul Normal 150-450 [facility] Comment on above: Performed By: #### C BC #### [facility] [address] [place] [address] Dr. Lyndsey Silva RBC 4.54 106/ul Normal 4.20-5.40 [facility] Comment on above: Performed By: #### C BC #### [facility] [address] [place] [address] Dr. Lyndsey Silva WBC 11.9 103/ul Critically high 4.0-11.0 [facility] Comment on above: Performed By: #### C BC #### [facility] [address] [place] [address] Dr. Lyndsey Silva FREE THYROXINE INDEX T7on FTI 1.40 Normal [facility] Comment on above: Performed By: #### B TOUR AGENT, TSH, T7, CMP #### [facility] [address] [place] [address] Dr. Lyndsey Silva T3U 31.0 % Normal 23.5-40.5 [facility] Comment on above: Performed By: #### B TOUR AGENT, TSH, T7, CMP #### [facility] [address] [place] [address] Dr. Lyndsey Silva T4 [Mass/Vol] 4.50 ug/dL Critically low 4.80-13.90 [facility] Comment on above: Performed By: #### B TOUR AGENT, TSH, T7, CMP #### [facility] [address] [place] [address] Dr. Lyndsey Silva IRONon 08-12-2021 Iron [Mass/Vol] 106.0 ug/dL Normal 50.0-170.0 [facility] Comment on above: Performed By: #### I STERLING #### [facility] [address] [place] [address] Dr. Lyndsey Silva PROF 14(COMP METB)on 022 Albumin [Mass/Vol] 5.0 g/dL Normal 3.4-5.0 [facility] Comment on above: Performed By: #### B TOUR AGENT, TSH, T7, CMP #### [facility] [address] [place] [address] Dr. Lyndsey Silva Albumin/Globulin [Mass ratio] 1.4 {ratio} Normal [facility] Comment on above: Performed By: #### B TOUR AGENT, TSH, T7, CMP #### [facility] [address] [place] [address] Dr. Lyndsey Silva ALP [Catalytic activity/Vol] 72 U/L Normal 46-116 [facility] Comment on above: Performed By: #### B TOUR AGENT, TSH, T7, CMP #### [facility] [address] [place] [address] Dr. Lyndsey Silva ALT [Catalytic activity/Vol] 35 U/L Normal 14-59 [facility] Comment on above: Performed By: #### B TOUR AGENT, TSH, T7, CMP #### [facility] [address] [address] [address] Lyndsey Silva Anion gap [Moles/Vol] 17.5 mmol/L Normal [facility] Comment on above: Performed By: #### B TOUR AGENT, TSH, T7, CMP #### [facility] [address] [place] [address] Dr. Lyndsey Silva AST [Catalytic activity/Vol] 20 U/L Normal 15-37 [facility] Comment on above: Performed By: #### B TOUR AGENT, TSH, T7, CMP #### [facility] [address] [place] [address] Dr. Lyndsey Silva Bilirubin [Mass/Vol] 1.2 mg/dL Critically high 0.2-1.0 [facility] Comment on above: Performed By: #### B TOUR AGENT, TSH, T7, CMP #### [facility] [address] [place] [address] Dr. Lyndsey Silva Calcium [Mass/Vol] 9.5 mg/dL Normal 8.5-10.1 [facility] Comment on above: Performed By: #### B TOUR AGENT, TSH, T7, CMP #### [facility] [address] [address] [address] Lyndsey Silva Chloride [Moles/Vol] 98 mmol/L Normal 98-107 [facility] Comment on above: Performed By: #### B TOUR AGENT, TSH, T7, CMP #### [facility] [address] [place] [address] Dr. Lyndsey Silva CO2 [Moles/Vol] 25.0 mmol/L Normal 21.0-32.0 [facility] Comment on above: Performed By: #### B TOUR AGENT, TSH, T7, CMP #### [facility] [address] [place] [address] Dr. Lyndsey Silva Creatinine [Mass/Vol] 1.17 mg/dL Critically high 0.55-1.02 [facility] Comment on above: Performed By: #### B TOUR AGENT, TSH, T7, CMP #### [facility] [address] [place] [address] Dr. Lyndsey Silva EGFR-AF NICARAGUAN 58 mL/min/1.73m2 Critically low >=60 [facility] Comment on above: Performed By: #### B TOUR AGENT, TSH, T7, CMP #### [facility] [address] [place] [address] Dr. Lyndsey Silva EGFR-NON AF NICARAGUAN 48 mL/min/1.73m2 Critically low >=60 [facility] Comment on above: Performed By: #### B TOUR AGENT, TSH, T7, CMP #### [facility] [address] [place] [address] Dr. Lyndsey Silva Globulin (S) [Mass/Vol] 3.6 g/dL Normal [facility] Comment on above: Performed By: #### B TOUR AGENT, TSH, T7, CMP #### [facility] [address] [place] [address] Dr. Lyndsey Silva Glucose [Mass/Vol] 123 mg/dL Critically high 74-106 [facility] Comment on above: Performed By: #### B TOUR AGENT, TSH, T7, CMP #### [facility] [address] [place], [place] [id number] Dr. Lyndsey Silva Potassium [Moles/Vol] 4.5 mmol/L Normal 3.5-5.1 [facility] Comment on above: Performed By: #### B TOUR AGENT, TSH, T7, CMP #### [facility] [address] [place] [address] Dr. Lyndsey Silva Protein [Mass/Vol] 8.6 g/dL Critically high 6.1-8.2 [facility] Comment on above: Performed By: #### B TOUR AGENT, TSH, T7, CMP #### [facility] [address] [place] [address] Dr. Lyndsey Silva Sodium [Moles/Vol] 136 mmol/L Normal 136-145 [facility] Comment on above: Performed By: #### B TOUR AGENT, TSH, T7, CMP #### [facility] [address] [place] [address] Dr. Lyndsey Silva Urea nitrogen [Mass/Vol] 12.0 mg/dL Normal 7.0-18.0 [facility] Comment on above: Performed By: #### B TOUR AGENT, TSH, T7, CMP #### [facility] [address] [place] [address] Dr. Lyndsey Silva Urea nitrogen/Creatinine [Mass ratio] 10.3 mg/mg Normal [facility] Comment on above: Performed By: #### B TOUR AGENT, TSH, T7, CMP #### [facility] [address] [place] [address] Dr. Lyndsey Silva TSHon 08-12-2021 TSH 1.149 uIU/mL Normal 0.470-4.680 [facility] Comment on above: Performed By: #### B TOUR AGENT, TSH, T7, CMP #### [facility] [address] [place] [address] Dr. Lyndsey Silva TSH RANGE SEE BELOW Normal [facility] Comment on above: Result Comment: <0.3 4 UIU/ml HYPERTHYROID 0.34-5.60 UIU/ml EUTHYROID >5.60 UIU/ml HYPOTHYROID Performed By: #### B TOUR AGENT, TSH, T7, CMP #### [facility] [address] [address] [address] Lyndsey Silva Vital Signs Date Time Vital Sign Value Performing Clinician Faci vaughn 06-15-2023 09:47-0500 Body height 165.1 cm [facility] 2 [facility] 06-15-2023 09:47-0500 Body mass index (BMI) [Ratio] 30.79 kg/m2 Pm 2 [facility] 06-15-2023 09:47-0500 Body weight 83.[address] 05-04-2023 13:17-0500 Blood Pressure Location Bautista CRISTINA [facility] 05-04-2023 13:17-0500 Diastolic blood pressure 82 mm[Hg] Bautista CRISTINA [facility] 05-04-2023 13:17-0500 Heart rate 72 /min Bautista SMITHL [facility] 05-04-2023 13:17-0500 Respiratory rate 16 /min Bautista CRISTINA [facility] 05-04-2023 13:17-0500 Systolic blood pressure 144 mm[Hg] Bautista CRISTINA [facility] Encounters Encounter Date Encounter Type Care Provider Facility Start: 10-18-2023 End: 10-18-2023 ambulatory CARLEEN LALA Not Available Start: 10-04-2023 End: 10-04-2023 ambulatory CARLEEN LALA Not Available Start: 08-09-2023 End: 08-09-2023 ambulatory CARLEEN LALA Not Available Start: 07-11-2023 End: 07-11-2023 ambulatory NIRAV BERUMEN Not Available Start: 06-29-2023 End: 06-29-2023 Evaluation and management of inpatient JOHN GARDNER [facility] Start: 06-29-2023 End: 06-29-2023 Evaluation and management of inpatient CARLEEN LALA [facility] Start: 06-22-2023 End: 06-23-2023 ambulatory Bautista CRISTINA Facility:[facility] Start: 06-15-2023 End: 06-16-2023 ambulatory CARLEEN LALA [facility] Start: 06-15-2023 Encounter for other preprocedural examination MATTHEW BAUMANN [facility] Start: 06-15-2023 End: 06-15-2023 Patient encounter procedure [facility] Pre-Admission Testing 2 [facility] - Pre Admit Comment on above: Preop examination (P rimary Dx); Hypertension, unspecified type; Diabetes mellitus of other type without complication, unspecified whether jail insulin use ([facility] Start: 06-15-2023 End: 06-15-2023 Preprocedural examination done Pm 2 [facility] Start: 06-07-2023 End: 06-07-2023 ambulatory CARLEEN LALA Not Available Start: 05-31-2023 End: 05-31-2023 ambulatory NIRAV Loaiza APLING Not Available Start: 05-18-2023 End: 05-18-2023 ambulatory AP HERNANDEZ Not Available Start: 05-16-2023 End: 05-16-2023 ambulatory NIRAV Loaiza APLING Not Available Start: 05-04-2023 End: 05-05-2023 ambulatory Bautista CRISTINA Facility: [facility] Start: 05-04-2023 End: 05-04-2023 Patient encounter procedure Bautista CRISTINA [facility] Garcias Start: 05-03-2023 End: 05-03-2023 ambulatory CARLEEN LALA Not Available Start: 04-04-2023 End: 04-05-2023 ambulatory Regis Garrido MD [facility] Start: 03-25-2023 ambulatory Bautista CRISTINA Facility:[facility] Start: 03-21-2023 End: 03-22-2023 ambulatory Regis Garrido MD [facility] Start: 03-08-2023 ambulatory Bautista CRISTINA Facility:[facility] Start: 03-06-2022 Encounter for genera l adult medical examination without abnormal findings DR MATTHEW BAUMANN [facility] Start: 03-03-2022 End: 03-04-2022 ambulatory [...] Screening Adult BMI Screen ing [facility] Start: 06-15-2024 Tobacco Screening Tobacco Screening [facility] Start: 06-29-2023 End: 06-29-2023 Admission to same day surgery center 06/29/2023 8:00 AM EDT - 06/29/2023 9:00 AM EDT Surgery [facility] - Surgery [address] [place] [id number] Carleen Lala, DO [address] [place] [address] ARTHROSCOPIC MENISCECTOMY KNEE [40878 (CPT )] [facility] - Surgery Comment on above: ARTHROSCOPIC MENISCE CTOMY KNEE [87026 (CPT )] Start: 06-29-2023 End: 06-29-2023 Arthrs kne surg w/meniscectomy med/lat w/shvg ARTHROSCOPIC MENISCECTOMY KNEE left knee meniscal tear 06/29/2023 8:00 AM EDT [facility] Start: 06-29-2023 Subsequent hospital visit by physician 06/29/2023 8:00 AM EDT Hospital Encounter [facility] - Surgery [address] [place] [id number] Carleen Lala, [address] [address] [facility] - Surgery Start: 2014 Administration of varicella zoster vaccine Zoster (Shingles) Vaccine (1 of 2) [facility] Start: 1985 Screening for malign ant neoplasm of cervix Pap Smear [facility] Start: 07-09-1983 DTaP,Tdap and Td Vac cines (1 - Tdap) DTaP,Tdap and Td Vaccines (1 - Tdap) [facility] Start: 1982 Adult BMI Follow Up Plan Adult BMI Follow Up Plan [facility] Start: 1982 Diabetic foot examination Diabetic F oot Exam [facility] Start: 1976 Depression Screening Depression Scre ening [facility] Start: 1965 Glaucoma screening Diabetic Op hthalmology Exam [facility] Immunizations Immunization Date Immunization Notes Care Provider Fa cili 02-01-2023 influenza virus vaccine, unspecified formulation Bautista CRISTINA [facility] [place] 02-19-2022 SARS-CoV-2 (COVID-19 ) mRNAMUL.[id number] Bautista CRISTINA [facility] [place] 09-03-2021 SARS-CoV-2 mRNA (erzdcgfpnwh-esii-wjbod se) vaccine Bautista CRISTINA [facility] 02-06-2021 SARS-CoV-2 (COVID-19 ) mRNA BNT-162b2 vax Bautista CRISTINA [facility] [place] 05-24-2020 SARS-CoV-2 (COVID-19 ) mRNA BNT-162b2 geno CRISTINA [facility] [place] Comment on above: Result Comment: 2023: [id number] 05-03-2020 SARS-CoV-2 (COVID-19 ) mRNA BNT-162b2 geno CRISTINA [facility] [place] Comment on above: Result Comment: 2023: [id number] Payers Date Payer Category Payer Unknown 1965 Unknown [id number] 2.16.84 [id number] 1965 Unknown [id number] 2.16.84 [id number] 1965 Unknown [id number] 2.16.84 0.1.795061.3.579.2.593 1965 Unknown [id number] 2.16.84 0.1.293211.3.579.2.593 1965 Unknown [id number] 2.16.84 0.1.531822.3.579.2.593 1965 Unknown [id number] 2.16. 840.1.186091.3.579.2.196 1965 Unknown [id number] 2.16. 840.1.650797.3.579.2.196 1965 Unknown [id number] 2.16.8 40.1.544572.3.579.2.727 1965 Unknown [id number] 2.16.8 40.1.294566.3.579.2.727 1965 Unknown [id number] 2.16.8 40.1.778429.3.579.2.1286 1964 Unknown [id number] 2.16.8 40.1.993008.3.579.2.1286 1964 Unknown [id number] 2.16.8 40.1.921830.3.579.2.1286 1964 Unknown [id number] 2.16.8 40.1.798368.3.579.2.1286 1964 Unknown [id number] 2.16.8 40.1.887997.3.579.2.1286 1964 Unknown [id number] 2.16.8 40.1.746365.3.579.2.1286 1964 Unknown [id number] 2.16.84 0.1.452197.3.579.2.1259 1964 Unknown [id number] 2.16.84 0.1.534157.3.579.2.1259 1964 Unknown [id number] 2.16.84 0.1.178255.3.579.2.1259 1965 Unknown [id number] 2.16.84 [id number] 1965 Unknown [id number] 2.16.84 [id number] 1965 Unknown [id number] 2.16.84 [id number] 1965 Unknown [id number] 2.16.84 [id number] 1965 Unknown [id number] 2.16.84 [id number] 1965 Unknown [id number] 2.16.84 [id number] 1965 Unknown [id number] 2.16.84 [id number] 1960 Unknown [id number] Social History Date Type Detail Facility Start: 10-14-2022 End: 05-04-2023 Tobacco smoking status Never smoked tobacco (finding) [facility] Tobacco smoking status Never [facility] [place] Start: 10-03-2019 End: 05-29-2020 Sex Assigned At Female [facility] Start: 10-14-2022 Tobacco use and exposure Smokeless tobacco non-user [facility] Start: 06-15-2023 Alcohol intake Lifetime non-d jasen (finding) [facility] Start: 10-03-2019 End: 05-29-2020 History of Social function [facility] How often to you hav e a drink containing alcohol? Never [facility] Start: 1965 Sex Assigned At Not on file P Guesty [facility] Medical Equipment Procedure Code Equipment Code Equipment Origin al Text Equipment Identifier Dates Gft Bn Dmnr Fbr 15ml Biologic - [id number] - [id number] Start: 10-17-2019 Aleksandr Spnl 40mm 5. 5mm Hex End - Sna - [id number] Start: 10-17-2019 Scr Bn 45mm 5.5m m Pa Spne Vrst - Sna - [id number] Start: 10-17-2019 Jelm Interbo dy System Oblique [id number] Start: 10-17-2019 Goals Date Patient Goal Desired Activity /State Personal health goal Comment on above: Formatting of this n ote might be different from the original. Evaluation of progress towards goal: Safe dc transition from hospital to home with family member. Functional Status Date Assessment Result Facility 05-04-2023 Functional Status N/A General [facility] Instructions 06-15-2023 Patient Instructions Note Date & Type Note Facility 06-15-2023 Instructions Silvia Mora RN - 06/15/2023 9:45 AM EST Preoperative Education Checklist- General Surgery date: 06/29/23 Surgery time: 0800 a.m. Arrival time: 0610 a.m. 1. Bring a photo ID and your insurance card with you the day of surgery. You will check in at the main lobby of the [facility]- registration desk is straight ahead as soon as you walk in. Tell them you are here for surgery. 2. If you have a Living Will/Durable Power of [employer]er for Health Care that is not on [...] after you have bathed. 5. NO nail haitian/acrylic on at least one finger. If you are having a hand, wrist or foot surgery then all nail haitian and artificial/acrylic nails must be removed from [...] please call the Preadmission Testing office at [phone], Mon.-Fri. 7 a.m.-3 p.m. Leave a voicemail [...] 50 mg tablet Take morning of procedure obapfwzi-wdel-KC-calcium &mins (THERAGRAN-M) 9 mg iron-400 mcg tablet [...] go swimming or use a hot tub (Andreyuzzi), or perform activities where your incision is [...] with your doctor. documented in this encounter [facility] Note 06-15-2023 Perioperative Nursing Note - [...] in at the main lobby of the [facility]- registration desk is straight ahead as soon as you walk in. Tell them you are here for surgery. 2. If you have a Living Will/Durable Power of [employer] for Health Care that is not on [...] after you have bathed. 5. NO nail haitian/acrylic on at least one finger. If you are having a hand, wrist or foot surgery then all nail haitian and artificial/acrylic nails must be removed from [...] please call the Preadmission Testing office at [phone], Mon.-Fri. 7 a.m.-3 p.m. Leave a voicemail [...] 50 mg tablet Take morning of procedure djyodjhz-tvhf-ZQ-calcium &mins (THERAGRAN-M) 9 mg iron-400 mcg tablet [...] understanding. documented in this encounter [facility] Nurse Note 06-15-2023 Perioperative Nursing Note [...] in at the main lobby of the [facility]- registration desk is straight ahead as soon as you walk in. Tell them you are here for surgery. 2. If you have a Living Will/Durable Power of [employer]er for Health Care that is not on [...] after you have bathed. 5. NO nail haitian/acrylic on at least one finger. If you are having a hand, wrist or foot surgery then all nail haitian and artificial/acrylic nails must be removed from [...] please call the Preadmission Testing office at [phone], Mon.-Fri. 7 a.m.-3 p.m. Leave a voicemail [...] 50 mg tablet Take morning of procedure cxhinnvd-sqtd-SW-calcium &mins (THERAGRAN-M) 9 mg iron-400 mcg tablet [...] to the follow-up appointment with your doctor. [facility] Nurse Note 06-15-2023 Perioperative Nursing Note - Silvia Mora RN - 06/15/2023 9:45 AM EST Note Date & Type Note Facility 06-15-2023 Nurse Note Hibiclens and surgical instructions reviewed. Patient verbalized understanding. [facility] Clinical Note 05-04-2023 Note Date & Type Note Facility 05-04-2023 Note Chief Complaint consultation for colonoscopy HPI Staff 57 year old female presents on consultation from Dr. Baumann for surveillance colonoscopy. Last colonoscopy completed 09/2015- normal. Mother with history of colon cancer. Denies abdominal or rectal pain. No rectal bleeding or change in bowel habits. Denies nausea or vomiting. No unexplained weight loss. History of Present Illness 57 yp female with h/o DMII, htn, hyperlipidemia, hypothyroidism, DDD, lumbosacral, referred for colorectal screening; denies change in bms or blood in stools; no abdominal complaints; on baby asa daily, no NSAID use, no SBE prophylaxis; abdominal operations significant for cholecystectomy and appendectomy, normal colonoscopy in 2016; no fmhx of colon cancer in patient's mother, dx in her 50's, no fmhx of IBD; no tobacco use. Review of Systems PHQ Score Initial Depression Screen Score: 0 SCORE ROS - Provider Constitutional: no fever, no sweats, no weight loss. Eyes: no glasses, no blurred vision, no visual loss. ENMT: no dentures, no hoarseness, no swallowing difficulties, no hearing loss, no ear infection(s), no nose bleeds. Cardiovascular: normal blood pressure, no chest pain, regular heartbeat, no heart murmur. Respiratory: no shortness of breath, no cough, no asthma, no wheezing. Gastrointestinal: no nausea, no vomiting, no diarrhea, no constipation, no blood in stool, no change in bowel habits, no abdominal pain, no hepatitis. Genitourinary: no kidney stones, no urine infection, no dysuria. Musculoskeletal: no pain, no weakness. Skin: no changing moles, no rash, no skin lumps. Neurologic: no seizures, no epilepsy, no headache. Psychiatric: no emotional or psychiatric problem. Heme/Lymph: no bleeding problems, no anemia, no blood clots, no transfusions. Allergy/Immunologic: no swollen lymph nodes/glands, no IV drug abuse. Other: Additional ROS info: Except as noted in the above Review of Systems and in the History of Present Illness, all other systems have been reviewed and are negative or noncontributory. Physical Exam Vitals & Measurements HR: 72(Peripheral) RR: 16 BP: 144/82 HT: 65 in HT: 165 cm WT: 90.8 kg WT: 199.76 lb BMI: 33.35 HEENT: normal conjunctiva, sclera clear, no scleral icterus, EOM intact, PERRLA, oral mucosa moist without lesions. Neck: trachea midline, no mass, symmetric, no thyromegaly or nodules, no adenopathy Respiratory: lungs CTA, respirations non labored. Cardiovascular: regular rate and rhythm, no murmur, no pedal edema or varicosities. Gastrointestinal: soft, non distended, no tenderness, no masses, no palpable hernias, diastasis recti no, no hepatosplenomegaly; normal bs Lymphatic: no cervical adenopathy, no supraclavicular adenopathy. Musculoskeletal: normal gait, digits and nails without infection, nodes, cyanosis, clubbing. Skin: no rashes, no lesions, no ulcers, no subcutaneous nodules, induration. Psychiatric/Neuro: oriented to time, place, person, judgement normal, affect appropriate for age, insight intact, no focal deficits. Tests: review of old records completed , Discussed surgical options, risks, and possible complications with patient. Assessment/Plan 1. Family history of colon cancer in mother (Z80.0: Family history of malignant neoplasm of digestive organs) plan colonoscopy under anesthesia, informed consent obtained. Follow-up No qualifying data available Problem List/Past Medical History Ongoing BMI 33.0-33.9,adult Degeneration of lumbosacral intervertebral disc Diabetic peripheral neuropathy associated with type 2 diabetes mellitus. Essential hypertension Family history of colon cancer in mother Hyperlipidemia Hypertriglyceridemia Hypothyroidism Obesity PVCs (premature ventricular contractions) Spondylolisthesis, lumbar region Type 2 diabetes mellitus Historical No qualifying data Procedure/Surgical History Colonoscopy (10/15/2015), Appendectomy, Arthroscopy of knee, Cholecystectomy, Excision of calcaneal spur, Laminectomy. Medications aspirin 81 mg Oral EC Tab, 81 mg= 1 tab(s), Oral, Daily atorvastatin 80 mg Tab, 80 mg= 1 tab(s), Oral, Daily Bydureon BCise, 2 mg, SubCutaneous, qWeek colesevelam 625 mg Tab, 1875 mg= 3 tab(s), Oral, BID cyclobenzaprine 5 mg Tab, See Instructions Cytomel 5 mcg Tab duloxetine 60 mg Cap-DR, 1 cap(s), Oral, Daily fenofibric acid choline 135 mg oral cap, 135 mg= 1 cap(s), Oral, Daily ferrous sulfate 325 mg oral enteric coated tablet, 325 mg= 1 tab(s), Oral, Daily Jardiance 10 mg oral tablet, 10 mg= 1 tab(s), Oral, qAM levothyroxine 125 mcg (0.125 mg) Tab, 125 mcg= 1 tab(s), Oral, Daily metformin 500 mg Tab, 500 mg= 1 tab(s), Oral, Daily Metoprolol tartrate 50 mg Tab, 50 mg= 1 tab(s), Oral, BID nabumetone 500 mg Tab, 500 mg= 1 tab(s), Oral, Daily niacin 1000 mg ER Tab, 1000 mg= 1 tab(s), Oral, Daily Pantoprazole [address] Tab, 40 mg= 1 tab(s), Oral, Daily pioglitazone 45 mg Tab, 45 mg= 1 tab(s), Oral (more content not included)... [facility] Comment on above: Result Comment: Elec tronically Signed By: ANNA FIERRO, Bautista Barbosa\Date and Time Signed: 05/04/23 13:41 EST Evaluation + Plan note Note Date & Type Note Facility Evaluation + Plan note No data available for this section [facility] [place] Evaluation note Note Date & Type Note Facility Evaluation note Diagnosis Preop examination- Primary Unspecified pre-operative examination Hypertension, unspecified type Diabetes mellitus of other type without complication, unspecified whether termination clerk insulin use ([facility] Preop examination Unspecified pre-operative examination Hypertension, unspecified type Diabetes mellitus of other type without complication, unspecified whether termination clerk insulin use ([facility]) documented in this encounter [facility] Hospital Discharge instructions Note Date & Type Note Facility Hospital Discharge instructions No data available for this section [facility] [place] Progress note Note Date & Type Note Facility Progress note No data available for this section [facility] [place] Summary Purpose Family History No Family History Records FoundNo Family History Records Found No data available for this section No Family History Records FoundNo Family History Records FoundNo Family History Records Found Advance Directives No Advanced Directives Records FoundLatest Code Status on File Code Status Date Activated Date Inactivated Comments Full Code 10/17/2019 3:02 PM 10/19/2019 3:49 PM Reason for Referral Specialty Diagnoses / Procedures Referred By Contac t Referred To Contact Diagnoses Preop examination Hypertension, unspecified type Diabetes mellitus of other type without complication, unspecified whether termination clerk insulin use ([facility]) Procedures ECG 12 lead Carleen Lala, DO [address] [place] [address] Referral ID Status Reason Start Date Expiration Date V isits Requested Visits Authorized [id number] Pending Review 06/09/2023 06/08/2024 1 1 Additional Source Comments INFORMATION SOURCE (unrecogn ized section and content) DATE CREATED AUTHOR 03/06/2022 [facility] DATE CREATED AUTHOR AUTHOR'S ORGANIZ ATION 04/08/2023 [facility] DATE CREATED AUTHOR AUTHOR'S ORGANIZ ATION 06/27/2023 [facility] DATE CREATED AUTHOR AUTHOR'S ORGANIZ ATION 06/30/2023 [facility] DATE CREATED AUTHOR AUTHOR'S ORGANIZ ATION 10/19/2023 [facility] Patient Care team informatio n (unrecognized section and content) Country Director Relationship Specialty Start Date End Date Matthew Baumann MD [address] [place] [address] PCP - General Family Medicine 10/03/19 FOR [...] BE BASED ON THE PRIMARY CLINICAL RECORDS. [employer] provides no warranty or guarantee of the accuracy or completeness of information in this document.
[2023-11-25 11:11] LABS: Internal Control Within Normal Limits; SARS-CoV-2 Ag POSITIVE (NEGATIVE)
== END 2023-11-25 09:10 | disposition home or self-care (01) ==
LOC: LAB 09:09
PROVIDERS: PCP Family Medicine; Visit Provider Family Medicine
DX: R50.9 Fever, unspecified (principal)
CPT/HCPCS: 87811

== ENCOUNTER 2023-12-13 10:53 | Outpatient (OUT) | payer OTHER, SELFPAY ==
--- OUTSIDE RECORDS SUMMARY | 2023-12-13 11:10 | XMS_ITS | CCD ---
Author Organization [facility] Care Team Providers Care Recovery Analyst Name Role Phone LENY, DR CASTRO Admitting [...] Attending Unavailable Matthew Baumann Primary Care Physician [phone] Matthew Baumann MD Primary Care Provider Bautista CRISTINA Attending Unavailable Bautista CRISTINA Attending [...] Codeine; Translations: [codeine] Drug Allergy 5 [facility] Repository (1 source) Iodine (And Iodine Containting Drugs) Drug allergy (disorder) 6 [facility] (1 source) Shellfish Drug allergy (disorder) 5 [facility] (2 sources) Codeine; Translations: [codeine] Drug Allergy 0 Weal (disorder), Rash [facility] [place] (2 sources) Contrast media; Translations: [Contrast Dye] Allergy to substance Weal (disorder) [facility] [place] (2 sources) Fenofibrate; Translations: [fenofibrate] Drug Allergy Abdominal pain (finding) [facility] [place] (2 sources) Shellfish; Translations: [SHELLFISH DERIVED] Propensity to adverse reactions to drug 3 [facility] (2 sources) Iodinated Contrast Media; Translations: [IODINATED CONTRAST MEDIA] Propensity to adverse reactions to drug 3 Abdominal Pain [facility] (1 source) Iodine; Translations: [iodine] Drug Allergy [facility] Repository Medications Current Medications Medication Drug Class(es) [...] Status: Ordered take 2 tablets by [facility] three times daily as needed for [...] Refills(s) 0 Start Date: 04/25/23 Status: Ordered xemkxobs-xkvh-BQ-holly cium &mins (THERAGRAN-M) 9 mg iron-400 mcg tablet (1 source) cdyetzgv-mvfl-GH -calcium &mins (THERAGRAN-M) 9 mg iron-400 mcg [...] 06-29-2023 Glucose [Mass/Vol] 145 mg/dL High 65-99 [facility] Outside Colonoscopyon 2023 Outside Colonoscopy [id number] #1.00TIFF Normal [facility] Reminderson 06-27-2023 Reminders - From: Ryanne Benito LPN To: N - Clinical; Sent: 06/27/2023 07:56:51 EDT Show up: 05/24/2028 07:00:00 EST Subject: colonosocpy recall Due Date/Time: 06/21/2028 07:00:00 EST Reminder/Recall Patient due for surveillance colonoscopy 06/21/2028 due to family history of colon cancer. Normal [facility] Lab Reportson 06-23-2023 Lab Reports [id number] #1.00TIFF Normal [facility] Reportson 06-22-2023 Lab Reports [id number] #1.00TIFF Normal [facility] BASIC METABOLIC PANLon 06-15 Anion gap [Moles/Vol] 9 mmol/L Normal 5-15 [facility] Comment on above: Performed By: #### B MP #### [facility] ([id number]) [address] [place] [address] Calcium [Mass/Vol] 9.3 mg/dL Normal 8.5-10.5 [facility] Comment on above: Performed By: #### B MP #### [facility] ([id number]) [address] [place] [address] Chloride [Moles/Vol] 107 mmol/L Normal 98-109 [facility] Comment on above: Performed By: #### B MP #### [facility] ([id number]) [address] [place] [address] CO2 [Moles/Vol] 23 mmol/L Normal 22-32 [facility] Comment on above: Performed By: #### B MP #### [facility] ([id number]) [address] [place] [address] Creatinine [Mass/Vol] 0.80 mg/dL Normal 0.40-1.00 [facility] Comment on above: Result Comment: METH OD TRACEABLE TO IDMS STANDARD Performed By: #### B MP #### [facility] ([id number]) [address], [address] [place] [address] GFR/1.73 sq M.predicted among non-blacks MDRD (S/P/Bld) [Vol rate/Area] 85 mL/min/{1.73_m2} Normal >59 [facility] Comment on above: Result Comment: Reported eGFR is based on the CKD-EPI 2020 equation that does not use a race coefficient. Performed By: #### B MP #### [facility] ([id number]) [address], [address] [place] [address] Glucose [Mass/Vol] 178 mg/dL High 65-99 [facility] Comment on above: Performed By: #### B MP #### [facility] ([id number]) [address], [address] [place] [address] Potassium [Moles/Vol] 4.3 mmol/L Normal 3.5-5.0 [facility] Comment on above: Performed By: #### B MP #### [facility] ([id number]) [address], [address] [place] [address] Sodium [Moles/Vol] 139 mmol/L Normal 134-146 [facility] Comment on above: Performed By: #### B MP #### [facility] ([id number]) [address], [address] [place] [address] Urea nitrogen [Mass/Vol] 12 mg/dL Normal 5-23 [facility] Comment on above: Performed By: #### B #### [facility] ([id number]) [address] [place] [address] Basic Metabolic Panelon - Anion gap [Moles/Vol] 9 mmol/L 5 - 15 mmol/L [facility] Calcium [Mass/Vol] 9.3 mg/dL 8.5 - 10. 5 mg/dL [facility] Chloride [Moles/Vol] 107 mmol/L 98 - 109 mmol/L [facility] CO2 [Moles/Vol] 23 mmol/L 22 - 32 mmol/L [facility] Creatinine [Mass/Vol] 0.80 mg/dL 0.40 - 1.00 mg/dL [facility] Comment on above: METHOD TRACEABLE TO [facility] STANDARD eGFR (CKD-EPI)non-race dependent 85 - PINF [facility] Comment on above: Reported eGFR is based on the CKD-EPI 2020 equation that does not use a race coefficient. Glucose [Mass/Vol] 178 mg/dL High 65 - 99 mg/dL [facility] Interpretation and review of laboratory results Abnormal [facility] Potassium [Moles/Vol] 4.3 mmol/L 3.5 - 5.0 mmol/L [facility] Sodium [Moles/Vol] 139 mmol/L 134 - 146 mmol/L [facility] Urea nitrogen [Mass/Vol] 12 mg/dL 5 - 23 mg/dL [facility] ECG 12 leadon 06-15-2023 TRACEMASTERVUE [facility] MR KNEE LEFT WO IV CONTRASTo [...] for Procedure/Surger yon 05-05-2023 Consent for Procedure/Surgery [id number]# 1.00TIFF Normal [facility] Ambulatory Visit Summaryon 0 05-04-2023 Ambulatory Visit [...] for choosing us for your care. Normal [facility] Facesheeton 05-04-2023 Facesheet [id number]#1.00TIFF Normal [facility] Physician Referralon 023 Physician Referral [id number] #1.00TIFF Normal [facility] INSULINon 03-04-2022 Insulin 9.8 uIU/mL Normal 2.6-24.9 [facility] Comment on above: Performed By: #### I NSULIN ####[facility] [address] [place], [place] [address]Dr. Lyndsey Silva CBC AUTO DIFFon 03-03-2022 BASO # 0.0 103/ul Normal 0.0-0.1 [facility] Comment on above: Performed By: #### C BC ####[facility] [address] [place] [address]DrPeg Silva Basophils/100 WBC (Bld) 0.6 % Normal 0.2-2.0 [facility] Comment on above: Performed By: #### C BC ####[facility] [address] [place] [address]Dr. Lyndsey Silva EO # 0.1 103/ul Normal 0.0-0.7 [facility] Comment on above: Performed By: #### C BC ####[facility] [address] [place] [address]Dr. Lyndsey Silva Eosinophils/100 WBC (Bld) 1.6 % Normal 0.9-7.0 [facility] Comment on above: Performed By: #### C BC ####[facility] [address] [place], [place] [address]Dr. Lyndsey Silva Erythrocyte distribution width (RBC) [Ratio] 13.2 % Normal 11.0-15.0 [facility] Comment on above: Performed By: #### C BC ####[facility] [address] [place], [place] [address]Dr. Lyndsey Silva Hematocrit (Bld) [Volume fraction] 41.8 % Normal 36.0-48.0 [facility] Comment on above: Performed By: #### C BC ####[facility] [address] [place], [place] [address]Dr. Lyndsey Silva Hemoglobin (Bld) [Mass/Vol] 14.3 g/dL Normal 12.0-16.0 [facility] Comment on above: Performed By: #### C BC ####[facility] [address] [place] [address]Dr. Lyndsey Silva IG # 0.04 10e3/ul Critically high 0.00-0.03 [facility] Comment on above: Performed By: #### C BC ####[facility] [address] [place] [address]Dr. Lyndsey Silva IG % 0.8 % Critically high 0.0-0.5 [facility] Comment on above: Performed By: #### C BC ####[facility] [address] [place], [place] [address]Dr. Lyndsey Silva LYMPH # 1.8 103/ul Normal 1.2-3.8 [facility] Comment on above: Performed By: #### C BC ####[facility] [address] [place] [address]Dr. Lyndsey Silva Lymphocytes/100 WBC (Bld) 35.3 % Normal 20.5-60.0 [facility] Comment on above: Performed By: #### C BC ####[facility] [address] [place] [address]Dr. Lyndsey Ricardo MANUAL DIFF REQ NO Normal [facility] Comment on above: Performed By: #### C BC ####[facility] [address] [place] [address]Dr. Lyndsey Ricardo MCH (RBC) [Entitic mass] 31.2 pg Normal 26.7-34.0 [facility] Comment on above: Performed By: #### C BC ####[facility] [address] [place] [address]Dr. Lyndsey Ricardo MCHC (RBC) [Mass/Vol] 34.2 g/dL Normal 29.9-35.2 [facility] Comment on above: Performed By: #### C BC ####[facility] [address] [place], [place] [address]Dr. Lyndsey Ricardo MCV (RBC) [Entitic vol] 91.3 fL Normal 81.0-99.0 [facility] Comment on above: Performed By: #### C BC ####[facility] [address] [place], [place] [address]Dr. Coriyamil Ricardo MONO # 0.5 103/ul Normal 0.3-0.8 [facility] Comment on above: Performed By: #### C BC ####[facility] [address] [place] [address]Dr. Lyndsey Ricardo Monocytes/100 WBC (Bld) 9.8 % Normal 1.7-12.0 [facility] Comment on above: Performed By: #### C BC ####[facility] [address] [place], [place] [address]Dr. Coriyamil Ricardo NEUT # 2.6 103/ul Normal 1.4-6.5 [facility] Comment on above: Performed By: #### C BC ####[facility] [address] [place], [place] [address]Io. Lyndsey Silva Neutrophils/100 WBC (Bld) 51.9 % Normal 43.0-75.0 [facility] Comment on above: Performed By: #### C BC ####[facility] [address] [place], [place] [address]Km. Lyndsey Silva Platelet mean volume (Bld) [Entitic vol] 8.8 fL Critically low 9.5-13.5 [facility] Comment on above: Performed By: #### C BC ####[facility] [address] [place] [address]Dr. Lyndsey Silva PLT 304 103/ul Normal 150-450 [facility] Comment on above: Performed By: #### C BC ####[facility] [address] [place] [address]Dr. Lyndsey Silva RBC 4.58 106/ul Normal 4.20-5.40 [facility] Comment on above: Performed By: #### C BC ####[facility] [address] [place] [address]Dr. Lyndsey Silva WBC 5.0 103/ul Normal 4.0-11.0 [facility] Comment on above: Performed By: #### C BC ####[facility] [address] [place] [address]Dr. Lyndsey Silva FREE THYROXINE INDEX T7on FTI 1.77 Normal 1.30-4.50 [facility] Comment on above: Performed By: #### L IPID, CMP, TSH, T7 ####[facility] [address] [place], [place] [address]Pm. Lyndsey Silva T3U 31.0 % Normal 30.0-39.0 [facility] Comment on above: Performed By: #### L IPID, CMP, TSH, T7 ####[facility] [address] [place], [place] [address]Dk. Lyndsey Silva T4 [Mass/Vol] 5.70 ug/dL Normal 4.80-13.90 [facility] Comment on above: Performed By: #### L IPID, CMP, TSH, T7 ####[facility] [address] [place], [place] [address]RqPeg Silva GLYCOHEMOGLOBIN A1Con 2021 ADA RECOMMENDATION SEE BELOW Normal [facility] Comment on above: Result Comment: ADA RECOMMENDED LIMIT 4.0 - 6.0 ADA THERAPEUTIC TARGET < 7.0 ACTION SUGGESTED > 7.0 Performed By: #### A 1C #### [facility] [address] [address] [address] Lyndsey Silva Glucose [Mass/Vol] 146 mg/dL Normal [facility] Comment on above: Performed By: #### A 1C #### [facility] [address] [address] [address] Lyndsey Silva HbA1c (Bld) [Mass fraction] 6.7 % Critically high 4.5-6.2 [facility] Comment on above: Performed By: #### A 1C #### [facility] [address] [address] [address] Lyndsey Silva IRONon 03-03-2022 Iron [Mass/Vol] 122.0 ug/dL Normal 50.0-170.0 [facility] Comment on above: Performed By: #### V ITB12, IRON, VITAD ####[facility] [address] [place] [address]DrPeg Silva LIPID PROFILEon 03-03-2022 CHOL-HDL RATIO NORM SEE BELOW Normal [facility] Comment on above: Result Comment: 3.3 - 4.4 LOW RISK 4.4 - 7.1 AVERAGE RISK 7.1 - 11.0 MODERATE RISK >11.0 HIGH RISK Performed By: #### L IPID, CMP, TSH, T7 ####[facility] [address] [place], [place] [address]IqPeg Silva Cholesterol [Mass/Vol] 244 mg/dL Critically high <=200 [facility] Comment on above: Performed By: #### L IPID, CMP, TSH, T7 ####[facility] [address] [place] [address]DrPeg Silva Cholesterol in HDL [Mass/Vol] 48 mg/dL Normal 40-60 [facility] Comment on above: Performed By: #### L IPID, CMP, TSH, T7 ####[facility] [address]mr[address] [place] [address]Dr. Lyndsey Silva Cholesterol in LDL [Mass/Vol] 133.0 mg/dL Normal [facility] Comment on above: Performed By: #### L IPID, CMP, TSH, T7 ####[facility] [address] [place] [address]Dr. Lyndsey Silva Cholesterol.total/C holesterol in HDL [Mass ratio] 5.1 {ratio} Normal [facility] Comment on above: Performed By: #### L IPID, CMP, TSH, T7 ####[facility] [address] [place] [address]Dr. Lyndsey Silva HDL NORMAL > or = 60 mg/dl - LOW CARDIOVASCULAR RISK <40 mg/dl - HIGH CARDIOVASCULAR RISK Normal [facility] Comment on above: Performed By: #### L IPID, CMP, TSH, T7 ####[facility] [address] [place] [address]Dr. Lyndsey Silva LDL CALC NORMAL SEE BELOW Normal [facility] Comment on above: Result Comment: <100 mg/dl OPTIMAL 100 - 129 mg/dl NEAR OR ABOVE OPTIMAL 130 - 159 mg/dl BORDERLINE HIGH 160 - 189 mg/dl HIGH >190 mg/dl VERY HIGH Performed By: #### L IPID, CMP, TSH, T7 ####[facility] [address] [place] [address]Dr. Lyndsey Silva Triglyceride [Mass/Vol] 315 mg/dL Critically high <=150 [facility] Comment on above: Performed By: #### L IPID, CMP, TSH, T7 ####[facility] [address] [place] [address]Dr. Lyndsey Silva VLDL CALC 63.0 mg/dL Normal [facility] Comment on above: Performed By: #### L IPID, CMP, TSH, T7 ####[facility] [address] [place] [address]Dr. Lyndsey Silva PROF 14(COMP METB)on 022 Albumin [Mass/Vol] 4.6 g/dL Normal 3.4-5.0 [facility] Comment on above: Performed By: #### L IPID, CMP, TSH, T7 ####[facility] [address] [place] [address]Dr. Lyndsey Silva Albumin/Globulin [Mass ratio] 1.2 {ratio} Normal [facility] Comment on above: Performed By: #### L IPID, CMP, TSH, T7 ####[facility] [address]uf[address] [place] [address]Dr. Lyndsey Silva ALP [Catalytic activity/Vol] 79 U/L Normal 46-116 [facility] Comment on above: Performed By: #### L IPID, CMP, TSH, T7 ####[facility] [address] [place] [address]Dr. Lyndsey Silva ALT [Catalytic activity/Vol] 26 U/L Normal 14-59 [facility] Comment on above: Performed By: #### L IPID, CMP, TSH, T7 ####[facility] [address]spe[address] [place] [address]Dr. Lyndsey Silva Anion gap [Moles/Vol] 11.1 mmol/L Normal [facility] Comment on above: Performed By: #### L IPID, CMP, TSH, T7 ####[facility] [address] [place] [address]Dr. Lyndsey Silva AST [Catalytic activity/Vol] 16 U/L Normal 15-37 [facility] Comment on above: Performed By: #### L IPID, CMP, TSH, T7 ####[facility] [address]wr[address] [place] [address]Dr. Lyndsey Silva Bilirubin [Mass/Vol] 0.6 mg/dL Normal 0.2-1.0 [facility] Comment on above: Performed By: #### L IPID, CMP, TSH, T7 ####[facility] [address] [place] [address]Dr. Lyndsey Silva Calcium [Mass/Vol] 9.7 mg/dL Normal 8.5-10.1 [facility] Comment on above: Performed By: #### L IPID, CMP, TSH, T7 ####[facility] [address] [place] [address]Dr. Lyndsey Silva Chloride [Moles/Vol] 102 mmol/L Normal 98-107 [facility] Comment on above: Performed By: #### L IPID, CMP, TSH, T7 ####[facility] [address] [place] [address]Dr. Lyndsey Silva CO2 [Moles/Vol] 28.7 mmol/L Normal 21.0-32.0 [facility] Comment on above: Performed By: #### L IPID, CMP, TSH, T7 ####[facility] [address]eq[address] [place] [address]Dr. Lyndsey Silva Creatinine [Mass/Vol] 1.02 mg/dL Normal 0.55-1.02 [facility] Comment on above: Performed By: #### L IPID, CMP, TSH, T7 ####[facility] [address] [place] [address]Dr. Lyndsey Silva EGFR-AF MICRONESIAN >60 Normal >=60 [facility] Comment on above: Performed By: #### L IPID, CMP, TSH, T7 ####[facility] [address] [place] [address]Dr. Lyndsey Silva EGFR-NON AF MICRONESIAN 56 mL/min/1.73m2 Critically low >=60 [facility] Comment on above: Performed By: #### L IPID, CMP, TSH, T7 ####[facility] [address] [place] [address]Dr. Lyndsey Silva Globulin (S) [Mass/Vol] 3.9 g/dL Normal [facility] Comment on above: Performed By: #### L IPID, CMP, TSH, T7 ####[facility] [address] [place] [address]Dr. Lyndsey Silva Glucose [Mass/Vol] 130 mg/dL Critically high 74-106 [facility] Comment on above: Performed By: #### L IPID, CMP, TSH, T7 ####[facility] [address] [place] [address]Dr. Lyndsey Silva Potassium [Moles/Vol] 3.8 mmol/L Normal 3.5-5.1 [facility] Comment on above: Performed By: #### L IPID, CMP, TSH, T7 ####[facility] [address] [place] [address]Dr. Lyndsey Silva Protein [Mass/Vol] 8.5 g/dL Critically high 6.4-8.2 [facility] Comment on above: Performed By: #### L IPID, CMP, TSH, T7 ####[facility] [address] [place] [address]Dr. Lyndsey Silva Sodium [Moles/Vol] 138 mmol/L Normal 136-145 [facility] Comment on above: Performed By: #### L IPID, CMP, TSH, T7 ####[facility] [address] [place] [address]Dr. Lyndsey Silva Urea nitrogen [Mass/Vol] 25.0 mg/dL Critically high 7.0-18.0 [facility] Comment on above: Performed By: #### L IPID, CMP, TSH, T7 ####[facility] [address] [place] [address]Dr. Lyndsey Silva Urea nitrogen/Creatinine [Mass ratio] 24.5 mg/mg Normal [facility] Comment on above: Performed By: #### L IPID, CMP, TSH, T7 ####[facility] [address] [place] [address]Dr. Lyndsey Silva TSHon 03-03-2022 TSH 0.126 uIU/mL Critically low 0.358-3.740 [facility] Comment on above: Performed By: #### L IPID, CMP, TSH, T7 ####[facility] [address] [place] [address]Dr. Lyndsey Silva VITAMIN B12on 03-03-2022 Cobalamin (Vitamin B12) [Mass/Vol] 894.0 pg/mL Normal 193.0-986.0 [facility] Comment on above: Performed By: #### V ITB12, IRON, VITAD ####[facility] [address] [place], [place] [address]Sd. Lyndsey Silva VITAMIN D 25 OHon 03-03-2022 VIT D 25-OH 30.1 ng/mL Normal [facility] Comment on above: Performed By: #### V ITB12, IRON, VITAD ####[facility] [address] [place], [place] [address]Rh. Lyndsey Silva VIT D RANGES SEE BELOW Normal [facility] Comment on above: Result Comment: <20 ng/mL Vit D deficient 20 - <30 ng/mL Vit D insufficient 30 - 100 ng/mL Vit D sufficient >100 ng/mL Potential Toxicity Performed By: #### V ITB12, IRON, VITAD ####[facility] [address] [place], [place] [address]Vt. Lyndsey Silva MG MAMM SCREEN 3D LEILANI CADon 11-17-2021 MG MAMM SCREEN 3D LEILANI CAD Patient: BLADIMIR NEAL Exam Date: 11/17/2021 : 1965 Gender:F Ordering : DR MATTHEW BAUMANN . Admission #: [id number] Family : Order #: [id number] CLICK HERE TO VIEW EXAM RADIOLOGY REPORT [...] colon cancer at age 59. LOCATION: [facility] BREAST COMPOSITION: Heterogeneously dense,which may [...] Hansen M.D. on 11/17/2021 at 15:36 Normal [facility] NM STRESS/REST MULTIon 09-02 NM STRESS/REST MULTI Patient: BLADIMIR NEAL Exam Date: 09/02/2021 : 1965 Gender:F Ordering : DR MATTHEW BAUMANN . Admission #: [id number] Family : Order #: [id number] CLICK HERE TO VIEW EXAM RADIOLOGY REPORT [...] Hansen M.D. on 09/02/2021 at 14:07 Normal [facility] ECHOCARDIO M/2D COMPLETEon 0 08-19-2021 ECHOCARDIO M/2D COMPLETE Patient: BLADIMIR NEAL Exam Date: 08/19/2021 : 1965 Gender:F Ordering : DR MATTHEW BAUMANN . Admission #: [id number] Family : Order #: [id number] CLICK HERE TO VIEW EXAM ECHOCARDIOGRAM REPORT [...] Area(A4C): 12.60 cm2 Left Atrium Systolic Volume(A2C): 56702 mm3 Left Atrium Systolic Volume(A4C): 90657 mm3 Mitral Valve MV E to A [...] Ramon M.D. on 08/19/2021 at 17:27 Normal [facility] BNPon 08-12-2021 Natriuretic peptide B (Bld) [Mass/Vol] 58.0 pg/mL Normal <=900.0 [facility] Comment on above: Performed By: #### B SAND DIGGER, TSH, T7, CMP #### [facility] [address] [place] [address] Dr. Lyndsey Silva CBC AUTO DIFFon 08-12-2021 BASO # 0.1 103/ul Normal 0.0-0.1 [facility] Comment on above: Performed By: #### C BC #### [facility] [address] [place] [address] Dr. Lyndsey Silva Basophils/100 WBC (Bld) 0.4 % Normal 0.2-2.0 [facility] Comment on above: Performed By: #### C BC #### [facility] [address] [place] [address] Dr. Lyndsey Silva EO # 0.1 103/ul Normal 0.0-0.7 [facility] Comment on above: Performed By: #### C BC #### [facility] [address] [place] [address] Dr. Lyndsey Silva Eosinophils/100 WBC (Bld) 0.6 % Critically low 0.9-7.0 [facility] Comment on above: Performed By: #### C BC #### [facility] [address] [place] [address] Dr. Lyndsey Silva Erythrocyte distribution width (RBC) [Ratio] 13.6 % Normal 11.0-15.0 [facility] Comment on above: Performed By: #### C BC #### [facility] [address] [place] [address] Dr. Lyndsey Silva Hematocrit (Bld) [Volume fraction] 42.4 % Normal 36.0-48.0 [facility] Comment on above: Performed By: #### C BC #### [facility] [address] [place] [address] Dr. Lyndsey Silva Hemoglobin (Bld) [Mass/Vol] 14.3 g/dL Normal 12.0-16.0 [facility] Comment on above: Performed By: #### C BC #### [facility] [address] [place] [address] Dr. Lyndsey Silva IG # 0.17 10e3/ul Critically high 0.00-0.03 [facility] Comment on above: Performed By: #### C BC #### [facility] [address] [place] [address] Dr. Lyndsey Silva IG % 1.4 % Critically high 0.0-0.5 [facility] Comment on above: Performed By: #### C BC #### [facility] [address] [place] [address] Dr. Lyndsey Silva LYMPH # 2.6 103/ul Normal 1.2-3.8 [facility] Comment on above: Performed By: #### C BC #### [facility] [address] [place] [address] Dr. Lyndsey Silva Lymphocytes/100 WBC (Bld) 21.6 % Normal 20.5-60.0 [facility] Comment on above: Performed By: #### C BC #### [facility] [address] [place] [address] Dr. Lyndsey Silva MANUAL DIFF REQ NO Normal [facility] Comment on above: Performed By: #### C BC #### [facility] [address] [place] [address] Dr. Lyndsey Silva MCH (RBC) [Entitic mass] 31.5 pg Normal 26.7-34.0 [facility] Comment on above: Performed By: #### C BC #### [facility] [address] [place] [address] Dr. Lyndsey Silva MCHC (RBC) [Mass/Vol] 33.7 g/dL Normal 29.9-35.2 [facility] Comment on above: Performed By: #### C BC #### [facility] [address] [place] [address] Dr. Lyndsey Silva MCV (RBC) [Entitic vol] 93.4 fL Normal 81.0-99.0 [facility] Comment on above: Performed By: #### C BC #### [facility] [address] [place] [address] Dr. Lyndsey Silva MONO # 0.8 103/ul Normal 0.3-0.8 [facility] Comment on above: Performed By: #### C BC #### [facility] [address] [place] [address] Dr. Lyndsey Silva Monocytes/100 WBC (Bld) 6.9 % Normal 1.7-12.0 [facility] Comment on above: Performed By: #### C BC #### [facility] [address] [place] [address] Dr. Lyndsey Silva NEUT # 8.2 103/ul Critically high 1.4-6.5 [facility] Comment on above: Performed By: #### C BC #### [facility] [address] [place] [address] Dr. Lyndsey Silva Neutrophils/100 WBC (Bld) 69.1 % Normal 43.0-75.0 [facility] Comment on above: Performed By: #### C BC #### [facility] [address] [place] [address] Dr. Lyndsey Silva Platelet mean volume (Bld) [Entitic vol] 8.8 fL Critically low 9.5-13.5 [facility] Comment on above: Performed By: #### C BC #### [facility] [address] [place] [address] Dr. Lyndsey Silva PLT 341 103/ul Normal 150-450 [facility] Comment on above: Performed By: #### C BC #### [facility] [address] [place] [address] Dr. Lyndsey Silva RBC 4.54 106/ul Normal 4.20-5.40 [facility] Comment on above: Performed By: #### C BC #### [facility] [address] [place] [address] Dr. Lyndsey Silva WBC 11.9 103/ul Critically high 4.0-11.0 [facility] Comment on above: Performed By: #### C BC #### [facility] [address] [place] [address] Dr. Lyndsey Silva FREE THYROXINE INDEX T7on FTI 1.40 Normal [facility] Comment on above: Performed By: #### B SAND DIGGER, TSH, T7, CMP #### [facility] [address] [place] [address] Dr. Lyndsey Silva T3U 31.0 % Normal 23.5-40.5 [facility] Comment on above: Performed By: #### B SAND DIGGER, TSH, T7, CMP #### [facility] [address] [place] [address] Dr. Lyndsey Silva T4 [Mass/Vol] 4.50 ug/dL Critically low 4.80-13.90 [facility] Comment on above: Performed By: #### B SAND DIGGER, TSH, T7, CMP #### [facility] [address] [place] [address] Dr. Lyndsey Silva IRONon 08-12-2021 Iron [Mass/Vol] 106.0 ug/dL Normal 50.0-170.0 [facility] Comment on above: Performed By: #### I STERLING #### [facility] [address] [place] [address] Dr. Lyndsey Silva PROF 14(COMP METB)on 022 Albumin [Mass/Vol] 5.0 g/dL Normal 3.4-5.0 [facility] Comment on above: Performed By: #### B SAND DIGGER, TSH, T7, CMP #### [facility] [address] [place] [address] Dr. Lyndsey Silva Albumin/Globulin [Mass ratio] 1.4 {ratio} Normal [facility] Comment on above: Performed By: #### B SAND DIGGER, TSH, T7, CMP #### [facility] [address] [place] [address] Dr. Lyndsey Silva ALP [Catalytic activity/Vol] 72 U/L Normal 46-116 [facility] Comment on above: Performed By: #### B SAND DIGGER, TSH, T7, CMP #### [facility] [address] [place] [address] Dr. Lyndsey Silva ALT [Catalytic activity/Vol] 35 U/L Normal 14-59 [facility] Comment on above: Performed By: #### B SAND DIGGER, TSH, T7, CMP #### [facility] [address] [address] [address] Lyndsey Silva Anion gap [Moles/Vol] 17.5 mmol/L Normal [facility] Comment on above: Performed By: #### B SAND DIGGER, TSH, T7, CMP #### [facility] [address] [place] [address] Dr. Lyndsey Silva AST [Catalytic activity/Vol] 20 U/L Normal 15-37 [facility] Comment on above: Performed By: #### B SAND DIGGER, TSH, T7, CMP #### [facility] [address] [place] [address] Dr. Lyndsey Silva Bilirubin [Mass/Vol] 1.2 mg/dL Critically high 0.2-1.0 [facility] Comment on above: Performed By: #### B SAND DIGGER, TSH, T7, CMP #### [facility] [address] [place] [address] Dr. Lyndsey Silva Calcium [Mass/Vol] 9.5 mg/dL Normal 8.5-10.1 [facility] Comment on above: Performed By: #### B SAND DIGGER, TSH, T7, CMP #### [facility] [address] [address] [address] Lyndsey Silva Chloride [Moles/Vol] 98 mmol/L Normal 98-107 [facility] Comment on above: Performed By: #### B SAND DIGGER, TSH, T7, CMP #### [facility] [address] [place] [address] Dr. Lyndsey Silva CO2 [Moles/Vol] 25.0 mmol/L Normal 21.0-32.0 [facility] Comment on above: Performed By: #### B SAND DIGGER, TSH, T7, CMP #### [facility] [address] [place] [address] Dr. Lyndsey Silva Creatinine [Mass/Vol] 1.17 mg/dL Critically high 0.55-1.02 [facility] Comment on above: Performed By: #### B SAND DIGGER, TSH, T7, CMP #### [facility] [address] [place] [address] Dr. Lyndsey Silva EGFR-AF MICRONESIAN 58 mL/min/1.73m2 Critically low >=60 [facility] Comment on above: Performed By: #### B SAND DIGGER, TSH, T7, CMP #### [facility] [address] [place] [address] Dr. Lyndsey Silva EGFR-NON AF MICRONESIAN 48 mL/min/1.73m2 Critically low >=60 [facility] Comment on above: Performed By: #### B SAND DIGGER, TSH, T7, CMP #### [facility] [address] [place] [address] Dr. Lyndsey Silva Globulin (S) [Mass/Vol] 3.6 g/dL Normal [facility] Comment on above: Performed By: #### B SAND DIGGER, TSH, T7, CMP #### [facility] [address] [place] [address] Dr. Lyndsey Silva Glucose [Mass/Vol] 123 mg/dL Critically high 74-106 [facility] Comment on above: Performed By: #### B SAND DIGGER, TSH, T7, CMP #### [facility] [address] [place], [place] [id number] Dr. Lyndsey Silva Potassium [Moles/Vol] 4.5 mmol/L Normal 3.5-5.1 [facility] Comment on above: Performed By: #### B SAND DIGGER, TSH, T7, CMP #### [facility] [address] [place] [address] Dr. Lyndsey Silva Protein [Mass/Vol] 8.6 g/dL Critically high 6.1-8.2 [facility] Comment on above: Performed By: #### B SAND DIGGER, TSH, T7, CMP #### [facility] [address] [place] [address] Dr. Lyndsey Silva Sodium [Moles/Vol] 136 mmol/L Normal 136-145 [facility] Comment on above: Performed By: #### B SAND DIGGER, TSH, T7, CMP #### [facility] [address] [place] [address] Dr. Lyndsey Silva Urea nitrogen [Mass/Vol] 12.0 mg/dL Normal 7.0-18.0 [facility] Comment on above: Performed By: #### B SAND DIGGER, TSH, T7, CMP #### [facility] [address] [place] [address] Dr. Lyndsey Silva Urea nitrogen/Creatinine [Mass ratio] 10.3 mg/mg Normal [facility] Comment on above: Performed By: #### B SAND DIGGER, TSH, T7, CMP #### [facility] [address] [place] [address] Dr. Lyndsey Silva TSHon 08-12-2021 TSH 1.149 uIU/mL Normal 0.470-4.680 [facility] Comment on above: Performed By: #### B SAND DIGGER, TSH, T7, CMP #### [facility] [address] [place] [address] Dr. Lyndsey Silva TSH RANGE SEE BELOW Normal [facility] Comment on above: Result Comment: <0.3 4 UIU/ml HYPERTHYROID 0.34-5.60 UIU/ml EUTHYROID >5.60 UIU/ml HYPOTHYROID Performed By: #### B SAND DIGGER, TSH, T7, CMP #### [facility] [address] [address] [address] Lyndsey Silva Vital Signs Date Time Vital Sign Value Performing Clinician Faci vaughn 06-15-2023 09:47-0500 Body height 165.1 cm [facility] 2 [facility] 06-15-2023 09:47-0500 Body mass index (BMI) [Ratio] 30.79 kg/m2 Pm 2 [facility] 06-15-2023 09:47-0500 Body weight 83.[address] 05-04-2023 13:17-0500 Blood Pressure Location Bautista CRISTINA [facility] 05-04-2023 13:17-0500 Diastolic blood pressure 82 mm[Hg] Bautista CRISTINA [facility] 05-04-2023 13:17-0500 Heart rate 72 /min Bautista SMITHL [facility] 05-04-2023 13:17-0500 Respiratory rate 16 /min Bautista CRISTINA [facility] 05-04-2023 13:17-0500 Systolic blood pressure 144 mm[Hg] Bautista CRISTINA [facility] Encounters Encounter Date Encounter Type Care Provider Facility Start: 10-18-2023 End: 10-18-2023 ambulatory CARLEEN LALA Not Available Start: 10-04-2023 End: 10-04-2023 ambulatory CARLEEN LALA Not Available Start: 08-09-2023 End: 08-09-2023 ambulatory CARLEEN LALA Not Available Start: 07-11-2023 End: 07-11-2023 ambulatory NIRAV BERUMEN Not Available Start: 06-29-2023 End: 06-29-2023 Evaluation and management of inpatient [facility] Start: 06-29-2023 End: 06-29-2023 Evaluation and management of inpatient CARLEEN LALA [facility] Start: 06-22-2023 End: 06-23-2023 ambulatory Bautista CRISTINA Facility:[facility] Start: 06-15-2023 End: 06-16-2023 ambulatory CARLEEN LALA [facility] Start: 06-15-2023 Encounter for other preprocedural examination MATTHEW BAUMANN [facility] Start: 06-15-2023 End: 06-15-2023 Patient encounter procedure [facility] Pre-Admission Testing 2 [facility] - Pre Admit Comment on above: Preop examination (P rimary Dx); Hypertension, unspecified type; Diabetes mellitus of other type without complication, unspecified whether usp insulin use ([facility]) Start: 06-15-2023 End: 06-15-2023 Preprocedural examination done Pm 2 [facility] Start: 06-07-2023 End: 06-07-2023 ambulatory CARLEEN LALA Not Available Start: 05-31-2023 End: 05-31-2023 ambulatory NIRAV Loaiza APLING Not Available Start: 05-18-2023 End: 05-18-2023 ambulatory AP HERNANDEZ Not Available Start: 05-16-2023 End: 05-16-2023 ambulatory NIRAV Loaiza APL[facility] Not Available Start: 05-04-2023 End: 05-05-2023 ambulatory Bautista CRISTINA Facility: [facility] Start: 05-04-2023 End: 05-04-2023 Patient encounter procedure Bautista CRISTINA [facility] Start: 05-03-2023 End: 05-03-2023 ambulatory CARLEEN LALA Not Available Start: 04-04-2023 End: 04-05-2023 ambulatory Regis G[facility]ido MD [facility] Start: 03-25-2023 ambulatory Bautista CRISTINA Facility:[facility] Start: 03-21-2023 End: 03-22-2023 ambulatory Regis Garrido MD [facility] Start: 03-08-2023 ambulatory Bautista CRISTINA Facility:[facility] Start: 03-06-2022 Encounter for genera l adult medical examination without abnormal findings DR MATTHEW BAUMANN [facility] Start: 03-03-2022 End: 03-04-[address] [...] Adult BMI Screening Adult BMI Screen ing [facility] Start: 06-15-2024 Tobacco Screening Tobacco Screening [facility] Start: 06-29-2023 End: 06-29-2023 Admission to same day surgery center 06/29/2023 8:00 AM EDT - 06/29/2023 9:00 AM EDT Surgery [facility] - Surgery [address] [place] [id number] Carleen Lala, DO [address] [place] [address] ARTHROSCOPIC MENISCECTOMY KNEE [92158 (CPT )] [facility] - Surgery Comment on above: ARTHROSCOPIC MENISCE CTOMY KNEE [25127 (CPT )] Start: 06-29-2023 End: 06-29-2023 Arthrs kne surg w/meniscectomy med/lat w/shvg ARTHROSCOPIC MENISCECTOMY KNEE left knee meniscal tear 06/29/2023 8:00 AM EDT HOP BOTTOM SURGERY Start: 06-29-2023 Subsequent hospital visit by physician 06/29/2023 8:00 AM EDT Hospital Encounter [facility] - Surgery [address] [place] [id number] Carleen Lala, [address] [address] [facility] - Surgery Start: 2014 Administration of varicella zoster vaccine Zoster (Shingles) Vaccine (1 of 2) [facility] Start: 1985 Screening for malign ant neoplasm of cervix Pap Smear [facility] Start: 07-09-1983 DTaP,Tdap and Td Vac cines (1 - Tdap) DTaP,Tdap and Td Vaccines (1 - Tdap) [facility] Start: 1982 Adult BMI Follow Up Plan Adult BMI Follow Up Plan [facility] Start: 1982 Diabetic foot examination Diabetic F oot Exam [facility] Start: 1976 Depression Screening Depression Scre ening [facility] Start: 1964 Glaucoma screening Diabetic Op hthalmology Exam [facility] Immunizations Immunization Date Immunization Notes Care Provider Fa cili 02-01-2023 influenza virus vaccine, unspecified formulation Bautista CRISTINA [facility] 02-19-2022 SARS-CoV-2 (COVID-19 ) mRNAMUL.[id number] Bautista CRISTINA [facility] [place] 09-03-2021 SARS-CoV-2 mRNA (sxgvizkybqm-kmvu-popie se) vaccine Bautista CRISTINA [facility] 02-06-2021 SARS-CoV-2 (COVID-19 ) mRNA BNT-162b2 vax Bautista CRISTINA [facility] [place] 05-24-2020 SARS-CoV-2 (COVID-19 ) mRNA BNT-162b2 geno CRISTINA [facility] [place] Comment on above: Result Comment: 2023: [id number] 05-03-2020 SARS-CoV-2 (COVID-19 ) mRNA BNT-162b2 geno CRISTINA [facility] [place] Comment on above: Result Comment: 2023: [id number] Payers Date Payer Category Payer Unknown 1965 Unknown [id number] 2.16.84 [id number] 1964 Unknown [id number] 2.16.84 0.1.963301.3.579.2.593 1964 Unknown [id number] 2.16.84 0.1.477642.3.579.2.593 1964 Unknown [id number] 2.16.84 0.1.145320.3.579.2.593 1964 Unknown [id number] 2.16.84 0.1.071795.3.579.2.593 1964 Unknown [id number] 2.16. 840.1.902940.3.579.2.196 1964 Unknown [id number] 2.16. 840.1.864820.3.579.2.196 1964 Unknown [id number] 2.16.8 40.1.061100.3.579.2.727 1964 Unknown [id number] 2.16.8 40.1.821153.3.579.2.727 1964 Unknown [id number] 2.16.8 40.1.109964.3.579.2.1286 1964 Unknown [id number] 2.16.8 40.1.438729.3.579.2.1286 1964 Unknown [id number] 2.16.8 40.1.507271.3.579.2.1286 1964 Unknown [id number] 2.16.8 40.1.244356.3.579.2.1286 1964 Unknown [id number] 2.16.8 40.1.019630.3.579.2.1286 1964 Unknown [id number] 2.16.8 40.1.714917.3.579.2.1286 1964 Unknown [id number] 2.16.84 0.1.038837.3.579.2.1259 1964 Unknown [id number] 2.16.84 0.1.676372.3.579.2.1259 1964 Unknown [id number] 2.16.84 0.1.866252.3.579.2.1259 1964 Unknown [id number] 2.16.84 0.1.827443.3.579.2.1259 1964 Unknown [id number] 2.16.84 0.1.144064.3.579.2.1259 1964 Unknown [id number] 2.16.84 0.1.164099.3.579.2.1259 1964 Unknown [id number] 2.16.84 0.1.236634.3.579.2.1259 1964 Unknown [id number] 2.16.84 0.1.536758.3.579.2.1259 1964 Unknown [id number] 2.16.84 0.1.119522.3.579.2.1259 1964 Unknown [id number] 2.16.84 0.1.288529.3.579.2.1259 1959 Unknown [id number] Social History Date Type Detail Facility Start: 10-14-2022 End: 05-04-2023 Tobacco smoking status Never smoked tobacco (finding) [facility] Tobacco smoking status Never [facility] [place] Start: 10-03-2019 End: 05-29-2020 Sex Assigned At Female [facility] Start: 10-14-2022 Tobacco use and exposure Smokeless tobacco non-user [facility] Start: 06-15-2023 Alcohol intake Lifetime non-d jasen (finding) [facility] Start: 10-03-2019 End: 05-29-2020 History of Social function [facility] How often to you hav e a drink containing alcohol? Never [facility] Start: 1965 Sex Assigned At Not on file P [employer] [facility] Medical Equipment Procedure Code Equipment Code Equipment Origin al Text Equipment Identifier Dates Gft Bn Dmnr Fbr 15ml Biologic - [id number] - [id number] Start: 10-17-2019 Aleksandr Spnl 40mm 5. 5mm Hex End - Sna - [id number] Start: 10-17-2019 Scr Bn 45mm 5.5m m Pa Spne Vrst - Sna - [id number] Start: 10-17-2019 [place] [facility] Oblique [id number] Start: 10-17-2019 [...] in at the main lobby of the [facility]- registration desk is straight ahead as soon as you walk in. Tell them you are here for surgery. 2. If you have a Living Will/Durable Power of Buffing Wheel Operator for Health Care that is not on [...] after you have bathed. 5. NO nail tunisian/acrylic on at least one finger. If you are having a hand, wrist or foot surgery then all nail tunisian and artificial/acrylic nails must be removed from [...] please call the Preadmission Testing office at [phone], Mon.-Fri. 7 a.m.-3 p.m. Leave a voicemail [...] 50 mg tablet Take morning of procedure ncigonus-qpyv-ZJ-calcium &mins (THERAGRAN-M) 9 mg iron-400 mcg tablet [...] with your doctor. documented in this encounter [facility] Note 06-15-2023 Perioperative Nursing Note - [...] in at the main lobby of the [facility]- registration desk is straight ahead as soon as you walk in. Tell them you are here for surgery. 2. If you have a Living Will/Durable Power of Buffing Wheel Operator for Health Care that is not on [...] after you have bathed. 5. NO nail tunisian/acrylic on at least one finger. If you are having a hand, wrist or foot surgery then all nail tunisian and artificial/acrylic nails must be removed from [...] please call the Preadmission Testing office at [phone], Mon.-Fri. 7 a.m.-3 p.m. Leave a voicemail [...] 50 mg tablet Take morning of procedure qlaimjum-axhe-KI-calcium &mins (THERAGRAN-M) 9 mg iron-400 mcg tablet [...] Patient verbalized understanding. documented in this encounter [facility] Nurse Note 06-15-2023 Perioperative Nursing Note [...] in at the main lobby of the [facility]- registration desk is straight ahead as soon as you walk in. Tell them you are here for surgery. 2. If you have a Living Will/Durable Power of Buffing Wheel Operator for Health Care that is not on [...] after you have bathed. 5. NO nail tunisian/acrylic on at least one finger. If you are having a hand, wrist or foot surgery then all nail tunisian and artificial/acrylic nails must be removed from [...] please call the Preadmission Testing office at [phone], Mon.-Fri. 7 a.m.-3 p.m. Leave a voicemail [...] 50 mg tablet Take morning of procedure jxmpdrzd-fhnh-KK-calcium &mins (THERAGRAN-M) 9 mg iron-400 mcg tablet [...] to the follow-up appointment with your doctor. [facility] Nurse Note 06-15-2023 Perioperative Nursing Note - Silvia Mora RN - 06/15/2023 9:45 AM EST Note Date & Type Note Facility 06-15-2023 Nurse Note Hibiclens and surgical instructions reviewed. Patient verbalized understanding. [facility] Clinical Note 05-04-2023 Note Date & Type [...] 1 tab(s), Oral (more content not included)... [facility] Comment on above: Result Comment: Elec tronically Signed By: ANNA FIERRO, Bautista Barbosa\Date and Time Signed: 05/04/23 13:41 EST Evaluation + Plan note Note Date & Type Note Facility Evaluation + Plan note No data available for this section [facility] Evaluation note Note Date & Type Note Facility Evaluation note Diagnosis Preop examination- Primary Unspecified pre-operative examination Hypertension, unspecified type Diabetes mellitus of other type without complication, unspecified whether usp insulin use ([facility]) Preop examination Unspecified pre-operative examination Hypertension, unspecified type Diabetes mellitus of other type without complication, unspecified whether usp insulin use ([facility]) documented in this encounter [facility] Hospital Discharge instructions Note Date & Type Note Facility Hospital Discharge instructions No data available for this section [facility] Progress note Note Date & Type Note Facility Progress note No data available for this section [facility] [place] Summary Purpose Family History No Family History [...] of other type without complication, unspecified whether usp insulin use ([facility]) Procedures ECG 12 lead Carleen Lala, DO [address] [place] [address] Referral ID Status Reason Start Date Expiration Date V isits Requested Visits Authorized [id number] Pending Review 06/09/2023 06/08/2024 1 1 Additional Source Comments INFORMATION SOURCE (unrecogn ized section and content) DATE CREATED AUTHOR 03/06/2022 [facility] DATE CREATED AUTHOR AUTHOR'S ORGANIZ ATION 04/08/2023 [facility] [place] [facility] DATE CREATED AUTHOR AUTHOR'S ORGANIZ ATION 06/27/2023 [facility] DATE CREATED AUTHOR AUTHOR'S ORGANIZ ATION 06/30/2023 [facility] DATE CREATED AUTHOR AUTHOR'S ORGANIZ ATION 10/19/2023 [facility] Patient Care team informatio n (unrecognized section and content) Recovery Analyst Relationship Specialty Start Date End Date Matthew Baumann MD [address] [place] [address] PCP - General Family Medicine 10/03/19 FOR [...] BE BASED ON THE PRIMARY CLINICAL RECORDS. [employer] provides no warranty or guarantee of the accuracy or completeness of information in this document.
[2023-12-13 11:20] LABS: Estimated Average Glucose 148 mg/dL; Glycohemoglobin A1C 6.8 % (4.5-6.2)
== END 2023-12-13 10:54 | disposition home or self-care (01) ==
LOC: LAB 10:54
PROVIDERS: PCP Family Medicine; Visit Provider Orthopaedic Surgery
DX: R73.09 Other abnormal glucose (principal)
CPT/HCPCS: 36415; 83036

== ENCOUNTER 2024-05-15 11:20 | Outpatient (OUT) | payer OTHER, SELFPAY ==
--- OUTSIDE RECORDS SUMMARY | 2024-05-15 11:32 | XMS_ITS | CCD ---
Author Organization [facility] Care Team Providers Care Final Cigar And Box Examiner Name Role Phone LENY, DR CASTRO Admitting [...] HOY, DR CASTRO Admitting Unavailable ZIEBER, DR MAR Moore Consulting Unavailable VINCEY, DR CASTRO Admitting Unavailable VINCEY, DR CASTRO Primary Care Unavailable HOY, DR CASTRO Consulting Unavailable VINCEY, DR CASTRO Attending Unavailable ZIEBER, DR MAR Moore Consulting Unavailable HOY, DR CASTRO Admitting Unavailable HOY, DR CASTRO Primary Care Unavailable HOY, DR CASTRO Consulting Unavailable LENY, DR CASTRO Attending Unavailable Radhika FIERRO, Regis Sheldon Attending Unavailable Radhika FIERRO, Rgeis Sheldon Attending Unavailable Matthew Baumann Primary Care Physician Matthew Baumann MD Primary Care Provider Bautista CRISTINA Attending Unavailable Bautista CRISTINA Attending Unavailable Matthew Baumann Referring Unavailable Matthew Baumann MD Primary Care Provider Matthew Baumann MD Primary Care Provider MATTHEW BAUMANN Referring Unavailable MATTHEW BAUMANN Primary Care Unavailable CARLEEN LALA Attending Unavailable CARLEEN LALA Referring Unavailable MATTHEW BAUMANN Primary Care Unavailable CARLEEN LALA Referring Unavailable HOY, MATTHEW M Primary Care Unavailable CARLEEN LALA A Admitting Unavailable DAI, CARLEEN Foster Attending Unavailable DAI, CARLEEN Foster Referring Unavailable HOY, MATTHEW M Primary Care Unavailable JOHN GARDNER Attending Unavailable HOY, MATTHEW M Primary Care Unavailable PENSACOLA, CARLEEN Foster Referring Unavailable HOY, MATTHEW M Primary Care Unavailable PENSACOLA, CARLEEN Foster Attending Unavailable PENSACOLA, CARLEEN Foster Referring Unavailable HOY, MATTHEW M Primary Care Unavailable PENSACOLA, CARLEEN Foster Referring Unavailable HOY, MATTHEW M Primary Care Unavailable PENSACOLA, CARLEEN Foster Referring Unavailable HOY, MATTHEW M Primary Care Unavailable PENSACOLA, CARLEEN Foster Admitting Unavailable DAI, CARLEEN Foster Attending Unavailable HOY, MATTHEW M Primary Care Unavailable APLING, PADMAJA Loaiza Attending Unavailable APLING, PADMAJA Loaiza Referring Unavailable BLACKSTON, AP T Attending Unavailable DAI, CARLEEN Foster Referring Unavailable APLING, PADMAJA Loaiza Referring Unavailable DAI, CARLEEN Foster Attending Unavailable APLING, PADMAJA Loaiza Attending Unavailable PENSACOLA, CARLEEN Foster Attending Unavailable PENSACOLA, CARLEEN Foster Attending Unavailable PENSACOLA, CARLEEN Foster Attending Unavailable PENSACOLA, CARLEEN Foster Attending Unavailable DAI, CARLEEN Foster Attending Unavailable DAI, CARLEEN Foster Referring Unavailable WONGSHON Attending Unavailable TOSCANO, ROSA T Referring Unavailable WONG, SHON Douglas Attending Unavailable TOSCANO, ROSA T Referring Unavailable DAI, CARLEEN Foster Attending Unavailable WONGSHON Attending Unavailable TOSCANO, ROSA T Referring Unavailable WONG, SHON Douglas Attending Unavailable TOSCANO, ROSA T Referring Unavailable WONG, SHON Douglas Attending Unavailable TOSCANO, ROSA T Referring Unavailable DAI, CARLEEN Foster Attending Unavailable CARLOS REAGAN Attending Unavailable TOSCANO, ROSA T Referring Unavailable KELBLEY, RONNA Attending Unavailable TOSCANO, ROSA T Referring Unavailable CARLOS REAGAN Attending Unavailable TOSCANO, ROSA T Referring Unavailable BLACKSTON, AP T Attending Unavailable TOSCANO, ROSA T Referring Unavailable KELBLEY, RONNA Attending Unavailable TOSCANO, ROSA T Referring Unavailable KELBLEY, RONNA Attending Unavailable TOSCANO, ROSA T Referring Unavailable BLACKSTON, AP T Attending Unavailable TOSCANO, ROSA T Referring Unavailable KELBLEY, RONNA Attending Unavailable TOSCANO, ROSA T Referring Unavailable KELBLEY, RONNA Attending Unavailable TOSCANO, ROSA T Referring Unavailable TOSCANO, ROSA T Attending Unavailable TOSCANO, ROSA T Referring Unavailable JR. DUENAS GEORGE C [facility] Allergies Allergy Classification Reported Allergen(s) Allergy Type Date of Onset Reaction(s) Facility (3 sources) Codeine; Translations: [codeine] Drug Allergy 5 [facility] Repository (1 source) Iodine (And Iodine Containting Drugs) Drug allergy (disorder) 6 [facility] Rep[facility] (1 source) Shellfish Drug allergy (disorder) 5 [facility] Rep[facility] (20 sources) Codeine; Translations: [codeine] Drug Allergy 0 Weal (disorder), Rash, Unknown [facility] [place] (2 sources) Contrast media; Translations: [Contrast Dye] Allergy to substance Weal (disorder) [facility] [place] (2 sources) Fenofibrate; Translations: [fenofibrate] Drug Allergy Abdominal pain (finding) [facility] [place] (3 sources) Shellfish; Translations: [SHELLFISH DERIVED] Propensity to adverse reactions to drug 3 [facility] (20 sources) Iodinated Contrast Media; Translations: [IODINATED CONTRAST MEDIA] Propensity to adverse reactions to drug 3 Abdominal Pain [facility] (20 sources) Iodine; Translations: [iodine] Drug Allergy 0 Unknown [facility] Repository Medications Current Medications Medication Drug Class(es) Dates Sig (Normalized) Sig (Original) aspirin 81 mg delayed release oral tablet (20 sources) Platelet Aggregation Inhibitor, Nonsteroidal Anti-inflammatory Drug Start: 04-25-2023 take 1 tablet by mouth once daily aspirin 81 mg Oral EC Tab 81 mg = 1 tab(s), Oral, Daily, Refills(s) 0 Start Date: 04/25/23 Status: Ordered atorvastatin 80 mg oral tablet (20 sources) HMG-CoA Reductase Inhibitor Start: 04-25-2023 take 1 tablet by mouth once daily atorvastatin 80 mg Tab 80 mg = 1 tab(s), Oral, Daily, Refills(s) 0 Start Date: 04/25/23 Status: Ordered Bydureon BCise (1 source) Start: 04-25-2023 inject 2 mg by subcutaneous injection every week Bydureon BCise 2 mg, SubCutaneous, qWeek, Refills(s) 0 Start Date: 04/25/23 Status: Ordered calcium carbonate 1500 mg oral tablet (20 sources) End: 06-15-2023 take 1 tablet by mouth once daily in the morning calcium carbonate 1500 (600 Ca) MG tablet Take 600 mg by mouth in the morning. 600 ca and 800 international units vitamin d. Active Calcium Carbonate / vitamin D3 (2 sources) take 1 tablet by mouth once daily in the morning calcium carbonate/vitamin D3 (CALCIUM 500 WITH D ORAL) Take 1 tablet by mouth in the morning. Active take 1 tablet by oseas once daily in the morning calcium carbonate/vitamin D3 (CALCIUM 50 0 WITH D ORAL) Take 1 tablet by mouth in the morning. 0 Active cholecalciferol 0.125 mg oral capsule (20 sources) Vitamin D take 1 capsule by mouth in the morning cholecalciferol (Vitamin D-3) 125 MCG (5000 UT) capsule Take 5,000 Units by mouth in the morning. Active cholecalciferol, vitamin D3, 400 units tablet Take 12.5 tablets (5,000 Units total) by mouth in the morning. Active colesevelam hydrochloride 625 mg oral tablet (20 sources) Bile Acid Sequestrant Start: 04-25-2023 take 3 tablets by mouth twice daily colesevelam 625 mg Tab 1,875 mg = 3 tab(s), Oral, BID, Refills(s) 0 Start Date: 04/25/23 Status: Ordered cyclobenzaprine hydrochloride 5 mg oral tablet (20 sources) Muscle Relaxant Start: 04-25-2023 cyclobenzaprine 5 mg Tab See Instructions, as directed, Refills(s) 0 Start Date: 04/25/23 Status: Ordered take 2 tablets by [facility] three times daily as needed for muscle spasms cyclobenzaprine (FLEXERIL) 5 mg tablet T elpidio 2 tablets (10 mg total) by mouth 3 (three) times a day as needed for muscle spasms. Active DULoxetine 60 mg delayed release oral capsule (20 sources) Serotonin and Norepinephrine Reuptake Inhibitor DULoxetine (Cymbalta ) [address] capsule 1 capsule 1 (one) time each day at the same time. Active take 2 capsules by mouth in the morning DULoxetine (CYMBALTA) 60 mg capsule Take 2 capsules (120 mg total) by mouth in the morning. Active duloxetine 60 mg Cap-DR (1 source) Start: 04-25-2023 take 1 capsule by mouth once daily duloxetine 60 mg Cap-DR = 1 cap(s), Oral, Daily, Refills(s) 0 Start Date: 04/25/23 Status: Ordered empagliflozin 25 mg oral tablet (20 sources) Sodium-Glucose Cotransporter 2 Inhibitor Start: 06-15-2023 take 1 tablet by mouth once daily Jardiance 25 MG TAKE 1 TABLET BY MOUTH EVERY DAY FOR 30 DAYS 06/15/2023 Active Start: 10-13-2022 take 1 tablet by oseas th in the morning JARDIANCE 10 mg tablet tablet Take 1 tablet (10 mg total) by mouth in the morning. 10/13/2022 Active 0.85 ml exenatide 2.35 mg/ml auto-injector (20 sources) GLP-1 Receptor Agonist inject 2 mg by subcutaneous injection every week Bydureon BCise 2 MG/0.85ML pen Inject 2 mg under the skin once a week. Active exenatide micros pheres (BYDUREON BCISE) 2 mg/0.85 mL auto-injector Inject 2 mg under the skin every 7 days. On Tuesday Active fenofibric acid 135 mg delayed release oral capsule (20 sources) Peroxisome Proliferator Receptor alpha Agonist Start: 04-25-2023 take 1 capsule by mouth once daily fenofibric acid choline 135 mg oral cap 135 mg = 1 cap(s), Oral, Daily, Refills(s) 0 Start Date: 04/25/23 Status: Ordered ferrous sulfate 325 mg delayed release oral tablet (20 sources) Start: 04-25-2023 take 1 tablet by mouth once daily ferrous sulfate 325 mg oral enteric coated tablet 325 mg = 1 tab(s), Oral, Daily, Refills(s) 0 Start Date: 04/25/23 Status: [facility] f[facility] 325 (65 Fe) MG tablet Take 325 mg by mouth in the morning. Take with meals. Active glimepiride 2 mg oral tablet (20 sources) Sulfonylurea Start: 11-20-2023 take 1 tablet by mouth once daily at breakfast glimepiride (Amaryl) 2 MG tablet TAKE 1 TABLET BY MOUTH EVERY DAY WITH BREAKFAST OR THE FIRST MAIL MEAL OF THE DAY 11/20/2023 Active levothyroxine sodium 0.125 mg oral tablet (20 sources) l-Thyroxine Start: 04-25-2023 take 1 tablet by mouth once daily levothyroxine 125 mcg (0.125 mg) Tab 125 mcg = 1 tab(s), Oral, Daily, Refills(s) 0 Start Date: 04/25/23 Status: Ordered Start: 09-08-2022 take 1 tablet by oseas th in the morning levothyroxine (Synthroid, Levoxyl) 125 MCG tablet Take 125 mcg by mouth in the morning. 09/08/2022 Active liothyronine sodium 0.005 mg oral tablet (20 sources) l-Triiodothyronine Start: 04-25-2023 Cytomel 5 m cg Tab as directed, Refills(s) 0 Start Date: 04/25/23 Status: Ordered take 1 tablet by oseas th once daily in the morning liothyronine (Cytomel) 5 MCG tablet Take 5 mcg by mouth in the morning. 8 tabs daily. Active take 8 tablets by mouth in the m orning liothyronine (CYTOMEL) 5 MCG tablet Take 8 tablets (40 mcg total) by mouth in the morning. . Active metFORMIN hydrochloride 500 mg oral tablet (20 sources) Biguanide Start: 04-25-2023 take 1 tablet by mouth once daily metformin 500 mg Tab 500 mg = 1 tab(s), Oral, Daily, Refills(s) 0 Start Date: 04/25/23 Status: Ordered metoprolol tartrate 50 mg oral tablet (20 sources) beta-Adrenergic Carlos Start: 09-08-2022 take 1 tablet by mouth in the morning metoprolol tartrate (Lopressor) 50 MG tablet Take 50 mg by mouth in the morning and 50 mg before bedtime. 09/08/2022 Active Multiple Vitamin (Multi Vitamin) tablet (20 sources) Multiple Vitamin (Multi Vitamin) tablet 1 (one) time each day at the same time. Active ldaehdtj-serr-TZ-calc ium &mins (THERAGRAN-M) 9 mg iron-400 mcg tablet (2 sources) brpjwcml-ieyo-VQ - calcium &mins (THERAGRAN-M) 9 mg iron-400 mcg tablet Take 1 tablet by mouth in the morning. Active gvvzvnvs-ovgr-NN -calcium &mins (THERAGRAN-M) 9 mg iron-400 mcg tablet Take 1 tablet by mouth in the morning. 0 Active nabumetone 500 mg oral tablet (20 sources) Nonsteroidal Anti-inflammatory Drug Start: 04-25-2023 take 1 tablet by mouth once daily nabumetone 500 mg Tab 500 mg = 1 tab(s), Oral, Daily, Refills(s) 0 Start Date: 04/25/23 Status: Ordered Start: 08-22-2022 take 2 tablets by mo [facility] in the morning nabumetone (Relafen) 500 MG tablet Take 1,000 mg by mouth in the morning and 1,000 mg before bedtime. 08/22/2022 Active 24 hr niacin 1000 mg extended release oral tablet (20 sources) Nicotinic Acid Start: 07-07-2023 niacin (Niaspa n) 1000 MG ER tablet 07/07/2023 Active Start: 04-25-2023 take 1 tablet by [facility] once daily niacin 1000 mg ER Tab 1,000 mg = 1 tab(s), Oral, Daily, Refills(s) 0 Start Date: 04/25/23 Status: Ordered pantoprazole 40 mg delayed release oral tablet (20 sources) Proton Pump Inhibitor Start: 04-25-2023 take 1 tablet by mouth once daily Pantoprazole [address] Tab 40 mg = 1 tab(s), Oral, Daily, Refills(s) 0 Start Date: 04/25/23 Status: Ordered pioglitazone 45 mg oral tablet (20 sources) Peroxisome Proliferator Receptor alpha Agonist, Peroxisome Proliferator Receptor gamma Agonist, Thiazolidinedione Start: 09-08-2022 take 1 tablet by mouth in the morning pioglitazone (Actos) 45 MG tablet Take 45 mg by mouth in the morning. 09/08/2022 Active Vitamin D3 5000 intl units (125 mcg) oral tab (1 source) Start: 04-25-2023 Vitamin D3 5000 intl units (125 mcg) oral tab Refills(s) 0 Start Date: 04/25/23 Status: Ordered Completed/Discontinued Medications Medication Drug Class(es) Dates Sig (Normalized) Sig (Original) flaxseed oil oil (1 source) End: 06-15-2023 flaxseed oil oil by miscellaneous route. 0 06/15/2023 Discontinued (Therapy completed) oxyCODONE hydrochloride 5 mg oral tablet (8 sources) Opioid Agonist Start: 02-21-2024 End: 03-03-2024 take 1 tablet by mouth every six hours for pain oxyCODONE (Roxicodone) 5 MG immediate release tablet Indications: Post-operative pain Take 1 tablet (5 mg) by mouth every 6 (six) hours if needed for moderate pain for up to 5 days 20 tablet 02/27/2024 03/03/2024 Problems Active Problems Problem Classification Problem Date Documented Da te Episodic/Chronic Cardiac dysrhythmias (1 source) Multiple premature ventricular complexes 05-04-2023 Chronic Congestive heart failure; nonhypertensive (1 source) Unspecified diastolic (congestive) heart failure; Translations: [UNSPECIFIED DIASTOLIC HEART FAILURE] Onset: 08-14-2021 Chronic Diabetes mellitus with complications (20 sources) Peripheral neuropathy due to type 2 diabetes mellitus; Translations: [Type 2 diabetes mellitus with diabetic polyneuropathy] Onset: 10-11-2022 04-25-2023 Chronic Diabetes mellitus without complication (20 sources) Type 2 diabetes mellitus; Translations: [Diabetes mellitus without complication] Onset: 10-11-2022 04-25-2023 Chronic Disorders of lipid metabolism (20 sources) Hyperlipidemia; Translations: [Hypertriglyceridemi a] Onset: 10-11-2022 04-25-2023 Chronic Essential hypertension (20 sources) Essential (primary) hypertension; Translations: [Essential hypertension] Onset: 09-02-2021 Chronic Hypertension with complications and secondary hypertension (1 source) Hypertensive heart disease with heart failure; Translations: [HTN HEART DISEASE W/HEART FAIL] Onset: 08-14-2021 Chronic Osteoarthritis (20 sources) Osteoarthritis of left knee joint; Translations: [Unilateral primary osteoarthritis, left knee] Onset: 02-22-2024 01-25-2024 Chronic Other connective tissue disease (20 sources) History of total knee arthroplasty; Translations: [Presence of left artificial knee joint] Onset: 02-25-2024 02-25-2024 Chronic Other nervous system disorders (2 sources) Postoperative pain ; Translations: [Other acute postprocedural pain] 02-21-2024 Episodic Other nervous system disorders (20 sources) Other acute postprocedural pain; Translations: [Pain in joint, lower leg] Onset: 02-25-2024 02-25-2024 Episodic Other non-traumatic joint disorders (4 sources) Pain in left knee; Translations: [Pain in joint, lower leg] 01-25-2024 Episodic Other non-traumatic joint disorders (7 sources) Pain in right knee; Translations: [Pain in joint, lower leg] 03-07-2024 Episodic Other nutritional; endocrine; and metabolic disorders (1 source) Body mass index 30+ - obesity 05-04-2023 Chronic Other nutritional; endocrine; and metabolic disorders (1 source) Obesity 05-04-2023 Chronic Residual codes; unclassified (1 source) Family history of malignant neoplasm of digestive organ; Translations: [Family history of malignant neoplasm of digestive organs] Onset: 05-04-2023 Episodic Residual codes; unclassified (1 source) Family history of cancer of colon 05-04-2023 Episodic Spondylosis; intervertebral disc disorders; other back problems (20 sources) Degeneration of lumbosacral intervertebral disc; Translations: [Disorder of joint of spine] Onset: 09-19-2022 04-25-2023 Chronic Thyroid disorders (20 sources) Hypothyroidism, unspecified; Translations: [Hypothyroidism] Onset: 08-12-2021 Chronic Unclassified (1 source) left knee meniscal tear Onset: 06-29-2023 Past or Other Problems Problem Classification Problem Date Documented Date Episodic/Chronic Cardiac dysrhythmias (20 sources) Palpitations; Translations: [Tachycardia] Onset: 09-08-2021 10-11-2022 Episodic Deficiency and other anemia (1 source) Anemia, unspecified; Translations: [ANEMIA UNSPECIFIED] Onset: 08-14-2021 Episodic Diabetes mellitus without complication (2 sources) Abnormal glucose level; Translations: [Other abnormal glucose] 12-13-2023 Episodic Malaise and fatigue (20 sources) Other fatigue; Translations: [Fatigue] Onset: 09-08-2021 10-11-2022 Episodic Other acquired deformities (20 sources) Lumbar spondylolisthesis; Translations: [Spondylolisthesis, lumbar region] Onset: 09-19-2022 04-25-2023 Episodic Other circulatory disease (20 sources) H/O: cardiovascular disease; Translations: [Personal history of other diseases of the circulatory system] Onset: 10-11-2022 10-11-2022 Episodic Other hematologic conditions (20 sources) Patient encounter status; Translations: [Other specified abnormalities of plasma proteins] Onset: 10-11-2022 10-11-2022 Episodic Other screening for suspected conditions (not mental disorders or infectious disease) (4 sources) Encounter for screening mammogram for malignant neoplasm of breast; Translations: [ENC SCR MAMMO MALIG NEOPLASM BREAST] Onset: 11-17-2021 Episodic Residual codes; unclassified (1 source) Family history of malignant neoplasm of digestive organs; Translations: [FAM HX MALIG NEOPLASM DIGESTIV ORGN] Onset: 11-21-2021 Episodic Spondylosis; intervertebral disc disorders; other back problems (20 sources) Spinal stenosis of lumbar region; Translations: [Spinal stenosis, lumbar region with neurogenic claudication] Onset: 10-16-2019 10-16-2019 Episodic Viral infection (20 sources) Disease caused by 2019-nCoV; Translations: [COVID-19] Onset: 10-11-2022 10-11-2022 Episodic Results Test Name Value Interpretation Reference Range Facility XR Knee - left 1 or 2 Views n 04-05-2024 Imaging Result: 04/05/2024: Standing AP and LAT of left knee showed surgical position and alignment of prosthetic components without evidence of loosening or wear to the femoral, tibial, or patellar components. The alignment appeared to be anatomic. There was no evidence of accelerated or asymmetric wear to the patellar button or tibial tray. There was no evidence of fracture and/or dislocation. Impression: Stable LT total knee replacement. Rosa Toscano GLUE SIZE MACHINE OPERATOR-BIOSTATISTICS TEACHER [facility] e Radiology Study observation (narrative) [facility] XR KNEE LT 1 OR 2 Son 11-0 XR KNEE LT 1 OR 2 VWS XR KNEE LT 1 OR 2 VWS History: Status post left knee replacement Exam/Technique: 2 views left knee Comparison: None Findings: Total left knee arthroplasty has been performed. Hardware appears uncomplicated and in anatomic alignment. Subcutaneous and intra-articular air with cutaneous devin noted compatible with recent procedure. IMPRESSION: * Grossly uncomplicated postoperative appearance left knee replacement. Finalized by Paul Luong DO on 02/22/2024 1:[address] [facility] BASIC METABOLIC PANLon 01-31 Anion gap [Moles/Vol] 12 mmol/L Normal 5-15 [facility] Comment on above: Performed By: #### C BCA, BMP, HA1C #### [facility] ([id number]) [address], [address] [place] [address] Calcium [Mass/Vol] 10.0 mg/dL Normal 8.5-10.5 [facility] Comment on above: Performed By: #### C LIGIA RED, HA1C #### [facility] ([id number]) [address], [address] [place] [address] Chloride [Moles/Vol] 104 mmol/L Normal 98-109 [facility] Comment on above: Performed By: #### C LIGIA RED, HA1C #### [facility] ([id number]) [address], [facility] [address] [place] [address] CO2 [Moles/Vol] 23 mmol/L Normal 22-32 [facility] Comment on above: Performed By: #### C LIGIA RED, HA1C #### [facility] ([id number]) [address], [address] [place] [address] Creatinine [Mass/Vol] 1.03 mg/dL High 0.40-1.00 [facility] Comment on above: Result Comment: METH OD TRACEABLE TO IDMS STANDARD Performed By: #### C LIGIA RED, HA1C #### [facility] ([id number]) [address], [address] [place] [address] GFR/1.73 sq M.predicted among non-blacks MDRD (S/P/Bld) [Vol rate/Area] 63 mL/min/{1.73_m2} Normal >59 [facility] Comment on above: Result Comment: Reported eGFR is based on the CKD-EPI 2020 equation that does not use a race coefficient. Performed By: #### C LIGIA RED, HA1C #### [facility] ([id number]) [address] [address] [place] [address] Glucose [Mass/Vol] 140 mg/dL High 65-99 [facility] Comment on above: Performed By: #### C LIGIA RED, HA1C #### [facility] ([id number]) [address], [address] [place] [address] Potassium [Moles/Vol] 4.4 mmol/L Normal 3.5-5.0 [facility] Comment on above: Performed By: #### LIGIA Milligan BCA, HA1C #### [facility] ([id number]) [address], [address] [place] [address] Sodium [Moles/Vol] 139 mmol/L Normal 134-146 [facility] Comment on above: Performed By: #### C LIGIA RED, HA1C #### [facility] ([id number]) [address], [address] [place] [address] Urea nitrogen [Mass/Vol] 23 mg/dL Normal 5-23 [facility] Comment on above: Performed By: #### LIGIA Milligan BCA, HA1C #### [facility] ([id number]) [address], [address] [place] [address] CBC AND AUTO DIFFon 10-16-20 24 ABSOLUTE BASOPHIL 0.0 X10E9/L Normal 0.0-0.2 [facility] Comment on above: Performed By: #### LIGIA Milligan BCA, HA1C #### [facility] ([id number]) [address], [address] [place] [address] ABSOLUTE NEUTROPHIL 3.2 X10E9/L Normal 1.5-6.6 [facility] Comment on above: Performed By: #### C LIGIA RED, HA1C #### [facility] ([id number]) [address], [address] [place] [address] Basophils/100 WBC (Bld) 0.5 % Normal [facility] Comment on above: Performed By: #### LIGIA Milligan BCA, HA1C #### [facility] ([id number]) [address], [address] [place] [address] Eosinophils (Bld) [#/Vol] 0.1 10*3/uL Normal 0.0-0.4 [facility] Comment on above: Performed By: #### LIGIA Milligan BCA, CARLOS #### [facility] ([id number]) [address], [address] [place] [address] Eosinophils/100 WBC (Bld) 1.6 % Normal [facility] Comment on above: Performed By: #### LIGIA Milligan BCA, HA1C #### [facility] ([id number]) [address], [facility] [address] [place] [address] Erythrocyte distribution width (RBC) [Ratio] 13.6 % Normal 11.5-15.0 [facility] Comment on above: Performed By: #### LIGIA Milligan BCA, HA1C #### [facility] ([id number]) [address], [address] [place] [address] Hematocrit (Bld) [Volume fraction] 42.4 % Normal 35-47 [facility] Comment on above: Performed By: #### LIGIA Milligan BCA, HA1C #### [facility] ([id number]) [address], [address] [place] [address] Hemoglobin (Bld) [Mass/Vol] 14.6 g/dL Normal 11.7-15.5 [facility] Comment on above: Performed By: #### LIGIA Milligan BCA, HAAngel #### [facility] ([id number]) [address], [address] [place] [address] Lymphocytes (Bld) [#/Vol] 1.6 10*3/uL Normal 1.0-3.5 [facility] Comment on above: Performed By: #### LIGIA Milligan BCA, HA1C #### [facility] ([id number]) [address], [address] [place] [address] Lymphocytes/100 WBC (Bld) 28.5 % Normal [facility] Comment on above: Performed By: #### LIGIA Milligan BCA, HA1C #### [facility] ([id number]) [address], [address] [place] [address] MCH (RBC) [Entitic mass] 31.9 pg Normal 27-34 [facility] Comment on above: Performed By: #### LIGIA Milligan BCA, HA1C #### [facility] ([id number]) [address], [address] [place] [address] MCHC (RBC) [Mass/Vol] 34.5 g/dL Normal 32-36 [facility] Comment on above: Performed By: #### LIGIA Milligan BCA, HA1C #### [facility] ([id number]) [address], [address] [place] [address] MCV (RBC) [Entitic vol] 93 fL Normal 80-100 [facility] Comment on above: Performed By: #### LIGIA Milligan BCA, HA1C #### [facility] ([id number]) [address], [address] [place] [address] Monocytes (Bld) [#/Vol] 0.6 10*3/uL Normal 0-0.9 [facility] Comment on above: Performed By: #### LIGIA Milligan BCA, HA1C #### [facility] ([id number]) [address], [address] [place] [address] Monocytes/100 WBC (Bld) 11.7 % Normal [facility] Comment on above: Performed By: #### LIGIA Milligan BCA, HA1C #### [facility] ([id number]) [address] [place] [address] Neutrophils/100 WBC (Bld) 57.7 % Normal [facility] Comment on above: Performed By: #### LIGIA Milligan BCA, HA1C #### [facility] ([id number]) [address], [address] [place] [address] Platelet mean volume (Bld) [Entitic vol] 7.2 fL Normal 7-12 [facility] Comment on above: Performed By: #### LIGIA Milligan BCA, TARSHA1C #### [facility] ([id number]) [address], [address] [address] Platelets (Bld) [#/Vol] 361 10*3/uL Normal 150-450 [facility] Comment on above: Performed By: #### LIGIA Milligan BCA, HA1C #### [facility] ([id number]) [address] [address] RBC COUNT 4.57 X10E12/L Normal 3.80-5.20 [facility] Comment on above: Performed By: #### LIGIA Milligan BCA, TARSHA1C #### [facility] ([id number]) [address] [address] WBC (Bld) [#/Vol] 5.5 10*3/uL Normal 4.0-11.0 [facility] Comment on above: Performed By: #### LIGIA Milligan BCA, HA1C #### [facility] ([id number]) [address], [address] [address] CBC W Auto Differential pane l (Bld)on 02-01-2024 ABSOLUTE BASOPHIL 0 [facility] Comment on above: PERFORMED AT [facility] [address] [place] [address],[place] [address] Basophils/100 WBC (Bld) 0.5 % [facility] Eosinophils (Bld) [#/Vol] 0.1 10*3/uL [facility] Eosinophils/100 WBC (Bld) 1.6 % [facility] Erythrocyte distribution width (RBC) [Ratio] 13.6 % 11.5 - 15.0 % [facility] Hematocrit (Bld) [Volume fraction] 42.4 % 35 - 47 % [facility] (Bld[facility] [Mass/Vol] 14.6 g/dL 11.7 - 15.5 g/dL [facility] Lymphocytes (Bld) [#/Vol] 1.6 10*3/uL [facility] Lymphocytes/100 WBC (Bld) 28.5 % [facility] MCH (RBC) [Entitic mass] 31.9 pg 27 - 34 pg [facility] MCHC (RBC) [Mass/Vol] 34.5 g/dL 32 - 36 g/dL [facility] MCV (RBC) [Entitic vol] 93 fL 80 - 100 fL [facility] Monocytes (Bld) [#/Vol] 0.6 10*3/uL [facility] Monocytes/100 WBC (Bld) 11.7 % [facility] Neutrophils (Bld) [#/Vol] 3.2 10*3/uL [facility] Neutrophils/100 WBC (Bld) 57.7 % [facility] Platelet mean volume (Bld) [Entitic vol] 7.2 fL 7 - 12 fL [facility] Platelets (Bld) [#/Vol] 361 10*3/uL [facility] RBC (Bld) [#/Vol] 4.57 10*6/uL [facility] WBC corrected for nucl RBC Auto (Bld) [#/Vol] 5.5 [facility] HGB A1C (GLYCO-HGB)on 2023 Glucose [Mass/Vol] 134 mg/dL Normal [facility] Comment on above: Performed By: #### C LIGIA RED HA1C #### [facility] ([id number]) [address] [place] [address], [address] [place] [address] HbA1c (Bld) [Mass fraction] 6.3 % High 4.4-5.6 [facility] Comment on above: Result Comment: NOTE ADA Guidelines Result HgbA1c Normal : less than 5.7 % Prediabetes : 5.7 % to 6.4 % Diabetes : > 6.4 % Use with caution in patients with abnormal hemoglobin variants as the half-life of red blood cells and in vivo glycation rates are affected. Performed By: #### C LIGIA RED, HA1C #### [facility] ([id number]) [address] [facility], [address] [place] [address] XR Knee - left 3 [facility] Result: January 26, 2024 x-rays AP weight-bearing bilateral knees and lateral and sunrise of the left knee demonstrate medial compartment collapse bilateral knees with eiwb-zs-ewip in the medial compartment of the left knee and subchondral sclerosis and varus alignment. The patella is centered in the femoral trochlea. Impression: Advanced osteoarthritis left knee Jay Jay Lala D.O. [facility] Wizzgo e XR Knee - left 3 [facility] Study observation (narrative) [facility] MLR HEMOGLOBIN A1Con 024 Glucose [Mass/Vol] 148 mg/dL [facility] HbA1c (Bld) [Mass fraction] 6.8 % High 4.5 - 6.2 % [facility] Comment on above: ADA RECOMMENDED LIMI T 4.0 - 6.0 ADA THERAPEUTIC TARGET < 7.0 ACTION SUGGESTED > 7.0 Interpretation and review of laboratory results Abnormal [facility] re [facility] Glucose Glucometer (BldC) [M ass/Vol]on 06-29-2023 Glucose [Mass/Vol] 145 mg/dL High 65-99 [facility] Outside Colonoscopyon 2023 Outside Colonoscopy [id number] #1.00TIFF Normal [facility] Reminderson 06-27-2023 Reminders - From: Ryanne Benito LPN To: GSN - Clinical; Sent: 06/27/2023 07:56:51 EDT Show up: 05/24/2028 07:00:00 EST Subject: colonosocpy recall Due Date/Time: 06/21/2028 07:00:00 EST Reminder/Recall Patient due for surveillance colonoscopy 06/21/2028 due to family history of colon cancer. Normal [facility] Lab [facility]son 06-23-2023 Lab Reports [id number] #1.00TIFF Normal [facility] 06-22-2023 Lab Reports [id number] #1.00TIFF Normal [facility] BASIC METABOLIC PANLon 06-15 Anion gap [Moles/Vol] 9 mmol/L Normal 5-15 [facility] Comment on above: Performed By: #### B MP #### [facility] ([id number]) [address], [address] [place] [address] Calcium [Mass/Vol] 9.3 mg/dL Normal 8.5-10.5 [facility] Comment on above: Performed By: #### B MP #### [facility] ([id number]) [address], [address] [place] [address] Chloride [Moles/Vol] 107 mmol/L Normal 98-109 [facility] Comment on above: Performed By: #### B MP #### [facility] ([id number]) [address], [address] [place] [address] CO2 [Moles/Vol] 23 mmol/L Normal 22-32 [facility] Comment on above: Performed By: #### B MP #### [facility] ([id number]) [address], [address] [place] [address] Creatinine [Mass/Vol] 0.80 mg/dL Normal 0.40-1.00 [facility] Comment on above: Result Comment: METH OD TRACEABLE TO IDMS STANDARD Performed By: #### B MP #### [facility] ([id number]) [address], [address] [place] [address] GFR/1.73 sq M.predicted among non-blacks MDRD (S/P/Bld) [Vol rate/Area] 85 mL/min/{1.73_m2} Normal >59 [facility] Comment on above: Result Comment: Reported eGFR is based on the CKD-EPI 2020 equation that does not use a race coefficient. Performed By: #### B MP #### [facility] ([id number]) [address], [address] [place] [address] Glucose [Mass/Vol] 178 mg/dL High 65-99 [facility] Comment on above: Performed By: #### B MP #### [facility] ([id number]) [address], [address] [place] [address] Potassium [Moles/Vol] 4.3 mmol/L Normal 3.5-5.0 [facility] Comment on above: Performed By: #### B MP #### [facility] ([id number]) [address], [address] [place] [address] Sodium [Moles/Vol] 139 mmol/L Normal 134-146 [facility] Comment on above: Performed By: #### B MP #### [facility] ([id number]) [address], [address] [place] [address] Urea nitrogen [Mass/Vol] 12 mg/dL Normal 5-23 [facility] Comment on above: Performed By: #### B MP #### [facility] ([id number]) [address], [address] [place] [address] Basic Metabolic Panelon 05-20 Anion gap [Moles/Vol] 9 mmol/L 5 - 15 mmol/L [facility] Calcium [Mass/Vol] 9.3 mg/dL 8.5 - 10. 5 mg/dL [facility] Chloride [Moles/Vol] 107 mmol/L 98 - 109 mmol/L [facility] CO2 [Moles/Vol] 23 mmol/L 22 - 32 mmol/L [facility] Creatinine [Mass/Vol] 0.80 mg/dL 0.40 - 1.00 mg/dL [facility] Comment on above: METHOD TRACEABLE TO IDCA STANDARD eGFR (CKD-EPI)non-race dependent 85 - PINF [facility] Comment on above: Reported eGFR is based on the CKD-EPI 2020 equation that does not use a race coefficient. Glucose [Mass/Vol] 178 mg/dL High 65 - 99 mg/dL [facility] Interpretation and review of laboratory results Abnormal [facility] Potassium [Moles/Vol] 4.3 mmol/L 3.5 - 5.0 mmol/L [facility] Sodium [Moles/Vol] 139 mmol/L 134 - 146 mmol/L [facility] Urea nitrogen [Mass/Vol] 12 mg/dL 5 - 23 mg/dL [facility] ECG 12 leadon 06-15-2023 TRACEMASTERVUE [facility] MR KNEE LEFT WO IV CONTRASTo [...] edema. Popliteal fossa structures are intact. Septated Heranndez's cyst measures approximately 4 cm in AP [...] for Procedure/Surger yon 05-05-2023 Consent for Procedure/Surgery [id number]# 1.00TIFF Normal [facility] Ambulatory Visit Summaryon 0 05-04-2023 Ambulatory Visit Summary ISA NEAL :1965 Visit Date:05/04/2023 Ambulatory Visit Instructions Your Diagnosis Family history of colon cancer in mother Your Care Team Attending Physician - JONNIE FIERRO, Bautista Moore Primary Care Physician - Leny FIERRO, Matthew Referring Physician - Matthew Baumann MD This [...] for choosing us for your care. Normal [facility] Facesheeton 05-04-2023 Facesheet [id number]#1.00TIFF Normal [facility] Physician Referralon 023 Physician Referral [id number] #1.00TIFF Normal [facility] INSULINon 03-04-2022 Insulin 9.8 uIU/mL Normal 2.6-24.9 [facility] Comment on above: Performed By: #### I NSULIN ####[facility] [address] [place], [place] [address]Dr. Lyndsey Silva CBC AUTO DIFFon 03-03-2022 BASO # 0.0 103/ul Normal 0.0-0.1 [facility] Comment on above: Performed By: #### C BC ####[facility] [address] [place], [place] [address]Dr. Lyndsey Silva Basophils/100 WBC (Bld) 0.6 % Normal 0.2-2.0 [facility] Comment on above: Performed By: #### C BC ####[facility] [address] [place], [place] [address]Dr. Lyndsey Silva EO # 0.1 103/ul Normal 0.0-0.7 [facility] Comment on above: Performed By: #### C BC ####[facility] [address] [place], [place] [address]Dr. Lyndsey Silva Eosinophils/100 WBC (Bld) 1.6 % Normal 0.9-7.0 [facility] Comment on above: Performed By: #### C BC ####[facility] [address] [place], [place] [address]Dr. Lyndsey Silva Erythrocyte distribution width (RBC) [Ratio] 13.2 % Normal 11.0-15.0 [facility] Comment on above: Performed By: #### C BC ####[facility] [address] [place], [place] [address]Dr. Lyndsey Silva Hematocrit (Bld) [Volume fraction] 41.8 % Normal 36.0-48.0 [facility] Comment on above: Performed By: #### C BC ####[facility] [address] [place] [id number]. Lyndsey Silva Hemoglobin (Bld) [Mass/Vol] 14.3 g/dL Normal 12.0-16.0 [facility] Comment on above: Performed By: #### C BC ####[facility] [address] [place] [id number]. Lyndsey Silva IG # 0.04 10e3/ul Critically high 0.00-0.03 [facility] Comment on above: Performed By: #### C BC ####[facility] [address] [place] [address]Dr. Lyndsey Silva IG % 0.8 % Critically high 0.0-0.5 [facility] Comment on above: Performed By: #### C BC ####[facility] [address] [place], [place] [address]Dr. Lyndsey Ricardo LYMPH # 1.8 103/ul Normal 1.2-3.8 [facility] Comment on above: Performed By: #### C BC ####[facility] [address] [place] [address]Dr. Lyndsey Ricardo Lymphocytes/100 WBC (Bld) 35.3 % Normal 20.5-60.0 [facility] Comment on above: Performed By: #### C BC ####[facility] [address] [place] [address]Dr. Lyndsey Ricardo MANUAL DIFF REQ NO Normal [facility] Comment on above: Performed By: #### C BC ####[facility] [address] [place] [phone]. Lyndsey Silva MCH (RBC) [Entitic mass] 31.2 pg Normal 26.7-34.0 [facility] Comment on above: Performed By: #### C BC ####[facility] [address] [place] [phone]. Lyndsey Ricardo MCHC (RBC) [Mass/Vol] 34.2 g/dL Normal 29.9-35.2 [facility] Comment on above: Performed By: #### C BC ####[facility] [address] [place] [phone]. Lyndsey Silva MCV (RBC) [Entitic vol] 91.3 fL Normal 81.0-99.0 [facility] Comment on above: Performed By: #### C BC ####[facility] [address] [place] [phone]. Lyndsey Silva MONO # 0.5 103/ul Normal 0.3-0.8 [facility] Comment on above: Performed By: #### C BC ####[facility] [address] [place] [phone]. Lyndsey Silva Monocytes/100 WBC (Bld) 9.8 % Normal 1.7-12.0 [facility] Comment on above: Performed By: #### C BC ####[facility] [address] [place], [place] [address]Dr. Lyndsey Silva NEUT # 2.6 103/ul Normal 1.4-6.5 [facility] Comment on above: Performed By: #### C BC ####[facility] [address] [place], [place] [address]Dr. Lyndsey Silva Neutrophils/100 WBC (Bld) 51.9 % Normal 43.0-75.0 [facility] Comment on above: Performed By: #### C BC ####[facility] [address] [place], [place] [address]Dr. Lyndsey Silva Platelet mean volume (Bld) [Entitic vol] 8.8 fL Critically low 9.5-13.5 [facility] Comment on above: Performed By: #### C BC ####[facility] [address] [place] [phone]. Lyndsey Silva PLT 304 103/ul Normal 150-450 [facility] Comment on above: Performed By: #### C BC ####[facility] [address] [place] [phone]. Lyndsey Ricardo RBC 4.58 106/ul Normal 4.20-5.40 [facility] Comment on above: Performed By: #### C BC ####[facility] [address] [place] [phone]. Lyndsey Silva WBC 5.0 103/ul Normal 4.0-11.0 [facility] Comment on above: Performed By: #### C BC ####[facility] [address] [place] [phone]. Lyndsey Silva FREE THYROXINE INDEX T7on FTI 1.77 Normal 1.30-4.50 [facility] Comment on above: Performed By: #### L IPID, CMP, TSH, T7 ####[facility] [address] [place] [phone]. Lyndsey Silva T3U 31.0 % Normal 30.0-39.0 [facility] Comment on above: Performed By: #### L IPID, CMP, TSH, T7 ####[facility] [address] [place] [address]Dr. Lyndsey Silva T4 [Mass/Vol] 5.70 ug/dL Normal 4.80-13.90 [facility] Comment on above: Performed By: #### L IPID, CMP, TSH, T7 ####[facility] [address] [place] [address]Dr. Lyndsey Silva GLYCOHEMOGLOBIN A1Con 2021 ADA RECOMMENDATION SEE BELOW Normal [facility] Comment on above: Result Comment: ADA RECOMMENDED LIMIT 4.0 - 6.0 ADA THERAPEUTIC TARGET < 7.0 ACTION SUGGESTED > 7.0 Performed By: #### A 1C #### [facility] [address] [place] [address] [address] Lyndsey Silva Glucose [Mass/Vol] 146 mg/dL Normal [facility] Comment on above: Performed By: #### A 1C #### [facility] [address] [place] [address] [address] Lyndsey Silva HbA1c (Bld) [Mass fraction] 6.7 % Critically high 4.5-6.2 [facility] Comment on above: Performed By: #### A 1C #### [facility] [address] [place] [address] [address] Lyndsey Silva IRONon 03-03-2022 Iron [Mass/Vol] 122.0 ug/dL Normal 50.0-170.0 [facility] Comment on above: Performed By: #### V ITB12, IRON, VITAD ####[facility] [address] [place] [phone]. Lyndsey Silva LIPID PROFILEon 03-03-2022 CHOL-HDL RATIO NORM SEE BELOW Normal [facility] Comment on above: Result Comment: 3.3 - 4.4 LOW RISK 4.4 - 7.1 AVERAGE RISK 7.1 - 11.0 MODERATE RISK >11.0 HIGH RISK Performed By: #### L IPID, CMP, TSH, T7 ####[facility] [address] [place] [address]Dr. Lyndsey Silva Cholesterol [Mass/Vol] 244 mg/dL Critically high <=200 [facility] Comment on above: Performed By: #### L IPID, CMP, TSH, T7 ####[facility] [address] [place] [address]Dr. Lyndsey Silva Cholesterol in HDL [Mass/Vol] 48 mg/dL Normal 40-60 [facility] Comment on above: Performed By: #### L IPID, CMP, TSH, T7 ####[facility] [address] [place] [phone]. Lyndsey Silva Cholesterol in LDL [Mass/Vol] 133.0 mg/dL Normal [facility] Comment on above: Performed By: #### L IPID, CMP, TSH, T7 ####[facility] [address] [place] [phone]. Lnydsey Silva Cholesterol.total/C holesterol in HDL [Mass ratio] 5.1 {ratio} Normal [facility] Comment on above: Performed By: #### L IPID, CMP, TSH, T7 ####[facility] [address] [place] [phone]. Corilan Silva HDL NORMAL > or = 60 mg/dl - LOW CARDIOVASCULAR RISK <40 mg/dl - HIGH CARDIOVASCULAR RISK Normal [facility] Comment on above: Performed By: #### L IPID, CMP, TSH, T7 ####[facility] [address] [place] [address]Dr. Lyndsey Silva LDL CALC NORMAL SEE BELOW Normal [facility] Comment on above: Result Comment: <100 mg/dl OPTIMAL 100 - 129 mg/dl NEAR OR ABOVE OPTIMAL 130 - 159 mg/dl BORDERLINE HIGH 160 - 189 mg/dl HIGH >190 mg/dl VERY HIGH Performed By: #### L IPID, CMP, TSH, T7 ####[facility] [address] [place] [address]Dr. Lyndsey Silva Triglyceride [Mass/Vol] 315 mg/dL Critically high <=150 [facility] Comment on above: Performed By: #### L IPID, CMP, TSH, T7 ####[facility] [address] [place] [address]Dr. Lyndsey Silva VLDL CALC 63.0 mg/dL Normal [facility] Comment on above: Performed By: #### L IPID, CMP, TSH, T7 ####[facility] [address] [place] [address]Dr. Lyndsey Silva PROF 14(COMP METB)on 022 Albumin [Mass/Vol] 4.6 g/dL Normal 3.4-5.0 [facility] Comment on above: Performed By: #### L IPID, CMP, TSH, T7 ####[facility] [address] [place] [address]Dr. Lyndsey Silva Albumin/Globulin [Mass ratio] 1.2 {ratio} Normal [facility] Comment on above: Performed By: #### L IPID, CMP, TSH, T7 ####[facility] [address] [place] [address]Dr. Lyndsey Silva ALP [Catalytic activity/Vol] 79 U/L Normal 46-116 [facility] Comment on above: Performed By: #### L IPID, CMP, TSH, T7 ####[facility] [address] [place] [address]Dr. Lyndsey Silva ALT [Catalytic activity/Vol] 26 U/L Normal 14-59 [facility] Comment on above: Performed By: #### L IPID, CMP, TSH, T7 ####[facility] [address] [place] [address]Dr. Lyndsey Silva Anion gap [Moles/Vol] 11.1 mmol/L Normal [facility] Comment on above: Performed By: #### L IPID, CMP, TSH, T7 ####[facility] [address] [place] [address]Dr. Lyndsey Silva AST [Catalytic activity/Vol] 16 U/L Normal 15-37 [facility] Comment on above: Performed By: #### L IPID, CMP, TSH, T7 ####[facility] [address] [place] [address]Dr. Lyndsey Silva Bilirubin [Mass/Vol] 0.6 mg/dL Normal 0.2-1.0 [facility] Comment on above: Performed By: #### L IPID, CMP, TSH, T7 ####[facility] [address] [place], [place] [address]Dr. Lyndsey Silva Calcium [Mass/Vol] 9.7 mg/dL Normal 8.5-10.1 [facility] Comment on above: Performed By: #### L IPID, CMP, TSH, T7 ####[facility] [address] [place], [place] [address]Dr. Lyndsey Silva Chloride [Moles/Vol] 102 mmol/L Normal 98-107 [facility] Comment on above: Performed By: #### L IPID, CMP, TSH, T7 ####[facility] [address] [place], [place] [address]Dr. Lyndsey Silva CO2 [Moles/Vol] 28.7 mmol/L Normal 21.0-32.0 [facility] Comment on above: Performed By: #### L IPID, CMP, TSH, T7 ####[facility] [address] [place] [address]Dr. Lyndsey Silva Creatinine [Mass/Vol] 1.02 mg/dL Normal 0.55-1.02 [facility] Comment on above: Performed By: #### L IPID, CMP, TSH, T7 ####[facility] [address] [place] [phone]. Lyndsey Ricardo EGFR-AF MARSHALLESE >60 Normal >=60 [facility] Comment on above: Performed By: #### L IPID, CMP, TSH, T7 ####[facility] [address] [place] [phone]. Lyndsey Ricardo EGFR-NON AF MARSHALLESE 56 mL/min/1.73m2 Critically low >=60 [facility] Comment on above: Performed By: #### L IPID, CMP, TSH, T7 ####[facility] [address] [place] [address]Dr. Lyndsey Silva Globulin (S) [Mass/Vol] 3.9 g/dL Normal [facility] Comment on above: Performed By: #### L IPID, CMP, TSH, T7 ####[facility] [address] [place] [address]Dr. Lyndsey Silva Glucose [Mass/Vol] 130 mg/dL Critically high 74-106 [facility] Comment on above: Performed By: #### L IPID, CMP, TSH, T7 ####[facility] [id number] [place] [address]Dr. Coriyamil Silva Potassium [Moles/Vol] 3.8 mmol/L Normal 3.5-5.1 [facility] Comment on above: Performed By: #### L IPID, CMP, TSH, T7 ####[facility] [id number] [place] [address]Dr. Lyndsey Ricardo Protein [Mass/Vol] 8.5 g/dL Critically high 6.4-8.2 [facility] Comment on above: Performed By: #### L IPID, CMP, TSH, T7 ####[facility] [id number] [place] [address]Dr. Lyndsey Silva Sodium [Moles/Vol] 138 mmol/L Normal 136-145 [facility] Comment on above: Performed By: #### L IPID, CMP, TSH, T7 ####[facility] [id number] [place] [address]Dr. Lyndsey Silva Urea nitrogen [Mass/Vol] 25.0 mg/dL Critically high 7.0-18.0 [facility] Comment on above: Performed By: #### L IPID, CMP, TSH, T7 ####[facility] [id number] [place] [id number]. Lyndsey Silva Urea nitrogen/Creatinine [Mass ratio] 24.5 mg/mg Normal [facility] Comment on above: Performed By: #### L IPID, CMP, TSH, T7 ####[facility] [id number] [place] [id number]. Lyndsey Silva TSHon 03-03-2022 TSH 0.126 uIU/mL Critically low 0.358-3.740 [facility] Comment on above: Performed By: #### L IPID, CMP, TSH, T7 ####[facility] [id number] [place] [address]Dr. Lyndsey Silva VITAMIN B12on 03-03-2022 Cobalamin (Vitamin B12) [Mass/Vol] 894.0 pg/mL Normal 193.0-986.0 [facility] Comment on above: Performed By: #### V ITB12, IRON, VITAD ####[facility] [id number] [place] [address]Dr. Lyndsey Silva VITAMIN D 25 OHon 03-03-2022 VIT D 25-OH 30.1 ng/mL Normal [facility] Comment on above: Performed By: #### V ITB12, IRON, VITAD ####[facility] [id number] [place], [place] [address]Dr. Lyndsey Silva VIT D RANGES SEE BELOW Normal [facility] Comment on above: Result Comment: <20 ng/mL Vit D deficient 20 - <30 ng/mL Vit D insufficient 30 - 100 ng/mL Vit D sufficient >100 ng/mL Potential Toxicity Performed By: #### V ITB12, IRON, VITAD ####[facility] [address] [place] [address]Dr. Lyndsey Silva MG MAMM SCREEN 3D LEILANI CADon 11-17-2021 MG MAMM SCREEN 3D LEILANI CAD Patient: ISA NEAL Date: 11/17/2021 : 1965 Gender:F Ordering : DR MATTHEW BAUMANN . Admission #: [id number] Family : Order #: [id number] CLICK HERE TO VIEW EXAM RADIOLOGY REPORT [...] colon cancer at age 59. LOCATION: [facility] BREAST COMPOSITION: Heterogeneously dense,which may obscure [...] PALPABLE LUMP SHOULD BE BIOPSIED. Dictated by: Mar Hansen M.D. on 11/17/2021 at 15:33 Approved by: Mar Hansen M.D. on 11/17/2021 at 15:36 Normal [facility] NM STRESS/REST MULTIon 09-02 NM STRESS/REST MULTI Patient: ISA NEAL Exam Date: 09/02/2021 : 1965 Gender:F Ordering : DR MATTHEW BAUMANN . Admission #: [id number] Family : Order #: [id number] CLICK HERE TO VIEW EXAM RADIOLOGY REPORT [...] nuclear medicine myocardial perfusion scan. Dictated by: Mar Hansen M.D. on 09/02/2021 at 14:06 Approved by: Mar Hansen M.D. on 09/02/2021 at 14:07 Normal [facility] ECHOCARDIO M/2D COMPLETEon 0 08-19-2021 ECHOCARDIO M/2D COMPLETE Patient: ISA NEAL Exam Date: 08/19/2021 : 1965 Gender:F Ordering : DR MATTHEW BAUMANN . Admission #: [id number] Family : Order #: [id number] CLICK HERE TO VIEW EXAM ECHOCARDIOGRAM REPORT [...] Area(A4C): 12.60 cm2 Left Atrium Systolic Volume(A2C): 62132 mm3 Left Atrium Systolic Volume(A4C): 12314 mm3 Mitral Valve MV E to A [...] Gradient: 6 mm[Hg] Right Atrium Dictated by: Blake Ramon M.D. on 08/19/2021 at 17:22 Approved by: Blake Ramon M.D. on 08/19/2021 at 17:27 [facility] 08-12-2021 Natriuretic peptide B (Bld) [Mass/Vol] 58.0 pg/mL Normal <=900.0 [facility] Comment on above: Performed By: #### B [employer]ER, TSH, T7, CMP #### [facility] [address] [place] [address] Dr. Lyndsey Silva CBC AUTO DIFFon 08-12-2021 BASO # 0.1 103/ul Normal 0.0-0.1 [facility] Comment on above: Performed By: #### C BC #### [facility] [address] [place] [address] Dr. Lyndsey Silva Basophils/100 WBC (Bld) 0.4 % Normal 0.2-2.0 [facility] Comment on above: Performed By: #### C BC #### [facility] [address] [place] [address] Dr. Lyndsey Silva EO # 0.1 103/ul Normal 0.0-0.7 [facility] Comment on above: Performed By: #### C BC #### [facility] [address] [place] [address] Dr. Lyndsey Silva Eosinophils/100 WBC (Bld) 0.6 % Critically low 0.9-7.0 [facility] Comment on above: Performed By: #### C BC #### [facility] [address] [place] [address] Dr. Lyndsey Silva Erythrocyte distribution width (RBC) [Ratio] 13.6 % Normal 11.0-15.0 [facility] Comment on above: Performed By: #### C BC #### [facility] [address] [place] [address] Dr. Lyndsey Silva Hematocrit (Bld) [Volume fraction] 42.4 % Normal 36.0-48.0 [facility] Comment on above: Performed By: #### C BC #### [facility] [address] [place] [address] Dr. Lyndsey Silva Hemoglobin (Bld) [Mass/Vol] 14.3 g/dL Normal 12.0-16.0 [facility] Comment on above: Performed By: #### C BC #### [facility] [address] [address] [address] Lyndsey Silva IG # 0.17 10e3/ul Critically high 0.00-0.03 [facility] Comment on above: Performed By: #### C BC #### [facility] [address] [address] [address] Lyndsey Silva IG % 1.4 % Critically high 0.0-0.5 [facility] Comment on above: Performed By: #### C BC #### [facility] [address] [address] [address] Lyndsey Silva LYMPH # 2.6 103/ul Normal 1.2-3.8 [facility] Comment on above: Performed By: #### C BC #### [facility] [address] [place] [address] Dr. Lyndsey Silva Lymphocytes/100 WBC (Bld) 21.6 % Normal 20.5-60.0 [facility] Comment on above: Performed By: #### C BC #### [facility] [address] [place] [address] Dr. Lyndsey Silva MANUAL DIFF REQ NO Normal [facility] Comment on above: Performed By: #### C BC #### [facility] [address] [place] [address] Dr. Lyndsey Silva MCH (RBC) [Entitic mass] 31.5 pg Normal 26.7-34.0 [facility] Comment on above: Performed By: #### C BC #### [facility] [address] [address] [address] Lyndsey Silva MCHC (RBC) [Mass/Vol] 33.7 g/dL Normal 29.9-35.2 [facility] Comment on above: Performed By: #### C BC #### [facility] [address] [place] [address] Dr. Lyndsey Silva MCV (RBC) [Entitic vol] 93.4 fL Normal 81.0-99.0 [facility] Comment on above: Performed By: #### C BC #### [facility] [address] [address] [address] Lyndsey Silva MONO # 0.8 103/ul Normal 0.3-0.8 [facility] Comment on above: Performed By: #### C BC #### [facility] [address] [address] [address] Lyndsey Silva Monocytes/100 WBC (Bld) 6.9 % Normal 1.7-12.0 [facility] Comment on above: Performed By: #### C BC #### [facility] [address] [address] [address] Lyndsey Silva NEUT # 8.2 103/ul Critically high 1.4-6.5 [facility] Comment on above: Performed By: #### C BC #### [facility] [address] [place] [address] Dr. Lyndsey Silva Neutrophils/100 WBC (Bld) 69.1 % Normal 43.0-75.0 [facility] Comment on above: Performed By: #### C BC #### [facility] [address] [place] [address] Dr. Lyndsey Silva Platelet mean volume (Bld) [Entitic vol] 8.8 fL Critically low 9.5-13.5 [facility] Comment on above: Performed By: #### C BC #### [facility] [address] [place] [address] Dr. Lyndsey Silva PLT 341 103/ul Normal 150-450 [facility] Comment on above: Performed By: #### C BC #### [facility] [address] [address] [address] Lyndsey Silva RBC 4.54 106/ul Normal 4.20-5.40 [facility] Comment on above: Performed By: #### C BC #### [facility] [address] [place] [address] Dr. Lyndsey Silva WBC 11.9 103/ul Critically high 4.0-11.0 [facility] Comment on above: Performed By: #### C BC #### [facility] [address] [place] [address] Dr. Lyndsey Silva FREE THYROXINE INDEX T7on FTI 1.40 Normal [facility] Comment on above: Performed By: #### [employer]ER, TSH, T7, CMP #### [facility] [address] [place] [address] Dr. Lyndsey Silva T3U 31.0 % Normal 23.5-40.5 [facility] Comment on above: Performed By: #### [employer]ER, TSH, T7, CMP #### [facility] [address] [place] [address] Dr. Lyndsey Silva T4 [Mass/Vol] 4.50 ug/dL Critically low 4.80-13.90 [facility] Comment on above: Performed By: #### B [employer]ER, TSH, T7, CMP #### [facility] [address] [place] [address] Dr. Lyndsey Silva IRONon 08-12-2021 Iron [Mass/Vol] 106.0 ug/dL Normal 50.0-170.0 [facility] Comment on above: Performed By: #### I STERLING #### [facility] [address] [place] [address] Dr. Lyndsey Silva PROF 14(COMP METB)on 022 Albumin [Mass/Vol] 5.0 g/dL Normal 3.4-5.0 [facility] Comment on above: Performed By: #### B [employer]ER, TSH, T7, CMP #### [facility] [address] [place] [address] Dr. Lyndsey Silva Albumin/Globulin [Mass ratio] 1.4 {ratio} Normal [facility] Comment on above: Performed By: #### [employer]ER, TSH, T7, CMP #### [facility] [address] [place] [address] Dr. Lyndsey Silva ALP [Catalytic activity/Vol] 72 U/L Normal 46-116 [facility] Comment on above: Performed By: #### B [employer]ER, TSH, T7, CMP #### [facility] [address] [place] [address] Dr. Lyndsey Silva ALT [Catalytic activity/Vol] 35 U/L Normal 14-59 [facility] Comment on above: Performed By: #### B [employer]ER, TSH, T7, CMP #### [facility] [address] [address] [address] Lyndsey Silva Anion gap [Moles/Vol] 17.5 mmol/L Normal [facility] Comment on above: Performed By: #### B [employer]ER, TSH, T7, CMP #### [facility] [address] [place] [address] Dr. Lyndsey Silva AST [Catalytic activity/Vol] 20 U/L Normal 15-37 [facility] Comment on above: Performed By: #### B [employer]ER, TSH, T7, CMP #### [facility] [address] [address] [address] Lyndsey Silva Bilirubin [Mass/Vol] 1.2 mg/dL Critically high 0.2-1.0 [facility] Comment on above: Performed By: #### B [employer]ER, TSH, T7, CMP #### [facility] [address] [place] [address] Dr. Lyndsey Silva Calcium [Mass/Vol] 9.5 mg/dL Normal 8.5-10.1 [facility] Comment on above: Performed By: #### B [employer]ER, TSH, T7, CMP #### [facility] [address] [place] [address] Dr. Lyndsey Silva Chloride [Moles/Vol] 98 mmol/L Normal 98-107 [facility] Comment on above: Performed By: #### B [employer]ER, TSH, T7, CMP #### [facility] [address] [address] [address] Lyndsey Silva CO2 [Moles/Vol] 25.0 mmol/L Normal 21.0-32.0 [facility] Comment on above: Performed By: #### B [employer]ER, TSH, T7, CMP #### [facility] [address] [place] [address] Dr. Lyndsey Silva Creatinine [Mass/Vol] 1.17 mg/dL Critically high 0.55-1.02 [facility] Comment on above: Performed By: #### B [employer]ER, TSH, T7, CMP #### [facility] [address] [address] [address] Lyndsey Silva EGFR-AF MARSHALLESE 58 mL/min/1.73m2 Critically low >=60 [facility] Comment on above: Performed By: #### B [employer]ER, TSH, T7, CMP #### [facility] [address] [place] [address] Dr. Lyndsey Silva EGFR-NON AF MARSHALLESE 48 mL/min/1.73m2 Critically low >=60 [facility] Comment on above: Performed By: #### B [employer]IN[employer]ER, TSH, T7, CMP #### [facility] [address] [place] [address] Dr. Lyndsey Silva Globulin (S) [Mass/Vol] 3.6 g/dL Normal [facility] Comment on above: Performed By: #### B [employer]ER, TSH, T7, CMP #### [facility] [address] [place] [address] Dr. Lyndsey Silva Glucose [Mass/Vol] 123 mg/dL Critically high 74-106 [facility] Comment on above: Performed By: #### B [employer]IN[employer]ER, TSH, T7, CMP #### [facility] [address] [place] [address] Dr. Lyndsey Silva Potassium [Moles/Vol] 4.5 mmol/L Normal 3.5-5.1 [facility] Comment on above: Performed By: #### B [employer]IN[employer]ER, TSH, T7, CMP #### [facility] [address] [place] [address] Dr. Lyndsey Silva Protein [Mass/Vol] 8.6 g/dL Critically high 6.1-8.2 [facility] Comment on above: Performed By: #### B [employer]IN[employer]ER, TSH, T7, CMP #### [facility] [address] [place] [address] Dr. Lyndsey Silva Sodium [Moles/Vol] 136 mmol/L Normal 136-145 [facility] Comment on above: Performed By: #### B [employer]IN[employer]ER, TSH, T7, CMP #### [facility] [address] [place] [address] Dr. Lyndsey Silva Urea nitrogen [Mass/Vol] 12.0 mg/dL Normal 7.0-18.0 [facility] Comment on above: Performed By: #### B [employer]IN[employer]ER, TSH, T7, CMP #### [facility] [address] [place] [address] Dr. Lyndsey Silva Urea nitrogen/Creatinine [Mass ratio] 10.3 mg/mg Normal [facility] Comment on above: Performed By: #### B [employer]IN[employer]ER, TSH, T7, CMP #### [facility] [address] [place] [address] Dr. Lyndsey Silva TSHon 08-12-2021 TSH 1.149 uIU/mL Normal 0.470-4.680 [facility] Comment on above: Performed By: #### B [employer]IN[employer] RESTORER, TSH, T7, CMP #### [facility] [address] [place] [address] Dr. Lyndsey Silva TSH RANGE SEE BELOW Normal [facility] Comment on above: Result Comment: <0.3 4 UIU/ml HYPERTHYROID 0.34-5.60 UIU/ml EUTHYROID >5.60 UIU/ml HYPOTHYROID Performed By: #### B P[employer]IN[employer] RESTORER, TSH, T7, CMP #### [facility] [address] [place] [address] Dr. Lyndsey Silva Vital Signs Date Time Vital Sign Value Performing Clinician Facility 02-01-2024 10:02-0400 Body height 165.[address] 02-01-2024 10:02-0400 Body mass index (BMI) [Ratio] 31.62 kg/m2 [address] 02-01-2024 10:02-0400 Body weight 86.[address] 01-26-2024 09:35-0400 Body height 165.1 cm [facility] [employer] Work Phone: [facility] 01-26-2024 09:35-0400 Body mass index (BMI) [Ratio] 32.82 kg/m2 [facility] [employer] Work Phone: [facility] 01-26-2024 09:35-0400 Body weight 89.45 kg [facility] [employer] Work Phone: [facility] 12-13-2023 10:10-0400 Body height 165.1 cm Carleen GonzalesDai DO Work Phone: [facility] 12-13-2023 10:10-0400 Body mass index (BMI) [Ratio] 30.79 kg/m2 Carleen Jeronimoston DO Work Phone: [facility] 12-13-2023 10:10-0400 Body weight 83.92 kg Carleen GonzalesDai DO Work Phone: [facility] 06-15-2023 09:47-0500 Body height 165.1 cm [facility] 06-15-2023 09:47-0500 Body mass index (BMI) [Ratio] 30.79 kg/m2 [facility] 06-15-2023 09:47-0500 Body weight 83.[address] 05-04-2023 13:17-0500 Blood Pressure Location Bautista SMITHL [facility] 05-04-2023 13:17-0500 Diastolic blood pressure 82 mm[Hg] Bautista NILL [facility] 05-04-2023 13:17-0500 Heart rate 72 /min Bautista NILL [facility] 05-04-2023 13:17-0500 Respiratory rate 16 /min Bautista LUISL [facility] 05-04-2023 13:17-0500 Systolic blood pressure 144 mm[Hg] Bautista NILL [facility] Encounters Encounter Date Encounter Type Care Provider Facility Start: 05-01-2024 End: 05-01-2024 Linda Duenas DO Work Phone: [facility] Start: 05-01-2024 End: 05-01-2024 Linda Duenas DO Work Phone: [facility] Start: 05-01-2024 End: 05-01-2024 Office outpatient visit 25 minutes Jr. Blake Duenas DO Work Phone: [facility] Comment on above: Arthritis of right k nee (Primary Dx); Chronic pain of right knee Start: 05-01-2024 End: 05-01-2024 ambulatory , BLAKE DUENAS Not Available Start: 04-05-2024 End: 04-05-2024 Postop follow up visit related to original px Rosa Toscano [employer] Work Phone: [facility] Comment on above: S/P total knee arthr oplasty, left; Primary osteoarthritis of left knee Start: 04-05-2024 End: 04-05-2024 ambulatory ROSA TOSCANO Not Available Start: 04-05-2024 End: 04-05-2024 Bamboo flowsheet Rosa Toscano [employer]ER Work Phone: [facility] Start: 04-05-2024 End: 04-05-2024 Bamboo flowsheet Rosa Toscano [employer]ER Work Phone: [facility] Start: 04-03-2024 End: 04-03-2024 Bamboo flowsheet Ronna Kelbley ENVIRONMENTAL SCIENCE PROFESSOR [facility] Start: 04-03-2024 End: 04-03-2024 Bamboo flowsheet Ronna Kelbley ENVIRONMENTAL SCIENCE PROFESSOR [facility] Start: 04-03-2024 End: 04-03-2024 ambulatory Ronna Kelbley ENVIRONMENTAL SCIENCE PROFESSOR [facility] Comment on above: Acute postoperative pain of left knee (Primary Dx); Chronic pain of right knee; Status post left knee replacement Start: 03-29-2024 End: 03-29-2024 ambulatory Ronna Kelbley ENVIRONMENTAL SCIENCE PROFESSOR [facility] Comment on above: Acute postoperative pain of left knee (Primary Dx); Chronic pain of right knee; Status post left knee replacement Start: 03-27-2024 End: 03-27-2024 Bamboo flowsheet Ap Painting PT Work Phone: [facility] Start: 03-27-2024 End: 03-27-2024 Bamboo flowsheet Ap Painting PT Work Phone: [facility] Start: 03-27-2024 End: 03-27-2024 ambulatory Ap Painting PT Work Phone: [facility] Comment on above: Acute postoperative pain of left knee (Primary Dx); Chronic pain of right knee; Status post left knee replacement Start: 03-22-2024 End: 03-22-2024 Bamboo flowsheet Ronna Mcknight ENVIRONMENTAL SCIENCE PROFESSOR [facility] Start: 03-22-2024 End: 03-22-2024 Bamboo flowsheet Ronna Cliffordy ENVIRONMENTAL SCIENCE PROFESSOR [facility] Start: 03-22-2024 End: 03-22-2024 ambulatory Ronna Mcknight ENVIRONMENTAL SCIENCE PROFESSOR [facility] Comment on above: Primary osteoarthrit is of left knee (Primary Dx); Acute postoperative pain of left knee Start: 03-20-2024 End: 03-20-2024 Bamboo flowsheet Ronna Mcknight ENVIRONMENTAL SCIENCE PROFESSOR [facility] Start: 03-20-2024 End: 03-20-2024 Bamboo flowsheet Ronna Mcknight ENVIRONMENTAL SCIENCE PROFESSOR [facility] Start: 03-20-2024 End: 03-20-2024 ambulatory Ronna Mcknight ENVIRONMENTAL SCIENCE PROFESSOR [facility] Comment on above: Primary osteoarthrit is of left knee (Primary Dx); Acute postoperative pain of left knee Start: 03-14-2024 End: 03-14-2024 Bamboo flowsheet [employer] PT Work Phone: [facility] Start: 03-14-2024 End: 03-14-2024 Bamboo flowsheet Ap Painting PT Work Phone: [facility] Start: 03-14-2024 End: 03-14-2024 ambulatory Ap Painting PT Work Phone: [facility] Comment on above: Primary osteoarthrit is of left knee (Primary Dx); Acute postoperative pain of left knee Start: 03-12-2024 End: 03-12-2024 Bamboo flowsheet Carlos Damien ENVIRONMENTAL SCIENCE PROFESSOR [facility] Start: 03-12-2024 End: 03-12-2024 Bamboo flowsheet Carlos Reagan ENVIRONMENTAL SCIENCE PROFESSOR [facility] Start: 03-12-2024 End: 03-12-2024 ambulatory Carlos Reagan ENVIRONMENTAL SCIENCE PROFESSOR [facility] Comment on above: Primary osteoarthrit is of left knee (Primary Dx); Acute postoperative pain of left knee; Chronic pain of right knee; Status post left knee replacement Start: 03-09-2024 End: 03-09-2024 Bamboo flowsheet Ronna Mcknight ENVIRONMENTAL SCIENCE PROFESSOR [facility] Start: 03-09-2024 End: 03-09-2024 Bamboo flowsheet Ronna Mcknight ENVIRONMENTAL SCIENCE PROFESSOR [facility] Start: 03-09-2024 End: 03-09-2024 ambulatory Ronna Mcknight ENVIRONMENTAL SCIENCE PROFESSOR [facility] Comment on above: Primary osteoarthrit is of left knee (Primary Dx); Acute postoperative pain of left knee Start: 03-07-2024 End: 03-07-2024 ambulatory Carlos Reagan ENVIRONMENTAL SCIENCE PROFESSOR [facility] Comment on above: Primary osteoarthrit is of left knee (Primary Dx); Acute postoperative pain of left knee; Chronic pain of right knee Start: 03-06-2024 End: 03-06-2024 Bamboo flowsheet Carleen Lala DO Work Phone: [facility] Start: 03-06-2024 End: 03-06-2024 Bamboo flowsheet Carleen Lala DO Work Phone: [facility] Start: 03-06-2024 End: 03-06-2024 Postop follow up visit related to original px Carleen Lala DO Work Phone: [facility] Comment on above: S/P total knee arthr oplasty, left (Primary Dx) Start: 03-06-2024 End: 03-06-2024 ambulatory CARLEEN LALA Not Available Start: 03-06-2024 End: 03-06-2024 ambulatory SHON WONG Not Available Start: 03-05-2024 End: 03-06-2024 Clinical Support Shon Wong PT Work Phone: [facility] Comment on above: Primary osteoarthrit is of left knee (Primary Dx); Acute postoperative pain of left knee; Status post left knee replacement Start: 03-02-2024 End: 03-05-2024 Clinical Support Shon Wong PT Work Phone: [facility] Comment on above: Primary osteoarthrit is of left knee (Primary Dx); Acute postoperative pain of left knee; Status post left knee replacement Start: 03-01-2024 End: 03-01-2024 ambulatory SHON WONG Not Available Start: 02-29-2024 End: 03-01-2024 Clinical Support Shon Wong PT Work Phone: [facility] Comment on above: Primary osteoarthrit is of left knee (Primary Dx); Acute postoperative pain of left knee; Status post left knee replacement Start: 02-28-2024 End: 02-28-2024 Postop follow up visit related to original px Carleen Lala DO Work Phone: [facility] Comment on above: S/P total knee arthr oplasty, left (Primary Dx) Start: 02-28-2024 End: 02-28-2024 ambulatory CARLEEN LALA Not Available Start: 02-27-2024 End: 02-28-2024 Orders Only Rosa Toscano [employer] Work Phone: [facility] Comment on above: Status post left kne e replacement (Primary Dx) Post-operative pain Primary osteoarthrit is of left knee (Primary Dx); Acute postoperative pain of left knee; Status post left knee replacement Start: 02-24-2024 End: 02-24-2024 Clinical Support Shon Wong PT Work Phone: [facility] Comment on above: Primary osteoarthrit is of left knee (Primary Dx); Acute postoperative pain of left knee; Status post left knee replacement Start: 02-22-2024 End: 02-23-[address] [facility] Start: 02-21-2024 End: 02-21-2024 Refill Rosa Toscano [employer] Work Phone: [facility] Comment on above: Post-operative pain (Primary Dx) Start: 02-16-2024 End: 02-16-2024 ambulatory [facility] Start: 02-02-2024 End: 02-03-2024 Telephone encounter Carleen Foster Dai DO Work Phone: [facility] Comment on above: work note Start: 02-01-2024 End: 02-01-2024 External Result Encounter Carleen Foster Dai DO Work Phone: [facility] Unsolicited Start: 02-01-2024 End: 02-01-2024 External Result Encounter Carleen Foster Dai DO Work Phone: [facility] Unsolicited Start: 02-01-2024 End: 02-01-2024 ambulatory [facility] Start: 02-01-2024 End: 02-01-2024 Patient encounter procedure [facility] Pre-Admission Testing 2 [facility] - Pre Admit Start: 01-26-2024 End: 01-26-2024 Bamboo flowsheet Rosa Toscano [employer] Work Phone: [facility] Start: 01-26-2024 End: 01-26-2024 Bamboo flowsheet Rosa Toscano [employer] Work Phone: [facility] Start: 01-26-2024 End: 01-26-2024 Office outpatient visit 40 minutes Carleen Lala DO Work Phone: [facility] Comment on above: Left knee pain, unsp ecified chronicity; Primary osteoarthritis of left knee Start: 01-26-2024 End: 01-26-2024 ambulatory CARLEEN Foster DAI Not Available Start: 12-13-2023 End: 12-13-2023 Bamboo flowsheet Carleen Lala DO Work Phone: [facility] Start: 12-13-2023 End: 12-13-2023 Clinisync Result Encounter Carleen Cristian Dai DO Work Phone: [facility] Unsolicited Start: 12-13-2023 End: 12-13-2023 Clinisync Result Encounter Carleen Lala DO Work Phone: [facility] Unsolicited Start: 12-13-2023 End: 12-13-2023 Office outpatient visit 10 minutes Carleen Lala DO Work Phone: [facility] Comment on above: Left knee pain, unsp ecified chronicity (Primary Dx); Primary osteoarthritis of left knee; S/P medial meniscus repair of left knee; Abnormal glucose Start: 12-13-2023 End: 12-13-2023 ambulatory CARLEEN Foster DAI Not Available Start: 10-18-2023 End: 10-18-2023 ambulatory CARLEEN Cristian DAI Not Available Start: 10-04-2023 End: 10-04-2023 ambulatory CARLEEN Cristian DAI Not Available Start: 08-09-2023 End: 08-09-2023 ambulatory CARLEEN Cristian DAI Not Available Start: 07-11-2023 End: 07-11-2023 ambulatory PADMAJA CRAIN Not Available Start: 06-29-2023 End: 06-29-2023 Evaluation and management of inpatient JOHNMikel GARDNER [facility] Start: 06-29-2023 End: 06-29-2023 Evaluation and management of inpatient [facility] Start: 06-22-2023 End: 06-23-2023 ambulatory Bautista CRISTINA Facility:[facility] Start: 06-15-2023 End: 06-15-2023 Patient encounter procedure [facility] Pre-Admission Testing 2 [facility] - Pre Admit Comment on above: Preop examination (P rimary Dx); Hypertension, unspecified type; Diabetes mellitus of other type without complication, unspecified whether intermodal dispatcher insulin use ([facility]) Start: 06-15-2023 End: 06-15-2023 Preprocedural examination done Pm 2 [facility] Start: 06-15-2023 End: 06-15-2023 ambulatory [facility] Start: 06-15-2023 Encounter for other preprocedural examination MATTHEW BAUMANN [facility] Start: 06-07-2023 End: 06-07-2023 ambulatory CARLEEN LALA Not Available Start: 05-31-2023 End: 05-31-2023 ambulatory PADMAJA CRAIN Not Available Start: 05-18-2023 End: 05-18-2023 ambulatory AP PAINTING Not Available Start: 05-16-2023 End: 05-16-2023 ambulatory PADMAJA Loaiza APLING Not Available Start: 05-04-2023 End: 05-05-2023 ambulatory Bautista CRISTINA Facility: [facility] Start: 05-04-2023 End: 05-04-2023 Patient encounter procedure Bautista CRISTINA General Surgery Jonnie/Adama Garcias Start: 04-04-2023 End: 04-05-2023 ambulatory Regis Garrido MD Facility:[facility] Start: 03-25-2023 ambulatory Bautista CRISTINA Facility:[facility] Start: 03-21-2023 End: 03-22-2023 ambulatory [facility] Start: 03-08-2023 ambulatory Bautista CRISTINA Facility:[facility] Start: 03-06-2022 Encounter for genera l adult medical examination without abnormal findings DR MATTHEW BAUMANN [facility] Start: 03-03-2022 End: 03-04-[address] MATTHEW [...] Date Procedure Procedure Detail Performing Clinician Start: 04-05-2024 Radiologic examination knee 1/2 views Rosa Toscano NP Work Phone: Start: 02-01-2024 Complete blood count with white cell differential, automated Carleen Lala DO Work Phone: Start: 01-26-2024 Radiologic examination knee 3 views Carleen Gonzalesdleston DO Work Phone: Start: 12-13-2023 MLR HEMOGLOBIN A1C Carleen Lala D O Work Phone: Start: 10-15-2015 Colonoscopy Rosa Toscano [employer] Work Phone: Start: 10-15-2015 Colonoscopy Bautista NILL Appendectomy Bautista NILL Arthroscopy of knee Bautista NILL Cholecystectomy Bautista NILL History of operative procedure on knee S/P medial meniscus repair of left knee Carleen Foster Dai DO Work Phone: Laminectomy Bautista NILL Ostectomy of calcane us for spur Bautista NILL Plan of Treatment Date Care Activity Detail Author Start: 10-14-2025 Screening for malign ant neoplasm of colon [facility] Start: 01-31-2025 Adult BMI Screening Adult BMI Screen ing [facility] Start: 01-31-2025 Tobacco Screening Tobacco Screening [facility] Start: 07-24-2024 End: 07-24-2024 Patient encounter procedure 07/24/2024 10:00 AM EDT Office Visit [facility] [address] [place] [address] Jr. Blake Duenas, DO [address] [place] [address] [facility] Start: 06-15-2024 Adult BMI Screening Adult BMI Screen ing [facility] Start: 06-15-2024 Tobacco Screening Tobacco Screening [facility] Start: 05-24-2024 End: 05-24-2024 Patient encounter procedure 05/24/2024 10:30 AM EST Office Visit [facility] [address] [facility] [phone] Rosa Toscano NP [address] [facility], [place] [id number] [facility] Start: 05-01-2024 End: 05-01-2024 Patient encounter procedure [facility] Comment on above: Arthritis of right k nee (Primary Dx); Chronic pain of right knee Start: 04-05-2024 End: 04-05-2024 Patient encounter procedure [facility] Comment on above: S/P total knee arthr oplasty, left; Primary osteoarthritis of left knee Start: 04-04-2024 End: 04-04-2024 Patient encounter procedure 04/04/2024 1:00 PM EST Office Visit [facility] [address] [place] [phone] Padmaja Crain NP [address] [place] [address] [facility] Start: 04-03-2024 End: 04-03-2024 ambulatory [facility] Comment on above: Arrived Start: 03-29-2024 End: 03-29-2024 ambulatory 03/29/2024 12:00 PM EST Treatment [facility] [address] [facility] [address] [place] [address] Ronna Mcknight, STEFANY [facility] Start: 03-27-2024 End: 03-27-2024 ambulatory [facility] Start: 03-22-2024 End: 03-22-2024 ambulatory [facility] Comment on above: Arrived Start: 03-20-2024 End: 03-20-2024 ambulatory [facility] Start: 03-14-2024 End: 03-14-2024 ambulatory [facility] Comment on above: Arrived Start: 03-12-2024 End: 03-12-2024 ambulatory [facility] Comment on above: Primary osteoarthrit is of left knee (Primary Dx); Acute postoperative pain of left knee; Chronic pain of right knee Start: 03-09-2024 End: 03-09-2024 ambulatory [facility] Start: 03-07-2024 End: 03-07-2024 ambulatory 03/07/2024 12:00 PM EST Treatment [facility] [address] [place] [address] Carlos Reagan PTA [facility] Start: 03-06-2024 End: 03-06-2024 Patient encounter procedure [facility] Comment on above: Arrived Start: 03-01-2024 End: 03-01-2024 Patient encounter procedure 03/01/2024 11:00 AM EST Office Visit [facility] [address] [place] [phone] Carleen Lala, DO [address] [place] [address] [facility] Start: 02-28-2024 End: 02-28-2024 Patient encounter procedure 02/28/2024 11:00 AM EST Office Visit [facility] [address] [place] [address] Carleen Lala, DO [address] [place] [address] [facility] Start: 02-22-2024 End: 02-22-2024 Admission to same day surgery center 02/22/2024 12:15 PM EST - 02/22/2024 2:45 PM EST Surgery [facility] - Surgery [address] [place] [address] Carleen Lala, DO [address] [place] [address] REPLACEMENT TOTAL JOINT KNEE [51416 (CPT )] [facility] - Surgery Comment on above: REPLACEMENT TOTAL TYRELL INT KNEE [[id number] (CPT )] Start: 02-22-2024 End: 02-22-2024 Arthrp kne condyle&platu medial&lat compartments REPLACEMENT TOTAL JOINT KNEE left knee degenerative joint disease 02/22/2024 12:15 PM EST [facility] Start: 02-22-2024 Subsequent hospital visit by physician 02/22/2024 12:15 PM EST Hospital Encounter [facility] [address] [place] [address] Carleen Lala, DO [address] [place] [address] [facility] Start: 02-22-2024 End: 02-22-2024 Patient encounter procedure 02/22/2024 9:30 AM EST Procedure Visit [facility] Carleen Lala, DO [address] [place] [address] [facility] Start: 01-26-2024 End: 01-26-2024 Patient encounter procedure 01/26/2024 9:15 AM EDT Office Visit [facility] [address] [place] [phone] Rosa Toscano, [employer] [address] [place] [address] Left knee pain, unspecified chronicity; Primary osteoarthritis of left knee [facility] Comment on above: Left knee pain, unsp ecified chronicity; Primary osteoarthritis of left knee Start: 12-18-2023 Influenza vaccination [facility] Start: 12-13-2023 End: 12-12-2024 Hemoglobin A1c/Hemoglobin.total in Blood Hemoglobin A1c Lab Routine Abnormal glucose Expected: 12/13/2023 (Approximate), Expires: 12/12/2024 [facility] Work Phone: Comment on above: Expected: 12/13/2023 (Approximate), Expires: 12/12/2024 Start: 12-13-2023 End: 12-13-2023 Patient encounter procedure 12/13/2023 10:15 AM EDT Office Visit [facility] [address] [facility] [address] [place] [address] Carleen Lala, [address] [facility] [address] [place] [address] Left knee pain, unspecified chronicity (Primary Dx); Primary osteoarthritis of left knee; S/P medial meniscus repair of left knee [facility] Comment on above: Left knee pain, unsp ecified chronicity (Primary Dx); Primary osteoarthritis of left knee; S/P medial meniscus repair of left knee Start: 06-29-2023 End: 06-29-2023 Admission to same day surgery center 06/29/2023 8:00 AM EDT - 06/29/2023 9:00 AM EDT Surgery [facility] [address] [place] [address] Carleen Lala, [address] [facility] [address] [place] [address] ARTHROSCOPIC MENISCECTOMY KNEE [[id number] (CPT )] [facility] Comment on above: ARTHROSCOPIC MENISCE CTOMY KNEE [[id number] (CPT )] Start: 06-29-2023 End: 06-29-2023 Arthrs kne surg w/meniscectomy med/lat w/shvg ARTHROSCOPIC MENISCECTOMY KNEE left knee meniscal tear 06/29/2023 8:00 AM EDT [facility] Start: 06-29-2023 Subsequent hospital visit by physician 06/29/2023 8:00 AM EDT Hospital Encounter [facility] [address] [place] [id number] Carleen Lala DO [address] [facility] [address] [place] [address] [facility] Start: 2014 Administration of varicella zoster vaccine Zoster (Shingles) Vaccine (1 of 2) [facility] Start: 2004 Screening for malign ant neoplasm of breast Mammogram [facility] Start: 1994 Screening for malign ant neoplasm of cervix [facility] Start: 1985 Screening for malign ant neoplasm of cervix Pap Smear [facility] Start: 07-09-1983 DTaP,Tdap and Td Vaccines (1 - Tdap) DTaP,Tdap and Td Vaccines (1 - Tdap) [facility] Start: 1982 Adult BMI Follow Up Plan Adult BMI Follow Up Plan [facility] Start: 1982 Diabetic foot examination Diabetic Foot Exam [facility] Start: 1976 Depression Screening Depression Scre ening [facility] Start: 1964 Glaucoma screening Diabetic Op hthalmology Exam [facility] Start: 1964 Screening for malign ant neoplasm of colon [facility] Start: 1964 Urine screening for protein Urine Microalbumin [facility] Immunizations Immunization Date Immunization Notes Care Provider Fa [facility] 02-01-2023 influenza virus vaccine, unspecified formulation Bautista CRISTINA [facility] 02-19-2022 Moderna Bivalent Booster Vaccination Rosa Toscano NP Work Phone: [facility] 02-19-2022 SARS-CoV-2 (COVID-19 ) [id number] Bautista CRISTINA [facility] 09-03-2021 SARS-CoV-2 mRNA (fwhjmixotyk-lmql-qnwqa se) vaccine Bautista CRISTINA [facility] 02-06-2021 SARS-CoV-2 (COVID-19 ) mRNA BNT-162b2 vax Bautista CRISTINA [facility] 01-07-2021 influenza virus vaccine, unspecified formulation Rosa Toscano NP Work Phone: [facility] 05-24-2020 SARS-CoV-2 (COVID-19 ) mRNA BNT-162b2 vax Bautista CRISTINA [facility] Comment on above: Result Comment: 2023: [id number] 05-03-2020 SARS-CoV-2 (COVID-19 ) mRNA BNT-162b2 geno CRISTINA [facility] Comment on above: Result Comment: 2023: [id number] 01-16-2020 Influenza, injectabl e, [place] Canine Kidney, preservative free, quadrivalent Rosa Harinder [employer] Work Phone: [facility] 01-23-2019 influenza, injectabl e, quadrivalent, preservative free Rosa Harinder [employer]ER Work Phone: [facility] Payers Date Payer Category Payer Private Health Insurance [employer] [id number] 2018 Commercial Managed C are - PPO [employer] [id number] 2018 Unknown 1964 Unknown [id number] 840.1.713751.3.579.2. 593 1964 Unknown [id number] 2.16.840.1.070475.3.579.2. 593 1964 Unknown [id number] 2.16.840.1.655917.3.579.2. 593 1964 Unknown [id number] 2.16.840.1.503159.3.579.2. 593 1964 Unknown [id number] 2.16840.1.553541.3.579.2. 593 1964 Unknown [id number] 2.16.840.1.427313.3.579.2. 196 1964 Unknown [id number] 2.16840.1.014665.3.579.2. 196 1964 Unknown [id number] 2.16840.1.726690.3.579.2. 727 1964 Unknown [id number] 2.16840.1.564091.3.579.2. 727 1964 Unknown [id number] 2.16840.1.916615.3.579.2. 1286 1964 Unknown [id number] 2.16840.1.710869.3.579.2. 1286 1964 Unknown [id number] 2.16840.1.262283.3.579.2. 1286 1964 Unknown [id number] 2.16840.1.749666.3.579.2. 1286 1964 Unknown [id number] 2.16840.1.253471.3.579.2. 1286 1964 Unknown [id number] 2.16840.1.286146.3.579.2. 1286 1964 Unknown [id number] 2.16840.1.505402.3.579.2. 1286 1964 Unknown [id number] 2.16840.1.449860.3.579.2. 1286 1964 Unknown [id number] 2.16.840.1.990057.3.579.2. 1286 1964 Unknown [id number] 2.16.840.1.187183.3.579.2. 128 1964 Unknown [id number] 2.16.840.1.948040.3.579.2. 1285 1964 Unknown [id number] 2.16.840.1.993590.3.579.2. 1258 1964 Unknown [id number] 2.16.840.1.930964.3.579.2. 1258 1964 Unknown [id number] 2.16840.1.188972.3.579.2. 1258 1964 Unknown [id number] 2.16840.1.850951.3.579.2. 1258 1964 Unknown [id number] 2.16840.1.329698.3.579.2. 1258 1964 Unknown [id number] 2.16840.1.295748.3.579.2. 1258 1964 Unknown [id number] 2.16840.1.759719.3.579.2. 1258 1964 Unknown [id number] 2.16.840.1.642825.3.579.2. 1258 1964 Unknown [id number] 2.16840.1.666109.3.579.2. 1258 1964 Unknown [id number] 2.16840.1.500594.3.579.2. 1258 1964 Unknown [id number] 2.16.840.1.231609.3.579.2. 1258 1964 Unknown [id number] 2.16.840.1.527825.3.579.2. 1258 1964 Unknown [id number] 2.16.840.1.533020.3.579.2. 1258 1964 Unknown [id number] 2.16.840.1.583781.3.579.2. 1258 1964 Unknown [id number] 2.16.840.1.123867.3.579.2. 1258 1964 Unknown [id number] 2.16.840.1.949974.3.579.2. 1258 1964 Unknown [id number] 2.16.840.1.743577.3.579.2. 1258 1964 Unknown [id number] 2.16.840.1.810548.3.579.2. 1258 1964 Unknown [id number] 2.16.840.1.390723.3.579.2. 1258 1964 Unknown [id number] 2.16.840.1.118301.3.579.2. 1258 1964 Unknown [id number] 2.16840.1.274144.3.579.2. 1258 1964 Unknown [id number] 2.16840.1.311242.3.579.2. 1258 1964 Unknown [id number] 2.16.840.1.117276.3.579.2. 1258 1964 Unknown [id number] 2.16.840.1.528408.3.579.2. 1258 1964 Unknown [id number] 2.16.840.1.644492.3.579.2. 1258 1964 Unknown [id number] 2.16.840.1.789377.3.579.2. 1258 1964 Unknown [id number] 2.16.840.1.848239.3.579.2. 1258 1964 Unknown [id number] 2.16.840.1.619854.3.579.2. 1258 1964 Unknown [id number] 2.16.840.1.538582.3.579.2. 1258 1964 Unknown [id number] 2.16.840.1.346060.3.579.2. 1259 1964 Unknown [id number] 2.16.840.1.448034.3.579.2. 1259 1959 Unknown [id number] Social History Date Type Detail Facility Start: 10-11-2022 End: 05-04-2023 Tobacco smoking status Never smoked tobacco (finding) [facility] Tobacco smoking status Never [facility] Start: 10-03-2019 End: 04-05-2024 Sex Assigned At Female Ricky Hammond [facility] Start: 10-11-2022 End: 10-14-2022 Tobacco use and exposure Smokeless tobacco non-user [facility] Start: 06-15-2023 End: 04-05-2024 Alcohol intake Lifetime non-drinker (finding) [facility] Start: 10-03-2019 End: 04-05-2024 History of Social function [facility] How often to you hav e a drink containing alcohol? Never [facility] Start: 1965 Sex Assigned At Not on file P [facility] Start: 11-21-2014 Sex Female (finding) [facility] Medical Equipment Procedure Code Equipment Code Equipment Origin al Text Equipment Identifier Dates Gft Bn Dmnr Fbr 15ml Biologic - [id number] - [id number] Start: 10-17-2019 Aleksandr Spnl 40mm 5. 5mm Hex End - Sna - [id number] Start: 10-17-2019 Scr Bn 45mm 5.5m m Pa Spne Vrst - Sna - [id number] Start: 10-17-2019 [place] [employer] [facility] Oblique [id number] Start: 10-17-2019 Start: 07-07-2023 Gft Bn Dmnr Fbr 30ml Biologics - [id number] - [id number] Start: 10-17-2019 Sutureloc Menisc al Root Repair Kit [id number] Start: 06-29-2023 Scr Set Spne Vrs t Gry - Sna - [id number] Start: 10-17-2019 Scr Bn 40mm 6.5m m Pa Spne [facility] - [id number] Start: 10-17-2019 Scr Bn 50mm 6.5m m Pa Spne [facility] - [id number] Start: 10-17-2019 Goals Date Patient Goal Desired Activity /State Personal health goal Comment on above: Formatting of this n ote might be different from the original. Evaluation of progress towards goal: Safe dc transition from hospital to home with family member. Functional Status Date Assessment Result Facility 05-04-2023 Functional Status N/A [facility] Clinical Notes 05-04-2023 to 05-01-2024 Jr. Blake Duenas, DO - 05/01/2024 11:00 AM Gwendolyn Toscano, [employer] - 04/05/2024 2:15 PM Smita Painting, PT - 03/27/2024 12:30 PM Smita Painting, PT - 03/14/2024 11:00 AM EST Note Date & Type Note Facility 05-01-2024 History of Presen t illness Narrative Images from the original note were not included. HISTORY OF PRESENT ILLNESS: EST PT Isa Neal is an 58 y.o. @ female. EST PT WITH ROSA/DR LALA- HANNA RT KNEE LAST A1C 6.3% ON 02/01/24. S/P LT TKA 02/22/[address] LALA XRAY RT KNEE TODAY EPIC 05/01/24 XRAY RT KNEE 02/15/23 [facility]; GENICULAR BLOCK 04/04/23 (INSURANCE WILL NOT PAY FOR ABLATION) RT KNEE SCOPE 10/27/22 DR LALA CORTISONE INJ 02/16/24 ANTERIOR AND MEDIAL KNEE PAIN AND GETTING WORSE. DESCRIBES SHARP. INCREASED PAIN WITH PROLONGED STANDING/WALKING. ADMITS SWELLING. DENIES INSTABILITY. DENIES STIFFNESS. TAKING NABUMETONE BID. TRIED KNEE SLEEVE-NOT RELIEF. WILL RTW 05/12/24 S/P LT TKA. ALLERGIES: Allergies Allergen Reactions Iodinated Contrast Media Iodine Unknown Shellfish Codeine Unknown and Rash HOME MEDICATIONS: Current Outpatient Medications Medication Instructions aspirin 81 MG EC tablet Every 24 hours atorvastatin (LIPITOR) 80 mg, Oral, Daily RT Bydureon BCise 2 mg, Subcutaneous, Weekly calcium carbonate 600 mg, Oral, Daily, 600 ca and 800 international units vitamin d cholecalciferol (VITAMIN D-3) 5,000 Units, Oral, Daily Choline Fenofibrate (fenofibric acid) [address] capsule 1 capsule, Oral, Daily colesevelam (WELCHOL) 1,875 mg, Oral, 2 times daily with meals, Take with meal(s) and a liquid. cyclobenzaprine (FLEXERIL) 5 mg, Oral, Nightly, 5 mg in the am and 10 mg at HS DULoxetine (Cymbalta) [address] capsule 1 capsule, Every 24 hours ferrous sulfate 325 mg, Oral, Daily with breakfast FreeStyle lancets FREESTYLE LITE test strip Every 24 hours glimepiride (Amaryl) 2 MG tablet TAKE 1 TABLET BY MOUTH EVERY DAY WITH BREAKFAST OR THE FIRST MAIL MEAL OF THE DAY Jardiance 25 MG TAKE 1 TABLET BY MOUTH EVERY DAY FOR 30 DAYS levothyroxine (SYNTHROID, LEVOXYL) 125 mcg, Oral, Daily liothyronine (CYTOMEL) 5 mcg, Oral, Daily, 8 tabs daily metFORMIN (GLUCOPHAGE) 500 mg, Oral, 2 times daily with meals metoprolol tartrate (LOPRESSOR) 50 mg, Oral, 2 times daily Multiple Vitamin (Multi Vitamin) tablet Every 24 hours nabumetone (RELAFEN) 1,000 mg, Oral, 2 times daily niacin (Niaspan) 1000 MG ER tablet niacin ER 1,000 mg, Oral, Nightly pantoprazole (PROTONIX) 40 mg, Oral, Daily RT pioglitazone (ACTOS) 45 mg, Oral, Daily PHYSICAL EXAM: Knee Musculoskeletal Exam Gait Antalgic: right Inspection Leg length disparity: no discrepancy Right Erythema: none Effusion: mild Edema: none Ecchymosis: none Deformity: none Alignment: varus Palpation Right Right knee palpation is unremarkable. Increased warmth: none Masses: none Crepitus: patellofemoral and medial Tenderness: present Medial joint line: moderate Patella: mild Range of Motion Right Right knee range of motion is normal and full. Active extension: 10 Passive extension: 5 Active flexion: 115 Passive flexion: 120 Strength Right Right knee strength is normal. Extension: 5/5. Extension is affected by pain. Flexion: 5/5. Flexion is affected by pain. Instability Right Instability signs: none - stable Anterior drawer: normal Neurovascular Right Right knee neurovascular exam is normal. Pulses - PT: normal Posterior tibial: 2+ Capillary refill: warm and well-perfused Special Signs Right Right knee special signs are normal. Patellar apprehension: none General Constitutional: appears stated age Labored breathing: no Psychiatric: normal mood and affect Neurological: alert Skin: intact Lymphadenopathy: none Vitals: There is no height or weight on file to calculate BMI. Tobacco Use: Low Risk (04/05/2024) Patient History Smoking Tobacco Use: Never Smokeless Tobacco Use: Never Passive Exposure: Not on file Alcohol Use: Not At Risk (10/03/2019) Received from [employer] [facility], [employer] [facility] AUDIT[facility] Frequency of Alcohol Consumption: Never Average Number of Drinks: Not on file Frequency of Binge Drinking: Not on file IMAGING: Procedures No orders of the defined types were placed in this encounter. ASSESSMENT: ICD-10-CM 1. Arthritis of right knee M17.11 2. Chronic pain of right knee M25.561 G89.29 PLAN: We have discussed both surgical and nonsurgical treatment options and the risks and benefits associated with both the patient This requesting to wait for 6 months, probably replacing her right knee in the summer. See her back in 3 months and possibly schedule her then for her total knee arthroplasty on the right. Questions answered in laymen terms at the bedside. The diagnosis, home exercise plan and any ongoing restrictions/ recommendations reviewed. If unable to be reached in office, I recommend evaluation at nearest Emergency Room if any symptoms worsened or new symptoms develop for requiring urgent evaluation. documented in this encounter [facility] 04-05-2024 History of Presen t illness Narrative Images from the original note were not included. Chief Complaint Patient presents with Left Knee - Follow-up HISTORY OF PRESENT ILLNESS: Isa Neal is an 58 y.o. @ female. (EST PT) S/P LT TKA 02/22/24 (6 WKS 1 DAY) - DR DAI RUIZ TODAY EPIC 04/05/24 WALKING WELL UNASSISTED. SORENESS ANTERIOR AND LATERAL. TAKING TYL PRN. USING ICE. ADMITS OCCAS CLICKING LATERAL. DENIES GIVING OUT. HAD LAST OP PT APPT TUESDAY, DOING HEP. DOES NOT WAKE AT HS. NO LONGER TAKING ASA. STATES KNEE IS BETTER THAN IT WAS BEFORE SX. ALLERGIES: Allergies Allergen Reactions Iodinated Contrast Media Iodine Unknown Shellfish Codeine Unknown and Rash HOME MEDICATIONS: Current Outpatient Medications Medication Instructions aspirin 81 MG EC tablet Every 24 hours atorvastatin (LIPITOR) 80 mg, Oral, Daily RT Bydureon BCise 2 mg, Subcutaneous, Weekly calcium carbonate 600 mg, Oral, Daily, 600 ca and 800 international units vitamin d cholecalciferol (VITAMIN D-3) 5,000 Units, Oral, Daily Choline Fenofibrate (fenofibric acid) [address] capsule 1 capsule, Oral, Daily colesevelam (WELCHOL) 1,875 mg, Oral, 2 times daily with meals, Take with meal(s) and a liquid. cyclobenzaprine (FLEXERIL) 5 mg, Oral, Nightly, 5 mg in the am and 10 mg at HS DULoxetine (Cymbalta) [address] capsule 1 capsule, Every 24 hours ferrous sulfate 325 mg, Oral, Daily with breakfast FreeStyle lancets FREESTYLE LITE test strip Every 24 hours glimepiride (Amaryl) 2 MG tablet TAKE 1 TABLET BY MOUTH EVERY DAY WITH BREAKFAST OR THE FIRST MAIL MEAL OF THE DAY Jardiance 25 MG TAKE 1 TABLET BY MOUTH EVERY DAY FOR 30 DAYS levothyroxine (SYNTHROID, LEVOXYL) 125 mcg, Oral, Daily liothyronine (CYTOMEL) 5 mcg, Oral, Daily, 8 tabs daily metFORMIN (GLUCOPHAGE) 500 mg, Oral, 2 times daily with meals metoprolol tartrate (LOPRESSOR) 50 mg, Oral, 2 times daily Multiple Vitamin (Multi Vitamin) tablet Every 24 hours nabumetone (RELAFEN) 1,000 mg, Oral, 2 times daily niacin (Niaspan) 1000 MG ER tablet niacin ER 1,000 mg, Oral, Nightly pantoprazole (PROTONIX) 40 mg, Oral, Daily RT pioglitazone (ACTOS) 45 mg, Oral, Daily REVIEW OF SYSTEMS: General: Denies fever, fatigue or weight loss Skin: Denies rash, sores or skin changes Eyes: Denies visual disturbance or pain GI: Denies indigestion or abdominal pain Neuro: Denies numbness or tingling, denies new onset paralysis Musculoskeletal: ( see note) PHYSICAL EXAM: Left Knee Exam Left knee exam is normal. Muscle Strength The patient has normal left knee strength. Range of Motion Extension: 0 Flexion: 100 (tightness on terminal flexion) Tests Varus: negative Valgus: negative Other Erythema: absent Scars: present (Well healing, no erythema) Sensation: normal Pulse: present Swelling: mild Effusion: no effusion (consistent with surgery) present Comments: Operative lower extremity was noted to be neurovascularly intact. Patient was able to motor feet, toes and ankles in all anatomic planes bilaterally with 5 out of 5 strength. Operative knee's patellar tracking was optimal and quad/ham strength was 5 out of 5 to operative lower extremity. There was no varus valgus, anterior-posterior, or rotatory instability noted to the operative knee. Swelling was well controlled, patella was not ballotable and compartments were soft to the operative lower extremity. Dorsalis pedis and posterior tibial pulses were present and equal bilaterally. There was no evidence of infection or ascending lymphangitis to operative lower extremity. Sensation to light touch was intact to all dermatomes to bilateral lower extremities. Negative Homans and negative Liu were noted bilaterally to lower extremities. Incision was healing without evidence of infection Vitals: There is no height or weight on file to calculate BMI. IMAGING: XR knee 1 or 2 views left Imaging Result: 04/05/2024: Standing AP and LAT of left knee showed surgical position and alignment of prosthetic components without evidence of loosening or wear to the femoral, tibial, or patellar components. The alignment appeared to be anatomic. There was no evidence of accelerated or asymmetric wear to the patellar button or tibial tray. There was no evidence of fracture and/or dislocation. Impression: Stable LT total knee replacement. Rosa Toscano GLUE SIZE MACHINE OPERATOR-BIOSTATISTICS TEACHER ASSESSMENT: ICD-10-CM 1. S/P total knee arthroplasty, left Z96.652 2. Primary osteoarthritis of left knee M17.12 XR knee 1 or 2 views left Procedures PLAN: Patient states that she is doing well with improved pain and ROM. She has finished PT and working on HEP. I reviewed xray with patient which showed stable LT TKA. She will follow up in 6 weeks for RCK. I discussed with the patient the general recommendation for the use of prophylactic antibiotics prior to dental work after joint replacement. I advised the patient that the use of prophylactic antibiotics for dental work is a controversial topic. I currently have recommended that prophylactic antibiotics be used postop and I did advise the patient that the guidelines and recommendations may change on this in the future. Questions answered in laymen terms at the bedside. The diagnosis, home exercise plan and any ongoing restrictions/ recommendations reviewed. If unable to be reached in office, I recommend evaluation at nearest Emergency Room if any symptoms worsened or new symptoms develop for requiring urgent evaluation. Rosa Toscano GLUE SIZE MACHINE OPERATOR-BIOSTATISTICS TEACHER documented in this encounter [facility] 03-27-2024 History of Presen t illness Narrative Physical Therapy Physical Therapy Treatment Visit Patient Name: Isa Neal Today's Date: 03/27/2024 Current Problem: s/p left TKA with pain and difficulty walking. Date of Surgery: 02/22/2024 with one night stay. Current deficits: Difficulty with all mobility secondary to recent left TKA and pain. Encounter Diagnoses Name Primary? Acute postoperative pain of left knee Yes Chronic pain of right knee Status post left knee replacement Visit Number 12 ( 5 visits in home) Timed Code Treatment: 53 Minutes: Total Treatment Time: 53 Minutes Time In: 12:00 PM Time out: 12:53 PM Precautions: WBAT left LE; left TKA protocol. Pain Management: Prior level of function: Ambulation: antalgic gait pattern on left LE. Assistive devices: FWW, cane ADL and IADL: Independent. Home Environment: Pt lives with her mother at her mother's home with 6-7 steps to enter with HR. Has bed on first floor. Employment: RN Objective General Visit Information: Passive ROM: Left knee 3 to 93 degrees. Joint play: hypomobile. Manual muscle testing: Left knee flexion/extension: 3/5. Palpation: Minimal warmth upon palpation, consistent with post-operative conditions. Surgical incision intact sterile strips with AB dressing with no drainage. Special tests: Negative Germania Sign. Functional Mobility: Bed Mobility: mod indep Sit to Stand: mod indep Stair Negotiation: supervision Ambulation: Patient is ambulating with mild antalgic type pattern with FWW, reciprocal gait pattern; good heel to toe gait pattern; mod indep Pt ambulated approx 200' x 2 with slow zenon. Limited knee flexion during swing phase. Tinetti Gait and Balance Assessment: Sitting balance: Steady, safe = 1. Rises from chair: needs assistance= 2. Attempts to rise: needs assistance= 1. Immediate standing balance (first 5 seconds): Steady but uses walker or other support = 1. Standing balance: Steady but uses walker or other support = 1. Nudged: Staggers, grabs, catches self = 1. Eyes closed: Steady = 1. Turning 360 degrees: Discontinuous steps = 1 , Unsteady (grabs, staggers) = 1. Sitting down: Uses arms or not a smooth motion = 1. Balance Score: 03/03. Indication of gait: No hesitancy = 1. Step of length and height: Step through=1 Foot clearance: L foot clears floor = 1 , R foot clears floor = 1. Step symmetry: Right and left step length equal = 1. Step continuity: continuity between steps = 1. Path: Mild/moderate deviation or uses w/ aid = 1. Trunk: No sway but flex knees or back or uses arms for stability = 1. Walking time: Heels together = 1. Gait score: 12/28. Total Score = Balance + Gait /28. Tinetti tool score: moderate SUBJECTIVE: pt. Reports knee just feels stiff. Pt. Goal is to return to work the first of the year. Pain: 2/10. Physical Education Intervention Manual Therapy: ( 10 minutes) Delivered manual ther to left knee Patellar mobs, retrograde massage , scar mobilization, PROM into flexion and extension to improve mobility, decrease edema and scar tissue Therapeutic Exercise: (27 minutes supervised) Pt completed left LE open and closed chain exercises, focusing on ROM an LE strength, functional mobility and gait, per ex grid; Nustep (8 minutes unsupervised) seat set to 22, level 3 hills Gait Training: Gait training this date with str cane with patient demonstrating good two point gait pattern; duration with no signs of LOB. Therapeutic Activity:(16 minutes supervised ) Pt performed functional activity focusing on returning pt independent with transfers, stairs functional activity and return pt to prior condition Neuro Re-duction: ( PRN) Moderate cues to improve quad activation, requiring verbal and tactile cues. Fair follow through. Assessment & Plan Assessment Pt has completed 11 PT sessions ( 5 in home) post Left TKA performed on 02/22/2024. 4 +weeks P.O amb with no AD, mild antalgic. L knee mild edema, incision. Mild lag with SLR, 3+/5 quad strength. Pt rates pain 2-6/10 depending on activity. Pt tolerated session well with good effort throughout session. Reports difficulty with stairs at home, worked on reciprocal pattern and joel step overs this date. Good tolerance to ther ex. PROM in supine demos 0-125 degree knee ROM. Continue to progress appropriately 12-18 follow with Padmaja Crain Impairments: abnormal gait, abnormal or restricted ROM, impaired balance, impaired physical strength, pain with function and weight-bearing intolerance Barriers to therapy: Increased pain, edema,bruising and knee weakness. Prognosis: good LEFS: Goals Short Term Goals Goal 1 : Patient will be independent with HEP with good compliance and independence. Goal 2 : Patient will demonstrate 10-90 degrees of passive range of motion of left knee flexion. Goal 3 : Patient will ambulate >6 minutes modified independently with wheeled walker with good reciprocal gait pattern. Goal 4 : Patient will demonstrate all sit< >stand transfers and supine< >sit bed mobility, modified independent with no cues for proper sequencing. Goal 5 : Patient will ascend/descend 6-7 steps with AD with supervision, step to gait pattern. Right Of Way Manager Goals Goal 1 : Patient will demonstrate 0-110 degrees of active left knee flexion in order to improve indpendence with ambulation up and down steps. MET Goal 2 : Patient will demonstrate 4+/5 or better right knee strength in order to safely return to activities of interest. NOT MET Goal 3 : Patient will ambulate community distances on even and uneven surfaces, independently with no AD, normalized gait pattern and < 1/10 report of pain in left knee. NOT MET Goal 4 : Pt will ascend/descend 6-7 steps with railing with reciprical gait pattern independently. MET Goal 5 : Patient will demonstrate good static and dynamic standing balance for >15 mintues without LOB or increase in knee pain. NOT MET Goal 6 : Pt will improve Tinetti Balance test to 28 to indicate no fall risk. NOT MET Plan Planned modality interventions: cryotherapy Planned therapy interventions: bed mobility training, dressing changes, functional ROM exercises, gait training, home exercise program, manual therapy, neuromuscular re-education, soft tissue mobilization, strengthening, stretching, therapeutic activities and transfer training Frequency: 3x/week. Duration in weeks: 6 (04/06/24) Treatment plan discussed with: patient Plan details: Educated to continue icing and elevating. Pt making steady progress. documented in this encounter [facility] 03-14-2024 History of Presen t illness Narrative Physical Therapy Physical Therapy Daily Visit Patient Name: Isa Neal Today's Date: 03/14/2024 Current Problem: s/p left TKA with pain and difficulty walking. Date of Surgery: 02/22/2024 with one night stay. Current deficits: Difficulty with all mobility secondary to recent left TKA and pain. Encounter Diagnoses Name Primary? Primary osteoarthritis of left knee Yes Acute postoperative pain of left knee Visit Number 9 ( 5 visits in home) Timed Code Treatment: 53 Minutes: Total Treatment Minutes: 55 Minutes Time In: 1100 Time out: 1155 Precautions: WBAT left LE; left TKA protocol. Pain Management: Prior level of function: Ambulation: antalgic gait pattern on left LE. Assistive devices: FWW, cane ADL and IADL: Independent. Home Environment: Pt lives with her mother at her mother's home with 6-7 steps to enter with HR. Has bed on first floor. Employment: RN Objective General Visit Information: Passive ROM: Left knee 3 to 93 degrees. Joint play: hypomobile. Manual muscle testing: Left knee flexion/extension: 3/5. Palpation: Minimal warmth upon palpation, consistent with post-operative conditions. Surgical incision intact sterile strips with AB dressing with no drainage. Special tests: Negative Germania Sign. Functional Mobility: Bed Mobility: mod indep Sit to Stand: mod indep Stair Negotiation: supervision Ambulation: Patient is ambulating with mild antalgic type pattern with FWW, reciprocal gait pattern; good heel to toe gait pattern; mod indep Pt ambulated approx 200' x 2 with slow zenon. Limited knee flexion during swing phase. Tinetti Gait and Balance Assessment: Sitting balance: Steady, safe = 1. Rises from chair: needs assistance= 2. Attempts to rise: needs assistance= 1. Immediate standing balance (first 5 seconds): Steady but uses walker or other support = 1. Standing balance: Steady but uses walker or other support = 1. Nudged: Staggers, grabs, catches self = 1. Eyes closed: Steady = 1. Turning 360 degrees: Discontinuous steps = 1 , Unsteady (grabs, staggers) = 1. Sitting down: Uses arms or not a smooth motion = 1. Balance Score: 03/03. Indication of gait: No hesitancy = 1. Step of length and height: Step through=1 Foot clearance: L foot clears floor = 1 , R foot clears floor = 1. Step symmetry: Right and left step length equal = 1. Step continuity: continuity between steps = 1. Path: Mild/moderate deviation or uses w/ aid = 1. Trunk: No sway but flex knees or back or uses arms for stability = 1. Walking time: Heels together = 1. Gait score: 12/28. Total Score = Balance + Gait . Tinetti tool score: moderate SUBJECTIVE: Taking Tylenol PRN. No adverse effects to last session. Pain: 2/10. Physical Education Intervention Manual Therapy: (10 minutes) Delivered manual ther to left knee Patellar mobs, retrograde massage , scar mobilization, PROM into flexion and extension to improve mobility, decrease edema and scar tissue Therapeutic Exercise : (28 minutes supervised) Pt completed left LE open and closed chain exercises, focusing on ROM an LE strength, functional mobility and gait, per ex grid; Nustep (0 minutes unsupervised) Gait Training: Gait training this date with str cane with patient demonstrating good two point gait pattern; duration with no signs of LOB. Therapeutic Activity:(15 minutes supervised ) Worked on proper sit to stand, and stair training leading with involved leg. NeuroReduction: ( PRN) Moderate cues to improve quad activation, requiring verbal and tactile cues. Fair follow through. Assessment & Plan Assessment Pt has completed 8 PT sessions ( 5 in home) post Left TKA performed on 02/22/2024. 16 days P.O amb with SPC, mild antalgic. L knee mild edema, incision intact with steri strips. Mild lag with SLR. Pt rates pain 2-6/10 depending on activity. Pt tolerated session well with good effort throughout session. Good tolerance to ther ex. 0-125 degree knee ROM. Continue to progress appropriately Impairments: abnormal gait, abnormal or restricted ROM, impaired balance, impaired physical strength, pain with function and weight-bearing intolerance Barriers to therapy: Increased pain, edema,bruising and knee weakness. Prognosis: good LEFS: 18/80 Goals Short Term Goals Goal 1 : Patient will be independent with HEP with good compliance and independence. Goal 2 : Patient will demonstrate 10-90 degrees of passive range of motion of left knee flexion. Goal 3 : Patient will ambulate >6 minutes modified independently with wheeled walker with good reciprocal gait pattern. Goal 4 : Patient will demonstrate all sit< >stand transfers and supine< >sit bed mobility, modified independent with no cues for proper sequencing. Goal 5 : Patient will ascend/descend 6-7 steps with AD with supervision, step to gait pattern. Right Of Way Manager Goals Goal 1 : Patient will demonstrate 0-110 degrees of active left knee flexion in order to improve indpendence with ambulation up and down steps. Goal 2 : Patient will demonstrate 4+/5 or better right knee strength in order to safely return to activities of interest. Goal 3 : Patient will ambulate community distances on even and uneven surfaces, independently with no AD, normalized gait pattern and < 1/10 report of pain in leftt knee. Goal 4 : Pt will ascend/descend 6-7 steps with railing with reciprical gait pattern independently. Goal 5 : Patient will demonstrate good static and dynamic standing balance for >15 mintues without LOB or increase in knee pain. Goal 6 : Pt will improve Tinetti Balance test to 28/28 to indicate no fall risk. Plan Planned modality interventions: cryotherapy Planned therapy interventions: bed mobility training, dressing changes, functional ROM exercises, gait training, home exercise program, manual therapy, neuromuscular re-education, soft tissue mobilization, strengthening, stretching, therapeutic activities and transfer training Frequency: 3x/week. Duration in weeks: 6 (04/06/24) Treatment plan discussed with: patient Plan details: Educated to continue icing and elevating. Pt making steady progress. documented in this encounter [facility] 03-06-2024 History of Presen t illness Narrative Images from the original note were not included. HISTORY OF PRESENT ILLNESS: Isa Neal is an 58 y.o. @ female. Follow up LT TKA wound check LT knee: 2 weeks s/p LT TKA (02/22/24) Walking well with cane. Taking TYL with relief. Pain 2/10 at rest, goes to 7/10 with walking. Incision healing well, denies drainage. Steri strips intact. Taking ASA 325, taking Fe. Wearing ADIEL hose. Using ice. Starting OP PT tomorrow. She notes less pain now than before surgery. MEDICATION: Current Outpatient Medications on File Prior to Visit Medication Sig Dispense Refill aspirin 81 MG EC tablet 1 (one) time each day at the same time. atorvastatin (Lipitor) 80 MG tablet Take 80 mg by mouth in the morning. Bydureon BCise 2 MG/0.85ML pen Inject 2 mg under the skin once a week. calcium carbonate 1500 (600 Ca) MG tablet Take 600 mg by mouth in the morning. 600 ca and 800 international units vitamin d. cholecalciferol (Vitamin D-3) 125 MCG (5000 UT) capsule Take 5,000 Units by mouth in the morning. Choline Fenofibrate (fenofibric acid) [address] capsule Take 1 capsule by mouth in the morning. colesevelam (Welchol) 625 MG tablet Take 1,875 mg by mouth in the morning and 1,875 mg in the evening. Take with meals. Take with meal(s) and a liquid.. cyclobenzaprine (Flexeril) 5 MG tablet Take 5 mg by mouth at bedtime. 5 mg in the am and 10 mg at HS DULoxetine (Cymbalta) [address] capsule 1 capsule 1 (one) time each day at the same time. ferrous sulfate 325 (65 Fe) MG tablet Take 325 mg by mouth in the morning. Take with meals. FreeStyle lancets FREESTYLE LITE test strip 1 (one) time each day at the same time glimepiride (Amaryl) 2 MG tablet TAKE 1 TABLET BY MOUTH EVERY DAY WITH BREAKFAST OR THE FIRST MAIL MEAL OF THE DAY Jardiance 25 MG TAKE 1 TABLET BY MOUTH EVERY DAY FOR 30 DAYS levothyroxine (Synthroid, Levoxyl) 125 MCG tablet Take 125 mcg by mouth in the morning. liothyronine (Cytomel) 5 MCG tablet Take 5 mcg by mouth in the morning. 8 tabs daily. metFORMIN (Glucophage) 500 MG tablet Take 500 mg by mouth in the morning and 500 mg in the evening. Take with meals. metoprolol tartrate (Lopressor) 50 MG tablet Take 50 mg by mouth in the morning and 50 mg before bedtime. Multiple Vitamin (Multi Vitamin) tablet 1 (one) time each day at the same time. nabumetone (Relafen) 500 MG tablet Take 1,000 mg by mouth in the morning and 1,000 mg before bedtime. niacin (Niaspan) 1000 MG ER tablet niacin ER 1000 MG ER tablet Take 1,000 mg by mouth at bedtime. [] oxyCODONE (Roxicodone) 5 MG immediate release tablet Take 1 tablet (5 mg) by mouth every 6 (six) hours if needed for moderate pain for up to 5 days 20 tablet 0 pantoprazole (ProtoNix) 40 MG EC tablet Take 40 mg by mouth in the morning. pioglitazone (Actos) 45 MG tablet Take 45 mg by mouth in the morning. No current facility-administered medications on file prior to visit. MEDICAL HISTORY: Past Medical History: Diagnosis Date Ankle sprain 12/19/22 Hernandez's cyst 08/2022 DDD (degenerative disc disease), lumbar lumbosacral spine Diabetes mellitus (CMS/HCC) GERD (gastroesophageal reflux disease) Hypercholesteremia (CMS/HCC) Hypertension (CMS/HCC) Hypothyroid (CMS/HCC) Lumbosacral disc disease 2019 Plantar fasciitis, bilateral Tear of meniscus of knee 08/2022 and 04/2023 Ulnar shaft fracture left ALLERGIES: Allergies Allergen Reactions Iodinated Contrast Media Iodine Unknown Shellfish Codeine Unknown and Rash VITALS: Visit Vitals Smoking Status Never PHYSICAL EXAM: Ortho Exam LEFT KNEE ROM 0-90 Incision healing nicely, steri strips intact Ambulating with cane ASSESSMENT: ICD-10-CM 1. S/P total knee arthroplasty, left Z96.652 PLAN: Discussed restrictions and expectations. Follow up in one month with xrays, any issues/concerns follow up sooner. Dr. Lala obtained history and examined the patient, I am acting as scribe for Dr. Lala/quan I did advise the patient that I am leaving my current practice to practice in another state but my colleagues are willing to see her if she has any problems or concerns or if she desires a referral to another cost control specialist we would be happy to make referral, she states she would like to continue her care here. Sima Lala D.O. documented in this encounter [facility] 03-05-2024 History of Presen t illness Narrative Physical Therapy Physical Therapy Daily Visit Patient Name: Isa Neal Today's Date: 03/05/2024 Subjective Current Problem: s/p left TKA with pain and difficulty walking. Pt is being seen today for follow up visit for s/p left TKA. Date of Surgery: 02/22/2024 with one night stay. Current deficits: Difficulty with all mobility secondary to recent left TKA and pain. Visit Number 5 Time In: 10:00 am; Time out: 10:25 am Total time: 25 minutes [id number] TherEx x 15 minutes [id number] gait training x 10 minutes Precautions: WBAT left LE; left TKA protocol. Pain Management: The patient is complaining of pain located in the left knee and thigh region. Pain rating 4/10. The pain is improved by ice and Tylenol. The pain is aggravated by activity. The pain is described as aching, throbbing and stiffness. Prior level of function: Ambulation: antalgic gait pattern on left LE. Assistive devices: FWW, cane ADL and IADL: Independent. Home Environment: Pt lives with her mother at her mother's home with 6-7 steps to enter with HR. Has bed on first floor. Employment: RN Objective General Visit Information: Passive ROM: Left knee 3 to 93 degrees. Joint play: hypomobile. Manual muscle testing: Left knee flexion/extension: 3/5. Palpation: Minimal warmth upon palpation, consistent with post-operative conditions. Surgical incision intact sterile strips with AB dressing with no drainage. Special tests: Negative Germania Sign. Functional Mobility: Bed Mobility: mod indep Sit to Stand: mod indep Stair Negotiation: supervision Ambulation: Patient is ambulating with mild antalgic type pattern with FWW, reciprocal gait pattern; good heel to toe gait pattern; mod indep Pt ambulated approx 200' x 2 with slow zenon. Limited knee flexion during swing phase. Tinetti Gait and Balance Assessment: Sitting balance: Steady, safe = 1. Rises from chair: needs assistance= 2. Attempts to rise: needs assistance= 1. Immediate standing balance (first 5 seconds): Steady but uses walker or other support = 1. Standing balance: Steady but uses walker or other support = 1. Nudged: Staggers, grabs, catches self = 1. Eyes closed: Steady = 1. Turning 360 degrees: Discontinuous steps = 1 , Unsteady (grabs, staggers) = 1. Sitting down: Uses arms or not a smooth motion = 1. Balance Score: 03/03. Indication of gait: No hesitancy = 1. Step of length and height: Step through=1 Foot clearance: L foot clears floor = 1 , R foot clears floor = 1. Step symmetry: Right and left step length equal = 1. Step continuity: continuity between steps = 1. Path: Mild/moderate deviation or uses w/ aid = 1. Trunk: No sway but flex knees or back or uses arms for stability = 1. Walking time: Heels together = 1. Gait score: 12/28. Total Score = Balance + Gait . Tinetti tool score: moderate Physical Education Intervention Physical Therapy Education: Pt was educated on the importance of cyrotherapy and elevation. Reviewed proper pillow placement under LE to maintain good extension. Stressed the importance also of ambulating at at least every other hour for 2-5 minutes duration and completion of HEP 2x/day. Patient was educated with regards to signs and symptoms to monitor with respect to blood clots and infection. Therapeutic Exercise : Pt completed left LE supine exercises of glut sets, quad sets, heel slides and ankle pumps (hourly) at this time, 10x; AAROM heel slides. Pt completed 10x of knee flexion with gentle flexion stretch with plastic bag; 2 sets of 5 reps of LAQ. Completed standing heel raises and left marches; added hip abduction, ham curls and standing SLR, mini squats and standing SLR. Completed static knee extension on chair x 5 minute tolerance. HEP updated and instructed. Gait Training: Gait training this date with str cane with patient demonstrating good two point gait pattern; 5 minute duration with no signs of LOB. Therapeutic Activity: Worked on proper sit to stand, stand to sit transfers this date from bedside with good carryover with mod indep. Assessment & Plan Assessment Impairments: abnormal gait, abnormal or restricted ROM, impaired balance, impaired physical strength, pain with function and weight-bearing intolerance Barriers to therapy: Increased pain, edema,bruising and knee weakness. Prognosis: good Goals Short Term Goals Goal 1 : Patient will be independent with HEP with good compliance and independence. Goal 2 : Patient will demonstrate 10-90 degrees of passive range of motion of left knee flexion. Goal 3 : Patient will ambulate >6 minutes modified independently with wheeled walker with good reciprocal gait pattern. Goal 4 : Patient will demonstrate all sit< >stand transfers and supine< >sit bed mobility, modified independent with no cues for proper sequencing. Goal 5 : Patient will ascend/descend 6-7 steps with AD with supervision, step to gait pattern. Right Of Way Manager Goals Goal 1 : Patient will demonstrate 0-110 degrees of active left knee flexion in order to improve indpendence with ambulation up and down steps. Goal 2 : Patient will demonstrate 4+/5 or better right knee strength in order to safely return to activities of interest. Goal 3 : Patient will ambulate community distances on even and uneven surfaces, independently with no AD, normalized gait pattern and < 1/10 report of pain in leftt knee. Goal 4 : Pt will ascend/descend 6-7 steps with railing with reciprical gait pattern independently. Goal 5 : Patient will demonstrate good static and dynamic standing balance for >15 mintues without LOB or increase in knee pain. Goal 6 : Pt will improve Tinetti Balance test to 28/28 to indicate no fall risk. Plan Planned modality interventions: cryotherapy Planned therapy interventions: bed mobility training, dressing changes, functional ROM exercises, gait training, home exercise program, manual therapy, neuromuscular re-education, soft tissue mobilization, strengthening, stretching, therapeutic activities and transfer training Frequency: 3x/week. Duration in weeks: 6 Treatment plan discussed with: patient Plan details: Educated to continue icing and elevating. Pt making steady progress. Pt will transition to [facility] this week. documented in this encounter [facility] 03-02-2024 History of Presen t illness Narrative Physical Therapy Physical Therapy Daily Visit Patient Name: Isa Neal Today's Date: 03/02/2024 Subjective Current Problem: s/p left TKA with pain and difficulty walking. Pt is being seen today for follow up visit for s/p left TKA. Date of Surgery: 02/22/2024 with one night stay. Current deficits: Difficulty with all mobility secondary to recent left TKA and pain. Visit Number 4 Time In: 10:00 am; Time out: 10:38 am Total time: 38 minutes [id number] TherEx x 30 minutes [id number] gait training x 8 minutes Precautions: WBAT left LE; left TKA protocol. Pain Management: The patient is complaining of pain located in the left knee and thigh region. Pain rating 5/10. The pain is improved by ice and medication 1 every 6 of Shireen and Tylenol. The pain is aggravated by activity. The pain is described as aching, throbbing and stiffness. Prior level of function: Ambulation: antalgic gait pattern on left LE. Assistive devices: FWW, cane ADL and IADL: Independent. Home Environment: Pt lives with her mother at her mother's home with 6-7 steps to enter with HR. 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 Joint play: hypomobile. Manual muscle testing: Left knee flexion/extension: 3/5. Palpation: Minimal warmth upon palpation, consistent with post-operative conditions. Surgical incision intact sterile strips with AB dressing with no drainage. Special tests: Negative Germania Sign. Functional Mobility: Bed Mobility: SBA Sit to Stand: SBA Stair Negotiation: SBA Ambulation: Patient is ambulating with mild antalgic type pattern with FWW, step to gait pattern; good heel to toe gait pattern; SBA. Pt ambulated approx 200' x 2 with slow zenon. Limited knee flexion during swing phase. Tinetti Gait and Balance Assessment: Sitting balance: Steady, safe = 1. Rises from chair: needs assistance= 2. Attempts to rise: needs assistance= 1. Immediate standing balance (first 5 seconds): Steady but uses walker or other support = 1. Standing balance: Steady but uses walker or other support = 1. Nudged: Staggers, grabs, catches self = 1. Eyes closed: Steady = 1. Turning 360 degrees: Discontinuous steps = 1 , Unsteady (grabs, staggers) = 1. Sitting down: Uses arms or not a smooth motion = 1. Balance Score: 11/16. Indication of gait: No hesitancy = 1. Step of length and height: Step to = 0. Foot clearance: L foot clears floor = 1 , R foot clears floor = 1. Step symmetry: Right and left step length no equal = 0. Step continuity: Stopping or discontinuity between steps = 0. Path: Mild/moderate deviation or uses w/ aid = 1. Trunk: No sway but flex knees or back or uses arms for stability = 1. Walking time: Heels apart = 0. Gait score: 08/27. Total Score = Balance + Gait 03/15. Tinetti tool score: < = 18 High. Physical Education Intervention Physical Therapy Education: Pt was educated on the importance of cyrotherapy and elevation. Reviewed proper pillow placement under LE to maintain good extension. Stressed the importance also of ambulating at at least every other hour for 2-5 minutes duration and completion of HEP 2x/day. Patient was educated with regards to signs and symptoms to monitor with respect to blood clots and infection. Therapeutic Exercise : Pt completed left LE supine exercises of glut sets, quad sets, heel slides and ankle pumps (hourly) at this time, 10x; AAROM heel slides. Pt completed 10x of knee flexion with gentle flexion stretch with plastic bag; added 3 sets of 3 reps of LAQ. Completed standing heel raises and left marches; added hip abduction, ham curls and standing SLR, mini squats and standing SLR. HEP updated and instructed. Gait Training: Gait training this date with FWW with instruction for reciprocal gait pattern for left affective LE with increase cues for heel to toe pattern and knee flexion during swing. Therapeutic Activity: Worked on proper sit to stand, stand to sit transfers this date from bedside with good carryover with SBA with verbal cues for proper sequencing and hand placement. 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 Assessment & Plan Assessment Impairments: abnormal gait, abnormal or restricted ROM, impaired balance, impaired physical strength, pain with function and weight-bearing intolerance Barriers to therapy: Increased pain, edema,bruising and knee weakness. Prognosis: good Goals Short Term Goals Goal 1 : Patient will be independent with HEP with good compliance and independence. Goal 2 : Patient will demonstrate 10-90 degrees of passive range of motion of left knee flexion. Goal 3 : Patient will ambulate >6 minutes modified independently with wheeled walker with good reciprocal gait pattern. Goal 4 : Patient will demonstrate all sit< >stand transfers and supine< >sit bed mobility, modified independent with no cues for proper sequencing. Goal 5 : Patient will ascend/descend 6-7 steps with AD with supervision, step to gait pattern. Snf Goals Goal 1 : Patient will demonstrate 0-110 degrees of active left knee flexion in order to improve indpendence with ambulation up and down steps. Goal 2 : Patient will demonstrate 4+/5 or better right knee strength in order to safely return to activities of interest. Goal 3 : Patient will ambulate community distances on even and uneven surfaces, independently with no AD, normalized gait pattern and < 1/10 report of pain in leftt knee. Goal 4 : Pt will ascend/descend 6-7 steps with railing with reciprical gait pattern independently. Goal 5 : Patient will demonstrate good static and dynamic standing balance for >15 mintues without LOB or increase in knee pain. Goal 6 : Pt will improve Tinetti Balance test to 28/28 to indicate no fall risk. Plan Planned modality interventions: cryotherapy Planned therapy interventions: bed mobility training, dressing changes, functional ROM exercises, gait training, home exercise program, manual therapy, neuromuscular re-education, soft tissue mobilization, strengthening, stretching, therapeutic activities and transfer training Frequency: 3x/week. Duration in weeks: 6 Treatment plan discussed with: patient Plan details: Educated to continue icing and elevating. Pt making steady progress. documented in this encounter [facility] 02-29-2024 History of Presen t illness Narrative Physical Therapy Physical Therapy Daily Visit Patient Name: Isa Neal Today's Date: 02/29/2024 Subjective Current Problem: s/p left TKA with pain and difficulty walking. Pt is being seen today for follow up visit for s/p left TKA. Date of Surgery: 02/22/2024 with one night stay. Current deficits: Difficulty with all mobility secondary to recent left TKA and pain. Visit Number 3 Time In: 10:00 am; Time out: 11:30 am Total time: 30 minutes [id number] TherEx x 20 minutes [id number] gait training x 10 minutes Precautions: WBAT left LE; left TKA protocol. Pain Management: The patient is complaining of pain located in the left knee and thigh region. Pain rating 5/10. The pain is improved by ice and medication 1 every 6 of Shireen and Tylenol. The pain is aggravated by activity. The pain is described as aching, throbbing and stiffness. Prior level of function: Ambulation: antalgic gait pattern on left LE. Assistive devices: FWW, cane ADL and IADL: Independent. Home Environment: Pt lives with her mother at her mother's home with 6-7 steps to enter with HR. 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 Joint play: hypomobile. Manual muscle testing: Left knee flexion/extension: 3-/5. Palpation: Minimal warmth upon palpation, consistent with post-operative conditions. Surgical incision intact sterile strips with AB dressing with no drainage. Special tests: Negative Germania Sign. Functional Mobility: Bed Mobility: SBA Sit to Stand: SBA Stair Negotiation: SBA Ambulation: Patient is ambulating with mild antalgic type pattern with FWW, step to gait pattern; good heel to toe gait pattern; SBA. Pt ambulated approx 200' x 2 with slow zenon. Limited knee flexion during swing phase. Tinetti Gait and Balance Assessment: Sitting balance: Steady, safe = 1. Rises from chair: needs assistance= 0. Attempts to rise: needs assistance= 0. Immediate standing balance (first 5 seconds): Steady but uses walker or other support = 1. Standing balance: Steady but uses walker or other support = 1. Nudged: Staggers, grabs, catches self = 1. Eyes closed: Steady = 1. Turning 360 degrees: Discontinuous steps = 0 , Unsteady (grabs, staggers) = 0. Sitting down: Uses arms or not a smooth motion = 1. Balance Score: 16. Indication of gait: No hesitancy = 1. Step of length and height: Step to = 0. Foot clearance: L foot clears floor = 1 , R foot clears floor = 1. Step symmetry: Right and left step length no equal = 0. Step continuity: Stopping or discontinuity between steps = 0. Path: Mild/moderate deviation or uses w/ aid = 1. Trunk: No sway but flex knees or back or uses arms for stability = 1. Walking time: Heels apart = 0. Gait score: 08/27. Total Score = Balance + Gait 03/15. Tinetti tool score: < = 18 High. Physical Education Intervention Physical Therapy Education: Pt was educated on the importance of cyrotherapy and elevation. Reviewed proper pillow placement under LE to maintain good extension. Stressed the importance also of ambulating at at least every other hour for 2-5 minutes duration and completion of HEP 2x/day. Patient was educated with regards to signs and symptoms to monitor with respect to blood clots and infection. Therapeutic Exercise : Pt completed left LE supine exercises of glut sets, quad sets, heel slides and ankle pumps (hourly) at this time, 10x; AAROM heel slides. Pt completed 10x of knee flexion with gentle flexion stretch with plastic bag; added 3 sets of 3 reps of LAQ. Completed standing heel raises and left marches; added hip abduction, ham curls and standing SLR; added mini squats and standing SLR. HEP issued and instructed. Gait Training: Gait training this date with FWW with instruction for reciprocal gait pattern for left affective LE with increase cues for heel to toe pattern and knee flexion during swing. Worked on stair climbing this date with walker and HR; SBA only with verbal cues for proper sequencing. Therapeutic Activity: Worked on proper sit to stand, stand to sit transfers this date from bedside with good carryover with SBA with verbal cues for proper sequencing and hand placement. 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 Assessment & Plan Assessment Impairments: abnormal gait, abnormal or restricted ROM, impaired balance, impaired physical strength, pain with function and weight-bearing intolerance Barriers to therapy: Increased pain, edema,bruising and knee weakness. Prognosis: good Goals Short Term Goals Goal 1 : Patient will be independent with HEP with good compliance and independence. Goal 2 : Patient will demonstrate 10-90 degrees of passive range of motion of left knee flexion. Goal 3 : Patient will ambulate >6 minutes modified independently with wheeled walker with good reciprocal gait pattern. Goal 4 : Patient will demonstrate all sit< >stand transfers and supine< >sit bed mobility, modified independent with no cues for proper sequencing. Goal 5 : Patient will ascend/descend 6-7 steps with AD with supervision, step to gait pattern. Right Of Way Manager Goals Goal 1 : Patient will demonstrate 0-110 degrees of active left knee flexion in order to improve indpendence with ambulation up and down steps. Goal 2 : Patient will demonstrate 4+/5 or better right knee strength in order to safely return to activities of interest. Goal 3 : Patient will ambulate community distances on even and uneven surfaces, independently with no AD, normalized gait pattern and < 1/10 report of pain in leftt knee. Goal 4 : Pt will ascend/descend 6-7 steps with railing with reciprical gait pattern independently. Goal 5 : Patient will demonstrate good static and dynamic standing balance for >15 mintues without LOB or increase in knee pain. Goal 6 : Pt will improve Tinetti Balance test to 28/28 to indicate no fall risk. Plan Planned modality interventions: cryotherapy Planned therapy interventions: bed mobility training, dressing changes, functional ROM exercises, gait training, home exercise program, manual therapy, neuromuscular re-education, soft tissue mobilization, strengthening, stretching, therapeutic activities and transfer training Frequency: 3x/week. Duration in weeks: 6 Treatment plan discussed with: patient Plan details: Educated to continue icing and elevating. Pt making steady progress. documented in this encounter [facility] 02-28-2024 History of Presen t illness Narrative Images from the original note were not included. HISTORY OF PRESENT ILLNESS: Isa Neal is an 58 y.o. @ female. Follow up LT TKA LT knee: 1st po 6 days s/p LT TKA (02/22/24) Walking well with walker. Taking oxy and TYL with relief. Pain 4/10 at rest, goes to 7-8/10 with walking. Incision healing well, devin intact, denies drainage. Taking ASA 325, taking Fe. Wearing ADIEL hose. Using ice. Getting home PT. She notes less pain now than before surgery. MEDICATION: Current Outpatient Medications on File Prior to Visit Medication Sig Dispense Refill aspirin 81 MG EC tablet 1 (one) time each day at the same time. atorvastatin (Lipitor) 80 MG tablet Take 80 mg by mouth in the morning. Bydureon BCise 2 MG/0.85ML pen Inject 2 mg under the skin once a week. calcium carbonate 1500 (600 Ca) MG tablet Take 600 mg by mouth in the morning. 600 ca and 800 international units vitamin d. cholecalciferol (Vitamin D-3) 125 MCG (5000 UT) capsule Take 5,000 Units by mouth in the morning. Choline Fenofibrate (fenofibric acid) [address] capsule Take 1 capsule by mouth in the morning. colesevelam (Welchol) 625 MG tablet Take 1,875 mg by mouth in the morning and 1,875 mg in the evening. Take with meals. Take with meal(s) and a liquid.. cyclobenzaprine (Flexeril) 5 MG tablet Take 5 mg by mouth at bedtime. 5 mg in the am and 10 mg at HS DULoxetine (Cymbalta) [address] capsule 1 capsule 1 (one) time each day at the same time. ferrous sulfate 325 (65 Fe) MG tablet Take 325 mg by mouth in the morning. Take with meals. FreeStyle lancets FREESTYLE LITE test strip 1 (one) time each day at the same time glimepiride (Amaryl) 2 MG tablet TAKE 1 TABLET BY MOUTH EVERY DAY WITH BREAKFAST OR THE FIRST MAIL MEAL OF THE DAY Jardiance 25 MG TAKE 1 TABLET BY MOUTH EVERY DAY FOR 30 DAYS levothyroxine (Synthroid, Levoxyl) 125 MCG tablet Take 125 mcg by mouth in the morning. liothyronine (Cytomel) 5 MCG tablet Take 5 mcg by mouth in the morning. 8 tabs daily. metFORMIN (Glucophage) 500 MG tablet Take 500 mg by mouth in the morning and 500 mg in the evening. Take with meals. metoprolol tartrate (Lopressor) 50 MG tablet Take 50 mg by mouth in the morning and 50 mg before bedtime. Multiple Vitamin (Multi Vitamin) tablet 1 (one) time each day at the same time. nabumetone (Relafen) 500 MG tablet Take 1,000 mg by mouth in the morning and 1,000 mg before bedtime. niacin (Niaspan) 1000 MG ER tablet niacin ER 1000 MG ER tablet Take 1,000 mg by mouth at bedtime. oxyCODONE (Roxicodone) 5 MG immediate release tablet Take 1 tablet (5 mg) by mouth every 6 (six) hours if needed for moderate pain for up to 5 days 20 tablet 0 pantoprazole (ProtoNix) 40 MG EC tablet Take 40 mg by mouth in the morning. pioglitazone (Actos) 45 MG tablet Take 45 mg by mouth in the morning. [DISCONTINUED] oxyCODONE (Roxicodone) 5 MG immediate release tablet Take 1 tablet (5 mg) by mouth every 6 (six) hours if needed for moderate pain for up to 5 days 20 tablet 0 No current facility-administered medications on file prior to visit. MEDICAL HISTORY: Past Medical History: Diagnosis Date Ankle sprain 12/19/22 Hernandez's cyst 08/2022 DDD (degenerative disc disease), lumbar lumbosacral spine Diabetes mellitus (CMS/HCC) GERD (gastroesophageal reflux disease) Hypercholesteremia (CMS/HCC) Hypertension (CMS/HCC) Hypothyroid (CMS/HCC) Lumbosacral disc disease 2019 Plantar fasciitis, bilateral Tear of meniscus of knee 08/2022 and 04/2023 Ulnar shaft fracture left ALLERGIES: Allergies Allergen Reactions Iodinated Contrast Media Iodine Unknown Shellfish Codeine Unknown and Rash VITALS: Visit Vitals Smoking Status Never PHYSICAL EXAM: Ortho Exam LEFT KNEE Incision healing nicely, devin removed and steri strips applied Ambulating with walker ASSESSMENT: ICD-10-CM 1. S/P total knee arthroplasty, left Z96.652 PLAN: I reviewed surgical findings with patient and discussed plan of care. Recommend that patient continues with ADIEL orr and ASA until 4 weeks post op. Encouraged patient to continue working on ROM and ambulation. Reminded to hold off non-urgent dental appts for 6 months post op- and abx prophylaxis following: Questions answered in laymen terms at the bedside. The diagnosis, home exercise plan and any ongoing restrictions/ recommendations reviewed. If unable to be reached in office, I recommend evaluation at nearest Emergency Room if any symptoms worsened or new symptoms develop for requiring urgent evaluation. Follow up in one week for wound check, any issues/concerns follow up sooner. Dr. Lala obtained history and examined the patient, I am acting as scribe for Dr. Lala/quan Lala D.O. documented in this encounter [facility] 02-27-2024 History of Presen t illness Narrative Physical Therapy Physical Therapy Daily Visit Patient Name: Isa Neal Today's Date: 02/27/2024 Subjective Current Problem: s/p left TKA with pain and difficulty walking. Pt is being seen today for follow up visit for s/p left TKA. Date of Surgery: 02/22/2024 with one night stay. Current deficits: Difficulty with all mobility secondary to recent left TKA and pain. Visit Number 2 Time In: 11:00 am; Time out: 11:40 am Total time: 40 minutes [id number] TherEx x 30 minutes [id number] gait training x 10 minutes Precautions: WBAT left LE; left TKA protocol. Pain Management: The patient is complaining of pain located in the left knee and thigh region. Pain rating 5/10. The pain is improved by ice and medication 1 every 6 of Shireen and Tylenol. The pain is aggravated by activity. The pain is described as aching, throbbing and stiffness. Prior level of function: Ambulation: antalgic gait pattern on left LE. Assistive devices: FWW, cane ADL and IADL: Independent. Home Environment: Pt lives with her mother at her mother's home with 6-7 steps to enter with HR. 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 Joint play: hypomobile. Manual muscle testing: Left knee flexion/extension: 3-/5. Palpation: Minimal warmth upon palpation, consistent with post-operative conditions. Surgical incision intact with AB dressing with no drainage; ecchymosis developing medial knee with mild edema. Special tests: Negative Germania Sign. Functional Mobility: Bed Mobility: CGA Sit to Stand: SBA Stair Negotiation: SBA Ambulation: Patient is ambulating with mild antalgic type pattern with FWW, step to gait pattern; good heel to toe gait pattern; SBA. Pt ambulated approx 60' x 2 with slow zenon. Limited knee flexion during swing phase. Tinetti Gait and Balance Assessment: Sitting balance: Steady, safe = 1. Rises from chair: needs assistance= 0. Attempts to rise: needs assistance= 0. Immediate standing balance (first 5 seconds): Steady but uses walker or other support = 1. Standing balance: Steady but uses walker or other support = 1. Nudged: Staggers, grabs, catches self = 1. Eyes closed: Steady = 1. Turning 360 degrees: Discontinuous steps = 0 , Unsteady (grabs, staggers) = 0. Sitting down: Uses arms or not a smooth motion = 1. Balance Score: 6/16. Indication of gait: No hesitancy = 1. Step of length and height: Step to = 0. Foot clearance: L foot clears floor = 1 , R foot clears floor = 1. Step symmetry: Right and left step length no equal = 0. Step continuity: Stopping or discontinuity between steps = 0. Path: Mild/moderate deviation or uses w/ aid = 1. Trunk: No sway but flex knees or back or uses arms for stability = 1. Walking time: Heels apart = 0. Gait score: 08/27. Total Score = Balance + Gait 03/15. Tinetti tool score: < = 18 High. Physical Education Intervention Physical Therapy Education: Pt was educated on the importance of cyrotherapy and elevation. Reviewed proper pillow placement under LE to maintain good extension. Stressed the importance also of ambulating at at least every other hour for 2-5 minutes duration and completion of HEP 2x/day. Patient was educated with regards to signs and symptoms to monitor with respect to blood clots and infection. Therapeutic Exercise : Pt completed left LE supine exercises of glut sets, quad sets, heel slides and ankle pumps (hourly) at this time, 10x; added AAROM heel slides. Pt completed 10x of knee flexion with gentle flexion stretch with plastic bag. Completed standing heel raises and left marches; added hip abduction, ham curls and standing SLR. HEP issued and instructed. Gait Training: Gait training this date with FWW with instruction for step to gait pattern for left affective LE with increase cues for heel to toe pattern and knee flexion during swing. Worked on stair climbing this date with walker and HR; SBA only with verbal cues for proper sequencing. Therapeutic Activity: Worked on proper sit to stand, stand to sit transfers this date from bedside with good carryover with SBA with verbal cues for proper sequencing and hand placement. 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 Assessment & Plan Assessment Impairments: abnormal gait, abnormal or restricted ROM, impaired balance, impaired physical strength, pain with function and weight-bearing intolerance Barriers to therapy: Increased pain, edema,bruising and knee weakness. Prognosis: good Goals Short Term Goals Goal 1 : Patient will be independent with HEP with good compliance and independence. Goal 2 : Patient will demonstrate 10-90 degrees of passive range of motion of left knee flexion. Goal 3 : Patient will ambulate >6 minutes modified independently with wheeled walker with good reciprocal gait pattern. Goal 4 : Patient will demonstrate all sit< >stand transfers and supine< >sit bed mobility, modified independent with no cues for proper sequencing. Goal 5 : Patient will ascend/descend 6-7 steps with AD with supervision, step to gait pattern. Snf Goals Goal 1 : Patient will demonstrate 0-110 degrees of active left knee flexion in order to improve indpendence with ambulation up and down steps. Goal 2 : Patient will demonstrate 4+/5 or better right knee strength in order to safely return to activities of interest. Goal 3 : Patient will ambulate community distances on even and uneven surfaces, independently with no AD, normalized gait pattern and < 1/10 report of pain in leftt knee. Goal 4 : Pt will ascend/descend 6-7 steps with railing with reciprical gait pattern independently. Goal 5 : Patient will demonstrate good static and dynamic standing balance for >15 mintues without LOB or increase in knee pain. Goal 6 : Pt will improve Tinetti Balance test to 28/28 to indicate no fall risk. Plan Planned modality interventions: cryotherapy Planned therapy interventions: bed mobility training, dressing changes, functional ROM exercises, gait training, home exercise program, manual therapy, neuromuscular re-education, soft tissue mobilization, strengthening, stretching, therapeutic activities and transfer training Frequency: 3x/week. Duration in weeks: 6 Treatment plan discussed with: patient Plan details: Educated to continue icing and elevating. Pt making steady progress. documented in this encounter [facility] 02-27-2024 Telephone encounter Note Post op pain rx. PDMP reviewed. LT TKA on 02/21 [facility] 02-27-2024 Miscellaneous Notes Post op pain rx. PDMP reviewed. LT TKA on 02/21 documented in this encounter [facility] 02-27-2024 History of Presen t illness Narrative [facility] Ortho 360 in home PT 3x/week or daily if needed - increase strength and ROM as tolerated - WBAT documented in this encounter [facility] 02-24-2024 History of Presen t illness Narrative Physical Therapy Physical Therapy Evaluation Patient Name: Isa Neal Today's Date: 02/25/2024 Subjective Current Problem: s/p left TKA with pain and difficulty walking. Pt is being seen today for initial evaluation for s/p left TKA. Date of Surgery: 01/31/2024 with one night stay. Current deficits: Difficulty with all mobility secondary to recent left TKA and pain. Visit Number 1. Time In: 11:00 am; Time out: 11:40 am Total time: 40 minutes 18571 PT Eval x 20 minutes [id number] TherEx x 10 minutes [id number] gait training x 10 minutes Precautions: WBAT left LE; left TKA protocol. Pain Management: The patient is complaining of pain located in the left knee and thigh region. Pain rating 8/10. The pain is improved by ice and medication 1 every 6 of Percocet and Tylenol. The pain is aggravated by activity. The pain is described as aching, throbbing and stiffness. Prior level of function: Ambulation: antalgic gait pattern on left LE. Assistive devices: FWW, cane ADL and IADL: Independent. Home Environment: Pt lives with her mother at her mother's home with 6-7 steps to enter with HR. Has bed on first floor. Employment: RN Objective General Visit Information: Passive ROM: Left knee 10 to 70 degrees. Joint play: hypomobile. Manual muscle testing: Left knee flexion/extension: 3-/5. Palpation: Minimal warmth upon palpation, consistent with post-operative conditions. Surgical incision intact with AB dressing with minimal bloody drainage; ecchymosis developing medial knee with mild edema. Special tests: Negative Germania Sign. Functional Mobility: Bed Mobility: CGA Sit to Stand: SBA Stair Negotiation: TBA Ambulation: Patient is ambulating with mild antalgic type pattern with FWW, step to gait pattern; good heel to toe gait pattern; SBA. Pt ambulated approx 60' x 2 with slow zenon. Limited knee flexion during swing phase. Tinetti Gait and Balance Assessment: Sitting balance: Steady, safe = 1. Rises from chair: needs assistance= 0. Attempts to rise: needs assistance= 0. Immediate standing balance (first 5 seconds): Steady but uses walker or other support = 1. Standing balance: Steady but uses walker or other support = 1. Nudged: Staggers, grabs, catches self = 1. Eyes closed: Steady = 1. Turning 360 degrees: Discontinuous steps = 0 , Unsteady (grabs, staggers) = 0. Sitting down: Uses arms or not a smooth motion = 1. Balance Score: 16. Indication of gait: No hesitancy = 1. Step of length and height: Step to = 0. Foot clearance: L foot clears floor = 1 , R foot clears floor = 1. Step symmetry: Right and left step length no equal = 0. Step continuity: Stopping or discontinuity between steps = 0. Path: Mild/moderate deviation or uses w/ aid = 1. Trunk: No sway but flex knees or back or uses arms for stability = 1. Walking time: Heels apart = 0. Gait score: 08/27. Total Score = Balance + Gait 03/15. Tinetti tool score: < = 18 High. Physical Education Intervention Physical Therapy Education: Pt was educated on the importance of cyrotherapy and elevation. Reviewed proper pillow placement under LE to maintain good extension. Stressed the importance also of ambulating at at least every other hour for 2-5 minutes duration and completion of HEP 2x/day. Patient was educated with regards to signs and symptoms to monitor with respect to blood clots and infection. Therapeutic Exercise : Pt completed left LE supine exercises of glut sets, quad sets, heel slides and ankle pumps (hourly) at this time, 10x. Pt completed 10x of knee flexion with gentle flexion stretch with plastic bag. Completed standing heel raises and left marches. HEP issued and instructed. Gait Training: Gait training this date with FWW with instruction for step to gait pattern for left affective LE with increase cues for heel to toe pattern and knee flexion during swing. Therapeutic Activity: Worked on proper sit to stand, stand to sit transfers this date from bedside with good carryover with SBA with verbal cues for proper sequencing and hand placement. Assessment & Plan Assessment Impairments: abnormal gait, abnormal or restricted ROM, impaired balance, impaired physical strength, pain with function and weight-bearing intolerance Barriers to therapy: Increased pain, edema,bruising and knee weakness. Prognosis: good Goals Short Term Goals Goal 1 : Patient will be independent with HEP with good compliance and independence. Goal 2 : Patient will demonstrate 10-90 degrees of passive range of motion of left knee flexion. Goal 3 : Patient will ambulate >6 minutes modified independently with wheeled walker with good reciprocal gait pattern. Goal 4 : Patient will demonstrate all sit< >stand transfers and supine< >sit bed mobility, modified independent with no cues for proper sequencing. Goal 5 : Patient will ascend/descend 6-7 steps with AD with supervision, step to gait pattern. Snf Goals Goal 1 : Patient will demonstrate 0-110 degrees of active left knee flexion in order to improve indpendence with ambulation up and down steps. Goal 2 : Patient will demonstrate 4+/5 or better right knee strength in order to safely return to activities of interest. Goal 3 : Patient will ambulate community distances on even and uneven surfaces, independently with no AD, normalized gait pattern and < 1/10 report of pain in leftt knee. Goal 4 : Pt will ascend/descend 6-7 steps with railing with reciprical gait pattern independently. Goal 5 : Patient will demonstrate good static and dynamic standing balance for >15 mintues without LOB or increase in knee pain. Goal 6 : Pt will improve Tinetti Balance test to 28/28 to indicate no fall risk. Plan Planned modality interventions: cryotherapy Planned therapy interventions: bed mobility training, dressing changes, functional ROM exercises, gait training, home exercise program, manual therapy, neuromuscular re-education, soft tissue mobilization, strengthening, stretching, therapeutic activities and transfer training Frequency: 3x/week. Duration in weeks: 6 Treatment plan discussed with: patient Plan details: Educated to continue icing and elevating. Pt will continues to benefit from PT interventions to improve overall strength, ROM and functional mobility to achieve PLOF. documented in this encounter [facility] 02-21-2024 Telephone encounter Note Post op pain rx. PDMP reviewed [facility] 02-21-2024 Miscellaneous Notes Post op pain rx. 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 We can make note for patient. Thank you! Patient called requesting a work note that states patient is still able to do her job while using a cane. Patient also has paperwork to be filled out for her job. I did let patient know she can bring the paper work in and drop it off to be filled out. Please advise [phone]. documented in this encounter [facility] 02-02-2024 Telephone encounter Note We can make note for patient. Thank you! [facility] Work Phone: 02-02-2024 Telephone encounter Note Patient called requesting a work note that states patient is still able to do her job while using a cane. Patient also has paperwork to be filled out for her job. I did let patient know she can bring the paper work in and drop it off to be filled out. Please advise [phone]. [facility] 02-01-2024 Instructions Silvia Mora RN - 02/01/2024 9:45 AM EDT Preoperative Education Checklist- Joints/Spine Surgery date: 02/22/24 Surgery time: 1215 p.m. Arrival time: 1015 a.m. Return between 02/12-02/21/24 to [facility], Mon-Fri 7 a.m.- 4 p.m. to have your last blood test drawn. 1. Bring a photo ID and your insurance card with you the day of surgery. You will check in at the main lobby of the [facility]- registration desk is straight ahead as soon as you walk in. Tell them you are here for surgery. 2. If you have a Living Will/Durable Power of Customer Service Teller for Health Care that is not on file here, please bring a copy the day of surgery. 3. Please shower/tub bath the night before surgery and use wipes as directed. Do not shower the morning of surgery- you will again use wipes when you arrive here at the hospital before getting into your surgical gown. Do not shave the area of your procedure for 2 days prior to your surgery. 4. NO powder, lotion, perfume/cologne, aftershave, make-up, deodorant, or hair products after you have bathed. 5. No nail barbadian/acrylic on at least one finger. If you are having a hand, wrist, foot, or leg surgery then ALL nail barbadian and artificial/acrylic nails MUST be removed from that hand or foot. 6. Avoid ALL Aspirin and non-steroidal anti-inflammatory drugs (Ibuprofen, Advil, Aleve, Excedrin, Meloxicam, Celebrex, fish/krill oil, etc.) for 7 days prior to surgery as instructed by your surgeon and/or prescribing doctor. Tylenol IS ALLOWED. If you are on Ticlid, Xarelto, Eliquis, Pradaxa, Plavix or Coumadin, please check with your prescribing doctor for instructions for when to stop them. 7. If you use an inhaler, continue to use it routinely. 8. Nothing to eat or drink (not even water, gum, mints, or hard candy!) AFTER midnight prior to your surgery. 7. Take only medications that you are instructed to on the morning of surgery with a TINY SIP OF WATER. 9. Choose a responsible adult that will be able to drive you home when you are discharged from your hospital stay for your surgery- no driving or operating any machinery for 24 hours after surgery. 10. When you dress for your appointment, please wear loose fitting clothing that is appropriate to accommodate your surgical area procedure. BRING WITH YOU ANY DEVICES YOU MAY NEED: ADIEL hose, ice machine, sling/swath, brace or special shoe, crutches, oversized sup-up or button up shirt, CPAP machine if staying overnight. 11. Do NOT wear jewelry, watches, or any piercings or metal for surgery. 12. Do NOT wear contact lenses for surgery- glasses are okay if needed. 13. The anesthesiologist will talk with you the day of surgery and will ask you to sign a Consent Form. 14. Refrain from smoking or any type of tobacco use for at least 8 hours or marijuana for 24 hours prior to arrival for your surgery. 15. If a GREEN BLOOD band is given to you, please bring it with you for the day of surgery. 16. Notify your surgeon if you develop any illness before your surgery. 17. If you are staying overnight, please DO NOT BRING your home medications with your. 18. If you have any questions prior to surgery, please call the Preadmission Testing office at [phone] Mon.-Fri. 7 a.m.-3 p.m. Leave a voicemail if needed. Pre-Surgery Instructions: Medication Instructions aspirin 81 mg Stop taking 14 days prior to procedure atorvastatin (LIPITOR) 80 mg [...] BCISE) 2 mg/0.85 mL auto-injector Stop taking 7 days prior to procedure ferrous sulfate 325 (65 FE) mg tablet Stop taking 0 days prior to procedure glimepiride (AMARYL) 2 mg tablet Stop taking 0 days prior to procedure JARDIANCE 10 mg tablet tablet Stop taking 3 days prior to procedure levothyroxine (SYNTHROID, LEVOTHROID) 125 MCG tablet Take morning of procedure liothyronine (CYTOMEL) 5 MCG tablet Take morning of procedure metFORMIN (GLUCOPHAGE) 500 mg tablet Stop taking 0 days prior to procedure metoprolol tartrate (LOPRESSOR) 50 mg tablet Take morning of procedure thuvgaac-znuu-PE-calcium &mins (THERAGRAN-M) 9 mg iron-400 mcg tablet Stop taking 0 days prior to procedure nabumetone (RELAFEN) 500 mg tablet Stop taking 14 days prior to procedure niacin (NIASPAN) 1000 mg CR tablet Stop taking 0 days prior to procedure pantoprazole (PROTONIX) 40 mg EC tablet Take morning of procedure pioglitazone (ACTOS) 45 mg tablet Stop taking 0 days prior to procedure What to Expect Following Your Surgery After surgery you will be in the recovery room for approximately 1 hour before you are moved to your room. Please let your family and visitors know this. You may be in a bed that has a trapeze overhead to assist you with movement while in bed. After surgery you will have a Davies catheter in place (it is usually removed the first day after surgery after your first round of physical therapy has been completed), foot pumps on for circulation and prevention of blood clots, an IV, and possibly a JET MECHANIC pump and/or a NERVE BLOCK (both used for pain control). We will have you rate your pain on a scale from 0-10, with 10 being the highest possible pain level. We will NOT be able to get rid of ALL of your pain. We strive to keep you comfortable in the 3-5 range on the pain scale. PLEASE let your nurse know if your pain starts to creep up above a level of 5. We use a combination of IV medications, oral medications, ice, and elevation according to the doctor s orders in order to help keep your pain at a tolerable level. The first 24 hours after surgery are very busy! The doctor orders certain routine medications that are to be given up to every 4 hours along with breathing treatments and vital signs being assessed every 4 through the first night of your surgery in order to make sure that you are progressing as expected after surgery. This often makes it hard to sleep well the first night, but it is necessary to make sure that we are providing you the best care possible. We try to coordinate this care with each department in order to help you get as much uninterrupted sleep as possible. We also have earplugs and eye masks available by request to promote and enhance your sleep time. While here, you may see one of our Hospitalist physicians if your family doctor does not round on patients at [facility] to see you while you are here after surgery. Your orthopedic doctor will be directing all of your care and your discharge, but sometimes they need to consult with primary care/hospitalists in order to better serve you. Having the Hospitalists see you while in the hospital allows your primary care doctor to have more time in their offices, and the hospitalists will be in communication with your primary care doctor with updates on your care. Once discharged from the hospital, you will see your regular primary care physician as directed. While in the hospital you will receive physical therapy from [facility] physical therapists who work in the hospital and they will start seeing you the morning after surgery. Therapy from your orthopedic doctor s office will begin seeing you once you are discharged from the hospital- they are not contracted to provide your treatment while you are in the hospital. You may have spoken with a materials planner/production planner at your orthopedic doctor s office, but you will still review your discharge plan with our materials planner/production planner from here at the hospital in order to make sure that you understand all of your options prior to going home or to a facility. How to Avoid an Infection after Your [...] with your doctor. documented in this encounter [facility] 02-01-2024 Miscellaneous Notes Preoperative Education Checklist- Joints/Spine Surgery date: 02/22/24 Surgery time: 1215 p.m. Arrival time: 1015 a.m. [facility]12-02[facility] a.m.- 4 p.m. to have your last blood test drawn. 1. Bring a photo ID and your insurance card with you the day of surgery. You will check in at the main lobby of the [facility]- registration desk is straight ahead as soon as you walk in. Tell them you are here for surgery. 2. If you have a Living Will/Durable Power of Customer Service Teller for Health Care that is not on file here, please bring a copy the day of surgery. 3. Please shower/tub bath the night before surgery and use wipes as directed. Do not shower the morning of surgery- you will again use wipes when you arrive here at the hospital before getting into your surgical gown. Do not shave the area of your procedure for 2 days prior to your surgery. 4. NO powder, lotion, perfume/cologne, aftershave, make-up, deodorant, or hair products after you have bathed. 5. No nail barbadian/acrylic on at least one finger. If you are having a hand, wrist, foot, or leg surgery then ALL nail barbadian and artificial/acrylic nails MUST be removed from that hand or foot. 6. Avoid ALL Aspirin and non-steroidal anti-inflammatory drugs (Ibuprofen, Advil, Aleve, Excedrin, Meloxicam, Celebrex, fish/krill oil, etc.) for 7 days prior to surgery as instructed by your surgeon and/or prescribing doctor. Tylenol IS ALLOWED. If you are on Ticlid, Xarelto, Eliquis, Pradaxa, Plavix or Coumadin, please check with your prescribing doctor for instructions for when to stop them. 7. If you use an inhaler, continue to use it routinely. 8. Nothing to eat or drink (not even water, gum, mints, or hard candy!) AFTER midnight prior to your surgery. 7. Take only medications that you are instructed to on the morning of surgery with a TINY SIP OF WATER. 9. Choose a responsible adult that will be able to drive you home when you are discharged from your hospital stay for your surgery- no driving or operating any machinery for 24 hours after surgery. 10. When you dress for your appointment, please wear loose fitting clothing that is appropriate to accommodate your surgical area procedure. BRING WITH YOU ANY DEVICES YOU MAY NEED: ADIEL hose, ice machine, sling/swath, brace or special shoe, crutches, oversized sup-up or button up shirt, CPAP machine if staying overnight. 11. Do NOT wear jewelry, watches, or any piercings or metal for surgery. 12. Do NOT wear contact lenses for surgery- glasses are okay if needed. 13. The anesthesiologist will talk with you the day of surgery and will ask you to sign a Consent Form. 14. Refrain from smoking or any type of tobacco use for at least 8 hours or marijuana for 24 hours prior to arrival for your surgery. 15. If a GREEN BLOOD band is given to you, please bring it with you for the day of surgery. 16. Notify your surgeon if you develop any illness before your surgery. 17. If you are staying overnight, please DO NOT BRING your home medications with your. 18. If you have any questions prior to surgery, please call the Preadmission Testing office at [phone] Mon.-Fri. 7 a.m.-3 p.m. Leave a voicemail if needed. Pre-Surgery Instructions: Medication Instructions aspirin 81 mg Stop taking 14 days prior to procedure atorvastatin (LIPITOR) 80 mg [...] BCISE) 2 mg/0.85 mL auto-injector Stop taking 7 days prior to procedure ferrous sulfate 325 (65 FE) mg tablet Stop taking 0 days prior to procedure glimepiride (AMARYL) 2 mg tablet Stop taking 0 days prior to procedure JARDIANCE 10 mg tablet tablet Stop taking 3 days prior to procedure levothyroxine (SYNTHROID, LEVOTHROID) 125 MCG tablet Take morning of procedure liothyronine (CYTOMEL) 5 MCG tablet Take morning of procedure metFORMIN (GLUCOPHAGE) 500 mg tablet Stop taking 0 days prior to procedure metoprolol tartrate (LOPRESSOR) 50 mg tablet Take morning of procedure yegcvfmy-jnbq-CG-calcium &mins (THERAGRAN-M) 9 mg iron-400 mcg tablet Stop taking 0 days prior to procedure nabumetone (RELAFEN) 500 mg tablet Stop taking 14 days prior to procedure niacin (NIASPAN) 1000 mg CR tablet Stop taking 0 days prior to procedure pantoprazole (PROTONIX) 40 mg EC tablet Take morning of procedure pioglitazone (ACTOS) 45 mg tablet Stop taking 0 days prior to procedure What to Expect Following Your Surgery After surgery you will be in the recovery room for approximately 1 hour before you are moved to your room. Please let your family and visitors know this. You may be in a bed that has a trapeze overhead to assist you with movement while in bed. After surgery you will have a Davies catheter in place (it is usually removed the first day after surgery after your first round of physical therapy has been completed), foot pumps on for circulation and prevention of blood clots, an IV, and possibly a JET MECHANIC pump and/or a NERVE BLOCK (both used for pain control). We will have you rate your pain on a scale from 0-10, with 10 being the highest possible pain level. We will NOT be able to get rid of ALL of your pain. We strive to keep you comfortable in the 3-5 range on the pain scale. PLEASE let your nurse know if your pain starts to creep up above a level of 5. We use a combination of IV medications, oral medications, ice, and elevation according to the doctor s orders in order to help keep your pain at a tolerable level. The first 24 hours after surgery are very busy! The doctor orders certain routine medications that are to be given up to every 4 hours along with breathing treatments and vital signs being assessed every 4 through the first night of your surgery in order to make sure that you are progressing as expected after surgery. This often makes it hard to sleep well the first night, but it is necessary to make sure that we are providing you the best care possible. We try to coordinate this care with each department in order to help you get as much uninterrupted sleep as possible. We also have earplugs and eye masks available by request to promote and enhance your sleep time. While here, you may see one of our Hospitalist physicians if your family doctor does not round on patients at [facility] to see you while you are here after surgery. Your orthopedic doctor will be directing all of your care and your discharge, but sometimes they need to consult with primary care/hospitalists in order to better serve you. Having the Hospitalists see you while in the hospital allows your primary care doctor to have more time in their offices, and the hospitalists will be in communication with your primary care doctor with updates on your care. Once discharged from the hospital, you will see your regular primary care physician as directed. While in the hospital you will receive physical therapy from [facility] physical therapists who work in the hospital and they will start seeing you the morning after surgery. Therapy from your orthopedic doctor s office will begin seeing you once you are discharged from the hospital- they are not contracted to provide your treatment while you are in the hospital. You may have spoken with a materials planner/production planner at your orthopedic doctor s office, but you will still review your discharge plan with our materials planner/production planner from here at the hospital in order to make sure that you understand all of your options prior to going home or to a facility. How to Avoid an Infection after Your [...] go swimming or use a hot tub (CyActiveuzzi), or perform activities where your incision is [...] to the follow-up appointment with your doctor. [facility] wipes and surgical instructions reviewed. Patient verbalized understanding. documented in this encounter [facility] CoSchedule [facility] 02-01-2024 Nurse Note Preoperative Education Checklist- Joints/Spine Surgery date: 02/22/24 Surgery time: 1215 p.m. Arrival time: 1015 a.m. Return between 02/12-02/21/24 to [facility], Mon-Fri 7 a.m.- 4 p.m. to have your last blood test drawn. 1. Bring a photo ID and your insurance card with you the day of surgery. You will check in at the main lobby of the [facility]- registration desk is straight ahead as soon as you walk in. Tell them you are here for surgery. 2. If you have a Living Will/Durable Power of Customer Service Teller for Health Care that is not on file here, please bring a copy the day of surgery. 3. Please shower/tub bath the night before surgery and use wipes as directed. Do not shower the morning of surgery- you will again use wipes when you arrive here at the hospital before getting into your surgical gown. Do not shave the area of your procedure for 2 days prior to your surgery. 4. NO powder, lotion, perfume/cologne, aftershave, make-up, deodorant, or hair products after you have bathed. 5. No nail barbadian/acrylic on at least one finger. If you are having a hand, wrist, foot, or leg surgery then ALL nail barbadian and artificial/acrylic nails MUST be removed from that hand or foot. 6. Avoid ALL Aspirin and non-steroidal anti-inflammatory drugs (Ibuprofen, Advil, Aleve, Excedrin, Meloxicam, Celebrex, fish/krill oil, etc.) for 7 days prior to surgery as instructed by your surgeon and/or prescribing doctor. Tylenol IS ALLOWED. If you are on Ticlid, Xarelto, Eliquis, Pradaxa, Plavix or Coumadin, please check with your prescribing doctor for instructions for when to stop them. 7. If you use an inhaler, continue to use it routinely. 8. Nothing to eat or drink (not even water, gum, mints, or hard candy!) AFTER midnight prior to your surgery. 7. Take only medications that you are instructed to on the morning of surgery with a TINY SIP OF WATER. 9. Choose a responsible adult that will be able to drive you home when you are discharged from your hospital stay for your surgery- no driving or operating any machinery for 24 hours after surgery. 10. When you dress for your appointment, please wear loose fitting clothing that is appropriate to accommodate your surgical area procedure. BRING WITH YOU ANY DEVICES YOU MAY NEED: ADIEL hose, ice machine, sling/swath, brace or special shoe, crutches, oversized sup-up or button up shirt, CPAP machine if staying overnight. 11. Do NOT wear jewelry, watches, or any piercings or metal for surgery. 12. Do NOT wear contact lenses for surgery- glasses are okay if needed. 13. The anesthesiologist will talk with you the day of surgery and will ask you to sign a Consent Form. 14. Refrain from smoking or any type of tobacco use for at least 8 hours or marijuana for 24 hours prior to arrival for your surgery. 15. If a GREEN BLOOD band is given to you, please bring it with you for the day of surgery. 16. Notify your surgeon if you develop any illness before your surgery. 17. If you are staying overnight, please DO NOT BRING your home medications with your. 18. If you have any questions prior to surgery, please call the Preadmission Testing office at [phone] Mon.-Fri. 7 a.m.-3 p.m. Leave a voicemail if needed. Pre-Surgery Instructions: Medication Instructions aspirin 81 mg Stop taking 14 days prior to procedure atorvastatin (LIPITOR) 80 mg [...] BCISE) 2 mg/0.85 mL auto-injector Stop taking 7 days prior to procedure ferrous sulfate 325 (65 FE) mg tablet Stop taking 0 days prior to procedure glimepiride (AMARYL) 2 mg tablet Stop taking 0 days prior to procedure JARDIANCE 10 mg tablet tablet Stop taking 3 days prior to procedure levothyroxine (SYNTHROID, LEVOTHROID) 125 MCG tablet Take morning of procedure liothyronine (CYTOMEL) 5 MCG tablet Take morning of procedure metFORMIN (GLUCOPHAGE) 500 mg tablet Stop taking 0 days prior to procedure metoprolol tartrate (LOPRESSOR) 50 mg tablet Take morning of procedure lzngxxcw-atcx-FC-calcium &mins (THERAGRAN-M) 9 mg iron-400 mcg tablet Stop taking 0 days prior to procedure nabumetone (RELAFEN) 500 mg tablet Stop taking 14 days prior to procedure niacin (NIASPAN) 1000 mg CR tablet Stop taking 0 days prior to procedure pantoprazole (PROTONIX) 40 mg EC tablet Take morning of procedure pioglitazone (ACTOS) 45 mg tablet Stop taking 0 days prior to procedure What to Expect Following Your Surgery After surgery you will be in the recovery room for approximately 1 hour before you are moved to your room. Please let your family and visitors know this. You may be in a bed that has a trapeze overhead to assist you with movement while in bed. After surgery you will have a Davies catheter in place (it is usually removed the first day after surgery after your first round of physical therapy has been completed), foot pumps on for circulation and prevention of blood clots, an IV, and possibly a JET MECHANIC pump and/or a NERVE BLOCK (both used for pain control). We will have you rate your pain on a scale from 0-10, with 10 being the highest possible pain level. We will NOT be able to get rid of ALL of your pain. We strive to keep you comfortable in the 3-5 range on the pain scale. PLEASE let your nurse know if your pain starts to creep up above a level of 5. We use a combination of IV medications, oral medications, ice, and elevation according to the doctor s orders in order to help keep your pain at a tolerable level. The first 24 hours after surgery are very busy! The doctor orders certain routine medications that are to be given up to every 4 hours along with breathing treatments and vital signs being assessed every 4 through the first night of your surgery in order to make sure that you are progressing as expected after surgery. This often makes it hard to sleep well the first night, but it is necessary to make sure that we are providing you the best care possible. We try to coordinate this care with each department in order to help you get as much uninterrupted sleep as possible. We also have earplugs and eye masks available by request to promote and enhance your sleep time. While here, you may see one of our Hospitalist physicians if your family doctor does not round on patients at [facility] to see you while you are here after surgery. Your orthopedic doctor will be directing all of your care and your discharge, but sometimes they need to consult with primary care/hospitalists in order to better serve you. Having the Hospitalists see you while in the hospital allows your primary care doctor to have more time in their offices, and the hospitalists will be in communication with your primary care doctor with updates on your care. Once discharged from the hospital, you will see your regular primary care physician as directed. While in the hospital you will receive physical therapy from [facility] physical therapists who work in the hospital and they will start seeing you the morning after surgery. Therapy from your orthopedic doctor s office will begin seeing you once you are discharged from the hospital- they are not contracted to provide your treatment while you are in the hospital. You may have spoken with a materials planner/production planner at your orthopedic doctor s office, but you will still review your discharge plan with our materials planner/production planner from here at the hospital in order to make sure that you understand all of your options prior to going home or to a facility. How to Avoid an Infection after Your [...] go swimming or use a hot tub (CyActiveuzzi), or perform activities where your incision is [...] to the follow-up appointment with your doctor. [facility] 02-01-2024 Nurse Note G wipes and surgical instructions reviewed. Patient verbalized understanding. [facility] 01-26-2024 History of Presen t illness Narrative HISTORY OF PRESENT ILLNESS: Isa Neal is an 58 y.o. @ female. Chief complaint LT knee pain LT knee: here to discuss options. PREHAB completed 05/18/23 and continues HEP. Pain started in April 2023 and has worsened since July. Had LT medial meniscus repair, medial compartment arthritis 7 months ago (DOS 06/29/23) She was noting improvement from the surgery until she RTW. Pain continues to be diffuse in knee, can radiate to [place]. Has been having increased pain posterior knee. Taking nabumetone, TYL ES and flexeril prn. Using ice. Denies N/T. Intermittent swelling, usually by end of day. Denies popping/grinding. Denies giving out. Wakes pt at HS. Doing HEP. Pain is 6/10 today, goes to 10/10 by end of day. Pain is interfering with daily activities. 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 Prior treatment: Pain clinic, XR Maxi office 05/16/23, depo injx 10/04/23, relafen and TYL ES. Tried topicals without relief, tried knee brace-no relief, completed PREHAB 05/18/23 with HEP Lower Extremity Issue The symptoms are aggravated by movement, palpation and weight bearing. MEDICATION: Current Outpatient Medications on File Prior to Visit Medication Sig Dispense Refill aspirin 81 MG EC tablet 1 (one) time each day at the same time. atorvastatin (Lipitor) 80 MG tablet Take 80 mg by mouth in the morning. Bydureon BCise 2 MG/0.85ML pen Inject 2 mg under the skin once a week. calcium carbonate 1500 (600 Ca) MG tablet Take 600 mg by mouth in the morning. 600 ca and 800 international units vitamin d. cholecalciferol (Vitamin D-3) 125 MCG (5000 UT) capsule Take 5,000 Units by mouth in the morning. Choline Fenofibrate (fenofibric acid) [address] capsule Take 1 capsule by mouth in the morning. colesevelam (Welchol) 625 MG tablet Take 1,875 mg by mouth in the morning and 1,875 mg in the evening. Take with meals. Take with meal(s) and a liquid.. cyclobenzaprine (Flexeril) 5 MG tablet Take 5 mg by mouth at bedtime. 5 mg in the am and 10 mg at HS DULoxetine (Cymbalta) [address] capsule 1 capsule 1 (one) time each day at the same time. ferrous sulfate 325 (65 Fe) MG tablet Take 325 mg by mouth in the morning. Take with meals. FreeStyle lancets FREESTYLE LITE test strip 1 (one) time each day at the same time glimepiride (Amaryl) 2 MG tablet TAKE 1 TABLET BY MOUTH EVERY DAY WITH BREAKFAST OR THE FIRST MAIL MEAL OF THE DAY Jardiance 25 MG TAKE 1 TABLET BY MOUTH EVERY DAY FOR 30 DAYS levothyroxine (Synthroid, Levoxyl) 125 MCG tablet Take 125 mcg by mouth in the morning. liothyronine (Cytomel) 5 MCG tablet Take 5 mcg by mouth in the morning. 8 tabs daily. metFORMIN (Glucophage) 500 MG tablet Take 500 mg by mouth in the morning and 500 mg in the evening. Take with meals. metoprolol tartrate (Lopressor) 50 MG tablet Take 50 mg by mouth in the morning and 50 mg before bedtime. Multiple Vitamin (Multi Vitamin) tablet 1 (one) time each day at the same time. nabumetone (Relafen) 500 MG tablet Take 1,000 mg by mouth in the morning and 1,000 mg before bedtime. niacin (Niaspan) 1000 MG ER tablet niacin ER 1000 MG ER tablet Take 1,000 mg by mouth at bedtime. pantoprazole (ProtoNix) 40 MG EC tablet Take 40 mg by mouth in the morning. pioglitazone (Actos) 45 MG tablet Take 45 mg by mouth in the morning. No current facility-administered medications on file prior to visit. MEDICAL HISTORY: Past Medical History: Diagnosis Date Ankle sprain 12/19/22 Hernandez's cyst 08/2022 DDD (degenerative disc disease), lumbar lumbosacral spine Diabetes mellitus (CMS/HCC) GERD (gastroesophageal reflux disease) Hypercholesteremia (CMS/HCC) Hypertension (CMS/HCC) Hypothyroid (CMS/HCC) Lumbosacral disc disease 2019 Plantar fasciitis, bilateral Tear of meniscus of knee 08/2022 and 04/2023 Ulnar shaft fracture left ALLERGIES: Allergies Allergen Reactions Iodinated Contrast Media Iodine Unknown Shellfish Codeine Unknown and Rash VITALS: Visit Vitals Ht 5' 5 Wt 197 lb 3.2 oz BMI 32.82 kg/m Smoking Status Never BSA 2.02 m Review of Systems General: Fatigue denies. Fever denies. Night sweats denies. ENT: Decreased hearing denies. Respiratory: Cough denies. Shortness of breath denies. Cardiovascular: Chest pain denies. Cyanosis denies. Irregular heartbeat denies. Gastrointestinal: Comments denies incontinence of stool . Nausea denies. Hematology: Bleeding problems denies. Genitourinary: Comments denies dribbling. Incontinence denies. Musculoskeletal: CommentsSee [facility] for details. Skin: Rash denies. Neurologic: Dizziness denies. Headache denies. Examination General Examination: GENERAL EXAMINATION in no acute distress, well developed, well nourished . HEART: no jugular venous distention . LUNGS: regular unlabored, normal effort . NEUROLOGIC: alert and oriented . PSYCH: oriented to person, place, time and situation . PHYSICAL EXAM: Ortho Exam LT KNEE LEG EXAMINATION: neurovascularly intact distally EFFUSION: trace ALIGNMENT: Neutral PALPATION: PF crepitation present. TENDERNESS: Medial joint line tenderness SKIN: Intact, arthroscopy scars KNEE RANGE OF MOTION: 0-95 STRENGTH: 5/5 STABILITY: all ligaments appear stable . GAIT: Limping IMAGING: XR knee 3 views left Imaging Result: January 26, 2024 x-rays AP weight-bearing bilateral knees and lateral and sunrise of the left knee demonstrate medial compartment collapse bilateral knees with [id number] in the medial compartment of the left knee and subchondral sclerosis and varus alignment. The patella is centered in the femoral trochlea. Impression: Advanced osteoarthritis left knee Jay Jay Lala D.O. ASSESSMENT: ICD-10-CM 1. Left knee pain, unspecified chronicity M25.562 XR knee 3 views left 2. Primary osteoarthritis of left knee M17.12 PLAN: I advised the patient that I am resigning from my current practice in the near future and Relocating out of state the patient was given the option to be referred to another orthopedic surgeon and my practice or an orthopedic surgeon of her choosing versus continuing with surgery as planned with me with the understanding that future follow up would be with a mid-level or 1 of my colleagues. The patient chose to proceed with surgery as planned. I discussed options of surgical and non surgical treatment. Including conservative treatment, use of non-steriodal anti inflammatories and the risk associated with this, Physical therapy, home exercise, weight control and injections. I also discussed with the patient operative options and the risks/benefits of each and chances for success/ failure. Discussion included but was not limited to the risk of infection, blood clot,nerve injury, leg length discrepancy, instability, blood clot, failure to improve and need for additional surgery and . I answered all of the patients questions. I recommend a LEFT Total knee replacement. The patient was instructed to mike the operative site with the word Yes prior to arriving at the hospital and the patient verbalized an understanding. The patient wants to proceed and informed consent is obtained. Dr. Lala obtained history and examined the patient, I am acting as scribe for Dr. Lala/quan Lala D.O. documented in this encounter [facility] 12-13-2023 History of Presen t illness Narrative Images from the original note were not included. HISTORY OF PRESENT ILLNESS: Isa Neal is an 58 y.o. @ female. Chief complaint LT knee pain LT knee: follow up observation 5 months s/p LT medial meniscus repair, medial compartment arthritis (DOS 06/29/23) She was noting improvement from the surgery until she RTW. She notes pain diffuse knee that can be sharp. She has had to cut back on her hours at work due to pain. Pain is interfering with daily activities. Waking at HS. Admits ES tyl prn. Taking Relafen BID. Pain 3/10 at rest today, goes to 10/10 with increased standing and walking. 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 Denies giving out. Had depo injx 10/03 with 25-30% improvement but relief has worn off. Saw Pain clinic, knee ablation is not covered by her insurance. Prior treatment: Pain clinic, XR Maxi office 05/16/23, depo injx 10/04/23, relafen and TYL ES. Tried topicals without relief, tried knee brace-no relief Lower Extremity Issue The symptoms are aggravated by movement, palpation and weight bearing. MEDICATION: Current Outpatient Medications on File Prior to Visit Medication Sig Dispense Refill glimepiride (Amaryl) 2 MG tablet TAKE 1 TABLET BY MOUTH EVERY DAY WITH BREAKFAST OR THE FIRST MAIL MEAL OF THE DAY aspirin 81 MG EC tablet 1 (one) time each day at the same time. atorvastatin (Lipitor) 80 MG tablet Take 80 mg by mouth in the morning. Bydureon BCise 2 MG/0.85ML pen Inject 2 mg under the skin once a week. calcium carbonate 1500 (600 Ca) MG tablet Take 600 mg by mouth in the morning. 600 ca and 800 international units vitamin d. cholecalciferol (Vitamin D-3) 125 MCG (5000 UT) capsule Take 5,000 Units by mouth in the morning. Choline Fenofibrate (fenofibric acid) [address] capsule Take 1 capsule by mouth in the morning. colesevelam (Welchol) 625 MG tablet Take 1,875 mg by mouth in the morning and 1,875 mg in the evening. Take with meals. Take with meal(s) and a liquid.. cyclobenzaprine (Flexeril) 5 MG tablet Take 5 mg by mouth at bedtime. 5 mg in the am and 10 mg at HS DULoxetine (Cymbalta) [address] capsule 1 capsule 1 (one) time each day at the same time. ferrous sulfate 325 (65 Fe) MG tablet Take 325 mg by mouth in the morning. Take with meals. FreeStyle lancets FREESTYLE LITE test strip 1 (one) time each day at the same time Jardiance 25 MG TAKE 1 TABLET BY MOUTH EVERY DAY FOR 30 DAYS levothyroxine (Synthroid, Levoxyl) 125 MCG tablet Take 125 mcg by mouth in the morning. liothyronine (Cytomel) 5 MCG tablet Take 5 mcg by mouth in the morning. 8 tabs daily. metFORMIN (Glucophage) 500 MG tablet Take 500 mg by mouth in the morning and 500 mg in the evening. Take with meals. metoprolol tartrate (Lopressor) 50 MG tablet Take 50 mg by mouth in the morning and 50 mg before bedtime. Multiple Vitamin (Multi Vitamin) tablet 1 (one) time each day at the same time. nabumetone (Relafen) 500 MG tablet Take 1,000 mg by mouth in the morning and 1,000 mg before bedtime. niacin (Niaspan) 1000 MG ER tablet niacin ER 1000 MG ER tablet Take 1,000 mg by mouth at bedtime. pantoprazole (ProtoNix) 40 MG EC tablet Take 40 mg by mouth in the morning. pioglitazone (Actos) 45 MG tablet Take 45 mg by mouth in the morning. No current facility-administered medications on file prior to visit. MEDICAL HISTORY: Past Medical History: Diagnosis Date Ankle sprain 12/19/22 Hernandez's cyst 08/2022 DDD (degenerative disc disease), lumbar lumbosacral spine Diabetes mellitus (CMS/HCC) GERD (gastroesophageal reflux disease) Hypercholesteremia (CMS/HCC) Hypertension (CMS/HCC) Hypothyroid (CMS/HCC) Lumbosacral disc disease 2019 Plantar fasciitis, bilateral Tear of meniscus of knee 08/2022 and 04/2023 Ulnar shaft fracture left ALLERGIES: Allergies Allergen Reactions Iodinated Contrast Media Iodine Unknown Shellfish Codeine Unknown and Rash VITALS: Visit Vitals Ht 5' 5 Wt 185 lb BMI 30.79 kg/m Smoking Status Never BSA 1.96 m PHYSICAL EXAM: Ortho Exam LT KNEE Medial joint liner tenderness Mild PF crepitus 0-95 IMAGING: May 16, 2023 x-rays AP weight-bearing bilateral knees and lateral of the left knee demonstrate medial compartment collapse bilateral knees right knee is actually slightly more advanced in the left knee. There is subchondral sclerosis. There are no fractures detected. Impression: Osteoarthritis left knee Jay Jay Lala D.O ASSESSMENT: ICD-10-CM 1. Left knee pain, unspecified chronicity M25.562 2. Primary osteoarthritis of left knee M17.12 3. S/P medial meniscus repair of left knee Z98.890 4. Abnormal glucose R73.09 Hemoglobin A1c PLAN: I discussed treatment options including surgical and non surgical. I recommend checking her A1C. Will get 3 view x-rays at next visit. Dr. Lala obtained history and examined the patient, I am acting as scribe for Dr. Lala/, MICHELLE Lala D.O. documented in this encounter [facility] 06-15-2023 Instructions Silvia Mora RN - 06/15/2023 9:45 AM EST Preoperative Education Checklist- General Surgery date: 06/29/23 Surgery time: 0800 a.m. Arrival time: 0610 a.m. 1. Bring a photo ID and your insurance card with you the day of surgery. You will check in at the main lobby of the [facility]- registration desk is straight ahead as soon as you walk in. Tell them you are here for surgery. 2. If you have a Living Will/Durable Power of Customer Service Teller for Health Care that is not on [...] after you have bathed. 5. NO nail barbadian/acrylic on at least one finger. If you are having a hand, wrist or foot surgery then all nail barbadian and artificial/acrylic nails must be removed from [...] please call the Preadmission Testing office at [phone], Mon.-Fri. 7 a.m.-3 p.m. Leave a voicemail [...] 50 mg tablet Take morning of procedure osygbcqb-jrad-IF-calcium &mins (THERAGRAN-M) 9 mg iron-400 mcg tablet [...] with your doctor. documented in this encounter [facility] 06-15-2023 Miscellaneous Notes Preoperative Education Checklist- General Surgery date: 06/29/23 Surgery time: 0800 a.m. Arrival time: 0610 a.m. 1. Bring a photo ID and your insurance card with you the day of surgery. You will check in at the main lobby of the [facility]- registration desk is straight ahead as soon as you walk in. Tell them you are here for surgery. 2. If you have a Living Will/Durable Power of Customer Service Teller for Health Care that is not on [...] after you have bathed. 5. NO nail barbadian/acrylic on at least one finger. If you are having a hand, wrist or foot surgery then all nail barbadian and artificial/acrylic nails must be removed from [...] please call the Preadmission Testing office at [phone], Mon.-Fri. 7 a.m.-3 p.m. Leave a voicemail [...] 50 mg tablet Take morning of procedure pbgsfmsa-zixp-HQ-calcium &mins (THERAGRAN-M) 9 mg iron-400 mcg tablet [...] Patient verbalized understanding. documented in this encounter [facility] 06-15-2023 Nurse Note Preoperative Education Checklist- General Surgery date: 06/29/23 Surgery time: 0800 a.m. Arrival time: 0610 a.m. 1. Bring a photo ID and your insurance card with you the day of surgery. You will check in at the main lobby of the [facility]- registration desk is straight ahead as soon as you walk in. Tell them you are here for surgery. 2. If you have a Living Will/Durable Power of Customer Service Teller for Health Care that is not on [...] after you have bathed. 5. NO nail barbadian/acrylic on at least one finger. If you are having a hand, wrist or foot surgery then all nail barbadian and artificial/acrylic nails must be removed from [...] please call the Preadmission Testing office at [phone], Mon.-Fri. 7 a.m.-3 p.m. Leave a voicemail [...] 50 mg tablet Take morning of procedure tgczqfea-mtur-LJ-calcium &mins (THERAGRAN-M) 9 mg iron-400 mcg tablet [...] to the follow-up appointment with your doctor. [facility] [employer] [facility] 06-15-2023 Nurse Note Hibiclens and surgical instructions reviewed. Patient verbalized understanding. [facility] [facility] 05-04-2023 Note Chief Complaint consultation for colonoscopy [...] 1 tab(s), Oral (more content not included)... [facility] Comment on above: Result Comment: Elec tronically Signed By: JONNIE FIERRO, Bautista Barbosa\Date and Time Signed: 05/04/23 13:41 EST Evaluation + Plan note No data available for this section General Surgery [employer] Evaluation note Diagnosis Preop examination- Primary Unspecified pre-operative examination Hypertension, unspecified type Diabetes mellitus of other type without complication, unspecified whether shelter insulin use (CMS-HCC) Preop examination Unspecified pre-operative examination Hypertension, unspecified type Diabetes mellitus of other type without complication, unspecified whether shelter insulin use ([facility]) [facility] encounter [facility] Diagnosis Left knee pain, unspecified chronicity Primary osteoarthritis of left knee [facility] Diagnosis Post-operative pain- Primary Other acute postoperative pain [facility]* Diagnosis Primary osteoarthritis of left knee- Primary Acute postoperative pain of left knee Status post left knee replacement [facility]* Diagnosis Status post left knee replacement- Primary [facility]* Diagnosis Post-operative pain Other acute postoperative pain [facility]* Diagnosis Primary osteoarthritis of left knee- Primary Acute postoperative pain of left knee Status post left knee replacement [facility]* Diagnosis S/P total knee arthroplasty, left- Primary [facility]* Diagnosis Primary osteoarthritis of left knee- Primary Acute postoperative pain of left knee Chronic pain of right knee [facility]* Diagnosis S/P total knee arthroplasty, left- Primary [facility]* Diagnosis Primary osteoarthritis of left knee- Primary Acute postoperative pain of left knee Status post left knee replacement [facility]* Diagnosis Primary osteoarthritis of left knee- Primary Acute postoperative pain of left knee [facility] Diagnosis Primary osteoarthritis of left knee- Primary Acute postoperative pain of left knee Status post left knee replacement [facility]* Diagnosis Primary osteoarthritis of left knee- Primary Acute postoperative pain of left knee Chronic pain of right knee Status post left knee replacement [facility] Diagnosis Primary osteoarthritis of left knee- Primary Acute postoperative pain of left knee documented in this encounter [facility]* Diagnosis Primary osteoarthritis of left knee- Primary Acute postoperative pain of left knee documented in this encounter [facility]* Diagnosis Primary osteoarthritis of left knee- Primary Acute postoperative pain of left knee documented in this encounter [facility]* Diagnosis Acute postoperative pain of left knee- Primary Chronic pain of right knee Status post left knee replacement documented in this encounter [facility]* Diagnosis Acute postoperative pain of left knee- Primary Chronic pain of right knee Status post left knee replacement documented in this encounter [facility]* Diagnosis Acute postoperative pain of left knee- Primary Chronic pain of right knee Status post left knee replacement documented in this encounter [facility]* Diagnosis Left knee pain, unspecified chronicity- Primary Primary osteoarthritis of left knee S/P medial meniscus repair of left knee Abnormal glucose documented in this encounter [facility]* Diagnosis S/P total knee arthroplasty, left Primary osteoarthritis of left knee documented in this encounter [facility]* Diagnosis Arthritis of right knee- Primary Chronic pain of right knee documented in this encounter [facility] HealthcareHospital Discharge instructions No data available for this section General Surgery [employer] Progress note No data available for this section General Surgery [place] Reason for visit Narrative* Rehabilitation - Outpatient (Routine) - Authorized Specialty Diagnoses / Procedures Referred By Landry grijalva Referred To Contact Physical Therapy Diagnoses Status post left knee replacement Procedures [place] OFFICE/OUTPATIENT [facility] 60 MINUTES Rosa Toscano, PAPER AND [employer]INTS RESTORER [address] [place] [address] Phone: tel: fax: Shon Wong, PT [address] [facility] [address] [place] [address] Phone: tel: fax: Referral ID Status Reason Start Date Expiration Date Visits Requested Visits Authorized [id number] Authorized Specialty Services Required 02/24/2024 08/25/2024 19 19 [facility]* Rehabilitation - Outpatient (Routine) - Authorized Specialty Diagnoses / Procedures Referred By Contac t Referred To Contact Physical Therapy Diagnoses Status post left knee replacement Procedures FL OFFICE/OUTPATIENT [facility] 60 MINUTES Rosa Toscano, ERINN [address] [place] [address] Phone: tel: fax: [facility], PT [address] [facility] [address] [place] [address] Phone: tel: fax: Referral ID Status Reason Start Date Expiration Date Visits Requested Visits Authorized [id number] Authorized Specialty Services Required 02/24/2024 08/25/2024 19 19 [facility] HealthcareReason for visit Narrative* Rehabilitation - Outpatient (Routine) - Authorized Specialty Diagnoses / Procedures Referred By Contac t Referred To Contact Physical Therapy Diagnoses Status post left knee replacement Procedures [place] OFFICE/OUTPATIENT [facility] 60 MINUTES Rosa Toscano, ERINN [address] [place] [address] Phone: tel: fax: [facility], PT [address] [facility] [address] [place] [address] Phone: tel: fax: Referral ID Status Reason Start Date Expiration Date Visits Requested Visits Authorized [id number] Authorized Specialty Services Required 02/24/2024 04/17/2024 19 19 [facility] Healthcare Summary Purpose Family History No Family History Records FoundNo Family History Records Found No data available for this section No Family History Records FoundNo Family History Records FoundNo Family History Records Found Advance Directives No Advanced Directives Records FoundLatest Code Status on File Code Status Date Activated Date Inactivated Comments Full Code 10/17/2019 3:02 PM 10/19/2019 3:49 PM Date Activated Date Inactivated Comments 10/17/2019 3:02 PM 10/19/2019 3:49 PM Reason for Referral Specialty Diagnoses / Procedures Referred By Contac t Referred To Contact Diagnoses Preop examination Hypertension, unspecified type Diabetes mellitus of other type without complication, unspecified whether shelter insulin use ([facility]) Procedures ECG 12 lead Carleen Lala DO [address] [address] Referral ID Status Reason Start Date Expiration Date V isits Requested Visits Authorized [id number] Pending Review 06/09/2023 06/08/2024 1 1 Additional Source Comments INFORMATION SOURCE (unrecogn ized section and content) DATE CREATED AUTHOR 03/06/2022 [facility] DATE CREATED AUTHOR AUTHOR'S ORGANIZ ATION 04/08/2023 [facility] DATE CREATED AUTHOR AUTHOR'S ORGANIZ ATION 06/27/2023 [facility] DATE CREATED AUTHOR AUTHOR'S ORGANIZ ATION 02/23/2024 [facility] DATE CREATED AUTHOR AUTHOR'S ORGANIZ ATION 05/04/2024 [facility] dical Specialists EPIC Patient Care team informatio n (unrecognized section and content) Final Cigar And Box Examiner Relationship Specialty Start Date End Date Matthew Baumann MD [address] [id number] PCP - General Family Medicine 10/03/19 Final Cigar And Box Examiner Relationship Specialty Start Date End Date Matthew Baumann MD [address] [place] [address] PCP - General Family Medicine 09/20/22 Final Cigar And Box Examiner Relationship Specialty Start Date End Date Matthew Baumann MD [address] [place] [address] PCP - General Family Medicine 09/20/22 Final Cigar And Box Examiner Relationship Specialty Start Date End Date Matthew Baumann MD [address] [place] [address] PCP - General Family Medicine 09/20/22 Final Cigar And Box Examiner Relationship Specialty Start Date End Date Matthew Baumann MD PCP - General Family Medicine 10/03/19 Final Cigar And Box Examiner Relationship Specialty Start Date End Date Matthew Baumann MD [address] [place] [facility] [place] [address] PCP - General Family Medicine 09/20/22 Final Cigar And Box Examiner Relationship Specialty Start Date End Date Matthew Baumann MD [address] [place] [facility] [address] PCP - General Family Medicine 09/20/22 Final Cigar And Box Examiner Relationship Specialty Start Date End Date Matthew Baumann MD [address] [place] [facility] [place] [address] PCP - General Family Medicine 09/20/22 Final Cigar And Box Examiner Relationship Specialty Start Date End Date Matthew Baumann MD [address] [place] [facility] [place] [address] PCP - General Family Medicine 09/20/22 Final Cigar And Box Examiner Relationship Specialty Start Date End Date Matthew Baumann MD [address] [place] [facility] [place] [address] PCP - General Family Medicine 09/20/22 Final Cigar And Box Examiner Relationship Specialty Start Date End Date Matthew Baumann MD [address] [place] [facility] [place] [address] PCP - General Family Medicine 09/20/22 Final Cigar And Box Examiner Relationship Specialty Start Date End Date Matthew Baumann MD [address] [place] [facility] [place] [address] PCP - General Family Medicine 09/20/22 Final Cigar And Box Examiner Relationship Specialty Start Date End Date Matthew Baumann MD [address] [place] [facility] [place] [address] PCP - General Family Medicine 09/20/22 Final Cigar And Box Examiner Relationship Specialty Start Date End Date Matthew Baumann MD [address] [facility], [facility] PCP - General Family Medicine 09/20/22 Final Cigar And Box Examiner Relationship Specialty Start Date End Date Matthew Baumann MD [address] [facility], [facility] PCP - General Family Medicine 09/20/22 Final Cigar And Box Examiner Relationship Specialty Start Date End Date Matthew Baumann MD [address] [facility], [facility] PCP - General Family Medicine 09/20/22 Final Cigar And Box Examiner Relationship Specialty Start Date End Date Matthew Baumann MD [address] [facility], [facility] PCP - General Family Medicine 09/20/22 Final Cigar And Box Examiner Relationship Specialty Start Date End Date Matthew Baumann MD [address] [facility], [facility] PCP - General Family Medicine 09/20/22 Final Cigar And Box Examiner Relationship Specialty Start Date End Date Matthew Baumann MD [address] [facility], [facility] PCP - General Family Medicine 09/20/22 Final Cigar And Box Examiner Relationship Specialty Start Date End Date Matthew Baumann MD [address] [place] [facility] [place] [address] PCP - General Family Medicine 09/20/22 Final Cigar And Box Examiner Relationship Specialty Start Date End Date Matthew Baumann MD [address] [place] [place] [address] PCP - General Family Medicine 09/20/22 Final Cigar And Box Examiner Relationship Specialty Start Date End Date Matthew Baumann MD [address] [place] [facility] [place] [address] PCP - General Family Medicine 09/20/22 Final Cigar And Box Examiner Relationship Specialty Start Date End Date Matthew Baumann MD [address] [place] [facility] [place] [address] PCP - General Family Medicine 09/20/22 Final Cigar And Box Examiner Relationship Specialty Start Date End Date Matthew Baumann MD [address] [place] [place] [address] PCP - General Family Medicine 09/20/22 Final Cigar And Box Examiner Relationship Specialty Start Date End Date Matthew Baumann MD [address] [place] [facility] [place] [address] PCP - General Family Medicine 09/20/22 Final Cigar And Box Examiner Relationship Specialty Start Date End Date Matthew Baumann MD [address] [place] [place] [address] PCP - General Family Medicine 09/20/22 Reason for Visit (unrecogniz ed section and content) Reason Comments Pain Reason Onset Date Comments work note 02/02/2024 Reason Comments Follow-up FOR RECORDS PERTAINING TO PATIENTS WHO ARE [...] BE BASED ON THE PRIMARY CLINICAL RECORDS. [facility]. provides no warranty or guarantee of the accuracy or completeness of information in this document.
[2024-05-15 11:49] LABS: Basophils Percent Auto 0.8 % (0.2-2.0); Eosinophils Absolute Auto 0.1 10^3/uL (0.0-0.7); Hematocrit 43.4 % (36.0-48.0); Hemoglobin 14.2 g/dL (12.0-16.0); Immature Granulocytes Abs Auto 0.03 10^3/uL (0.00-0.03); Immature Granulocytes Pct Auto 0.6 % (0.0-0.5); Lymphocytes Absolute Auto 1.7 10^3/uL (1.2-3.8); Lymphocytes Percent Auto 33.7 % (20.5-60.0); Mean Corpuscular HGB Conc 32.7 g/dL (29.9-35.2); Mean Corpuscular Hemoglobin 30.5 pg (26.7-34.0); Mean Corpuscular Volume 93.1 fL (81.0-99.0); Monocytes Absolute Auto 0.5 10^3/uL (0.3-0.8); Neutrophils Absolute Auto 2.7 10^3/uL (1.4-6.5); Neutrophils Percent Auto 54.9 % (43.0-75.0); Platelet Count 281 10^3/uL (150-450); Red Blood Count 4.66 10^6/uL (4.20-5.40); Red Cell Distribution Width 13.9 % (11.0-15.0)
[2024-05-15 12:38] LABS: Alanine Aminotransferase 30 U/L (14-59); Albumin Globulin Ratio 1.3; Albumin Level 4.2 g/dL (3.4-5.0); Alkaline Phosphatase 87 U/L (46-116); Anion Gap 11.2; Aspartate Amino Transferase 18 U/L (15-37); BUN Creatinine Ratio 12.5; Bilirubin Total 0.6 mg/dL (0.2-1.0); Carbon Dioxide 27.3 mmol/L (21.0-32.0); Chloride 105 mmol/L (98-107); Chol HDL Ratio 2.6; Cholesterol 135 mg/dL (<=200); Estimated GFR (African America >60 (>=60 mL/min/1.73m^2); Estimated GFR (Non-African Ame 50 (>=60 mL/min/1.73m^2); Free T3 3.29 pg/mL (2.18-3.98); Globulin 3.2 g/dL; Glucose 161 mg/dL (74-106); HDL Cholesterol 51 mg/dL (40-60); Potassium 4.5 mmol/L (3.5-5.1); Sodium 139 mmol/L (136-145); Thyroid Stimulating Hormone 0.042 uIU/mL (0.358-3.740); Total Protein 7.4 g/dL (6.4-8.2); Triglycerides 219 mg/dL (<=150); VLDL CHOLESTEROL 43.8 mg/dL
[2024-05-15 14:55] LABS: Estimated Average Glucose 120 mg/dL; Glycohemoglobin A1C 5.8 % (4.5-6.2)
== END 2024-05-15 11:21 | disposition home or self-care (01) ==
LOC: LAB 11:21
PROVIDERS: PCP Family Medicine; Visit Provider Family Medicine
DX: Z00.00 Encounter for general adult medical examination without abnormal findings (principal); E03.8 Other specified hypothyroidism
CPT/HCPCS: 36415; 80053; 80061; 83036; 83540; 84436; 84443; 84481; 85025

== ENCOUNTER 2024-06-11 12:45 | Outpatient (OUT) | payer OTHER, SELFPAY ==
--- NOTE | 2024-06-11 12:49 | MM_ITS ---
Patient Name: BLADIMIR NEAL MR#: [id number] : 1965 Exam Date: 06/11/2024 Ordering Doctor: DR Varun Baumann . RADIOLOGY REPORT PROCEDURE: MM TOMOSYNTHESIS SCREENING BI COMPARISON: MG MAMM SCREEN 3D LEILANI CAD, 11/17/2021. MG MAMM SCREEN LEILANI W CAD, 01/18/2020. MG MAMM SCREEN LEILANI W CAD, 01/02/2019. MG MAMM LEILANI SCRN W CAD DIG, 08/06/2013. INDICATIONS: Screening for malignant neoplasm Calculator Name [facility] Breast Cancer Risk Assessment Tool 5 Year Breast Cancer Risk 2.30% Lifetime Breast Cancer Risk 12.20% Personal Breast Cancer No Personal Ovarian Cancer No Treatments None Family Cancers Mother with colon cancer at age ~60. LOCATION: [facility] BREAST COMPOSITION: There are scattered areas of fibroglandular density. FINDINGS: DIAGNOSTIC CATEGORY 1--NEGATIVE. NO CHANGE FROM COMPARISON ASSESSMENT. RIGHT BREAST: No significant suspicious finding. LEFT BREAST: No significant suspicious finding. RECOMMENDATIONS: ROUTINE MAMMOGRAM AND CLINICAL EVALUATION IN 12 MONTHS. PLEASE NOTE: A NORMAL MAMMOGRAM DOES NOT EXCLUDE THE POSSIBILITY OF BREAST CANCER. A CLINICALLY SUSPICIOUS PALPABLE LUMP SHOULD BE BIOPSIED. Dictated by: Esteban Portillo DO on 06/11/2024 at 15:37 Approved by: Esteban Portillo DO on 06/11/2024 at 15:43
== END 2024-06-11 12:46 | disposition home or self-care (01) ==
LOC: MAMMO 12:45
PROVIDERS: PCP Family Medicine; Visit Provider Family Medicine
DX: Z12.31 Encounter for screening mammogram for malignant neoplasm of breast (principal); Z00.00 Encounter for general adult medical examination without abnormal findings; Z80.0 Family history of malignant neoplasm of digestive organs
CPT/HCPCS: 77063; 77067